=== PATIENT | female | born 1970 | race Caucasian/White ===

== ENCOUNTER → 2017-04-29 13:23 | Outpatient (CLI) | payer MEDICARE, SELFPAY | PROVIDERS: Visit Provider Obstetrics & Gynecology | DX: R30.0 Dysuria (principal) | CPT/HCPCS: 87086; 87088 ==

== ENCOUNTER 2018-02-03 20:12 | Emergency (ER) | payer MEDICARE, MEDICAID, SELFPAY ==
[2018-02-03 20:13] VITALS: BP 142/83; PULSE 94; RESP 16; TEMP 35.9; O2SAT 98; BMI 33.9
[2018-02-03 20:28] VITALS: BP 132/94; PULSE 80; RESP 16; O2SAT 97
--- NOTE | 2018-02-03 21:45 | ED.VISSUMM ---
- ER Visit Summary Date of Service: 02/03/18 Chief Complaint: [Left eye pain] History of Present Illness: The patient is a 47 F [presents the emergency department complaint of discomfort to her left eye that started initially yesterday. Patient initially had some mild discomfort felt like maybe she had an eyelash in her eye. Patient was unable to see anything in the eye when she or her looked. Today she and her flushed her eye and felt okay for a short time but then started having more discomfort and feels like there is a foreign body sensation underneath her upper lid. Patient denies any photophobia. She has had a lot of tearing. Patient also complaining of a swelling behind her right ear. Patient has had some cold symptoms recently.] Physical Examination: [HEENT-PERRLA, EOMI. Cranial nerves II through XII grossly intact. TMs clear. Mucous membranes moist. No adenopathy. Left eye-patient has conjunctival erythema. No exudate noted. Behind the right ear patient does have swelling which is consistent with an enlarged lymph node retroauricular over the area of the mastoid. There is no erythema or warmth. No significant tenderness over the mastoid. Cardiovascular-regular rate and rhythm without murmur or ectopy Lungs-clear to auscultation, chest wall stable without crepitus or subcu emphysema Abdomen-normoactive bowel sounds, soft, nontender, no rebound or rigidity, no peritoneal signs. Extremities-intact ?4, normal range of motion, normal pulses, atraumatic] Test Results: [None indicated] Emergency Department Course and Treatment: [Patient had tetracaine instilled into the left eye and I did stain the eye with floor seen and there were no foreign bodies noted. There is no corneal abrasions noted. Upper and lower eyelids were everted no foreign bodies noted. Patient's eye pressure in the left eye was 20] Treatment Plan: [Patient will be started on gentamicin ophthalmic drops and also will be started on Zithromax for the swollen lymph node.] Disposition: [Discharged home in stable condition]. Patient advised to follow-up with ophthalmology Dr. Maldonado within the next 1-2 days. Impression: [Conjunctivitis left eye Retroauricular lymphadenopathy] This note was generated with [employer] software. It may contain incorrect words, spelling, and punctuation that were not noted in review of the chart prior to signing ED Disposition - Plan for ED Patient: Chief Complaint: Eye Problem Referrals: Jeferson Blount MD [Primary Care Provider] -
[2018-02-03] MEDS: Tetracaine 0.5% Ophthalmic Bottle 1 DRP LEFT EYE (21:48)
--- NOTE | 2018-02-03 21:48 | ED.DCSUM_ITS ---
- ER Visit Summary Date of Service: 02/03/18 Chief Complaint: [Left eye pain] History of Present Illness: The patient is a 47 F [presents the emergency department complaint of discomfort to her left eye that started initially yesterday. Patient initially had some mild discomfort felt like maybe she had an eyelash in her eye. Patient was unable to see anything in the eye when she or her looked. Today she and her flushed her eye and felt okay for a short time but then started having more discomfort and feels like there is a foreign body sensation underneath her upper lid. Patient denies any photophobia. She has had a lot of tearing. Patient also complaining of a swelling behind her right ear. Patient has had some cold symptoms recently.] Physical Examination: [HEENT-PERRLA, EOMI. Cranial nerves II through XII grossly intact. TMs clear. Mucous membranes moist. No adenopathy. Left eye- patient has conjunctival erythema. No exudate noted. Behind the right ear patient does have swelling which is consistent with an enlarged lymph node retroauricular over the area of the mastoid. There is no erythema or warmth. No significant tenderness over the mastoid. Cardiovascular-regular rate and rhythm without murmur or ectopy Lungs-clear to auscultation, chest wall stable without crepitus or subcu emphysema Abdomen-normoactive bowel sounds, soft, nontender, no rebound or rigidity, no peritoneal signs. Extremities-intact ?4, normal range of motion, normal pulses, atraumatic] Test Results: [None indicated] Emergency Department Course and Treatment: [Patient had tetracaine instilled into the left eye and I did stain the eye with floor seen and there were no foreign bodies noted. There is no corneal abrasions noted. Upper and lower eyelids were everted no foreign bodies noted. Patient's eye pressure in the left eye was 20] Treatment Plan: [Patient will be started on gentamicin ophthalmic drops and also will be started on Zithromax for the swollen lymph node.] Disposition: [Discharged home in stable condition]. Patient advised to follow- up with ophthalmology Dr. Maldonado within the next 1-2 days. Impression: [Conjunctivitis left eye Retroauricular lymphadenopathy] This note was generated with [employer] software. It may contain incorrect words, spelling, and punctuation that were not noted in review of the chart prior to signing ED Disposition - Plan for ED Patient: Chief Complaint: Eye Problem Referrals: Jeferson Blount MD [Primary Care Provider] -
--- NOTE | 2018-02-03 21:48 | ED.DEP ---
ED Disposition - Plan for ED Patient: Chief Complaint: Eye Problem Instructions: ED Conjunctivitis Bacterial, ED Cervical Adenitis Abx Tx Prescriptions: Azithromycin [Zithromax] 250 mg PO DAILY #4 tab Referrals: Jeferson Blount MD [Primary Care Provider] - 3-5 Days Dane Maldonado MD [STAFF PHYSICIAN] - 1-2 Days if not improving
[2018-02-03] MEDS: Fluorescein 1 MG STRIP 1 STRIP LEFT EYE (21:58)
[2018-02-03] MEDS: Azithromycin 250 MG Tablet 500 MG PO (21:58)
[2018-02-03] MEDS: Gentamicin Sulfate 1 OPTH.BTL 2 DRP LEFT EYE (21:58)
== END 2018-02-03 22:00 | disposition home or self-care (01) ==
LOC: ED 21:04
PROVIDERS: Emergency Provider Emergency Medicine; Family Provider Family Medicine; PCP Family Medicine
DX: H10.9 Unspecified conjunctivitis (principal); R59.0 Localized enlarged lymph nodes
CPT/HCPCS: 99282

== ENCOUNTER 2018-04-28 09:39 | Emergency (ER) | payer MEDICARE, MEDICAID, SELFPAY ==
[2018-04-28 09:42] VITALS: BP 164/121; PULSE 113; RESP 18; TEMP 36.9; O2SAT 97; BMI 34.5
--- NOTE | 2018-04-28 09:52 | EKG12_ITS ---
Test Reason : ABDOMINAL PAIN Blood Pressure : / mmHG Vent. Rate : 090 BPM Atrial Rate : 090 BPM P-R Int : 126 ms QRS Dur : 092 ms QT Int : 356 ms P-R-T Axes : 009 -27 049 degrees QTc Int : 435 ms Normal sinus rhythm Normal ECG Confirmed by MARISSA COLINDRES, JAYSON ([id number]), editor news JEVON HARRIS ([id number]) on 05/03/2018 9:45:35 AM Referred By: CHRISTOPHER Confirmed By:JAYSON ANN MD
--- NOTE | 2018-04-28 10:45 | RAD_ITS ---
STUDY: X-RAY CHEST REASON FOR EXAM: Female, 47 years old. Chest pain. Right lower quadrant pain. TECHNIQUE: PA and lateral views of the chest. COMPARISON: Comparison is made with prior study dated July 12, 2016. FINDINGS: The lungs are clear and expanded. There is no demonstrated pleural abnormality. Normal size heart. Normal mediastinum and maggie. Normal visualized pulmonary arteries. Normal visualized aortic arch and descending thoracic aorta. Normal visualized thoracic spine. Normal visualized ribs, clavicles, and shoulders. There is no demonstrated abnormality of the visualized soft tissue structures of the upper abdomen. RAD/Chest PA and Lateral IMPRESSION: Normal x-ray examination of the chest. Electronically Signed: Gómez Vásquez MD at 11:04 EST , Service support ,
[2018-04-28 10:49] LABS: Absolute Lymphocyte Count 1.58 X10^3/ul (0.83-4.51); Absolute Neutrophil Count 7.4 X10^3/uL (2.0-7.7); Basophil# 0.05 X10^3/uL; Basophil% 0.5 % (0-1); Eosinophil# 0.28 X10^3/uL; Eosinophils% 2.8 % (0-5); Hematocrit 44.1 % (37-47); Hemoglobin 14.2 g/dl (12.0-15.0); Lymphocyte # 1.58 X10^3/ul (4.0); Lymphocyte % 15.8 % (19-41); Mean Corp Hgb Conc 32.2 g/gl (32-36); Mean Corpuscular Hgb 26.1 pg (27.0-32.0); Mean Corpuscular Volume 81.1 fL (81-99); Mean Platelet Vol. 9.5 fl (6.2-12.0); Monocyte# 0.64 X10^3/uL; Monocyte% 6.4 % (0-10); Neutrophil # 7.43 X10^3/uL (2.7-7.7); Neutrophil % 74.3 % (47-70); POSITIVE COUNT NO; POSITIVE DIFFERENTIAL NO; POSITIVE MORPHOLOGY NO; Platelet Count 277 K/mm3 (150-450); RBC Distribution Width CV 14.8 % (11.6-14.6); RBC Distribution Width SD 43.4 fl (35.1-43.9); Red Blood Count 5.44 M/mm3 (4.2-5.4)
[2018-04-28 11:03] LABS: AST(SGOT) 24 U/L (15-37); Alanine Aminotransfer ALT/SGPT 36 U/L (13-56); Albumin, Serum 3.6 g/dL (3.2-5.0); Alkaline Phosphatase 212 U/L (45-117); Anion Gap 6 (5-15); BUN 12 mg/dL (7-18); BUN/Creat Ratio 14.2 RATIO (10-20); Bilirubin, Direct 0.08 mg/dL (0.00-0.30); Chloride 107 mmol/L (98-107); Creatinine, Serum 0.85 mg/dL (0.55-1.02); EST Glomerular Filtration Rate 77 mL/min (>60); Est Glom Filt Rate - Afr Amer 93 mL/min (>60); Estimated Creatinine Clearance 68.41 ml/min; Globulin 5.3 g/dL (2.2-4.2); Glucose 74 mg/dL (74-106); Lipase 273 U/L (73-393); Potassium 4.1 mmol/L (3.5-5.1); Protein, Total 8.9 g/dL (6.4-8.2); Sodium Level 138 mmol/L (136-145)
--- NOTE | 2018-04-28 11:07 | ED.DCSUM_ITS ---
- ER Visit Summary Date of Service: 04/28/18 Chief Complaint: Right lower chest wall pain History of Present Illness: The patient is a 47 F presenting with right lower rib pain for the past 2 days. She states that she has been coughing for approximately a week and during a coughing spell she felt a pop in her right lower ribs. She has had pain since then with palpation. Despite her triage complaint, she denies abdominal pain to me, just right lower chest pain. She denies recent travel or mobilization. Denies lower extremity pain or swelling. No exertional component, just with palpation, twisting, or coughing. She denies history of DVT or PE. Physical Examination: Vitals are within normal limits. She is not hypoxic or tachycardic. Neck is supple. Heart tones are regular and without murmur. Lungs are clear bilaterally. Abdomen is completely soft and nontender. Sp ecifically no right upper or lower quadrant abdominal pain. She does have significant tenderness on palpation of her right lower ribs even with light palpation. There is no rash associated with it. No crepitus. No tenderness along the lower extremity venous system, palpable cords, or other evidence of DVT. Test Results: C and chemistries within normal limits. Liver panel normal except for slightly elevated alk phos. Troponin negative after several days of symptoms. D-dimer indeterminate at 0.64. The pain is somewhat pleuritic in nature so CT angiogram was ordered. It was negative for acute process. She did report right lower quadrant abdominal pain intermittently for several days when I spoke with her again so a 10/pelvis was added on. Negative for acute process. On examination, she looks quite well. No evidence of an acute surgical abdomen. Exact cause of her pain is not clear but it is easily reproducible and seems muscular skeletal in nature. I will treat her with naproxen and she will follow-up with her doctor if not improving Emergency Department Course and Treatment: Naproxen, follow-up Treatment Plan: [] Disposition: Home stable Impression: Initial encounter right lower chest wall pain, initial encounter abdominal pain uncertain etiology This note was generated with [employer] software. It may contain incorrect words, spelling, and punctuation that were not noted in review of the chart prior to signing ED Disposition - Plan for ED Patient: Instructions: ED Strain Chest Wall Prescriptions: Naproxen [Naprosyn] 500 mg PO BID #14 tablet Referrals: Jeferson Blount MD [Primary Care Provider] -
[2018-04-28 11:09] LABS: D-Dimer Quantitative (DVT/PE) 0.64 FEU/ug/m (0.27-0.49)
--- NOTE | 2018-04-28 11:10 | CT_ITS ---
STUDY: CTA CHEST REASON FOR EXAM: Female, 47 years old. Pain inferior to the right breast. RADIATION DOSAGE (If Supplied By Facility): CTDIvol = ( 15.89 ) mGy, DLP = ( 1587.29 ) mGycm TECHNIQUE: The examination was performed with the intravenous administration of 100CC ml of Isovue 300 contrast material. Post-processing of the angiographic images was performed, with multiplanar reformation and 3D reconstruction. Individualized dose optimization techniques were used for this CT. COMPARISON: Comparison is made with prior study dated July 12, 2016. FINDINGS: Normal enhancement of the main pulmonary artery and right and left pulmonary arteries. Normal enhancement of the bilateral peripheral pulmonary arteries. There is no demonstrated pulmonary embolism. Normal thoracic aorta and visualized great vessels. There is no demonstrated aortic dissection. Normal heart and pericardium. Normal mediastinum. There are bilateral hilar lymph nodes, which are normal in size and morphology. Normal visualized trachea and bronchi. The lungs are well expanded. Minimal degree of bibasilar atelectasis. Normal pleura. Normal chest wall structures. Normal osseous structures. Normal visualized upper abdomen. CT/CTA Chest W/WO Contrast IMPRESSION: Small bilateral hilar lymph nodes. These have decreased in size as compared to prior study. Electronically Signed: Gómez Vásquez MD at 12:40 EST , Service support ,
--- NOTE | 2018-04-28 11:10 | CT_ITS ---
STUDY: CT ABDOMEN AND PELVIS WITH CONTRAST REASON FOR EXAM: Female, 47 years old. Pain inferior to the right breast. RADIATION DOSAGE (If Supplied By Facility): CTDIvol = ( 15.89 ) mGy, DLP = ( 1587.29 ) mGycm TECHNIQUE: Transaxial images were obtained from the dome of the diaphragm to the symphysis pubis without oral contrast. 100CC ml of Isovue 370 contrast was administered. Sagittal and coronal images were reconstructed. Individualized dose optimization techniques were used for this CT. COMPARISON: Comparison is made with prior study dated November 27, 2015. FINDINGS: Minimal degree of bibasilar atelectasis. The visualized portions of the heart are within normal limits. There is decreased attenuation of the liver consistent with steatosis. Normal gallbladder and extrahepatic biliary system. Normal spleen. Normal pancreas. Normal bilateral adrenal glands. Normal right kidney. Normal left kidney. Normal visualized stomach. Normal small intestine. There are scattered colonic diverticula consistent with diverticulosis. The appendix is visualized and appears normal. Normal abdominal aorta. Normal inferior vena cava. Normal retroperitoneum. Normal urinary bladder. There is absence of the uterus consistent with a prior hysterectomy. Normal abdominal wall. Normal osseous structures. CT/Abdomen/Pelvis WITH Contrast IMPRESSION: Diffuse fatty infiltration of the liver. Mild degree of basilar atelectasis. Electronically Signed: Gómez Vásquez MD at 12:38 EST , Service support ,
--- NOTE | 2018-04-28 11:10 | ED.RN ---
LAB CALLED WITH CRITICAL RESULTS. D DIMER 0.64. DR. HURST MADE AWARE NO NEW ORDERS AT THIS TIME
[2018-04-28 13:31] VITALS: BP 148/82; PULSE 87; RESP 16; O2SAT 99
== END 2018-04-28 13:32 | disposition home or self-care (01) ==
LOC: ED 10:22
PROVIDERS: Emergency Provider Emergency Medicine; Family Provider Family Medicine; PCP Family Medicine
DX: R07.89 Other chest pain (principal); R10.31 Right lower quadrant pain; E78.00 Pure hypercholesterolemia, unspecified; Z72.0 Tobacco use; Z79.899 Other long term (current) drug therapy
CPT/HCPCS: 71046; 71275; 74177; 80048; 80076; 83690; 84484; 85025; 85379; 93005; 99283; Q9967; A4216

== ENCOUNTER 2018-07-05 10:03 | Emergency (ER) | payer MEDICARE, MEDICAID, SELFPAY ==
--- NOTE | 2018-07-05 09:58 | EKG12_ITS ---
Test Reason : CP Blood Pressure : / mmHG Vent. Rate : 073 BPM Atrial Rate : 073 BPM P-R Int : 116 ms QRS Dur : 100 ms QT Int : 374 ms P-R-T Axes : -24 -35 039 degrees QTc Int : 412 ms Normal sinus rhythm Left axis deviation Abnormal ECG Confirmed by CROW COLNIDRES, DUGLAS ([id number]), science editor JEVON HARRIS ([id number]) on 07/07/2018 9:36:45 AM Referred By: SESAR
[2018-07-05 10:04] VITALS: BP 150/72; PULSE 77; RESP 19; TEMP 36.8; O2SAT 99; BMI 34.5
--- NOTE | 2018-07-05 10:15 | RAD_ITS ---
STUDY: X-RAY CHEST REASON FOR EXAM: Female, 47 years old. 2 hour history of left-sided chest pain. Radiation to the left arm and neck. TECHNIQUE: PA and lateral views of the chest. COMPARISON: Comparison is made with prior study dated April 28, 2017. FINDINGS: EKG electrodes are seen. The lungs are clear and expanded. There is no demonstrated pleural abnormality. Normal size heart. Normal mediastinum and maggie. Normal visualized pulmonary arteries. Normal visualized aortic arch and descending thoracic aorta. Normal visualized thoracic spine. Normal visualized ribs, clavicles, and shoulders. There is no demonstrated abnormality of the visualized soft tissue structures of the upper abdomen. RAD/Chest PA and Lateral IMPRESSION: Normal x-ray examination of the chest. Electronically Signed: Gómez Vásquez, at 10:55 EDT , Service support ,
--- NOTE | 2018-07-05 10:26 | ED.VISSUMM ---
- ER Visit Summary Date of Service: 07/05/18 Chief Complaint: Chest pain History of Present Illness: The patient is a 47 F who states that about 2-3 hours before arriving in the emergency department she was watching TV when she developed a pain on the left side of her chest. It eventually started moving up towards her neck and left arm. Her asked that she would come to the emergency room for evaluation. Describes it as a throbbing sensation that is worse with movement cough and touch. She has a history of fibromyalgia and migraines and high cholesterol but is not currently taking any cholesterol medication. She has had a total hysterectomy and is supposed to be taking estrogen but is not. She is a smoker. Physical Examination: Afebrile vital signs are stable Gen: Well-nourished well-developed Head: Normocephalic atraumatic Eyes: Perrl EOMI ENT: TMs clear no rhinorrhea moist mucous membranes Neck: Supple no lymphadenopathy no JVD nontender CVS: Regular rate rhythm no murmurs normal S1-S2 Respiratory: No distress clear to auscultation bilaterally left chest is tender to palpation just above the breast in a very discrete area about the size of a half dollar. Abdomen: Soft nontender nondistended normal bowel sounds no masses Back: Nontender Extremity: Nontender no edema Skin: Normal color no rash Neuro: alert orientated ?3 CN II-XII intact normal strength sensation reflexes gait cerebellar Psych: Normal affect normal mood Test Results: EKG showed a normal sinus rhythm at a rate of 73. Troponin negative. Chest x-ray negative. D-dimer 0.6. CTA of the chest is negative for PE and dissection. Emergency Department Course and Treatment: Patient received Toradol for pain. Her pain is reproducible and very localized. Her MEGHANA score is 0. I believe this to be chest wall related. Patient instructed on anti-inflammatories rest. Follow-up with primary care Impression: 1. Chest wall pain This note was generated with [employer] dictation software. It may contain incorrect words, spelling, and punctuation that were not noted in review of the chart prior to signing ED Disposition - Plan for ED Patient: Disposition: Home or Assisted Living Instructions: ED Chest Pain Costochondritis Referrals: Jeferson Blount MD [Primary Care Provider] - 1 Week if not improving
[2018-07-05 10:32] LABS: Absolute Lymphocyte Count 1.22 X10^3/ul (0.83-4.51); Absolute Neutrophil Count 7.9 X10^3/uL (2.0-7.7); Basophil# 0.04 X10^3/uL; Basophil% 0.4 % (0-1); Eosinophil# 0.21 X10^3/uL; Eosinophils% 2.1 % (0-5); Hematocrit 42.6 % (37-47); Hemoglobin 13.7 g/dl (12.0-15.0); Lymphocyte # 1.22 X10^3/ul (4.0); Lymphocyte % 12.3 % (19-41); Mean Corp Hgb Conc 32.2 g/gl (32-36); Mean Corpuscular Hgb 26.1 pg (27.0-32.0); Mean Corpuscular Volume 81.1 fL (81-99); Mean Platelet Vol. 9.3 fl (6.2-12.0); Monocyte# 0.54 X10^3/uL; Monocyte% 5.4 % (0-10); Neutrophil % 79.8 % (47-70); Platelet Count 250 K/mm3 (150-450); RBC Distribution Width SD 44.1 fl (35.1-43.9); Red Blood Count 5.25 M/mm3 (4.2-5.4); White Blood Count 9.9 K/mm3 (4.4-11.0)
[2018-07-05 10:33] LABS: POSITIVE COUNT NO; POSITIVE DIFFERENTIAL NO; POSITIVE MORPHOLOGY NO
[2018-07-05 10:46] LABS: Anion Gap 5 (5-15); BUN 11 mg/dL (7-18); BUN/Creat Ratio 12.1 RATIO (10-20); Calcium,Total 9.1 mg/dL (8.5-10.1); Chloride 105 mmol/L (98-107); Creatinine, Serum 0.91 mg/dL (0.55-1.02); EST Glomerular Filtration Rate 71 mL/min (>60); Est Glom Filt Rate - Afr Amer 85 mL/min (>60); Glucose 99 mg/dL (74-106); Potassium 3.9 mmol/L (3.5-5.1); Sodium Level 137 mmol/L (136-145)
--- NOTE | 2018-07-05 10:55 | ED.RN ---
LAB CALL WITH CRITICAL RESULT D DIMER LEVEL OF 0.6. VERBALLY REPORTED TO DR. GUSTAVO RN.
--- NOTE | 2018-07-05 10:57 | CT_ITS ---
STUDY: CTA CHEST REASON FOR EXAM: Female, 47 years old. Left-sided chest pain. Shortness of breath and nausea. RADIATION DOSAGE (If Supplied By Facility): CTDIvol = ( 11.12 ) mGy, DLP = ( 463.09 ) mGycm TECHNIQUE: The examination was performed with the intravenous administration of 100mL IV Isovue 370. Post-processing of the angiographic images was performed, with multiplanar reformation and 3D reconstruction. Individualized dose optimization techniques were used for this CT. COMPARISON: Comparison is made with prior study dated April 28, 2018. FINDINGS: Normal enhancement of the main pulmonary artery and right and left pulmonary arteries. Normal enhancement of the bilateral peripheral pulmonary arteries. There is no demonstrated pulmonary embolism. Normal thoracic aorta and visualized great vessels. There is no demonstrated aortic dissection. Normal heart and pericardium. Normal mediastinum. Normal hilar regions. Normal visualized trachea and bronchi. The lungs are well expanded. Normal pulmonary parenchyma. Normal pleura. Normal chest wall structures. Normal osseous structures. Fatty infiltration of the liver. CT/CTA Chest W/WO Contrast IMPRESSION: Normal CTA chest examination, without a demonstrated pulmonary embolism or arterial dissection. Electronically Signed: Gómez Vásquez, at 12:07 EDT , Service support ,
[2018-07-05 11:43] VITALS: BP 149/83; PULSE 76; RESP 18; O2SAT 96
[2018-07-05] MEDS: Ondansetron 4 MG/2 ML Vial IV (11:45)
[2018-07-05 12:27] VITALS: BP 131/85; PULSE 74; RESP 14
== END 2018-07-05 12:28 | disposition home or self-care (01) ==
PROVIDERS: Emergency Provider Emergency Medicine; Family Provider Family Medicine; PCP Family Medicine
DX: R07.89 Other chest pain (principal); E78.00 Pure hypercholesterolemia, unspecified; M79.7 Fibromyalgia; Z72.0 Tobacco use; Z90.710 Acquired absence of both cervix and uterus
CPT/HCPCS: 71046; 71275; 80048; 84484; 85025; 85379; 93005; 96374; 99284; Q9967; A4216; J2405

== ENCOUNTER 2019-01-26 05:04 | Emergency (ER) | payer MEDICARE, MEDICAID, SELFPAY ==
[2019-01-26 05:06] VITALS: BP 158/76; PULSE 85; RESP 18; TEMP 36.5; O2SAT 99; BMI 37.4
--- NOTE | 2019-01-26 05:20 | ED.VIS.GEN ---
History of Present Illness Chief Complaint: Numb/Ting Informant: Patient Onset: Days Context: Gradual Onset Timing: Intermittent Current Severity: Severe Maximum Severity: Severe Narrative: Patient is a 48-year-old female with past medical history of Chronic back pain, fibromyalgia, anxiety/depression and hyperlipidemia presenting with pain in her bilateral hands as well as feet. Patient states she had some pain and swelling in her hands over the past 2 days. She describes as a pins and needle sensation. She states she woke up around 3 AM and noticed that the pain was much worse. She does not think the pain woke her up from sleep. She states making a fist seems to make the pain much worse. She does have a history of carpal tunnel release on the left side by Dr. Weinstein. Patient also notes that she has had some urinary symptoms for the past week. She states that often she will feel that she needs to urinate but she has a lot of hesitancy and other times when she tries to go pee a large amount of urine comes out without any effort. She denies any associated dysuria or hematuria. Patient has some lower back pain. She denies any fever or chills. She denies any shortness of breath or chest pain. She denies any GI symptoms. Past Medical History - Allergies and Home Meds Allergies/Adverse Reactions: Allergies adhesive Allergy (Verified 01/26/19 05:16) Rash fluoxetine HCl [From Prozac] Allergy (Verified 01/26/19 05:16) Anaphylaxis THROAT SWELLING ketorolac tromethamine [From Toradol] Allergy (Verified 01/26/19 05:16) Rash tramadol Allergy (Verified 01/26/19 05:16) Unknown prednisone Adverse Reaction (Verified 01/26/19 05:16) Other sulfamethoxazole [From Bactrim] Adverse Reaction (Verified 01/26/19 05:16) Vomiting trimethoprim [From Bactrim] Adverse Reaction (Verified 01/26/19 05:16) Vomiting CAPSULES Adverse Reaction (Uncoded 01/26/19 05:16) Unknown burning, feels stuck Primary Care Physician: Emmanuelle Guajardo PA [Primary Care Provider] - Past Medical History: - - Chronic back pain, fibromyalgia, anxiety/depression and hyperlipidemia Surgical History: hysterectomy, - - Left knee arthroscopy, shoulder surgery, tonsillectomy and adenoidectomy, colonoscopy, ovarian cyst surgery Smoking Status: Current every day smoker Alcohol: Rare Drugs: None - Family History Maternal Family History: Reports: - - Mother from heart failure. Paternal Family History: Reports: - - Father from pneumonia. Review of Systems All systems negative except as indicated Genitourinary: Reports: - - Hesitancy Musculoskeletal: Reports: Back pain, Swelling - Bilateral hands, Extremity Pain - Bilateral hand and feet pain Physical Exam Vital Signs/Narrative: Vital Signs Temp Pulse Resp BP Pulse Ox 01/26/19 05:06 97.7 F L 85 18 158/76 H 99 Inital Vital Signs reviewed: Yes General: Well nourished, Well developed, No Acute Distress Head: Normocephalic, Atraumatic Eyes: Perrl, EOMI ENT: No rhinorrhea, Dry mucous membranes Neck: Supple, Nontender Cardiovascular: Regular rate, Regular rhythm, No murmurs Respiratory: No distress, CTA bilaterally, Chest nontender Abdomen: Soft, Nontender, Nondistended, Normal bowel sounds Back: Normal Inspection, - - Left paraspinal lumbar tenderness to palpation. Negative for: CVA tenderness, Spinal tenderness Extremities: No edema, - - Tenderness to even light palpation of the bilateral hands, patient jerks and pulls her hands away with even the lightest of touch. Does not seem to be affected by dermatomal. Sensation and strength intact in all dermatomes. No pain with palpation of the carpal tunnel. Mild diffuse tenderness palpation of the bilateral feet Skin: No rash, Pallor Neurological: Alert, Oriented x3, Cranial nerves II-XII grossly intact, Normal Strength, Normal Sensation. Negative for: Parasthesia Psychological: Normal affect, Normal Mood Diagnostic/Tx/Re-eval Laboratory Data 01/26/19 01/26/19 01/26/19 05:25 05:25 06:10 WBC 8.7 RBC 5.03 Hgb 12.6 Hct 40.7 MCV 80.9 L MCH 25.0 L MCHC 31.0 L RDW Std Deviation 46.8 H RDW Coeff of Dottie 15.9 H Plt Count 213 MPV 9.0 Immature Gran % (Auto) 0.700 Neut % (Auto) 68.9 Lymph % (Auto) 19.6 Howard % (Auto) 5.1 Eos % (Auto) 4.9 Baso % (Auto) 0.8 Absolute Neuts (auto) 6.0 Absolute Lymphs (auto) 1.70 Nucleated RBC % 0 Sodium 143 Potassium 3.7 Chloride 108 H Carbon Dioxide 29.0 Anion Gap 6 BUN 8 Creatinine 0.93 Estim Creat Clear Calc 61.86 Est GFR (MDRD) Af Amer 83 Est GFR (MDRD) Non-Af 68 BUN/Creatinine Ratio 8.6 L Glucose 102 Calcium 8.3 L Total Bilirubin 0.20 AST 26 ALT 36 Alkaline Phosphatase 211 H Total Protein 7.4 Albumin 3.1 L Globulin 4.3 H Albumin/Globulin Ratio 0.7 L Urine Color Yellow Urine Clarity Sl. Cloudy Urine pH 6.5 Ur Specific [place] 1.010 Urine Protein Negative Urine Glucose (UA) Normal Urine Ketones Negative Urine Occult Blood Negative Urine Nitrite Negative Urine Bilirubin Negative Urine Urobilinogen Normal Ur Leukocyte Esterase Negative Urine RBC 0 SEEN Urine WBC 0 SEEN Ur Squamous Epith Cells 0-5 SEEN Urine Bacteria RARE Urine Mucus 0 SEEN - Medical Decision Making She is presenting with worsening pain in her hands as well as [id number] sensation. She feels that there is been swelling. She appears nontoxic and in no acute distress. She is quite tender to even light palpation. She has normal neurologic exam. She does not have any appreciable edema on exam. Patient does admit to a history of neuropathy and is on gabapentin 300 mg 3 times a day for this. I suspect this is an exacerbation of her neuropathy. She does not have any findings concerning for an acute infection. Urinalysis is negative and I do not know what to think of her urinary symptoms but I do not think it requires further emergent evaluation. Patient is counseled to follow-up with her primary care doctor. ED Disposition - Plan for ED Patient: Disposition: Home or Assisted Living Diagnosis: Neuropathy, Hand pain Instructions: NEUROPATHY, Peripheral Referrals: Emmanuelle Guajardo PA [Primary Care Provider] - Additional Instructions: He did not have any significant electrolyte abnormalities or signs of infection today. Please follow-up with your primary care doctor for further evaluation. I suspect this is a worsening of your peripheral neuropathy that is causing your pain tonight.
[2019-01-26] MEDS: 0.9% Normal Saline 1,000 ML 1000 ML IV (05:26)
[2019-01-26 05:31] LABS: Basophil# 0.07 X10^3/uL; Basophil% 0.8 % (0-1); Eosinophil# 0.43 X10^3/uL; Eosinophils% 4.9 % (0-5); Hematocrit 40.7 % (37-47); Hemoglobin 12.6 g/dL (12.0-15.0); Lymphocyte % 19.6 % (19-41); Mean Corpuscular Volume 80.9 fL (81-99); Monocyte# 0.44 X10^3/uL; Monocyte% 5.1 % (0-10); NRBC Flagged by Analyzer 0 % (0-5); Neutrophil # 5.99 X10^3/uL (2.7-7.7); Neutrophil % 68.9 % (47-70); Platelet Count 213 K/mm3 (150-450); RBC Distribution Width CV 15.9 % (11.6-14.6); RBC Distribution Width SD 46.8 fl (35.1-43.9); Red Blood Count 5.03 M/mm3 (4.2-5.4); White Blood Count 8.7 K/mm3 (4.4-11.0)
[2019-01-26 05:47] LABS: ALB/GLOB Ratio 0.7 RATIO (0.9-2.4); AST(SGOT) 26 U/L (15-37); Alanine Aminotransfer ALT/SGPT 36 U/L (13-56); Albumin, Serum 3.1 g/dL (3.2-5.0); Alkaline Phosphatase 211 U/L (45-117); Anion Gap 6 (5-15); BUN 8 mg/dL (7-18); BUN/Creat Ratio 8.6 RATIO (10-20); Calcium,Total 8.3 mg/dL (8.5-10.1); Chloride 108 mmol/L (98-107); Creatinine, Serum 0.93 mg/dL (0.55-1.02); EST Glomerular Filtration Rate 68 mL/min (>60); Est Glom Filt Rate - Afr Amer 83 mL/min (>60); Estimated Creatinine Clearance 61.86 ml/min; Globulin 4.3 g/dL (2.2-4.2); Glucose 102 mg/dL (74-106); Potassium 3.7 mmol/L (3.5-5.1); Protein, Total 7.4 g/dL (6.4-8.2); Sodium Level 143 mmol/L (136-145)
[2019-01-26 06:24] LABS: Mucous, Urine 0 SEEN /hpf (<or=2+); Red Blood Cells-Urine 0 SEEN /hpf (0-5); White Blood Cells 0 SEEN /hpf (0-5)
[2019-01-26 06:34] LABS: Color, Urine Yellow (Yellow); Glucose, Dipstick Normal (Normal); Ketone-Dipstick Negative (Negative); Leukocyte Esterase-Dipstick Negative /ul (Negative); Nitrite-Dipstick Negative (Negative); Occult Blood-Urine Negative /ul (Negative); Protein-Dipstick Negative (Negative); Urine Bilirubin Dipstick Negative (Negative); Urine Clarity Sl. Cloudy (Clear); Urine Urobilinogen Normal (Normal); Urine pH 6.5 (5.0 - 8.0)
[2019-01-26 06:36] LABS: Bacteria RARE /hpf (None Seen); Squamous Epithelial Cells - UA 0-5 SEEN /hpf (5-10)
[2019-01-26 07:41] VITALS: BP 157/95; PULSE 72; RESP 18; O2SAT 99
== END 2019-01-26 07:42 | disposition home or self-care (01) ==
PROVIDERS: Emergency Provider Emergency Medicine; Family Provider Physician Assistant; PCP Physician Assistant
DX: G62.9 Polyneuropathy, unspecified (principal); R39.11 Hesitancy of micturition; M54.5 Low back pain; G89.29 Other chronic pain; M79.7 Fibromyalgia; E78.5 Hyperlipidemia, unspecified; Z79.899 Other long term (current) drug therapy; F17.200 Nicotine dependence, unspecified, uncomplicated
CPT/HCPCS: 80053; 81001; 85025; 96360; 96361; 99283; J7030; A4216

== ENCOUNTER 2019-01-30 08:53 | Emergency (ER) | payer MEDICARE, MEDICAID, SELFPAY ==
[2019-01-30 08:54] VITALS: BP 166/97; PULSE 105; RESP 17; TEMP 36.4; O2SAT 99; BMI 33.5
--- NOTE | 2019-01-30 09:10 | CT_ITS ---
STUDY: CT ABDOMEN AND PELVIS WITHOUT CONTRAST REASON FOR EXAM: Female, 48 years old. Left flank pain RADIATION DOSAGE (If Supplied By Facility): CTDIvol = ( 21.59 ) mGy, DLP = ( 1105.80 ) mGycm TECHNIQUE: Transaxial images were obtained from the dome of the diaphragm to the symphysis pubis without oral contrast, and without intravenous contrast. Sagittal and coronal images were reconstructed. Individualized dose optimization techniques were used for this CT. COMPARISON: July 05, 2018 CT scan chest Limited comparison. FINDINGS: The visualized lung bases are unremarkable. The visualized portions of the heart are within normal limits. There is decreased attenuation of the liver consistent with steatosis. Normal gallbladder and extrahepatic biliary system. There is mild splenomegaly. Normal pancreas. Normal bilateral adrenal glands. Normal right kidney. Normal left kidney. There is a small hiatal hernia. Normal small intestine. Is abundant stool in the colon from the cecum to the rectum. The appendix is visualized and appears normal. Normal abdominal aorta. Normal inferior vena cava. There a few nonspecific retroperitoneal lymph nodes. Normal urinary bladder. There is absence of the uterus consistent with a prior hysterectomy. There is a small umbilical hernia containing fat. Normal osseous structures. CT/Abdomen/Pelvis without Cont IMPRESSION: No evidence of renal or ureteral bladder calculi. Constipation. Hepatic steatosis. No evidence Electronically Signed: Rere Mahoney MD at 10:18 EST Tel , Service support ,
[2019-01-30 09:22] LABS: Bacteria 0 SEEN /hpf (None Seen); Mucous, Urine 0 SEEN /hpf (<or=2+); Red Blood Cells-Urine 0 SEEN /hpf (0-5); White Blood Cells 0 SEEN /hpf (0-5)
[2019-01-30] MEDS: 0.9% Normal Saline 1,000 ML 1000 ML IV (09:26)
[2019-01-30 09:35] LABS: BUN 9 mg/dL (7-18); Creatinine, Serum 0.92 mg/dL (0.55-1.02); Estimated Creatinine Clearance 62.53 ml/min; Glucose 94 mg/dL (74-106)
[2019-01-30 09:36] LABS: Color, Urine Yellow (Yellow); Glucose, Dipstick Normal (Normal); Ketone-Dipstick Negative (Negative); Leukocyte Esterase-Dipstick Negative /ul (Negative); Nitrite-Dipstick Negative (Negative); Occult Blood-Urine Negative /ul (Negative); Protein-Dipstick Negative (Negative); Squamous Epithelial Cells - UA 0-5 SEEN /hpf (5-10); Urine Bilirubin Dipstick Negative (Negative); Urine Clarity Clear (Clear); Urine Urobilinogen Normal (Normal); Urine pH 6.5 (5.0 - 8.0)
[2019-01-30 09:36] LABS: Anion Gap 7 (5-15); BUN/Creat Ratio 9.8 RATIO (10-20); Calcium,Total 8.9 mg/dL (8.5-10.1); Chloride 106 mmol/L (98-107); EST Glomerular Filtration Rate 70 mL/min (>60); Est Glom Filt Rate - Afr Amer 84 mL/min (>60); Potassium 4.1 mmol/L (3.5-5.1); Sodium Level 139 mmol/L (136-145)
[2019-01-30 09:39] LABS: Absolute Lymphocyte Count 1.47 X10^3/uL (0.83-4.51); Absolute Neutrophil Count 8.3 X10^3/uL (2.0-7.7); Basophil# 0.07 X10^3/uL; Basophil% 0.7 % (0-1); Eosinophils% 3.7 % (0-5); Hematocrit 42.4 % (37-47); Hemoglobin 13.2 g/dL (12.0-15.0); Lymphocyte # 1.47 X10^3/ul (4.0); Lymphocyte % 13.7 % (19-41); Mean Corp Hgb Conc 31.1 g/dL (32-36); Mean Corpuscular Hgb 25.3 pg (27.0-32.0); Mean Corpuscular Volume 81.2 fL (81-99); Mean Platelet Vol. 9.4 fl (6.2-12.0); Monocyte# 0.43 X10^3/uL; NRBC Flagged by Analyzer 0 % (0-5); Neutrophil # 8.29 X10^3/uL (2.7-7.7); Neutrophil % 77.1 % (47-70); Platelet Count 255 K/mm3 (150-450); RBC Distribution Width CV 15.9 % (11.6-14.6); RBC Distribution Width SD 46.8 fl (35.1-43.9); Red Blood Count 5.22 M/mm3 (4.2-5.4); White Blood Count 10.8 K/mm3 (4.4-11.0)
[2019-01-30 11:05] VITALS: PULSE 81; RESP 14
--- NOTE | 2019-01-30 11:30 | ED.VISSUMM ---
- ER Visit Summary Date of Service: 01/30/19 Chief Complaint: [Dysuria] History of Present Illness: The patient is a 48 F [Zentz to the emergency department complaint of dysuria and urinary incontinence at night for the last 4 days. Patient denies any fevers. She denies chills or sweats. She is had no nausea or vomiting. She does describe frequency and urgency. Patient states sometimes she will urinate small amounts and sometimes large amounts. Patient having normal bowel movements. She denies any fevers. Patient also complaining of some back pain especially in the left flank. Patient states that she used to see a urologist back in 2013 for some issues with having a hard time voiding her urine and tells me she think she may have had a narrowing of her urethra at that time. Patient denies any back injury. She denies any paresthesias in her legs. She denies any weakness in the legs. She denies any saddle anesthesia.] Physical Examination: [HEENT-PERRLA, EOMI. Cranial nerves II through XII grossly intact. TMs clear. Mucous membranes moist. No adenopathy. Cardiovascular-regular rate and rhythm without murmur or ectopy Lungs-clear to auscultation, chest wall stable without crepitus or subcu emphysema Abdomen-normoactive bowel sounds, soft, nontender, no rebound or rigidity, no peritoneal signs. Back exam-patient has no tenderness over the thoracic or lumbar spine. She does have some mild CVA tenderness on the left. Negative straight leg raise bilaterally. Deep tendon reflexes are plus 2 out of 4 bilaterally at the patella and Achilles. Patient has normal L5 extension bilaterally. Patient has normal sensation to light touch. Extremities-intact ?4, normal range of motion, normal pulses, atraumatic] Test Results: [CBC with differential was normal. Chemistries normal. Urinalysis normal. CT flank showed some constipation otherwise nothing acute.] Emergency Department Course and Treatment: [] Treatment Plan: [Patient will be referred to urology for follow-up as the etiology of her nighttime urinary incontinence is unclear.] Disposition: [Discharged home in stable condition.] Impression: [Dysuria-etiology uncertain Urinary incontinence-etiology uncertain] This note was generated with [employer] software. It may contain incorrect words, spelling, and punctuation that were not noted in review of the chart prior to signing ED Disposition - Plan for ED Patient: Referrals: Emmanuelle Guajardo PA [Primary Care Provider] -
--- NOTE | 2019-01-30 11:33 | ED.DEP ---
ED Disposition - Plan for ED Patient: Instructions: URINARY INCONTINENCE, Female (Adult) Referrals: Emmanuelle Guajardo PA [Primary Care Provider] - 3-5 Days Pattie Kramer MD [STAFF PHYSICIAN] - 3-5 Days
[2019-01-30 12:02] VITALS: BP 149/89; PULSE 81; RESP 16; O2SAT 98
== END 2019-01-30 12:06 | disposition home or self-care (01) ==
LOC: ED 09:13
PROVIDERS: Emergency Provider Emergency Medicine; Family Provider Physician Assistant; PCP Physician Assistant
DX: R30.0 Dysuria (principal); R32 Unspecified urinary incontinence; R35.0 Frequency of micturition; M54.9 Dorsalgia, unspecified; K59.00 Constipation, unspecified; K76.0 Fatty (change of) liver, not elsewhere classified; E78.00 Pure hypercholesterolemia, unspecified; Z79.899 Other long term (current) drug therapy; Z72.0 Tobacco use
CPT/HCPCS: 74176; 80048; 81001; 85025; 96360; 99283; J7030; A4216

== ENCOUNTER → 2019-03-22 08:10 | Outpatient (CLI) | payer MEDICARE, MEDICAID, SELFPAY ==
--- NOTE | 2019-03-22 08:14 | RAD_ITS ---
Procedure: Fluoroscopically guided, dedicated esophagram including frontal and lateral cine evaluations of the larynx/pharynx region. Multiple images were obtained during the course of the real-time examination. Indication reflux times many years. History of hiatal hernia. TECHNIQUE: The patient easily and readily swallowed effervescent crystals, a 12 mm barium pill in various density barium contrast. FINDINGS: Esophageal motility appears normal. There is no esophageal stricture, web or diverticulum. There is no hiatal hernia. No free reflux was observed during the course of the real-time examination. The esophageal mucosal pattern appears normal. The barium pill passed easily into the stomach. There is symmetric transit of the contrast bolus through the pharynx/larynx and hypopharyngeal regions. No intrinsic or extrinsic mass or mass effect. Unremarkable appearing mucosal pattern. No pharyngeal diverticulum. No vestibular penetration. No mateo aspiration. RAD/Esophagus Only IMPRESSION: No fluoroscopically evident pathology. Fluoroscopy time 1.10 minutes. Electronically Signed: Brandon Wong MD at 9:25 EST , Service support ,
== END ==
PROVIDERS: Family Provider Family Medicine; PCP Family Medicine; Referring Provider Otolaryngology; Visit Provider Otolaryngology
DX: K21.9 Gastro-esophageal reflux disease without esophagitis (principal); R13.10 Dysphagia, unspecified
CPT/HCPCS: 74220

== ENCOUNTER 2019-06-13 10:23 | Emergency (ER) | payer MEDICARE, MEDICAID, SELFPAY ==
[2019-06-13] VITALS (7 sets, daily range): BP systolic 129–147; BP diastolic 65–97; PULSE 90–101; RESP 16–18; TEMP 36.2; O2SAT 97–100; BMI 37.7
--- NOTE | 2019-06-13 11:02 | ED.VISSUMM ---
- ER Visit Summary Date of Service: 06/13/19 Chief Complaint: Palpitations and shortness of breath History of Present Illness: The patient is a 48 F who presents with palpitations, shortness of breath, dizziness that has been constant for the past 4 days. Patient states she feels dizzy and unbalanced. Patient states she feels like her heart is racing. Patient states her head feels foggy at times. Patient states her dizziness and heart racing is worse with any exertion. Patient admits to subjective fevers and chills. Patient admits to a sore throat. Patient also admits to a cough. Patient admits to some nausea but denies any vomiting. Patient also admits to a generalized headache. Physical Examination: Vital signs are stable. Patient is afebrile. Patient is in no acute distress. Oral mucosa is pink and moist. Neck is supple. Trachea is midline. There is no JVD noted. Heart was regular rate and rhythm. Lungs are clear and equal bilaterally. Abdomen is soft. Bowel sounds are normal. There is no tenderness. There is no rebound or guarding noted. Skin is warm dry. Cranial nerves II through XII are intact. There are no focal motor or sensory deficits noted. Extremities are intact. There is mild bilateral calf tenderness but there is no edema. Test Results: EKG showed normal sinus rhythm with a rate of 91. There are no acute ST or T wave changes. PA and lateral chest x-ray was obtained. There is no acute cardiopulmonary process. This is interpreted by the radiologist and myself. CBC showed a slight leukocytosis of 13.4. Comprehensive metabolic profile was essentially within normal limits. Rapid strep was negative. RSV was negative. Influenza was negative. Orthostatic vital signs were obtained and were normal. Emergency Department Course and Treatment: Patient was feeling better on reevaluation. Patient wants to go home. Patient was instructed to follow-up with her primary care physician in 5 to 7 days. Patient understood and was agreeable with the plan. All questions were answered. Disposition: Discharge home Impression: Palpitations This note was generated with [employer] software. It may contain incorrect words, spelling, and punctuation that were not noted in review of the chart prior to signing ED Disposition - Plan for ED Patient: Disposition: Home or Assisted Living Diagnosis: Palpitations Instructions: Palpitations Referrals: Dane Flores MD [Primary Care Provider] - 5-7 Days
--- NOTE | 2019-06-13 11:04 | EKG12_ITS ---
Test Reason : PALPS Blood Pressure : / mmHG Vent. Rate : 091 BPM Atrial Rate : 091 BPM P-R Int : 116 ms QRS Dur : 102 ms QT Int : 364 ms P-R-T Axes : -28 -27 056 degrees QTc Int : 447 ms Normal sinus rhythm Normal ECG Confirmed by MARISSA COLINDRES, JAYSON ([id number]), writer editor JEVON HARRIS ([id number]) on 06/16/2019 1:04:05 PM Referred By: PAMELA Confirmed By:JAYSON ANN MD
[2019-06-13 11:23] LABS: Absolute Lymphocyte Count 2.14 X10^3/uL (0.83-4.51); Absolute Neutrophil Count 10.1 X10^3/uL (2.0-7.7); Basophil# 0.07 X10^3/uL; Basophil% 0.5 % (0-1); Eosinophil# 0.43 X10^3/uL; Eosinophils% 3.2 % (0-5); Hematocrit 42.8 % (37-47); Hemoglobin 13.2 g/dL (12.0-15.0); Lymphocyte # 2.14 X10^3/ul (4.0); Lymphocyte % 15.9 % (19-41); Mean Corp Hgb Conc 30.8 g/dL (32-36); Mean Corpuscular Hgb 24.5 pg (27.0-32.0); Mean Corpuscular Volume 79.4 fL (81-99); Mean Platelet Vol. 9.5 fl (6.2-12.0); Monocyte# 0.59 X10^3/uL; Monocyte% 4.4 % (0-10); NRBC Flagged by Analyzer 0 % (0-5); Neutrophil # 10.09 X10^3/uL (2.7-7.7); Neutrophil % 75.3 % (47-70); Platelet Count 269 K/mm3 (150-450); RBC Distribution Width CV 15.3 % (11.6-14.6); RBC Distribution Width SD 43.8 fl (35.1-43.9); Red Blood Count 5.39 M/mm3 (4.2-5.4); White Blood Count 13.4 K/mm3 (4.4-11.0)
[2019-06-13 11:35] LABS: ALB/GLOB Ratio 0.8 RATIO (0.9-2.4); AST(SGOT) 30 U/L (15-37); Alanine Aminotransfer ALT/SGPT 49 U/L (13-56); Albumin, Serum 3.6 g/dL (3.2-5.0); Alkaline Phosphatase 215 U/L (45-117); Anion Gap 7 (5-15); BUN 14 mg/dL (7-18); BUN/Creat Ratio 14.8 RATIO (10-20); Calcium,Total 8.9 mg/dL (8.5-10.1); Chloride 103 mmol/L (98-107); Creatinine, Serum 0.95 mg/dL (0.55-1.02); EST Glomerular Filtration Rate 67 mL/min (>60); Est Glom Filt Rate - Afr Amer 81 mL/min (>60); Estimated Creatinine Clearance 60.56 ml/min; Globulin 4.7 g/dL (2.2-4.2); Glucose 86 mg/dL (74-106); Partial Thromboplast Time 26.1 Seconds (24.1-36.2); Potassium 3.9 mmol/L (3.5-5.1); Protein, Total 8.3 g/dL (6.4-8.2); Sodium Level 137 mmol/L (136-145)
--- NOTE | 2019-06-13 11:42 | RAD_ITS ---
STUDY: X-RAY CHEST REASON FOR EXAM: Female, 48 years old. PALPITATIONS, SOB AND RIGHT LEG PAIN TECHNIQUE: PA and lateral views of the chest. COMPARISON: Comparison is made with prior examination dated July 05, 2018. FINDINGS: EKG electrodes are seen. The lungs are clear and expanded. There is no demonstrated pleural abnormality. Normal size heart. Normal mediastinum and maggie. Normal visualized pulmonary arteries. Normal visualized aortic arch and descending thoracic aorta. Normal visualized thoracic spine. Normal visualized ribs, clavicles, and shoulders. There is no demonstrated abnormality of the visualized soft tissue structures of the upper abdomen. RAD/Chest PA and Lateral IMPRESSION: Normal x-ray examination of the chest. Electronically Signed: Gómez Vásquez, at 12:29 EDT , Service support ,
== END 2019-06-13 15:00 | disposition home or self-care (01) ==
PROVIDERS: Emergency Provider Emergency Medicine; PCP Family Medicine
DX: R00.2 Palpitations (principal); R06.02 Shortness of breath; R42 Dizziness and giddiness; J02.9 Acute pharyngitis, unspecified; R11.0 Nausea; R51 Headache; M54.2 Cervicalgia; Z72.0 Tobacco use; Z79.899 Other long term (current) drug therapy
CPT/HCPCS: 71046; 80053; 85025; 85610; 85730; 87804; 87807; 87880; 93005; 99285; A4216

== ENCOUNTER → 2020-02-10 10:03 | Outpatient (CLI) | payer MEDICARE, MEDICAID, SELFPAY ==
[2019-06-13 10:25] VITALS: BMI 37.7
== END ==
PROVIDERS: PCP Family Medicine; Referring Provider Family Medicine; Visit Provider Family Medicine
DX: U07.1 COVID-19 (principal)
CPT/HCPCS: 87635; C9803; U0003

== ENCOUNTER → 2020-02-28 14:20 | Outpatient (CLI) | payer MEDICARE, MEDICAID, SELFPAY ==
[2019-06-13 10:25] VITALS: BMI 37.7
--- NOTE | 2020-02-28 14:23 | CT_ITS ---
STUDY: CT MAXILLOFACIAL SINUSES REASON FOR EXAM: Female, 49 years old. Sinusitis, prior balloon sinuplasty, left maxillary injury. Corvil navigation protocol. RADIATION DOSAGE (If Supplied By Facility): CTDIvol = ( 33.45 ) mGy, DLP = ( 784.73 ) mGycm TECHNIQUE: The patient was scanned in a multi detector CT scanner. High resolution axial imaging was performed without the administration of intravenous contrast material. Sagittal and coronal images were reconstructed. Individualized dose optimization techniques were used for this CT. COMPARISON: Comparison is made with prior study dated 06/25/2015. FINDINGS: FRONTAL SINUSES: Normal aeration, without mucosal inflammatory disease. ETHMOIDAL SINUSES: Mild degree of mucosal thickening of the ethmoid sinuses slightly worse along the posterior aspect of the left ethmoid sinus. MAXILLARY SINUSES: Normal aeration, without mucosal inflammatory disease. SPHENOIDAL SINUSES: Normal aeration, without mucosal inflammatory disease. There is patency of the bilateral maxillary infundibuli with normal uncinate processes, ethmoid bullae, and hiatus semilunaris. Normal bilateral middle turbinates. Normal bilateral inferior turbinates. Normal midline nasal septum. There is patency of the bilateral nasal airways. The visualized osseous structures are normal. The visualized bilateral orbital contents are normal. CT/Sinus/Facial Bone IMPRESSION: Mild degree of mucosal thickening of the ethmoid sinuses slightly more prominent along the posterior aspect of the left ethmoid sinus. Electronically Signed: Gómez Vásquez, at 15:09 EST , Service support ,
== END ==
PROVIDERS: PCP Family Medicine; Referring Provider Otolaryngology; Visit Provider Otolaryngology
DX: J32.9 Chronic sinusitis, unspecified (principal)
CPT/HCPCS: 70486

== ENCOUNTER 2020-02-29 21:45 | Emergency (ER) | payer MEDICARE, MEDICAID, SELFPAY ==
[2019-06-13 10:25] VITALS: BMI 37.7
[2020-02-29 21:47] VITALS: BP 151/87; PULSE 89; RESP 20; TEMP 37.2; O2SAT 98; BMI 37.2
--- NOTE | 2020-02-29 22:04 | ED.RN ---
JERKING WAS MUCH LESS VIOLENT IN TRIAGE. ESPECIALLY WHILE SHE WAS ON HER PHONE.
--- NOTE | 2020-02-29 23:29 | ED.DCSUM_ITS ---
History of Present Illness Chief Complaint: General Illness Informant: Patient Onset: Days Context: Gradual Onset Narrative: Patient presents secondary to generally not feeling well. She states she tested positive for Covid on the . She had generalized body aches since that time. This evening she started having muscle spasms in her arms and legs. She states that she has a slightly worsened cough and has intermittent shortness of breath. Her temperature tonight was 99. She reports not being able to really taste anything and is not been eating or drinking well. - Past Medical History (1) Anxiety Status: Chronic (2) Chronic back pain Status: Chronic (3) Depression Status: Chronic (4) Fibromyalgia Status: Chronic (5) Hyperlipidemia Status: Chronic Past Medical History - Allergies and Home Meds Allergies/Adverse Reactions: Allergies adhesive Allergy (Verified 06/13/19 10:24) Rash fluoxetine HCl [From Prozac] Allergy (Verified 06/13/19 10:24) Anaphylaxis THROAT SWELLING ketorolac tromethamine [From Toradol] Allergy (Verified 06/13/19 10:24) Rash tramadol Allergy (Verified 06/13/19 10:24) Unknown prednisone Adverse Reaction (Verified 06/13/19 10:24) Other sulfamethoxazole [From Bactrim] Adverse Reaction (Verified 06/13/19 10:24) Vomiting trimethoprim [From Bactrim] Adverse Reaction (Verified 06/13/19 10:24) Vomiting CAPSULES Adverse Reaction (Uncoded 06/13/19 10:24) Unknown burning, feels stuck Primary Care Physician: Dane Flores MD [Primary Care Provider] - Prior records reviewed: Yes Surgical History: hysterectomy, - - Left knee arthroscopy, shoulder surgery, tonsillectomy and adenoidectomy, colonoscopy, ovarian cyst surgery Smoking Status: Current every day smoker - Family History Maternal Family History: Reports: - - Mother from heart failure. Paternal Family History: Reports: - - Father from pneumonia. Review of Systems General: Denies: Chills, Fever - T-max equals 99 ENT: Denies: Bilateral ear pain, Sore throat Cardiovascular: Denies: Chest pain Respiratory: Reports: Dyspnea, Cough. Denies: Sputum Gastrointestinal: Reports: Nausea. Denies: Abdominal pain, Vomiting, Diarrhea Musculoskeletal: Reports: Myalgias. Denies: Swelling, Extremity Pain Skin: Denies: Rash Neurological: Reports: Weakness Hematologic: Denies: Easy bruising, Easy bleeding Allergy: Denies: Uticaria Physical Exam Vital Signs/Narrative: Vital Signs Temp Pulse Resp BP Pulse Ox 02/29/20 21:47 99 F 89 20 H 151/87 H 98 Inital Vital Signs reviewed: Yes General: Well nourished, Well developed Head: Normocephalic ENT: Moist mucous membranes Neck: Supple Cardiovascular: Regular rate, Regular rhythm Respiratory: No distress, CTA bilaterally Abdomen: Soft, Nontender, Hypoactive bowel sounds Extremities: Nontender Skin: Normal color Neurological: Alert, Oriented x3 Psychological: Normal affect Diagnostic/Tx/Re-eval Chest X-Ray - ED: 1 View, Read by ED Physician, Normal, Heart, Lungs, Mediastinum Impressions Chest X-Ray 03/01/20 00:00 IMPRESSION: No acute cardiopulmonary abnormality. at 0112 Reported and signed by: Candace Cabello MD Electronically Signed: Candace Cabello MD at 1:12 EST Tel , Service support , 03/01/20 00:00 Chest 1 View (Portable) [RAD] Stat Laboratory Results 02/29/20 02/29/20 02/29/20 00:05 20:40 20:40 WBC 11.5 H RBC 5.23 Hgb 13.4 Hct 41.9 MCV 80.1 L MCH 25.6 L MCHC 32.0 RDW Std Deviation 43.1 RDW Coeff of Dottie 15.0 H Plt Count 249 MPV 10.4 Immature Gran % (Auto) 0.300 Neut % (Auto) 71.9 H Lymph % (Auto) 17.9 L [place] % (Auto) 5.7 Eos % (Auto) 3.5 Baso % (Auto) 0.7 Absolute Neuts (auto) 8.3 H Absolute Lymphs (auto) 2.06 Nucleated RBC % 0 Sodium 142 Potassium 4.0 Chloride 110 H Carbon Dioxide 25.0 Anion Gap 7 BUN 13 Creatinine 0.94 Estim Creat Clear Calc 60.54 Est GFR (MDRD) Af Amer 82 Est GFR (MDRD) Non-Af 68 BUN/Creatinine Ratio 13.9 Glucose 126 H Lactic Acid 1.3 Calcium 8.9 Total Bilirubin 0.30 Direct Bilirubin 0.09 AST 38 H ALT 52 Alkaline Phosphatase 205 H Total Protein 8.1 Albumin 3.6 Globulin 4.5 H Urine Color Urine Clarity Urine pH Ur Specific [place] Urine Protein Urine Glucose (UA) Urine Ketones Urine Occult Blood Urine Nitrite Urine Bilirubin Urine Urobilinogen Ur Leukocyte Esterase Urine RBC Urine WBC Ur Squamous Epith Cells Urine Bacteria Urine Mucus 02/29/20 23:50 WBC RBC Hgb Hct MCV MCH MCHC RDW Std Deviation RDW Coeff of Dottie Plt Count MPV Immature Gran % (Auto) Neut % (Auto) Lymph % (Auto) [place] % (Auto) Eos % (Auto) Baso % (Auto) Absolute Neuts (auto) Absolute Lymphs (auto) Nucleated RBC % Sodium Potassium Chloride Carbon Dioxide Anion Gap BUN Creatinine Estim Creat Clear Calc Est GFR (MDRD) Af Amer Est GFR (MDRD) Non-Af BUN/Creatinine Ratio Glucose Lactic Acid Calcium Total Bilirubin Direct Bilirubin AST ALT Alkaline Phosphatase Total Protein Albumin Globulin Urine Color Yellow Urine Clarity Clear Urine pH 6.5 Ur Specific [place] 1.010 Urine Protein Negative Urine Glucose (UA) Normal Urine Ketones Negative Urine Occult Blood Negative Urine Nitrite Negative Urine Bilirubin Negative Urine Urobilinogen Normal Ur Leukocyte Esterase Negative Urine RBC 0 SEEN Urine WBC 0 SEEN Ur Squamous Epith Cells 0 SEEN Urine Bacteria RARE Urine Mucus 0 SEEN - Medical Decision Making Patient was observed on bilingual instructor throughout her ED stay. Normal vital signs noted. Patient was given a dose of p.o. Valium to help with muscle spasms and 500 cc IV fluid bolus. On repeat evaluation patient is sleeping comfortably. Her O2 sat is 94% on room air. When I awaken her she does state that she feels sleepy from the medication but does feel improved as far as the muscle spasms are concerned. She does not appear to be dehydrated and her electrolytes are normal. Her chest x-ray is clear. I advised her she needs to continue supportive care at home. She is given return instructions. ED Disposition - Plan for ED Patient: Disposition: Home or Assisted Living Diagnosis: Viral syndrome Instructions: Coronavirus Disease 2019 (COVID-19): Caring for Yourself or Others Referrals: Dane Flores MD [Primary Care Provider] - 1 Week if not improving
[2020-02-29 23:40] LABS: Absolute Lymphocyte Count 2.06 X10^3/uL (0.83-4.51); Absolute Neutrophil Count 8.3 X10^3/uL (2.0-7.7); Basophil# 0.08 X10^3/uL; Basophil% 0.7 % (0-1); Eosinophils% 3.5 % (0-5); Hematocrit 41.9 % (37-47); Hemoglobin 13.4 g/dL (12.0-15.0); Lymphocyte # 2.06 X10^3/ul (4.0); Lymphocyte % 17.9 % (19-41); Mean Corpuscular Hgb 25.6 pg (27.0-32.0); Mean Corpuscular Volume 80.1 fL (81-99); Mean Platelet Vol. 10.4 fl (6.2-12.0); Monocyte# 0.65 X10^3/uL; Monocyte% 5.7 % (0-10); NRBC Flagged by Analyzer 0 % (0-5); Neutrophil # 8.26 X10^3/uL (2.7-7.7); Neutrophil % 71.9 % (47-70); Platelet Count 249 K/mm3 (150-450); RBC Distribution Width SD 43.1 fl (35.1-43.9); Red Blood Count 5.23 M/mm3 (4.2-5.4); White Blood Count 11.5 K/mm3 (4.4-11.0)
[2020-02-29 23:45] VITALS: BP 138/111; PULSE 75; RESP 15
[2020-02-29 23:52] LABS: AST(SGOT) 38 U/L (15-37); Alanine Aminotransfer ALT/SGPT 52 U/L (13-56); Albumin, Serum 3.6 g/dL (3.2-5.0); Alkaline Phosphatase 205 U/L (45-117); Anion Gap 7 (5-15); BUN 13 mg/dL (7-18); BUN/Creat Ratio 13.9 RATIO (10-20); Bilirubin, Direct 0.09 mg/dL (0.00-0.30); Calcium,Total 8.9 mg/dL (8.5-10.1); Chloride 110 mmol/L (98-107); Creatinine, Serum 0.94 mg/dL (0.55-1.02); EST Glomerular Filtration Rate 68 mL/min (>60); Est Glom Filt Rate - Afr Amer 82 mL/min (>60); Estimated Creatinine Clearance 60.54 ml/min; Globulin 4.5 g/dL (2.2-4.2); Glucose 126 mg/dL (74-106); Protein, Total 8.1 g/dL (6.4-8.2); Sodium Level 142 mmol/L (136-145)
[2020-02-29] MEDS: diazePAM 5 MG Tablet PO (23:59)
--- NOTE | 2020-03-01 | RAD_ITS ---
HISTORY: COVID + ON . MUSCLE SPASMS (BODY JERKS) STARTED TODAY. PT C/O WEAKNESS AND Tquot;EVERTHING HURTSTquot;. ADDITIONAL HISTORY: None provided. EXAMINATION/TECHNIQUE: XR Chest 1 View AP/PA Number of images including paperwork: 1 COMPARISON: 06/13/2019 FINDINGS: LUNGS AND PLEURA: No consolidation, mass or pleural effusion. CARDIAC SILHOUETTE: Unremarkable. MEDIASTINUM AND DEVYN: Unremarkable. UPPER ABDOMEN: Unremarkable. SKELETON AND SOFT TISSUES: No acute skeletal findings. OTHER DEVICES AND HARDWARE: None. RAD/Chest 1 View (Portable) IMPRESSION: No acute cardiopulmonary abnormality. at 0112 Reported and signed by: Candace Cabello MD Electronically Signed: Candace Cabello MD at 1:12 EST Tel , Service support ,
[2020-03-01 00:02] LABS: Mucous, Urine 0 SEEN /hpf (<or=2+); Red Blood Cells-Urine 0 SEEN /hpf (0-5); Squamous Epithelial Cells - UA 0 SEEN /hpf (5-10); White Blood Cells 0 SEEN /hpf (0-5)
[2020-03-01 00:03] LABS: Color, Urine Yellow (Yellow); Glucose, Dipstick Normal (Normal); Ketone-Dipstick Negative (Negative); Leukocyte Esterase-Dipstick Negative /ul (Negative); Nitrite-Dipstick Negative (Negative); Occult Blood-Urine Negative /ul (Negative); Protein-Dipstick Negative (Negative); Urine Bilirubin Dipstick Negative (Negative); Urine Clarity Clear (Clear); Urine Urobilinogen Normal (Normal); Urine pH 6.5 (5.0 - 8.0)
[2020-03-01 00:29] LABS: Bacteria RARE /hpf (None Seen)
[2020-03-01 00:45] LABS: Lactic Acid 1.3 mmol/L (0.4-1.9)
[2020-03-01 01:00] VITALS: BP 155/86; PULSE 66; RESP 15
[2020-03-01 01:55] VITALS: BP 151/89; PULSE 71; RESP 15; O2SAT 98
--- NOTE | 2020-03-01 03:06 | ED.RN ---
0200: attempt x 3 to call [employer] for taxi ride home. unsuccessful as they are closed at this time
== END 2020-03-01 05:25 | disposition home or self-care (01) ==
PROVIDERS: Emergency Provider Emergency Medicine; PCP Family Medicine
DX: B34.9 Viral infection, unspecified (principal); M62.838 Other muscle spasm; E78.5 Hyperlipidemia, unspecified; M79.7 Fibromyalgia; M54.9 Dorsalgia, unspecified; G89.29 Other chronic pain; F17.200 Nicotine dependence, unspecified, uncomplicated; Z79.899 Other long term (current) drug therapy; Z86.19 Personal history of other infectious and parasitic diseases
CPT/HCPCS: 71045; 80048; 80076; 81001; 83605; 85025; 96360; 99285; A4216

== ENCOUNTER → 2021-08-29 | Day surgery (SDC) | payer MEDICARE, MEDICAID, SELFPAY ==
[2021-08-29 09:43] VITALS: BP 134/89; PULSE 100; RESP 16; TEMP 36.1; O2SAT 98
== END | disposition home or self-care (01) ==
LOC: EN 12:58
PROVIDERS: PCP Family Medicine; Referring Provider Internal Medicine Gastroenterology; Visit Provider Internal Medicine Gastroenterology
PROC: F00ZJWZ Instrumental Swallowing and Oral Function Assessment using Swallowing Equipment (ICD-10-PCS; CPT 43235; principal; 2021-08-29 09:55)
DX: R13.10 Dysphagia, unspecified (principal)
CPT/HCPCS: 91010

== ENCOUNTER 2021-09-05 08:17 | Outpatient (CLI) | payer MEDICARE, MEDICAID, SELFPAY ==
[2021-09-05 09:03] LABS: Prothrombin Time (Protime)PT. 12.5 SECONDS (11.7-14.9)
[2021-09-05 09:06] LABS: Erythrocyte Sedimentation Rate 41 mm/hr (0-30)
[2021-09-05 09:09] LABS: Absolute Lymphocyte Count 1.85 X10^3/uL (0.83-4.51); Absolute Neutrophil Count 6.7 X10^3/uL (2.0-7.7); Basophil# 0.06 X10^3/uL; Basophil% 0.6 % (0-1); Eosinophil# 0.39 X10^3/uL; Eosinophils% 4.1 % (0-5); Hematocrit 41.1 % (37-47); Hemoglobin 13.2 g/dL (12.0-15.0); Lymphocyte # 1.85 X10^3/ul (0.83-4.51); Lymphocyte % 19.5 % (19-41); Mean Corp Hgb Conc 32.1 g/dL (32-36); Mean Corpuscular Hgb 26.2 pg (27.0-32.0); Mean Corpuscular Volume 81.7 fL (81-99); Mean Platelet Vol. 10.1 fl (6.2-12.0); Monocyte# 0.47 X10^3/uL; NRBC Flagged by Analyzer 0 % (0-5); Neutrophil # 6.68 X10^3/uL (2.7-7.7); Neutrophil % 70.4 % (47-70); Platelet Count 234 K/mm3 (150-450); Red Blood Count 5.03 M/mm3 (4.2-5.4); White Blood Count 9.5 K/mm3 (4.4-11.0)
[2021-09-05 09:14] LABS: Hemoglobin A1c 5.9 % (3.8-5.6)
[2021-09-05 09:32] LABS: ALB/GLOB Ratio 0.8 RATIO (0.9-2.4); AST(SGOT) 26 U/L (15-37); Alanine Aminotransfer ALT/SGPT 50 U/L (13-56); Albumin, Serum 3.5 g/dL (3.2-5.0); Alkaline Phosphatase 173 U/L (45-117); Anion Gap 8 (5-15); BUN 15 mg/dL (7-18); BUN/Creat Ratio 17.3 RATIO (10-20); Calcium,Total 8.9 mg/dL (8.5-10.1); Chloride 107 mmol/L (98-107); Creatinine, Serum 0.87 mg/dL (0.55-1.02); EST Glomerular Filtration Rate 74 mL/min (>60); Est Glom Filt Rate - Afr Amer 89 mL/min (>60); Ferritin 58 ng/mL (8-252); GGTP 42 U/L (5-55); Globulin 4.2 g/dL (2.2-4.2); Glucose 113 mg/dL (74-106); LDH 153 U/L (84-246); Protein, Total 7.7 g/dL (6.4-8.2); Sodium Level 138 mmol/L (136-145); Thyroid Stim Hormone (TSH) 1.52 uIU/mL (0.358-3.74)
[2021-09-05 09:47] LABS: HIV - WCH Non-Reactive (Nonreactive)
[2021-09-06 15:08] LABS: Anti-Centromere B Ab <0.2 AI (0.0-0.9); Anti-Chromatin <0.2 AI (0.0-0.9); Anti-Jo <0.2 AI (0.0-0.9); Anti-Scleroderma-70 AB <0.2 AI (0.0-0.9); RNP Ab 0.3 AI (0.0-0.9); SJOGREN'S Anti-SS-A test < 0.2 AI (0.0-0.9); SJOGREN'S Anti-SS-B test < 0.2 AI (0.0-0.9); Smith Ab <0.2 AI (0.0-0.9)
[2021-09-07 20:07] LABS: Anti-Mitochondrial AB <20.0 Units (0.0-20.0); Anti-dsDNA Ab <1 IU/mL (0-9)
[2021-09-08 12:07] LABS: Angiotensin Convert Enzyme 23 U/L (14-82); Ceruloplasmin 37.5 mg/dL (19.0-39.0); Cytoplasmic Ab (C-ANCA) <1:20 titer (Neg:<1:20); HEPATITIS B SURFACE AG Negative (Negative); Hep C Antibodies <0.1 s/co ratio (0.0-0.9); Hepatitis A IgM Antibody Negative (Negative); Hepatitis B Core AB IgM Negative (Negative)
[2021-09-08 14:38] LABS: AFP, Tumor Marker 2.6 ng/mL (0.0-6.4); Anti-Smooth Muscle ABS 8 Units (0-19); Copper, Serum or Plasma 162 ug/dL (80-158); Haptoglobin 326 mg/dL (42-296)
[2021-09-08 14:39] LABS: Perinuclear Ab (P-ANCA) <1:20 titer (Neg:<1:20)
== END 2021-09-05 23:59 | disposition home or self-care (01) ==
LOC: LAB 08:19
PROVIDERS: PCP Family Medicine; Referring Provider Nurse Practitioner Adult Health; Visit Provider Nurse Practitioner Adult Health
DX: E78.5 Hyperlipidemia, unspecified (principal); N17.9 Acute kidney failure, unspecified; R19.7 Diarrhea, unspecified; R11.0 Nausea; R13.10 Dysphagia, unspecified; K58.9 Irritable bowel syndrome, unspecified; K76.0 Fatty (change of) liver, not elsewhere classified; R74.8 Abnormal levels of other serum enzymes; R10.9 Unspecified abdominal pain
CPT/HCPCS: 36415; 80053; 80074; 82105; 82140; 82164; 82390; 82525; 82728; 82977; 83010; 83036; 83516; 83615; 84443; 85025; 85610; 85652; 86140; 86225; 86235; 86256; 86703

== ENCOUNTER → 2021-09-19 | Outpatient (CLI) | payer MEDICARE, MEDICAID, SELFPAY ==
--- NOTE | 2021-09-19 13:18 | CT_ITS ---
STUDY: CT ABDOMEN AND PELVIS WITH CONTRAST REASON FOR EXAM: Female, 50 years old. Abd pain, LLQ pain, diarrhea/cons tip -- oral and IV RADIATION DOSAGE (If Supplied By Facility): CTDIvol = ( 16.41 ) mGy, DLP = ( 1158.04 ) mGycm TECHNIQUE: Transaxial images were obtained from the dome of the diaphragm to the symphysis pubis without oral contrast. 100CC ISOVUE 300 was administered. Sagittal and coronal images were reconstructed. Individualized dose optimization techniques were used for this CT. COMPARISON: Comparison is made with prior study dated 01/30/2019. FINDINGS: The visualized lung bases are unremarkable. The visualized portions of the heart are within normal limits. There is decreased attenuation of the liver consistent with steatosis. Normal gallbladder and extrahepatic biliary system. Normal spleen. Normal pancreas. Normal bilateral adrenal glands. Normal right kidney. Normal left kidney. There is a small hiatal hernia. Normal small intestine. Moderate amount of fecal material is seen in the colon. The appendix is visualized and appears normal. Normal abdominal aorta. Normal inferior vena cava. There is borderline retroperitoneal lymphadenopathy with enlarged nodes no greater than 10mm in the short axis diameter. Normal urinary bladder. There is absence of the uterus consistent with a prior hysterectomy. Normal abdominal wall. Normal osseous structures. CT/Abdomen/Pelvis WITH Contrast IMPRESSION: Fatty infiltration of the liver. Electronically Signed: Gómez Vásquez MD at 14:36 EDT ,
== END | disposition home or self-care (01) ==
LOC: CT 13:15
PROVIDERS: PCP Family Medicine; Referring Provider Nurse Practitioner Adult Health; Visit Provider Nurse Practitioner Adult Health
DX: R10.9 Unspecified abdominal pain (principal); R11.0 Nausea; R13.10 Dysphagia, unspecified; K58.9 Irritable bowel syndrome, unspecified; K76.0 Fatty (change of) liver, not elsewhere classified; R74.8 Abnormal levels of other serum enzymes
CPT/HCPCS: 74177; Q9967

== ENCOUNTER → 2021-10-01 | Outpatient (CLI) | payer MEDICARE, MEDICAID, SELFPAY ==
--- NOTE | 2021-10-01 09:23 | US_ITS ---
STUDY: ABDOMINAL ULTRASOUND - RIGHT UPPER QUADRANT REASON FOR VISIT: Female, 50 years old fatty liver TECHNIQUE: Ultrasound evaluation of the right upper quadrant was performed with real-time and static hammer-scale imaging. TECHNICAL QUALITY: Adequate. COMPARISON: Comparison is made with prior CT scan of the abdomen and pelvis dated 09/19/2021. FINDINGS: Liver: The liver measures 17.6 cm. There is increased echogenicity consistent with fatty infiltration. The bile ducts are within normal limits. There is hepatic color flow. The direction of portal flow is hepatopetal. There is no demonstrated mass lesion. Gallbladder: Normal distended gallbladder. The gallbladder wall measures 1.7 mm. There is a negative sonographic De La Vega''s sign. There is no pericholecystic fluid. There are no gallstones. Common Bile Duct (C.B.D.): The common bile duct measures 3.9 mm. Pancreas: Normal size of the head, body and tail of the pancreas. There is normal echogenicity of the pancreas. There is no demonstrated pancreatic mass or cyst. Right Kidney: Normal size of the right kidney. The right kidney measures 11.2 cm x 5.1 cm x 3.7 cm. Normal renal cortex. The right cortex measures 1.2 cm. There is no demonstrated renal mass or cyst. There is no right hydronephrosis. US/Abdomen Limited IMPRESSION: Diffuse fatty infiltration of the liver. Electronically Signed: Gómez Vásquez MD at 10:39 EDT ,
--- NOTE | 2021-10-01 09:23 | US_ITS ---
STUDY: ABDOMINAL ULTRASOUND - ELASTOGRAPHY REASON FOR VISIT: Female, 50 years old. Fatty infiltration of the liver. TECHNIQUE: Liver stiffness measurements were obtained on a Kabam RS 85 ultrasound machine using a CA 1-7 probe following the SRU guidelines. 3 measurements were obtained using a 2-D-SWE method. The IQR/M was 21% suggesting a quality data set. TECHNICAL QUALITY: Adequate. COMPARISON: Comparison is made with prior study done earlier in the day. FINDINGS: Liver: Diffuse fatty infiltration of the liver. Median liver stiffness measured 6.4 kPa. US/Elastography Parenchyma/Organ IMPRESSION: Liver stiffness measures 6.4 kPa compatible with F2-F3 (Mild to moderate liver fibrosis) Metavir score. Electronically Signed: Gómez Vásquez MD at 10:40 EDT ,
== END | disposition home or self-care (01) ==
LOC: US 09:17
PROVIDERS: PCP Family Medicine; Referring Provider Nurse Practitioner Adult Health; Visit Provider Nurse Practitioner Adult Health
DX: R11.0 Nausea (principal); R13.10 Dysphagia, unspecified; K58.9 Irritable bowel syndrome, unspecified; K76.0 Fatty (change of) liver, not elsewhere classified; R74.8 Abnormal levels of other serum enzymes; R10.9 Unspecified abdominal pain
CPT/HCPCS: 76705; 76981

== ENCOUNTER 2021-11-26 11:13 | Day surgery (SDC) | payer MEDICARE, MEDICAID, SELFPAY ==
[2021-11-26] MEDS: Lactated Ringers 1,000 ML 15 ML IV (11:20)
--- NOTE | 2021-11-26 11:24 | PCM.HP.BLA ---
History and Physical Date of Admission: 11/26/21 PEPE BERUMEN, is a 50 F who presents to the office today for referral for elevated alkaline phosphatase, she reports it has been rising. 05/28/21 alk phos 196, AST 52, ALT 57.? She also notes many years of GI symptoms.? She reports many years of difficulty swallowing, chronic nausea, chronic lower abdominal cramping pain, chronic alternating diarrhea and constipation, hx IBS.? She states she is confused because she was told she had a hiatal hernia and IBS, but then was told she did not have either 1.? At 1 point the possibility of ulcerative colitis was mentioned.? CT in 2019 revealed fatty liver. Nausea -- doesn't wake with nausea. It occurs after eating. Always bloated after eating. Not vomiting. Takes zofran but no longer helping for nausea. In the past she was switched back and forth between zofran and phenergan.? She would like to try Zofran again. Dysphagia -- started years ago, that's why she initially presented for EGD years ago. Foods gets stuck in throat, especially chicken breasts. Getting worse. Feels like food diverts to windpipe. Right side of neck swells at night, then feels like she is choking. Can choke on her saliva. Regurgitates food. Doesn't vomit. Acid come up the esophagus. Doesn't have heartburn. No relief of any symptoms with PPIs.? Does not feel like treating GERD would be helpful.? ENT got an esophagram in 2019 which was normal. IBS -- Diagnosed with IBS, then was told she didn't have it, that confuses her since Bentyl is very effective at relieving cramps in lower abdomen.? She would like a prescription for Bentyl.? She alternates between diarrhea and constipation. The constipation is more bothersome since she finds it harder to treat. No relief with docusate sodium, miralax, enemas, suppositories, dulcolax, fiber. She gets some temporary relief with magnesium citrate. Never has normal BM. Usually stool is soft, can be orange or pale hammer. When constipated she has no BM for about 4 days.? She reports a history of C. difficile in 2014. Comorbidities include migraines, fibromyalgia, insomnia, hypertension, hyperlipidemia, cervical dysplasia treated with hysterectomy, anxiety, depression, allergies to dust mites and mold, vitamin D deficiency, former smoker, obesity.? She denies asthma or eczema.? She reports evaluation by [facility] rheumatology in 2020, told she had fibromyalgia but not rheumatoid arthritis or lupus. She is a former smoker, she reports her still smokes.? No illicit drug use.? Rare alcohol. 's 5 ROS Const Constitutional: Positive for fatigue, headache(s) and weakness ENT ENT: Positive for headache(s) and difficulty swallowing Cardio Cardiology: Positive for leg pain with exertion Gastro GI: Positive for bloating, change in bowel habits, constipation, cramping, diarrhea, heartburn, difficulty swallowing, excessive flatus and nausea/dyspepsia; No abdominal pain, belching, change in stool character, coffee ground emesis, feeling full early, incontinent of stools, Vomiting blood/hematemesis, Blood in stool, loose stools, Black,tarry stools, pain with swallowing, vomiting or other Musc Musculoskeletal: Positive for joint pain, back pain, joint swelling, muscle cramps, muscle weakness, myalgias, numbness, stiffness and leg pain with exertion Skin Skin: No yellowing of the eye or itchy eyes Neuro Neurology: Positive for weakness, headache(s), numbness and tremor(s) Psych Psychiatric: No anxiety and No depression Endo Endocrine: Positive for fatigue Aller/Imm Allergy/Immunologic: No itchy eyes Ej/Lymp Hematologic/Lymphatic: Positive for easy bleeding and easy bruising Exam Const General: cooperative, comfortable and well developed Nutritional Appearance: obese Eyes Conjunctivae: conjunctivae normal Sclera: sclerae normal Neck Neck: normal visual inspection, no lymphadenopathy, supple, no lymphadenopathy noted and nontender Neck mass: No Thyroid: thyroid normal Resp Effort & Inspection: normal respiratory effort GI Palpation: soft, no hepatosplenomegaly, no masses and tender in the epigastrum, in the LLQ, in the RLQ, in the LUQ and in the RUQ Skin General: no rashes or lesions noted Neuro Cognition: normal cognition Speech: speech normal Gait: normal gait Extrem General: no pedal edema Psych Mood: euthymic mood Affect: normal affect Quality Reporting Tobacco Screening ([facility] 138) Smoking Status: Current every day smoker Assessment and Plan Assessment and Plan (1) Elevated alkaline phosphatase level: ?Status:?Acute (2) NAFLD (nonalcoholic fatty liver disease): ?Status:?Acute (3) IBS (irritable bowel syndrome): ?Status:?Acute (4) Dysphagia: ?Status:?Acute (5) Nausea: ?Status:?Acute (6) Abdominal pain: ?Status:?Acute (7) Diarrhea: ?Status:?Acute ? ? ? Orders:?Orders: ? HIV - [facility] Today R74.8, K76.0, K58.9, R13.10, R11.0, R10.9 ? ? Comprehensive Metabolic Profil Today R74.8, K76.0, K58.9, R13.10, R11.0, R10.9 ? ? CRP Today R74.8, K76.0, K58.9, R13.10, R11.0, R10.9 ? ? Ferritin Today R74.8, K76.0, K58.9, R13.10, R11.0, R10.9 ? ? LDH Today R74.8, K76.0, K58.9, R13.10, R11.0, R10.9 ? ? Hemoglobin A1c Today R74.8, K76.0, K58.9, R13.10, R11.0, R10.9 ? ? Prothrombin Time w/INR Today R74.8, K76.0, K58.9, R13.10, R11.0, R10.9 ? ? CBC W/Diff, Automated Today R74.8, K76.0, K58.9, R13.10, R11.0, R10.9 ? ? Erythrocyte Sed Rate Today R74.8, K76.0, K58.9, R13.10, R11.0, R10.9 ? ? Anti-Mitochondrial AB Today R74.8, K76.0, K58.9, R13.10, R11.0, R10.9 ? ? MURALI Comprehensive Panel Today R74.8, K76.0, K58.9, R13.10, R11.0, R10.9 ? ? Hepatitis Panel Acute Today R74.8, K76.0, K58.9, R13.10, R11.0, R10.9 ? ? Angiotensin Convert Enzyme Today R74.8, K76.0, K58.9, R13.10, R11.0, R10.9 ? ? AFP, Tumor Marker Today R74.8, K76.0, K58.9, R13.10, R11.0, R10.9 ? ? ANCA Today R74.8, K76.0, K58.9, R13.10, R11.0, R10.9 ? ? Anti-Smooth Muscle ABS Today R74.8, K76.0, K58.9, R13.10, R11.0, R10.9 ? ? Ceruloplasmin Today R74.8, K76.0, K58.9, R13.10, R11.0, R10.9 ? ? Copper, Serum or Plasma Today R74.8, K76.0, K58.9, R13.10, R11.0, R10.9 ? ? Haptoglobin Today R74.8, K76.0, K58.9, R13.10, R11.0, R10.9 ? ? Ammonia Today R74.8, K76.0, K58.9, R13.10, R11.0, R10.9 ? ? Abdomen Limited Today R74.8, K76.0, K58.9, R13.10, R11.0, R10.9 ? ? Elastography Parenchyma/Organ Today R74.8, K76.0, K58.9, R13.10, R11.0, R10.9 ? ? Abdomen/Pelvis WITH Contrast Today R74.8, K76.0, K58.9, R13.10, R11.0, R10.9 ? ? Ova and Parasites 8623 Today K58.9, R19.7 ? ? ENTERIC PATHOGEN PANEL STOOL Today K58.9, R19.7 ? ? Stool Lactoferrin/WBC Today K58.9, R19.7 ? ? Thyroid Stim Hormone (TSH) Today R19.7 ? ? GGTP Today R19.7 ? ? Calprotectin, Stool Today R19.7 ? ? Fecal Fat, Qualitative Today R19.7 ? ? CDIFF (PCR) Today R19.7 ? ? Giardia Lamblia, Stool EIA Today R19.7 ? ? Pancreatic Elastase, Fecal Today R19.7 ?Plan - Dayanara Rogers NP, METAL MACHINE SETTER-C: 50-year-old female with elevated alkaline phosphatase, fatty liver, chronic dysphagia, chronic nausea, chronic alternating diarrhea with constipation, chronic abdominal pain and cramping.? We discussed her signs and symptoms in detail, reviewed work-up that we will initiate.? We will do biochemical work-up for the elevated alk phos, fatty liver, and the multiple GI complaints.? We will evaluate her for autoimmune conditions, inflammatory bowel disease, pancreatitis and pancreatic insufficiency, biliary disease.? Prescription for Phenergan to use instead of Zofran for her nausea.? Prescription for dicyclomine 20 mg to be used to twice daily to get the lower abdominal cramping under control.? CT abdomen and pelvis to evaluate fatty liver, pancreas, chronic nausea, chronic upper and lower abdominal pain, chronic diarrhea and constipation.? Ultrasound and liver elastography to work-up the fatty liver.? Follow-up in approximately 6 weeks to review results and determine next step.? She is scheduled for EGD and colonoscopy.? Differential diagnosis for her dysphagia includes motility disorder, eosinophilic esophagitis, esophageal stricture, Grimes's.? We will get manometry to evaluate esophageal motility.? Stool test to evaluate for inflammation, infection, pancreatic insufficiency. I have re-examined the patient. There are no clinical changes since date of exam.
[2021-11-26 11:26] VITALS: BP 142/78; PULSE 73; RESP 16; TEMP 36.6; O2SAT 98; BMI 35.6
--- NOTE | 2021-11-26 12:15 | IMM_PTH ---
PATIENT: PEPE BERUMEN LOC: [facility] U#:[id number] AGE/SX: 50/F ROOM: RE11/26/[address]: Dr. Anthony Medina DO : 1970 BED: DIS: 11/26/2021 SPEC #: [id number] RECD: 11/27/21 09:54 STATUS: DENIA REAngela #: [id number] IVY: 11/26/21 12:[address]: Anthony Medina DEPT: IMMUNOHISTOCHEMISTRY RECD BY: Giselle Valdes ENTERED: 11/27/21 09:55 SP TYPE: IMMUNO OTHR DR: Dr. Dane Flores MD Tissues: B - Stomach, NOS Procedures: H Pylori (initial) PHYSICIAN & INSTITUTION [place] [id number] SPECIMEN INFORMATION: Tissue Source: B ? Gastric body biopsy Clinical Info: Elevated alk phos level, NAFLD, IBS, dysphagia, nausea, abdominal pain Specimen Number: [id number] CPT code: 68662 METHODOLOGY: Deparaffinized sections of prefer/formalin-fixed tissue or PAP/DQ stained slides are incubated with monoclonal/polyclonal antibodies/oligonucleotide probes. Localization is made via biotin free immunoperoxidase method. Appropriate controls are performed and reacted as expected. Results on target cell population are indicated in the following table: RESULTS: ANTIBODY / CLONE RESULT Block B H Pylori (polyclonal) negative These tests were developed and their performance characteristics determined by [facility]. They may not have been cleared or approved by the U.S. Food and Drug Administration. The FDA has determined that such clearance or approval is not necessary. The above immunohistochemical/dualISH markers are ordered and reviewed by the Pathologist. INTERPRETATION: B. Gastric body, biopsy: Negative for Helicobacter pylori organisms. SJ:shana 11/28/2021
--- NOTE | 2021-11-26 12:15 | COLBX_PTH ---
PATIENT: PEPE BERUMEN LOC: [facility] U#:[id number] AGE/SX: 50/F ROOM: RE11/26/[address]: Dr. Anthony Medina DO : 1970 BED: DIS: 11/26/2021 SPEC #: [id number] RECD: 11/26/21 15:07 STATUS: DENIA MEDARDO #: [id number] IVY: 11/26/21 12:[address]: Anthony Medina DEPT: SURGICAL PATHOLOGY RECD BY: Yaya Avalos ENTERED: 11/27/21 08:29 SP TYPE: COLON BX OTHR DR: Dr. Dane Flores MD Tissues: A - Duodenum, NOS B - Gastric mucous membrane C - Esophagus, NOS D - Ileum, NOS E - COLON BIOPSY Procedures: Special Stain Group II Surgery Specimen Level IV Alcian Blue/PAS (control) HEADER OPERATION: Colonoscopy, EGD ([facility] [place]), biopsy PRE-OP DIAGNOSIS: Elevated alk phos, NAFLD, IBS, dysphagia, nausea, abdominal pain, diarrhea TISSUE SUBMITTED: A ? Duodenum biopsy, B ? Gastric body biopsy, C ? Distal esophagus biopsy, D ? Terminal ileum biopsy, E ? Random colonic biopsy MICROSCOPIC DIAGNOSIS A. Duodenum, biopsy: Fragments of duodenal mucosa, no pathologic diagnosis. B. Gastric body, biopsy: Minimal gastritis. See microscopic description and comment. C. Distal esophagus, biopsy: Fragments of gastroesophageal mucosa with moderate chronic inflammation. Rare cells with intestinal metaplasia (goblet cell metaplasia). See comment. D. Terminal ileum, biopsy: Fragments of small intestinal mucosa, no pathologic diagnosis. E. Colon, random biopsy: Fragments of colonic mucosa, no pathologic diagnosis. SJ:rg 11/28/2021 COMMENT B. The results of immunohistochemistry for Helicobacter pylori will be reported separately ([id number]). C. Alcian blue/PAS stain with matched control is used in the evaluation of the specimen. MICROSCOPIC DESCRIPTION Slides are reviewed. B. The specimen shows fragments of gastric mucosa with chronic inflammatory cell infiltrates in the lamina propria consisting of lymphocytes and plasma cells, consistent with minimal chronic gastritis. GROSS DESCRIPTION A - Received in fixative is one container labeled with the patient's name and designated duodenum biopsy. The specimen consists of multiple irregular fragments of light mendez soft tissue that in aggregate measure 1 x 0.4 x 0.1 cm. The specimen is totally submitted in one cassette. B - Received in fixative is one container labeled with the patient's name and designated gastric body biopsy. The specimen consists of two irregular fragments of light mendez soft tissue that in aggregate measure 0.6 x 0.5 x 0.1 cm. The specimen is totally submitted in one cassette. C - Received in fixative is one container labeled with the patient's name and designated distal esophagus biopsy. The specimen consists of two irregular fragments of light mendez soft tissue that in aggregate measure 0.6 x 0.5 x 0.1 cm. The specimen is totally submitted in one cassette. D - Received in fixative is one container labeled with the patient's name and designated terminal ileum biopsy. The specimen consists of multiple irregular fragments of light mendez soft tissue that in aggregate measure 1 x 0.5 x 0.1 cm. The specimen is totally submitted in one cassette. E - Received in fixative is one container labeled with the patient's name and designated random colonic biopsy. The specimen consists of multiple irregular fragments of light mendez soft tissue that in aggregate measure 1.5 x 0.5 x 0.1 cm. The specimen is totally submitted in one cassette. / SJ:rg 11/27/2021 TC:3 CPT: 34200 x5, 02185
[2021-11-26 12:55] VITALS: BP 113/70; BP 142/78; PULSE 88; RESP 16; TEMP 36.8; O2SAT 100
[2021-11-26 12:59] VITALS: BP 108/67; BP 142/78; PULSE 90; RESP 16; O2SAT 97
--- NOTE | 2021-11-26 13:00 | OP.EGD_ITS ---
Patient Name: Camelia Norwood Procedure Date: 11/26/2021 12:16 PM Date of : 1970 Age: 50 Procedure: Upper GI endoscopy Indications: Epigastric abdominal pain, Suspected esophageal reflux Providers: Anthony Medina DO Referring MD: Dane Flores MD Medicines: Monitored Anesthesia Care Patient Profile: This is a 50 year old female. Refer to note in patient chart for documentation of history and physical. Patient has symptoms of acute abdominal cramping, chronic abdominal distention and acute right upper quadrant abdominal pain. Complications: No immediate complications. Procedure: Pre-Anesthesia Assessment: - Prior to the procedure, a History and Physical was performed, and patient medications and allergies were reviewed. The risks and benefits of the procedure and the sedation options and risks were discussed with the patient. All questions were answered and informed consent was obtained. Patient identification and proposed procedure were verified by the physician in the pre-procedure area. Mental Status Examination: alert and oriented. Airway Examination: normal oropharyngeal airway and neck mobility. Respiratory Examination: clear to auscultation. CV Examination: normal. Prophylactic Antibiotics: The patient does not require prophylactic antibiotics. Prior Anticoagulants: The patient has taken no previous anticoagulant or antiplatelet agents. ASA Grade Assessment: II - A patient with mild systemic disease. After reviewing the risks and benefits, the patient was deemed in satisfactory condition to undergo the procedure. The anesthesia plan was to use monitored anesthesia care (MAC). Immediately prior to administration of medications, the patient was re-assessed for adequacy to receive sedatives. The heart rate, respiratory rate, oxygen saturations, blood pressure, adequacy of pulmonary ventilation, and response to care were monitored throughout the procedure. The physical status of the patient was re-assessed after the procedure. After obtaining informed consent, the endoscope was passed under direct vision. Throughout the procedure, the patient's blood pressure, pulse, and oxygen saturations were monitored continuously. The colonoscope was introduced through the mouth, and advanced to the second part of duodenum. The upper GI endoscopy was accomplished without difficulty. The patient tolerated the procedure well. Scope In: 12:25:44 PM Scope Out: 12:31:47 PM Total Procedure Duration Time 0 hours 6 minutes 3 seconds Findings: The Z-line was irregular and was found 36 cm from the incisors. Biopsies were taken with a cold forceps for histology. Verification of patient identification for the specimen was done. Estimated blood loss was minimal. A medium-sized hiatal hernia was present. Two non-bleeding gastric ulcers with no stigmata of bleeding were found in the gastric body. The largest lesion was 3 mm in largest dimension. Biopsies were taken with a cold forceps for histology. Verification of patient identification for the specimen was done. Estimated blood loss was minimal. Patchy mildly erythematous mucosa without active bleeding and with no stigmata of bleeding was found in the first portion of the duodenum. Biopsies were taken with a cold forceps for histology. Verification of patient identification for the specimen was done. Estimated blood loss was minimal. Impression: - Z-line irregular, 36 cm from the incisors. Biopsied. - Medium-sized hiatal hernia. - Non-bleeding gastric ulcers with no stigmata of bleeding. Biopsied. - Erythematous duodenopathy. Biopsied. Recommendation: - Discharge patient to home. - Resume previous diet. - Use sucralfate tablets 1 gram PO QID. - Continue present medications. Procedure Code(s): --- Professional --- 64372, Esophagogastroduodenoscopy, flexible, transoral; with biopsy, single or multiple CPT copyright 2017 [employer]. All rights reserved. The codes documented in this report are preliminary and upon food preparation kitchen aide review may be revised to meet current compliance requirements. Anthony Medina DO 11/26/2021 12:59:37 PM This report has been signed electronically. Number of Addenda: 0 Note Initiated On: 11/26/2021 12:16 PM
--- NOTE | 2021-11-26 13:01 | OP.CCLET_ITS ---
11/26/2021 Dane Flores MD Re : Upper GI endoscopy procedure for Camelia Norwood Dear Dr. Flores This procedure was performed on Friday, November 26, 2021. My impressions and recommendations are as follows: Impressions : - Z-line irregular, 36 cm from the incisors. Biopsied. - Medium-sized hiatal hernia. - Non-bleeding gastric ulcers with no stigmata of bleeding. Biopsied. - Erythematous duodenopathy. Biopsied. Recommendations : - Discharge patient to home. - Resume previous diet. - Use sucralfate tablets 1 gram PO QID. - Continue present medications. My findings are described in the full procedure note, which is enclosed. If I can be of further assistance, please feel free to contact me at . Sincerely, Anthony Medina, 11/26/2021 12:59:37 PM This report has been signed electronically.
[2021-11-26 13:06] VITALS: BP 108/70; BP 142/78; PULSE 84; RESP 16; O2SAT 100
--- NOTE | 2021-11-26 13:09 | OP.COLON_ITS ---
Patient Name: Camelia Norwood Procedure Date: 11/26/2021 12:32 PM Date of : 1970 Age: 50 Procedure: Colonoscopy Indications: Epigastric abdominal pain, Abdominal pain in the left lower quadrant Providers: Anthony Medina DO Referring MD: Dane Flores MD Medicines: Monitored Anesthesia Care Patient Profile: This is a 50 year old female. Refer to note in patient chart for documentation of history and physical. Patient has symptoms of acute abdominal cramping, chronic abdominal distention and acute right upper quadrant abdominal pain. Last Colonoscopy: date unknown. Unable to locate last colonoscopy report. Complications: No immediate complications. Procedure: Pre-Anesthesia Assessment: - Prior to the procedure, a History and Physical was performed, and patient medications and allergies were reviewed. The risks and benefits of the procedure and the sedation options and risks were discussed with the patient. All questions were answered and informed consent was obtained. Patient identification and proposed procedure were verified by the physician in the pre-procedure area. Mental Status Examination: alert and oriented. Airway Examination: normal oropharyngeal airway and neck mobility. Respiratory Examination: clear to auscultation. CV Examination: normal. Prophylactic Antibiotics: The patient does not require prophylactic antibiotics. Prior Anticoagulants: The patient has taken no previous anticoagulant or antiplatelet agents. ASA Grade Assessment: II - A patient with mild systemic disease. After reviewing the risks and benefits, the patient was deemed in satisfactory condition to undergo the procedure. The anesthesia plan was to use monitored anesthesia care (MAC). Immediately prior to administration of medications, the patient was re-assessed for adequacy to receive sedatives. The heart rate, respiratory rate, oxygen saturations, blood pressure, adequacy of pulmonary ventilation, and response to care were monitored throughout the procedure. The physical status of the patient was re-assessed after the procedure. - Monitored anesthesia care under the supervision of an anesthesiologist was determined to be medically necessary for this procedure based on review of the patient's medical history, medications, and prior anesthesia history. After I obtained informed consent, the scope was passed under direct vision. Throughout the procedure, the patient's blood pressure, pulse, and oxygen saturations were monitored continuously. The colonoscope was introduced through the anus and advanced to the terminal ileum. The colonoscopy was performed without difficulty. The patient tolerated the procedure well. The quality of the bowel preparation was good. Scope In: 12:35:03 PM Scope Out: 12:51:12 PM Total Procedure Duration Time 0 hours 16 minutes 9 seconds Findings: The perianal and digital rectal examinations were normal. An area of mildly congested mucosa was found in the sigmoid colon, at the splenic flexure, in the ascending colon and in the cecum. Biopsies were taken with a cold forceps for histology. Verification of patient identification for the specimen was done. Estimated blood loss was minimal. A patchy area of the terminal ileum was congested. Biopsies were taken with a cold forceps for histology. Estimated blood loss was minimal. Impression: - Congested mucosa in the sigmoid colon, at the splenic flexure, in the ascending colon and in the cecum. Biopsied. - Congested mucosa in the terminal ileum. Biopsied. Recommendation: - Discharge patient to home. - Resume previous diet. - Continue present medications. - Await pathology results. - Repeat colonoscopy in 5 years for surveillance. - Return to GI office. Procedure Code(s): --- Professional --- 02183, Colonoscopy, flexible; with biopsy, single or multiple CPT copyright 2017 [employer]. All rights reserved. The codes documented in this report are preliminary and upon mass spectrometry manager review may be revised to meet current compliance requirements. Anthony Medina DO 11/26/2021 1:08:44 PM This report has been signed electronically. Number of Addenda: 0 Note Initiated On: 11/26/2021 12:32 PM
[2021-11-26 13:10] VITALS: BP 117/76; BP 142/78; PULSE 81; RESP 16; TEMP 37.1; O2SAT 100
--- NOTE | 2021-11-26 13:10 | OP.CCLET_ITS ---
11/26/2021 Dane Flores MD Re : Colonoscopy procedure for Camelia Norwood Dear Dr. Flores This procedure was performed on Friday, November 26, 2021. My impressions and recommendations are as follows: Impressions : - Congested mucosa in the sigmoid colon, at the splenic flexure, in the ascending colon and in the cecum. Biopsied. - Congested mucosa in the terminal ileum. Biopsied. Recommendations : - Discharge patient to home. - Resume previous diet. - Continue present medications. - Await pathology results. - Repeat colonoscopy in 5 years for surveillance. - Return to GI office. My findings are described in the full procedure note, which is enclosed. If I can be of further assistance, please feel free to contact me at . Sincerely, Anthony Medina, 11/26/2021 1:08:44 PM This report has been signed electronically.
[2021-11-26 13:31] VITALS: BP 142/78
== END 2021-11-26 13:38 | disposition home or self-care (01) ==
LOC: EN 11:14 → AC 11:15
PROVIDERS: PCP Family Medicine; Referring Provider Family Medicine; Visit Provider Internal Medicine Gastroenterology
PROC: 0DJD8ZZ Inspection of Lower Intestinal Tract, Via Natural or Artificial Opening Endoscopic (ICD-10-PCS; CPT 45378; principal; 2021-11-26 12:10)
DX: K44.9 Diaphragmatic hernia without obstruction or gangrene (principal); K25.9 Gastric ulcer, unspecified as acute or chronic, without hemorrhage or perforation; K58.0 Irritable bowel syndrome with diarrhea; K20.90 Esophagitis, unspecified without bleeding; K31.89 Other diseases of stomach and duodenum; K63.89 Other specified diseases of intestine; K29.50 Unspecified chronic gastritis without bleeding; K76.0 Fatty (change of) liver, not elsewhere classified; E66.9 Obesity, unspecified; I10 Essential (primary) hypertension; Z79.899 Other long term (current) drug therapy; Z87.891 Personal history of nicotine dependence; Z68.35 Body mass index [BMI] 35.0-35.9, adult
CPT/HCPCS: 45380; 43239; 88305; 88313; 88342; J7120; J2405

== ENCOUNTER 2021-12-17 07:10 | Emergency (ER) | payer MEDICARE, MEDICAID, SELFPAY ==
[2021-12-17 07:10] VITALS: BP 146/85; PULSE 123; RESP 18; TEMP 36.6; O2SAT 99; BMI 36.3
--- NOTE | 2021-12-17 07:23 | EDS_ITS ---
HPI HPI - URI History of Present Illness Chief Complaint: Sore Throat Informant: patient Onset/Context/Timing Onset: Days Context: Gradual Onset Timing: Continuous Current Severity: Mild Maximum Severity: Mild Associated Symptoms Associated Symptoms: Positive for Nasal Congestion, Myalgias and Nonproductive cough Narrative Narrative: 51-year-old female states she has had a sore throat since last Thursday. Progressively getting worse. She is able to swallow. Is painful. Denies any fever. No vomiting. No diarrhea. initially had a URI. Nonproductive cough. Prior similar symptoms: Yes Recent Illness/Hospitalization: No ROS ROS ED ROS Narrative Cough. Body aches. Sore throat. Earache. Review of Systems ROS Unobtainable: Denies due to encephalopathy Constitutional Constitutional ED: Denies chills or fever(s) Eyes Eyes: Denies blurry vision ENT ENT ED: Reports ear pain, rhinorrhea and sore throat Cardiovascular Cardiovascular: Denies chest pain Respiratory/Chest Respiratory/Chest: Reports cough; Denies dyspnea Gastrointestinal Gastrointestinal: Denies abdominal pain, diarrhea or vomiting Genitourinary Genitourinary ED: Denies dysuria or hematuria Musculoskeletal Musculoskeletal: Denies arthralgias Integumentary Denies abscess Neurologic Neurologic: Denies headache(s) Psychiatric Psychiatric: Denies anxiety Endocrine Endocrinology: Denies cold intolerance Hematologic/Lymphatic Hematologic/Lymphatic: Denies easy bleeding Allergic/Immunologic Allergic/Immunologic ED: Denies mouth swelling or tongue swelling PFSH [facility] Medical History Arthritis Back pain Benign neoplasm of colon, unspecified Bite by animal Chronic insomnia Easy bruising Fatty liver Fibromyalgia Former smoker GERD (gastroesophageal reflux disease) Hiatal hernia History of IBS History of stress test Hypertension Leg cramps Migraine headache NAFLD (nonalcoholic fatty liver disease) Urethral stenosis Home Medications sumatriptan succinate 25 mg tablet (Imitrex) 100 mg PO .X1 PRN PRN Migraine Symptoms 06/09/15 [History Last Taken 06/09/15] Ibuprofen [Motrin] 800 mg PO TID PRN PRN Pain #20 tabs 06/20/15 [Rx Last Taken Unknown] tizanidine 4 mg tablet 4 mg PO BID 09/08/16 [History Last Taken Unknown] atorvastatin 10 mg tablet 10 mg PO QHS 01/26/19 [History Last Taken Unknown] cholecalciferol (vitamin D3) 1,250 mcg (50,000 unit) tablet 1,250 mcg PO FR 07/22/21 [History Last Taken Unknown] lisinopril 10 mg tablet 10 mg PO DAILY 07/22/21 [History Last Taken 11/26/21] dicyclomine 20 mg tablet 20 mg PO BID #180 tabs 08/23/21 [Rx Last Taken Unknown] sucralfate 1 gram tablet 1 g PO QACHS #120 tabs 10/22/21 [Rx Last Taken Unknown] ursodiol 250 mg tablet 250 mg PO BID #180 tabs 10/22/21 [Rx Last Taken Unknown] peg 3350-electrolytes 236 gram-22.74 gram-6.74 gram-5.86 gram solution (Golytely) 240 ml PO Q10M #4,000 mL 11/14/21 [Rx Last Taken Unknown] promethazine 25 mg tablet 25 mg PO BID PRN nausea and vomiting #30 tabs 11/14/21 [Rx Last Taken Unknown] gabapentin 300 mg capsule 600 mg PO BID 11/19/21 [History Last Taken 11/26/21] vitamin E (dl, acetate) 180 mg (400 unit) capsule 300 mg PO BID NAFLD 11/19/21 [History Last Taken Unknown] pantoprazole 20 mg tablet,delayed release 20 mg PO BID #60 tabs 11/26/21 [Rx Last Taken Unknown] sucralfate 100 mg/mL oral suspension 10 ml PO TID 4 weeks #840 mL 11/26/21 [Rx Last Taken Unknown] azithromycin 250 mg tablet (Zithromax Z-Carter) See Rx Instructions PO .COMPLEX #6 tabs 12/17/21 [Rx Last Taken Unknown] prednisone 20 mg tablet 40 mg PO DAILY 7 days #14 tabs 12/17/21 [Rx Last Taken Unknown] Allergy/AdvReac Type Severity Reaction Status Date / Time adhesive Allergy Rash Verified 11/26/21 11:29 fluoxetine HCl [From Prozac] Allergy Anaphylaxis Verified 11/26/21 11:29 ketorolac tromethamine Allergy Rash Verified 11/26/21 11:29 [From Toradol] tramadol Allergy Unknown Verified 11/26/21 11:29 prednisone AdvReac Other Verified 11/26/21 11:29 sulfamethoxazole AdvReac Vomiting Verified 11/26/21 11:29 [From Bactrim] trimethoprim [From Bactrim] AdvReac Vomiting Verified 11/26/21 11:29 CAPSULES AdvReac Laryngospas Uncoded 12/17/21 07:14 ms Surgical History History of esophagogastroduodenoscopy (EGD) History of laparoscopic-assisted vaginal hysterectomy Hx of colonoscopy Social History Smoking Status: Former smoker EXAM Physical Exam Narrative Exam Narrative: 51-year-old female no acute distress. Vital signs stable afebrile. Pulse ox 99% on room air no signs hypoxia. H EENT exam unremarkable. She is status post tonsillectomy. She is also have a uvular resection. She has no drooling. No stridor. TMs right mildly erythematous left unremarkable. Neck tender but no specific lymphadenopathy. No meningismus. Lungs are scattered expiratory wheezes. No rales or rhonchi. Heart tachycardic rate about 120 no murmur. Abdomen soft nontender. Moving all 4 extremities. Calves are nontender without edema. Neurologically she is awake and alert. Const Vital Signs: 12/17/21 07:10 Temperature 97.9 F Temperature Source Temporal Pulse Rate 123 H Respiratory Rate 18 Blood Pressure 146/85 H Blood Pressure Mean 105 Pulse Ox 99 Oxygen Delivery Method Room Air Positive well nourished and well developed; Negative for cachectic or contractures General Appearance ED: well developed and NAD; Negative for cachectic, contractures, cyanotic, diaphoretic or pallor Nutritional Appearance: Negative for cachectic HEENT Reports moist mucous membranes normocephalic and atraumatic; Negative for scalp tenderness Face and Sinus: Negative for sinus tenderness or maxillary instability Throat: posterior oropharynx normal Eyes PERRL and EOMs intact bilaterally General Eye ED: Yes pale conjunctiva and scleral icterus Neck no lymphadenopathy, supple, no meningeal signs and no JVD General: Negative for anterior neck swelling or lymphadenopathy Resp normal respiratory effort and No clear to auscultation bilaterally Effort and Inspection: Negative for retractions Auscultation: wheezes; Negative for rales or rhonchi Cardio S1 normal heart sound, S2 normal heart sound and no murmurs Rate: tachycardic; Negative for regular rate Rhythm: regular rhythm GI non-tender, non-distended and no masses Inspection: Negative for abdominal distention Auscultation: normoactive bowel sounds Palpation: soft; Negative for tender or guarding Back/Spine no CVA tenderness and normal ROM General Back: Negative for CVA tenderness Cervical Spine: Negative for cervical spine tenderness Thoracic Spine / Upper Back: Negative for thoracic spinal tenderness Lumbar Spine / Lower Back: Negative for lumbar spinal tenderness Sacrum: Negative for tenderness Extremity normal to inspection and full ROM General Extremety ED: Negative for cyanosis or tenderness General Extremity: Negative for cyanosis Neuro oriented x3 Sensorium / Orientation: alert, oriented to person, oriented to place and oriented to time; Negative for orientation impaired, lethargic or stuporous Motor Exam: strength 5/5 throughout Psych mental status grossly normal Attitude: No agitated Mood & Affect: Negative for depressed, anxious or tearful Skin General Skin Exam: Negative for jaundice or pallor Lesions: no lesions Rashes: no rashes MDM MDM MDM Narrative Medical decision making narrative: Patient with URI symptoms for a week that are getting worse. No obvious strep throat on exam rapid strep was obtained. However with her sore throat, earache and cough getting worse she will be started on antibiotics. She was started on Zithromax. Also written for prescription for prednisone for her wheezing. She is a non-smoker. Lab Data Attestation: I reviewed the patient's lab results. Lab results narrative: Rapid strep test is negative. Discharge Plan Triage Chief Complaint: Sore Throat ED Provider: Arthur Masters Dx/Rx/DC Orders Clinical Impression: URI (upper respiratory infection), Pharyngitis, acute Instructions: ED URI, Viral W/ Wheezing (Adult) Prescriptions: New azithromycin [Zithromax Z-Carter] 250 mg tablet See Rx Instructions .ROUTE .COMPLEX Qty: 6 0RF Rx Instructions: For 250 mg dose pack: take 500 mg today (day 1), then 250 mg for 4 days (days 2-5) prednisone 20 mg tablet 40 mg PO DAILY 7 Days Qty: 14 0RF No Action cholecalciferol (vitamin D3) 1,250 mcg (50,000 unit) tablet 1,250 mcg PO FR lisinopril 10 mg tablet 10 mg PO DAILY dicyclomine 20 mg tablet 20 mg PO BID Qty: 180 0RF sumatriptan succinate [Imitrex] 25 MG tablet 100 mg PO .X1 PRN PRN (Reason: Migraine Symptoms) Label Comments: LUGO Ibuprofen [Motrin] 800 MG tablet 800 mg PO TID PRN PRN (Reason: Pain) Qty: 20 0RF tizanidine 4 MG tablet 4 mg PO BID atorvastatin 10 MG tablet 10 mg PO QHS gabapentin 300 MG capsule 600 mg PO BID vitamin E (dl, acetate) 180 mg (400 unit) capsule 300 mg PO BID ursodiol 250 mg tablet 250 mg PO BID Qty: 180 1RF sucralfate 1 gram tablet 1 g PO QACHS Qty: 120 0RF peg 3350-electrolytes [Golytely] 236-22.74-6.74 -5.86 gram recon soln 240 ml PO Q10M Qty: 4000 0RF Rx Instructions: start the afternoon prior to colonoscopy until fecal effluent is clear promethazine 25 mg tablet 25 mg PO BID PRN (Reason: nausea and vomiting) Qty: 30 1RF sucralfate 100 mg/mL suspension 10 ml PO TID 28 Days Qty: 840 1RF pantoprazole 20 mg tablet,delayed release (DR/EC) 20 mg PO BID Qty: 60 1RF Primary Care Provider: Dane Flores Referrals: Dane Flores MD [Primary Care Provider] - 1 Week if not improving Activity Restrictions/Additional Instructions: Plenty of fluids and rest. Alternate Motrin and Tylenol for body aches. Prednisone daily for the wheezing. It should decrease inflammation in your lungs. Zithromax Z-Carter should help take care of of the sore throat, earache and cough. Warm salt water gargling to help with the discomfort in your throat. This should progressively start getting better in the next 48 to 96 hours. Fol low-up with your doctor in a week if not improving. Disposition Disposition: Home, Self Care
== END 2021-12-17 07:45 | disposition home or self-care (01) ==
LOC: ED 07:45
PROVIDERS: Emergency Provider Emergency Medicine; PCP Family Medicine; Visit Provider Emergency Medicine
DX: J06.9 Acute upper respiratory infection, unspecified (principal); Z87.891 Personal history of nicotine dependence
CPT/HCPCS: 87880; 99282

== ENCOUNTER → 2022-01-03 | Outpatient (CLI) | payer MEDICARE, MEDICAID, SELFPAY | END | disposition home or self-care (01) | LOC: LABSPEC 16:09 | PROVIDERS: PCP Family Medicine; Visit Provider Otolaryngology | DX: J02.9 Acute pharyngitis, unspecified (principal) | CPT/HCPCS: 87070 ==

== ENCOUNTER 2022-03-01 02:18 | Emergency (ER) | payer MEDICARE, MEDICAID, SELFPAY ==
[2022-03-01 02:19] VITALS: BP 143/74; PULSE 73; RESP 18; TEMP 35.5; O2SAT 99; BMI 37.2
--- NOTE | 2022-03-01 03:20 | EDS_ITS ---
HPI History of Present Illness Chief Complaint: General Illness Detail of Chief Complaint: Cough with wheezing and productive of clear phlegm. Informant: patient Onset/Context/Timing Onset: Today and Yesterday Timing: Continuous Current Severity: Mild Maximum Severity: Mild Narrative Narrative: 51-year-old female history of insomnia, IBS and hypertension. States she had URI symptoms last several days. Tonight she awoke coughing and felt like she was choking on phlegm. Her patted her back and this improved. States she said clear to white phlegm. Chills without fever. Denies any nausea, vomiting or diarrhea. No recent hospitalization. No chest pain or hemoptysis. Prior similar symptoms: Yes Recent Illness/Hospitalization: No PFSH PFSH Medical History Arthritis Back pain Benign neoplasm of colon, unspecified Bite by animal Chronic insomnia Easy bruising Fatty liver Fibromyalgia Former smoker GERD (gastroesophageal reflux disease) Hiatal hernia History of IBS History of stress test Hypertension Leg cramps Migraine headache NAFLD (nonalcoholic fatty liver disease) Urethral stenosis Home Medications sumatriptan succinate 25 mg tablet (Imitrex) 100 mg PO .X1 PRN PRN Migraine Symptoms 06/09/15 [History Last Taken 06/09/15] Ibuprofen [Motrin] 800 mg PO TID PRN PRN Pain #20 tabs 06/20/15 [Rx Last Taken Unknown] tizanidine 4 mg tablet 4 mg PO BID 09/08/16 [History Last Taken Unknown] atorvastatin 10 mg tablet 10 mg PO QHS 01/26/19 [History Last Taken Unknown] cholecalciferol (vitamin D3) 1,250 mcg (50,000 unit) tablet 1,250 mcg PO FR 07/22/21 [History Last Taken Unknown] lisinopril 10 mg tablet 10 mg PO DAILY 07/22/21 [History Last Taken 11/26/21] dicyclomine 20 mg tablet 20 mg PO BID #180 tabs 08/23/21 [Rx Last Taken Unknown] sucralfate 1 gram tablet 1 g PO QACHS #120 tabs 10/22/21 [Rx Last Taken Unknown] ursodiol 250 mg tablet 250 mg PO BID #180 tabs 10/22/21 [Rx Last Taken Unknown] peg 3350-electrolytes 236 gram-22.74 gram-6.74 gram-5.86 gram solution (Golytely) 240 ml PO Q10M #4,000 mL 11/14/21 [Rx Last Taken Unknown] promethazine 25 mg tablet 25 mg PO BID PRN nausea and vomiting #30 tabs 11/14/21 [Rx Last Taken Unknown] gabapentin 300 mg capsule 600 mg PO BID 11/19/21 [History Last Taken 11/26/21] vitamin E (dl, acetate) 180 mg (400 unit) capsule 300 mg PO BID NAFLD 11/19/21 [History Last Taken Unknown] pantoprazole 20 mg tablet,delayed release 20 mg PO BID #60 tabs 11/26/21 [Rx Last Taken Unknown] sucralfate 100 mg/mL oral suspension 10 ml PO TID 4 weeks #840 mL 11/26/21 [Rx Last Taken Unknown] azithromycin 250 mg tablet (Zithromax Z-Carter) See Rx Instructions PO .COMPLEX #6 tabs 12/17/21 [Rx Last Taken Unknown] prednisone 20 mg tablet 40 mg PO DAILY 7 days #14 tabs 12/17/21 [Rx Last Taken Unknown] albuterol sulfate 90 mcg/actuation aerosol inhaler (Proventil HFA) 2 inh inhalation Q4H PRN shortness of breath or wheezing #6.7 grams 03/01/22 [Rx Last Taken Unknown] Allergy/AdvReac Type Severity Reaction Status Date / Time adhesive Allergy Rash Verified 03/01/22 02:21 fluoxetine HCl [From Prozac] Allergy Anaphylaxis Verified 03/01/22 02:21 ketorolac tromethamine Allergy Rash Verified 03/01/22 02:21 [From Toradol] tramadol Allergy Unknown Verified 03/01/22 02:21 prednisone AdvReac Other Verified 03/01/22 02:21 sulfamethoxazole AdvReac Vomiting Verified 03/01/22 02:21 [From Bactrim] trimethoprim [From Bactrim] AdvReac Vomiting Verified 03/01/22 02:21 CAPSULES AdvReac Laryngospas Uncoded 03/01/22 02:21 ms Surgical History History of esophagogastroduodenoscopy (EGD) History of laparoscopic-assisted vaginal hysterectomy Hx of colonoscopy Social History Smoking Status: Former smoker ROS ROS ED ROS Narrative Cough. Wheezing. Chills. Review of Systems ROS Unobtainable: Denies due to encephalopathy Constitutional Constitutional ED: Reports chills; Denies fever(s) Eyes Eyes: Denies blurry vision ENT ENT ED: Reports rhinorrhea; Denies ear pain or sore throat Cardiovascular Cardiovascular: Denies chest pain or palpitations Respiratory/Chest Respiratory/Chest: Reports cough Gastrointestinal Gastrointestinal: Denies abdominal pain, diarrhea, melena, nausea or vomiting Genitourinary Genitourinary ED: Denies dysuria Musculoskeletal Musculoskeletal: Denies arthralgias Integumentary Denies abscess Neurologic Neurologic: Denies headache(s) Psychiatric Psychiatric: Denies anxiety Endocrine Endocrinology: Denies cold intolerance Hematologic/Lymphatic Hematologic/Lymphatic: Reports none Allergic/Immunologic Allergic/Immunologic ED: Denies mouth swelling, tongue swelling or urticaria EXAM Physical Exam Narrative Exam Narrative: Well-appearing 51-year-old female. No acute distress. Vital signs stable afebrile. Pulse ox 99% on room air no signs hypoxia. H EENT exam TMs normal bilaterally. Posterior pharynx postnasal drainage. No significant swelling. No erythema or exudate. Cobblestoning. Neck nontender no lymphadenopathy. No JVD. Lungs scattered expiratory wheezes. No rales or rhonchi. Equal symmetrical. Heart regular rhythm rate about 70 no murmur. Abdomen soft nontender. Moving all 4 extremities. Calves nontender without edema or cords. Neurologic exam awake alert no focal motor deficits. Benign exam. Patient appears well with a viral URI. Const Vital Signs: 03/01/22 02:19 03/01/22 02:21 Temperature 96 F L Temperature Source Temporal Pulse Rate 73 Respiratory Rate 18 Respiratory Effort Normal Blood Pressure 143/74 H Blood Pressure Mean 97 Pulse Ox 99 Oxygen Delivery Method Room Air Positive well nourished, well developed and obese; Negative for cachectic, contractures or unkempt General Appearance ED: well developed and NAD; Negative for unkempt, cachectic, contractures, cyanotic or diaphoretic Nutritional Appearance: obese; Negative for cachectic HEENT Reports moist mucous membranes; Denies dry mucous membranes Negative for trauma or tenderness Mouth ED: No dry mucous membranes Mouth: No dry mucous membranes Eyes PERRL and EOMs intact bilaterally General Eye ED: Negative for pale conjunctiva or scleral icterus Neck no lymphadenopathy, supple and no JVD General: Negative for tenderness Chest Wall inspection of chest normal and palpation of chest normal Chest: Negative for other Resp normal respiratory effort and No clear to auscultation bilaterally Effort and Inspection: Negative for retractions Auscultation: wheezes; Negative for rales or rhonchi Cardio regular rate, regular rhythm, S1 normal heart sound, S2 normal heart sound and no murmurs GI normal to inspection, nondistended, normoactive bowel sounds, non-tender, non- distended and no masses Inspection: Negative for abdominal distention Auscultation: normoactive bowel sounds Palpation: soft; Negative for tender or guarding Back/Spine no CVA tenderness General Back: Negative for CVA tenderness Cervical Spine: Negative for cervical spine tenderness Thoracic Spine / Upper Back: Negative for thoracic spinal tenderness Lumbar Spine / Lower Back: Negative for lumbar spinal tenderness Extremity normal to inspection General Extremety ED: Negative for edema or tenderness General Extremity: Negative for edema Neuro oriented x3 and CN's II-XII intact bilaterally Sensorium / Orientation: alert; Negative for orientation impaired, lethargic or stuporous Motor Exam: strength 5/5 throughout; Negative for general weakness or strength abnormal Psych mental status grossly normal Appearance: Negative for unkempt Attitude: No agitated Mood & Affect: Negative for depressed, anxious or tearful Skin no rashes or lesions noted and no wounds Lesions: No lesion noted Rashes: No rashes noted Trauma: Negative for abrasion Wounds: Negative for wounds noted MDM MDM MDM Narrative Medical decision making narrative: 51-year-old with viral URI with expiratory wheezing. Explained to her I was getting treated with a course of oral steroids. She states she cannot do steroids due to she had problems with them in the past. And did not want to be placed on steroids. She will be given a DuoNeb aerosol treatment. And a prescription for a Proventil inhaler. She does not need an x-ray at this time. She has no clinical signs of pneumonia. Discharge Plan Triage Chief Complaint: General Illness ED Provider: Arthur Masters Dx/Rx/DC Orders Clinical Impression: Viral URI with cough, Bilateral wheezing Instructions: ED URI, Viral W/ Wheezing (Adult) Prescriptions: New albuterol sulfate [Proventil HFA] 90 mcg/actuation HFA aerosol inhaler 2 inh inhalation Q4H PRN (Reason: shortness of breath or wheezing) Qty: 6.7 0RF No Action cholecalciferol (vitamin D3) 1,250 mcg (50,000 unit) tablet 1,250 mcg PO FR lisinopril 10 mg tablet 10 mg PO DAILY dicyclomine 20 mg tablet 20 mg PO BID Qty: 180 0RF sumatriptan succinate [Imitrex] 25 MG tablet 100 mg PO .X1 PRN PRN (Reason: Migraine Symptoms) Label Comments: LUGO Ibuprofen [Motrin] 800 MG tablet 800 mg PO TID PRN PRN (Reason: Pain) Qty: 20 0RF tizanidine 4 MG tablet 4 mg PO BID atorvastatin 10 MG tablet 10 mg PO QHS gabapentin 300 MG capsule 600 mg PO BID vitamin E (dl, acetate) 180 mg (400 unit) capsule 300 mg PO BID azithromycin [Zithromax Z-Carter] 250 mg tablet See Rx Instructions .ROUTE .COMPLEX Qty: 6 0RF Rx Instructions: For 250 mg dose pack: take 500 mg today (day 1), then 250 mg for 4 days (days 2-5) prednisone 20 mg tablet 40 mg PO DAILY 7 Days Qty: 14 0RF ursodiol 250 mg tablet 250 mg PO BID Qty: 180 1RF sucralfate 1 gram tablet 1 g PO QACHS Qty: 120 0RF peg 3350-electrolytes [Golytely] 236-22.74-6.74 -5.86 gram recon soln 240 ml PO Q10M Qty: 4000 0RF Rx Instructions: start the afternoon prior to colonoscopy until fecal effluent is clear promethazine 25 mg tablet 25 mg PO BID PRN (Reason: nausea and vomiting) Qty: 30 1RF sucralfate 100 mg/mL suspension 10 ml PO TID 28 Days Qty: 840 1RF pantoprazole 20 mg tablet,delayed release (DR/EC) 20 mg PO BID Qty: 60 1RF Primary Care Provider: Dane Flores Referrals: Dane Flores MD [Primary Care Provider] - 1 Week if not improving Activity Restrictions/Additional Instructions: 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 2 puffs every 2-4 hours as ne eded. Mucinex for any drainage. Plenty of fluids and rest. Tylenol for any fever. Follow-up with your doctor if not improving. Disposition Disposition: Home, Self Care
[2022-03-01] MEDS: Ipratropium/Albuterol Sulfate 3 ML AMPUL.NEB INHALATION (03:27)
[2022-03-01 03:42] VITALS: RESP 20
== END 2022-03-01 04:00 | disposition home or self-care (01) ==
PROVIDERS: Emergency Provider Emergency Medicine; PCP Family Medicine; Visit Provider Emergency Medicine
DX: J06.9 Acute upper respiratory infection, unspecified (principal); R06.2 Wheezing; G47.00 Insomnia, unspecified; I10 Essential (primary) hypertension; M79.7 Fibromyalgia; M19.90 Unspecified osteoarthritis, unspecified site; E66.9 Obesity, unspecified; Z87.891 Personal history of nicotine dependence
CPT/HCPCS: 99284

== ENCOUNTER 2022-05-14 06:52 | Outpatient (CLI) | payer MEDICARE, MEDICAID, SELFPAY ==
--- NOTE | 2022-05-14 14:36 | NEURO ---
NCS and/or EMG Patient Report Ordering Doctor: Mahendra Chaves DATE OF SERVICE: 05/14/22 Camelia presents for electrodiagnostic testing of the lower limbs. She reports sharp, shooting pain in the left heel. Electrodiagnostic findings: Peroneal motor nerve demonstrates normal distal latency, amplitude and conduction velocity bilaterally. Normal tibial motor response bilaterally. Normal peroneal and tibial F waves. H reflex normal bilaterally. Sensory responses, including plantar responses, are within normal limits. Needle EMG testing showed no evidence of denervation in any muscles tested in the lower limbs. Motor unit action potentials are of normal amplitude and duration. Electrodiagnostic impression: This is a normal electrodiagnostic study of the lower limbs. There is no electrodiagnostic evidence for peripheral neuropathy or lumbosacral radiculopathy.
== END 2022-05-14 23:59 | disposition home or self-care (01) ==
PROVIDERS: PCP Family Medicine; Referring Provider Podiatrist; Visit Provider Podiatrist
DX: G57.50 Tarsal tunnel syndrome, unspecified lower limb (principal); M79.672 Pain in left foot
CPT/HCPCS: 95886; 95913

== ENCOUNTER → 2022-06-03 | Outpatient (CLI) | payer MEDICARE, MEDICAID, SELFPAY ==
--- NOTE | 2022-06-03 08:18 | MRI_ITS ---
STUDY: MRI LEFT ANKLE WITHOUT CONTRAST REASON FOR EXAM: Female, 51 years old. Pain. Evaluate for plantar fasciitis/fibromatosis. TECHNIQUE: Standardized fat and water weighted pulse sequences were obtained in all 3 orthogonal planes. COMPARISON: None. FINDINGS: Normal subcutis adipose space. Normal posterior tibialis tendon. Normal flexor digitorum longus tendon. Normal flexor hallucis longus tendon. Normal peroneus longus and brevis tendons. Normal tibialis anterior tendon. Normal extensor hallucis longus tendon. Normal extensor digitorum longus tendons. Normal Achilles tendon and teno-osseous insertion. Thickening of the proximal plantar fascia with focal bone marrow edema within the calcaneus at the insertion of the plantar fascia (coronal series 8 image 8, sagittal series 10 images 12-15). Normal plantar calcaneal tubercles. Normal intrinsic muscles of the rearfoot. Normal distal tibiofibular syndesmotic ligamentous complex. Normal lateral ligamentous complex. Normal subtalar ligaments and sinus tarsi. Normal deltoid ligamentous complexes. Normal plantar calcaneonavicular (spring) ligament. Normal tibiotalar articulation. Normal talar dome. Normal subtalar articulations. Normal talonavicular articulation. Normal calcaneocuboid articulation. Normal navicular-cuneiform articulations. MRI/Lower Ext Joint Only (Routine) IMPRESSION: Findings compatible with mild plantar fasciitis. No other abnormality present. Electronically Signed: Tay Diaz, at 13:47 EDT ,
== END | disposition home or self-care (01) ==
LOC: MRI 08:10
PROVIDERS: PCP Family Medicine; Referring Provider Podiatrist; Visit Provider Podiatrist
DX: M72.2 Plantar fascial fibromatosis (principal)
CPT/HCPCS: 73721

== ENCOUNTER 2022-09-27 08:46 | Emergency (ER) | payer MEDICARE, MEDICAID, SELFPAY ==
[2022-09-27 08:47] VITALS: BP 144/79; PULSE 89; RESP 16; TEMP 36.6; O2SAT 98; BMI 36.3
[2022-09-27 09:05] VITALS: BP 134/78; PULSE 76; RESP 14; TEMP 36.6; O2SAT 100
--- NOTE | 2022-09-27 09:06 | EX.ED.UPPERE ---
HPI History of Present Illness Chief Complaint: Laceration Informant: patient Narrative Narrative: [id number]-[id number] female was using a hunting knife in her kitchen to cut food for dinner and put it in a crockpot, she accidentally cut herself in the left thumb and even though she had a pressure dressing on it for an hour, she is having trouble getting the bleeding to stop which is why she presents here. That, and a tetanus shot. She is on no antiplatelet or anticoagulant medications. No other injuries or symptoms. Tetanus Immunization: Unknown [facility] Medical History Arthritis Back pain Benign neoplasm of colon, unspecified Bite by animal Chronic insomnia Easy bruising Fatty liver Fibromyalgia Former smoker GERD (gastroesophageal reflux disease) Hiatal hernia History of IBS History of stress test Hypertension Leg cramps Migraine headache NAFLD (nonalcoholic fatty liver disease) Urethral stenosis Home Medications sumatriptan succinate 25 mg tablet (Imitrex) 100 mg PO .X1 PRN PRN Migraine Symptoms 06/09/15 [History Last Taken 06/09/15] Ibuprofen [Motrin] 800 mg PO TID PRN PRN Pain #20 tabs 06/20/15 [Rx Last Taken Unknown] tizanidine 4 mg tablet 4 mg PO BID 09/08/16 [History Last Taken Unknown] atorvastatin 10 mg tablet 10 mg PO QHS 01/26/19 [History Last Taken Unknown] cholecalciferol (vitamin D3) 1,250 mcg (50,000 unit) tablet 1,250 mcg PO FR 07/22/21 [History Last Taken Unknown] lisinopril 10 mg tablet 10 mg PO DAILY 07/22/21 [History Last Taken 11/26/21] dicyclomine 20 mg tablet 20 mg PO BID #180 tabs 08/23/21 [Rx Last Taken Unknown] sucralfate 1 gram tablet 1 g PO QACHS #120 tabs 10/22/21 [Rx Last Taken Unknown] ursodiol 250 mg tablet 250 mg PO BID #180 tabs 10/22/21 [Rx Last Taken Unknown] peg 3350-electrolytes 236 gram-22.74 gram-6.74 gram-5.86 gram solution (Golytely) 240 ml PO Q10M #4,000 mL 11/14/21 [Rx Last Taken Unknown] promethazine 25 mg tablet 25 mg PO BID PRN nausea and vomiting #30 tabs 11/14/21 [Rx Last Taken Unknown] gabapentin 300 mg capsule 600 mg PO BID 11/19/21 [History Last Taken 11/26/21] vitamin E (dl, acetate) 180 mg (400 unit) capsule 300 mg PO BID NAFLD 11/19/21 [History Last Taken Unknown] pantoprazole 20 mg tablet,delayed release 20 mg PO BID #60 tabs 11/26/21 [Rx Last Taken Unknown] sucralfate 100 mg/mL oral suspension 10 ml PO TID 4 weeks #840 mL 11/26/21 [Rx Last Taken Unknown] azithromycin 250 mg tablet (Zithromax Z-Carter) See Rx Instructions PO .COMPLEX #6 tabs 12/17/21 [Rx Last Taken Unknown] albuterol sulfate 90 mcg/actuation aerosol inhaler (Proventil HFA) 2 inh inhalation Q4H PRN shortness of breath or wheezing #6.7 grams 03/01/22 [Rx Last Taken Unknown] celecoxib 200 mg capsule (Celebrex) 200 mg PO BID #30 caps 03/19/22 [Rx Last Taken Unknown] Allergy/AdvReac Type Severity Reaction Status Date / Time ketorolac [From Toradol] Allergy Mild rash Verified 09/27/22 09:11 adhesive Allergy Rash Verified 09/27/22 09:11 fluoxetine HCl [From Prozac] Allergy Anaphylaxis Verified 09/27/22 09:11 ketorolac tromethamine Allergy Rash Verified 09/27/22 09:11 [From Toradol] tramadol Allergy Unknown Verified 09/27/22 09:11 prednisone AdvReac Other Verified 09/27/22 09:11 sulfamethoxazole AdvReac Vomiting Verified 09/27/22 09:11 [From Bactrim] trimethoprim [From Bactrim] AdvReac Vomiting Verified 09/27/22 09:11 CAPSULES AdvReac Laryngospas Uncoded 03/19/22 13:24 ms Surgical History History of esophagogastroduodenoscopy (EGD) History of laparoscopic-assisted vaginal hysterectomy Hx of colonoscopy Social History Smoking Status: Former smoker ROS ROS ED Constitutional Constitutional ED: Denies chills or fever(s) Musculoskeletal Musculoskeletal: Reports extremity pain; Denies neck pain Integumentary Reports wounds; Denies Abrasions or rash Neurologic Neurologic: Denies paresthesias or weakness EXAM Physical Exam Const Vital Signs: 09/27/22 08:47 Temperature 97.8 F Temperature Source Temporal Pulse Rate 89 Respiratory Rate 16 Blood Pressure 144/79 H Blood Pressure Mean 100 Pulse Ox 98 Oxygen Delivery Method Room Air Positive well nourished and well developed General Appearance ED: well developed and NAD Neck full ROM and supple Back/Spine normal ROM and normal to inspection Extremity full ROM Extremity Narrative: Minor epidermal avulsion to the ulnar aspect of the distal phalanx of the left thumb no nail involvement, oozing blood no arterial bleeding, barely subcutaneous, less than a square centimeter. Full range of motion, no bony tenderness. Neuro oriented x3, no focal motor deficits and no sensory deficits noted Sensorium / Orientation: alert Psych mental status grossly normal and thought process normal Skin Skin Narrative: Small epidermal avulsion oozing blood left thumb see above. Rashes: no rashes MDM MDM MDM Narrative Medical decision making narrative: Tetanus updated, and I had nursing cleanse the wound and place a small piece of [place] with a mild pressure dressing and bacitracin, given appropriate discharge instructions and reasons to return. Discharge Plan Triage Chief Complaint: Laceration ED Provider: Zhang Spencer Dx/Rx/DC Orders Clinical Impression: Avulsion of skin of left thumb, Lsypilceba-hrkuwyiaa-cwrjwkx (DPT) vaccination administered at current visit Instructions: ED Skin Avulsion Prescriptions: No Action cholecalciferol (vitamin D3) 1,250 mcg (50,000 unit) tablet 1,250 mcg PO FR lisinopril 10 mg tablet 10 mg PO DAILY dicyclomine 20 mg tablet 20 mg PO BID Qty: 180 0RF celecoxib [Celebrex] 200 mg capsule 200 mg PO BID Qty: 30 0RF sumatriptan succinate [Imitrex] 25 MG tablet 100 mg PO .X1 PRN PRN (Reason: Migraine Symptoms) Patient Comments: LUGO Ibuprofen [Motrin] 800 MG tablet 800 mg PO TID PRN PRN (Reason: Pain) Qty: 20 0RF tizanidine 4 MG tablet 4 mg PO BID atorvastatin 10 MG tablet 10 mg PO QHS gabapentin 300 MG capsule 600 mg PO BID vitamin E (dl, acetate) 180 mg (400 unit) capsule 300 mg PO BID azithromycin [Zithromax Z-Carter] 250 mg tablet See Rx Instructions .ROUTE .COMPLEX Qty: 6 0RF Rx Instructions: For 250 mg dose pack: take 500 mg today (day 1), then 250 mg for 4 days (days 2-5) albuterol sulfate [Proventil HFA] 90 mcg/actuation HFA aerosol inhaler 2 inh inhalation Q4H PRN (Reason: shortness of breath or wheezing) Qty: 6.7 0RF ursodiol 250 mg tablet 250 mg PO BID Qty: 180 1RF sucralfate 1 gram tablet 1 g PO QACHS Qty: 120 0RF peg 3350-electrolytes [Golytely] 236-22.74-6.74 -5.86 gram recon soln 240 ml PO Q10M Qty: 4000 0RF Rx Instructions: start the afternoon prior to colonoscopy until fecal effluent is clear promethazine 25 mg tablet 25 mg PO BID PRN (Reason: nausea and vomiting) Qty: 30 1RF sucralfate 100 mg/mL suspension 10 ml PO TID 28 Days Qty: 840 1RF pantoprazole 20 mg tablet,delayed release (DR/EC) 20 mg PO BID Qty: 60 1RF Primary Care Provider: Dane Flores Referrals: Dane Flores MD [Primary Care Provider] - As Needed Activity Restrictions/Additional Instructions: Leave dressing on until tonight, then you may replace with a Band-Aid with some antibiotic ointment. If still having bleeding issues, the small piece of hemostatic foam can be reused until it is absorbed. Disposition Disposition: Home, Self Care
[2022-09-27] MEDS: Diphth,Pertuss(Acell),Tet Vac 0.5 ML Vial IM (09:12)
== END 2022-09-27 09:24 | disposition home or self-care (01) ==
LOC: ED 09:16
PROVIDERS: Emergency Provider Emergency Medicine; PCP Family Medicine; Visit Provider Emergency Medicine
DX: S61.012A Laceration without foreign body of left thumb without damage to nail, initial encounter (principal); Z23 Encounter for immunization; Z87.891 Personal history of nicotine dependence; W26.0XXA Contact with knife, initial encounter
CPT/HCPCS: 90471; 99282

== ENCOUNTER → 2023-05-22 | Outpatient (CLI) | payer MEDICARE, MEDICAID, SELFPAY ==
--- NOTE | 2023-05-22 13:17 | CT_ITS ---
STUDY: CT MAXILLOFACIAL SINUSES REASON FOR EXAM: Female, 52 years old. SINUSITIS RADIATION DOSAGE (If Supplied By Facility): CTDIvol = ( 33.06 ) mGy, DLP = ( 804.92 ) mGycm TECHNIQUE: The patient was scanned in a multi detector CT scanner. High resolution axial imaging was performed without the administration of intravenous contrast material. Sagittal and coronal images were reconstructed. Individualized dose optimization techniques were used for this CT. COMPARISON: Comparison is made with prior study dated November 29, 2019. FINDINGS: FRONTAL SINUSES: Normal aeration, without mucosal inflammatory disease. ETHMOIDAL SINUSES: Normal aeration, without mucosal inflammatory disease. MAXILLARY SINUSES: Normal aeration, without mucosal inflammatory disease. SPHENOIDAL SINUSES: Normal aeration, without mucosal inflammatory disease. There is patency of the bilateral maxillary infundibuli with normal uncinate processes, ethmoid bullae, and hiatus semilunaris. Normal bilateral middle turbinates. Normal bilateral inferior turbinates. Normal midline nasal septum. There is patency of the bilateral nasal airways. There is a 1.87 x 1.4 cm rounded high density structure in the hard palate. Direct visualization recommended. The visualized bilateral orbital contents are normal. CT/Sinus/Facial Bone IMPRESSION: Normal CT examination of the maxillofacial sinuses. 1.8 cm x 1.4 cm high density structures seen in the hard palate. Direct visualization recommended. Electronically Signed: Gómez Vásquez MD at 14:15 EST ,
== END | disposition home or self-care (01) ==
PROVIDERS: PCP Family Medicine; Referring Provider Otolaryngology; Visit Provider Otolaryngology
DX: J32.8 Other chronic sinusitis (principal)
CPT/HCPCS: 70486

== ENCOUNTER → 2023-05-25 | Outpatient (CLI) | payer MEDICARE, MEDICAID, SELFPAY ==
--- NOTE | 2023-05-25 10:30 | MRI_ITS ---
STUDY: MRI LEFT ANKLE WITHOUT CONTRAST REASON FOR EXAM: Female, 52 years old. LEFT ANKLE, PLANTAR FASCIAL FIBROMATOSIS TECHNIQUE: Standardized fat and water weighted pulse sequences were obtained in all 3 orthogonal planes. COMPARISON: None. FINDINGS: Normal subcutis adipose space. Normal posterior tibialis tendon. Normal flexor digitorum longus tendon. Normal flexor hallucis longus tendon. Normal peroneus longus and brevis tendons. Normal tibialis anterior tendon. Normal extensor hallucis longus tendon. Normal extensor digitorum longus tendons. Normal Achilles tendon and teno-osseous insertion. Normal plantar fascia. Normal plantar calcaneal tubercles. Normal intrinsic muscles of the rearfoot. Normal distal tibiofibular syndesmotic ligamentous complex. Normal lateral ligamentous complex. Normal subtalar ligaments and sinus tarsi. Normal deltoid ligamentous complexes. Normal plantar calcaneonavicular (spring) ligament. Normal tibiotalar articulation. Normal talar dome. Normal subtalar articulations. Normal talonavicular articulation. Normal calcaneocuboid articulation. Normal navicular-cuneiform articulations. MRI/Lower Ext Joint Only (Routine) IMPRESSION: Unremarkable MRI of the ankle and rearfoot. No MRI evidence of plantar fascial fibromatosis. Electronically Signed: Pako Gonzalez MD at 15:44 EST ,
--- OUTSIDE RECORDS SUMMARY | 2023-05-25 10:46 | XMS RPT_ITS | CCD ---
Author Name Unknown Address [address] [place] [address] Organization [facility] Care Team Providers Care 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 Name Role Phone Liliana Cobos MD Primary Care Provider [phone] LILIANA COBOS Primary Care Unavailable JEANNIE GUAJARDO Referring Unavailable PAPITO, LILIANA A Primary Care Unavailable JEANNIE GUAJARDO Attending Unavailable ROCKY CARDOSO Referring Unavailable PAPITO, LILIANA A Primary Care Unavailable PAPITO, LILIANA A Primary Care Unavailable JEANNIE GUAJARDO Referring Unavailable PAPITO, LILIANA A Primary Care Unavailable JEANNIE GUAJARDO Attending Unavailable MARYANNE COBOSREY A Primary Care Unavailable JEANNIE GUAJARDO Referring Unavailable PAPITO, LILIANA A Primary Care Unavailable DEVAN JEANNIE Referring Unavailable PAPITO, LILIANA A Primary Care Unavailable DEVAN, JEANNIE Referring Unavailable PAPITO, LILIANA A Primary Care Unavailable PAPITO, LILIANA A Attending Unavailable WALKER, ROCKY E Referring Unavailable PAPITO, LILIANA A Primary Care Unavailable WALKER, ROCKY E Attending Unavailable PAPITO, LILIANA A Primary Care Unavailable PAPITO, LILIANA A Referring Unavailable PAPITO, LILIANA A Primary Care Unavailable PAPITO, LILIANA A Referring Unavailable WALKER, ROCKY E Referring Unavailable PAPITO, LILIANA A Primary Care Unavailable PAPITO, LILIANA A Primary Care Unavailable JEANNIE GUAJARDO Attending Unavailable LILIANA COBOS A Primary Care Unavailable LILIANA COBOS Attending Unavailable LILIANA COBOS A Primary Care Unavailable Liliana Cobos MD Primary Care Provider Allergies Allergy Classification Reported Allergen(s) Allergy Type Date of Onset Reaction(s) Facility (20 sources) Adhesive Tape; Translations: [ADHESIVE TAPE (NIMA)] Allergy to substance 08-26-19 14 Rash [facility] Work Phone: (20 sources) Cat; Translations: [CATS] Allergy to substance 07-24-19 16 Unknown [facility] Work Phone: [phone] (20 sources) Doxycycline; Translations: [DOXYCYCLINE] Drug Allergy 09-12-19 21 [facility] (20 sources) FLUoxetine; Translations: [FLUOXETINE HCL] Drug Allergy 12-04-19 12 Shortness of Breath [facility] Work Phone: [phone] (20 sources) House dust mite; Translations: [DUST MITES] Allergy to substance 09-15-19 07 Unknown [facility] Work Phone: [phone] (20 sources) Ketorolac; Translations: [KETOROLAC] Drug Allergy 09-25-19 15 [facility] (20 sources) meloxicam; Translations: [MELOXICAM] Drug Allergy 08-03-19 21 [facility] (20 sources) Mold Extract; Translations: [MOLD] Drug Allergy 07-24-19 16 [facility] Work Phone: [phone] (20 sources) predniSONE; Translations: [PREDNISONE] Drug Allergy 11-12-19 13 [facility] Work Phone: [phone] (20 sources) Sulfamethoxazole / Trimethoprim; Translations: [SULFAMETHOXAZOLE-T RIMETHOPRIM] Drug Allergy 06-08-19 19 [facility] Work Phone: (20 sources) Gelatin Capsules (Empty); Translations: [GELATIN CAPSULES (EMPTY)] Drug Intolerance 12-07-19 19 Other: See Comments [facility] Work Phone: Medications Current Medications Medication Drug Class(es) Dates Sig (Normalized) Sig (Original) amoxicillin 875 mg / clavulanate 125 mg oral tablet (1 source) Penicillin-class Antibacterial Start: 01-06-2023 End: 01-16-2023 take 1 tablet by mouth twice daily amoxicillin-clav ulanic acid (AUGMENTIN) 875-125 mg per tablet Take 1 tablet by mouth two times a day for 10 days. 20 tablet 0 01/06/2023 01/16/2023 Active Completed/Discontinued Medications Medication Drug Class(es) Dates Sig (Normalized) Sig (Original) [id number] 200 actuat albuterol 0.09 mg/actuat metered dose inhaler (9 sources) beta2-Adrenergic Agonist Start: 12-28-2022 take 2 puff(s) by inhalation every four hours as needed for wheezing albuterol HFA (PROVENTIL HFA, VENTOLIN HFA) 90 mcg/actuation inhaler Inhale 2 Puffs as instructed every 4 hours as needed for wheezing/shortnes s of breath. 8 g 0 12/28/2022 Active Problems Active Problems Problem Classification Problem Date Documented Da te Episodic/Chronic Abdominal hernia (20 sources) Hiatal hernia; Translations: [Diaphragmatic hernia without obstruction or gangrene] 04-20-2019 Episodic Anxiety disorders (20 sources) Anxiety; Translations: [Anxiety disorder, unspecified] Onset: 5 04-20-2019 Chronic Chronic obstructive pulmonary disease and bronchiectasis (1 source) Bronchitis, not specified as acute or chronic; Translations: [Bronchitis] Onset: 4 Episodic Diseases of mouth; excluding dental (1 source) Xerostomia; Translations: [Dry mouth, unspecified] Episodic Diseases of white blood cells (3 sources) Leukocytosis; Translations: [Elevated white blood cell count, unspecified] Onset: 4 05-12-2023 Chronic Disorders of lipid metabolism (20 sources) Mixed hyperlipidemia; Translations: [Mixed hyperlipidemia] Onset: 5 04-20-2019 Chronic Esophageal disorders (20 sources) Gastroesophageal reflux disease; Translations: [Gastro-esophageal reflux disease without esophagitis] Onset: 5 04-20-2019 Chronic Essential hypertension (20 sources) Essential hypertension; Translations: [Essential (primary) hypertension] Onset: 1 09-03-2021 Chronic Headache; including migraine (20 sources) Migraine with aura; Translations: [Migraine with aura, not intractable, without status migrainosus] Onset: 0 04-20-2019 Chronic Malaise and fatigue (2 sources) Fatigue; Translations: [Other fatigue] Episodic Miscellaneous mental health disorders (20 sources) Chronic insomnia; Translations: [Psychophysiologic insomnia] Onset: 9 04-20-2019 Chronic Mood disorders (20 sources) Major depression, single episode; Translations: [Major depressive disorder, single episode, unspecified] Onset: 5 04-20-2019 Chronic Nutritional deficiencies (1 source) Vitamin D deficiency; Translations: [Vitamin D deficiency, unspecified] Chronic Other and unspecified benign neoplasm (1 source) Benign neoplasm of soft tissue; Translations: [Melanocytic nevi, unspecified] Episodic Other connective tissue disease (1 source) Chronic pain of left foot; Translations: [Pain in left foot] Episodic Other ear and sense organ disorders (1 source) Otalgia, right ear; Translations: [Right ear pain] Onset: 4 Episodic Other eye disorders (1 source) Dry eyes; Translations: [Dry eye syndrome of bilateral lacrimal glands] Episodic Other gastrointestinal disorders (20 sources) Irritable bowel syndrome; Translations: [Irritable bowel syndrome without diarrhea] 09-03-2021 Chronic Other liver diseases (20 sources) Steatosis of liver; Translations: [Fatty (change of) liver, not elsewhere classified] Onset: 0 04-20-2019 Chronic Other lower respiratory disease (2 sources) Cough; Translations: [Subacute cough] Episodic Other lower respiratory disease (10 sources) Dyspnea; Translations: [Shortness of breath] Episodic Other lower respiratory disease (3 sources) Dyspnea on exertion; Translations: [Other forms of dyspnea] Episodic Other lower respiratory disease (1 source) Wheezing; Translations: [Wheezing] 05-12-2023 Episodic Other nervous system disorders (20 sources) Carpal tunnel syndrome of left wrist; Translations: [Carpal tunnel syndrome, left upper limb] Onset: 6 04-20-2019 Chronic Other nervous system disorders (1 source) Numbness and tingling sensation of skin; Translations: [Anesthesia of skin] Episodic Other non-traumatic joint disorders (2 sources) Hip pain; Translations: [Pain in right hip] Episodic Other non-traumatic joint disorders (1 source) Pain of left wrist; Translations: [Pain in left wrist] 05-12-2023 Episodic Other nutritional; endocrine; and metabolic disorders (1 source) Body mass index 30+ - obesity; Translations: [Obesity, unspecified] Chronic Other nutritional; endocrine; and metabolic disorders (4 sources) Obese class I; Translations: [Obesity, unspecified] Onset: 4 05-12-2023 Chronic Other upper respiratory infections (2 sources) Chronic sinusitis, unspecified; Translations: [Unspecified sinusitis (chronic)] 12-28-2022 Chronic Other upper respiratory infections (2 sources) Pharyngitis; Translations: [Acute pharyngitis, unspecified] Episodic Otitis media and related conditions (1 source) Acute right otitis media; Translations: [Otitis media, unspecified, right ear] 12-28-2022 Episodic Substance-related disorders (20 sources) Smoker; Translations: [Nicotine dependence, unspecified, uncomplicated] Onset: 5 04-20-2019 Chronic Unclassified (1 source) Acute cough; Translations: [Acute cough] Onset: 4 Unclassified (1 source) History of 2019 novel coronavirus disease (COVID-19); Translations: [History of 2019 novel coronavirus disease (COVID-19)] Onset: 2 Past or Other Problems Problem Classification Problem Date Documented Da te Episodic/Chronic Abdominal pain (4 sources) Flank pain; Translations: [Unspecified abdominal pain] Onset: 10-29-2022 10-29-2022 Episodic Cardiac dysrhythmias (5 sources) Palpitations; Translations: [Palpitations] Onset: 07-29-2022 Episodic Coma; stupor; and brain damage (20 sources) Daytime somnolence; Translations: [Somnolence] Onset: 04-20-2019 04-20-2019 Episodic Conditions associated with dizziness or vertigo (20 sources) Lightheadedness; Translations: [Dizziness and giddiness] Onset: 07-28-2022 Episodic Diabetes mellitus without complication (20 sources) Increased glucose level; Translations: [Other abnormal glucose] Onset: 07-28-2022 Episodic Other and unspecified benign neoplasm (20 sources) Benign neoplasm of colon; Translations: [Benign neoplasm of colon, unspecified] Onset: 09-07-2014 04-20-2019 Episodic Other connective tissue disease (20 sources) Fibromyalgia; Translations: [Fibromyalgia] Onset: 12-06-2018 08-04-2019 Episodic Other connective tissue disease (20 sources) Cramp; Translations: [Cramp and spasm] Onset: 09-11-2020 09-03-2021 Episodic Other diseases of bladder and urethra (20 sources) Urethral stenosis; Translations: [Urethral stenosis] Onset: 11-23-2014 04-20-2019 Episodic Other infections; including parasitic (20 sources) Personal history of other infectious and parasitic diseases; Translations: [History of 2019 novel coronavirus disease (COVID-19)] Onset: 02-23-2020 02-23-2020 Episodic Other liver diseases (20 sources) Alkaline phosphatase raised; Translations: [Abnormal levels of other serum enzymes] Onset: 04-20-2019 09-03-2021 Episodic Other lower respiratory disease (20 sources) Snoring; Translations: [Snoring] Onset: 04-20-2019 04-20-2019 Episodic Other lower respiratory disease (20 sources) Apnea; Translations: [Apnea, not elsewhere classified] Onset: 04-20-2019 04-20-2019 Episodic Other lower respiratory disease (20 sources) Multiple nodules of lung; Translations: [Other nonspecific abnormal finding of lung field] Onset: 02-27-2022 Episodic Other lower respiratory disease (2 sources) Shortness of breath; Translations: [Shortness of breath] Onset: 07-14-2022 Episodic Other lower respiratory disease (1 source) Other forms of dyspnea; Translations: [FELIZ (dyspnea on exertion)] Onset: 07-29-2022 Episodic Other nervous system disorders (20 sources) Muscle twitch; Translations: [Fasciculation] Onset: 04-20-2019 04-20-2019 Episodic Other nervous system disorders (1 source) Anesthesia of skin; Translations: [Numbness and tingling] Onset: 07-28-2022 Episodic Other nervous system disorders (1 source) Paresthesia of skin; Translations: [Numbness and tingling] Onset: 07-28-2022 Episodic Other screening for suspected conditions (not mental disorders or infectious disease) (6 sources) Patient encounter status; Translations: [Encounter for screening mammogram for malignant neoplasm of breast] Onset: 07-14-2022 Episodic Screening and history of mental health and substance abuse codes (5 sources) Ex-smoker; Translations: [Personal history of nicotine dependence] Onset: 09-04-2014 Episodic Spondylosis; intervertebral disc disorders; other back problems (20 sources) Chronic back pain ; Translations: [Dorsalgia, unspecified] Onset: 01-13-2012 04-20-2019 Episodic Viral infection (3 sources) Disease caused by 2019-nCoV; Translations: [COVID-19] Onset: 04-16-2021 04-16-2021 Episodic Results Test Name Value Interpretation Reference Range Facil ity Vital Signs Date Time Vital Sign Value Performing Clinician Shala beltran 05-12-2023 10:08-0500 Body height 158.8 cm Liliana Cobos MD Work Phone: [facility] 05-12-2023 10:08-0500 Body temperature 98.29 [degF] Liliana Cobos MD Work Phone: [facility] 05-12-2023 10:08-0500 Body weight 86.64 kg Liliana Cobos MD Work Phone: [facility] 05-12-2023 10:08-0500 Diastolic blood pressure 80 mm[Hg] Liliana Cobos MD Work Phone: [facility] 05-12-2023 10:08-0500 Heart rate 80 /min Liliana Cobos MD Work Phone: [facility] 05-12-2023 10:08-0500 Respiratory rate 16 /min Liliana Cobos MD Work Phone: [facility] 05-12-2023 10:08-0500 Systolic blood pressure 120 mm[Hg] Liliana Cobos MD Work Phone: [facility] 01-06-2023 09:36-0400 Body temperature 98.2 [degF] Liliana Cobos MD Work Phone: [facility] 01-06-2023 09:36-0400 Body weight 87.54 kg Liliana Cobos MD Work Phone: [facility] 01-06-2023 09:36-0400 Diastolic blood pressure 92 mm[Hg] Liliana Cobos MD Work Phone: [facility] 01-06-2023 09:36-0400 Heart rate 85 /min Liliana Cobos MD Work Phone: [facility] 01-06-2023 09:36-0400 Respiratory rate 18 /min Liliana Cobos MD Work Phone: [facility] 01-06-2023 09:36-0400 SaO2% (BldA) [Mass fraction] 98 % Liliana Cobos MD Work Phone: [facility] 01-06-2023 09:36-0400 Systolic blood pressure 128 mm[Hg] Liliana Cobos MD Work Phone: [facility] 12-28-2022 08:57-0400 Body temperature 97.2 [degF] Rocky Gallagher ORACLE SCM CONSULTANT.REMEDIATION PROJECT ENGINEER Work Phone: [facility] 12-28-2022 08:57-0400 Body weight 87.54 kg Rocky Gallagher ORACLE SCM CONSULTANT.REMEDIATION PROJECT ENGINEER Work Phone: [facility] 12-28-2022 08:57-0400 Diastolic blood pressure 72 mm[Hg] Rocky Gallagher ORACLE SCM CONSULTANT.REMEDIATION PROJECT ENGINEER Work Phone: [facility] 12-28-2022 08:57-0400 Heart rate 82 /min Rocky Gallagher ORACLE SCM CONSULTANT.REMEDIATION PROJECT ENGINEER Work Phone: [facility] 12-28-2022 08:57-0400 Respiratory rate 16 /min Rocky Gallagher ORACLE SCM CONSULTANT.REMEDIATION PROJECT ENGINEER Work Phone: [facility] 12-28-2022 08:57-0400 SaO2% (BldA) [Mass fraction] 97 % Rocky Gallagher ORACLE SCM CONSULTANT.REMEDIATION PROJECT ENGINEER Work Phone: [facility] 12-28-2022 08:57-0400 Systolic blood pressure 118 mm[Hg] Rocky Gallagher ORACLE SCM CONSULTANT.REMEDIATION PROJECT ENGINEER Work Phone: [facility] 10-29-2022 13:24-0400 Body temperature 98.8 [degF] Jeannie Guajardo PA-C Work Phone: [facility] 10-29-2022 13:24-0400 Body weight 89.81 kg Jeannie Guajardo PA-C Work Phone: [facility] 10-29-2022 13:24-0400 Diastolic blood pressure 80 mm[Hg] Jeannie Guajardo PA-C Work Phone: [facility] 10-29-2022 13:24-0400 Heart rate 74 /min Jeannie Guajardo PA-C Work Phone: [facility] 10-29-2022 13:24-0400 Respiratory rate 18 /min Jeannie Guajardo PA-C Work Phone: [facility] 10-29-2022 13:24-0400 Systolic blood pressure 140 mm[Hg] Jeannie Guajardo PA-C Work Phone: [facility] 07-28-2022 09:26-0400 Body temperature 99.3 [degF] Jeannie Guajardo PA-C Work Phone: [facility] 07-28-2022 09:26-0400 Body weight 93.44 kg Jeannie Guajardo PA-C Work Phone: [facility] 07-28-2022 09:26-0400 Diastolic blood pressure 80 mm[Hg] Jeannie Guajardo PA-C Work Phone: [facility] 07-28-2022 09:26-0400 Heart rate 80 /min Jeannie Guajardo PA-C Work Phone: [facility] 07-28-2022 09:26-0400 Respiratory rate 16 /min Jeannie Guajardo PA-C Work Phone: [facility] 07-28-2022 09:26-0400 Systolic blood pressure 128 mm[Hg] Jeannie Guajardo PA-C Work Phone: [facility] 07-14-2022 11:10-0400 Body height 160 cm Rocky Cardoso ORACLE SCM CONSULTANT.REMEDIATION PROJECT ENGINEER Work Phone: [facility] 07-14-2022 11:10-0400 Body weight 92.08 kg Rocky Cardoso ORACLE SCM CONSULTANT.REMEDIATION PROJECT ENGINEER Work Phone: [facility] 07-14-2022 11:10-0400 Diastolic blood pressure 78 mm[Hg] Rocky Cardoso ORACLE SCM CONSULTANT.REMEDIATION PROJECT ENGINEER Work Phone: [facility] 07-14-2022 11:10-0400 Heart rate 78 /min Rocky Cardoso APRN.REMEDIATION PROJECT ENGINEER Work Phone: [facility] 07-14-2022 11:10-0400 Systolic blood pressure 122 mm[Hg] Rocky Cardoso APRN.REMEDIATION PROJECT ENGINEER Work Phone: [facility] 03-11-2022 08:32-0500 Body temperature 98.29 [degF] Jeannie Guajardo PA-C Work Phone: [facility] 03-11-2022 08:32-0500 Body weight 90.72 kg Jeannie Guajardo PA-C Work Phone: [facility] 03-11-2022 08:32-0500 Diastolic blood pressure 82 mm[Hg] Jeannie Guajardo PA-C Work Phone: [facility] 03-11-2022 08:32-0500 Heart rate 76 /min Jeannie Guajardo PA-C Work Phone: [facility] 03-11-2022 08:32-0500 Respiratory rate 18 /min Jeannie Guajardo PA-C Work Phone: [facility] 03-11-2022 08:32-0500 Systolic blood pressure 120 mm[Hg] Jeannie Guajardo PA-C Work Phone: [facility] 01-17-2022 11:50-0400 Diastolic blood pressure 82 mm[Hg] Liliana Cobos MD Work Phone: [facility] 01-17-2022 11:50-0400 Systolic blood pressure 146 mm[Hg] Liliana Cobos MD Work Phone: [facility] 01-17-2022 11:22-0400 Body weight 91.63 kg Liliana Cobos MD Work Phone: [facility] 01-17-2022 11:22-0400 Heart rate 86 /min Liliana Cobos MD Work Phone: [facility] 01-17-2022 11:22-0400 Respiratory rate 16 /min Liliana Cobos MD Work Phone: [facility] 01-10-2022 09:13-0400 Body weight 90.72 kg Jeannie Guajardo PA-C Work Phone: [facility] 01-10-2022 09:130400 Diastolic blood pressure 86 mm[Hg] Jeannie Guajardo PA-C Work Phone: [facility] 01-10-2022 09:130400 Heart rate 82 /min Jeannie Guajardo PA-C Work Phone: [facility] 01-10-2022 09:130400 Respiratory rate 18 /min Jeannie Guajardo PA-C Work Phone: [facility] 01-10-2022 09:130400 Systolic blood pressure 138 mm[Hg] Jeannie Guajardo PA-C Work Phone: [facility] Encounters Encounter Date Encounter Type Care Provider Facility Start: 05-12-2023 End: 05-13-2023 ambulatory Liliana Cobos MD Work Phone: [facility] Procedures Date Procedure Procedure Detail Performing Clinician Start: 04-13-2023 Lipid 1995 panel - S roque or Plasma Candie Berkowitz ORACLE SCM CONSULTANT.REMEDIATION PROJECT ENGINEER Work Phone: Start: 02-18-2023 INFLUENZA VACCINE, A GE 6 MO - 64 YR, QUADRIVALENT (AFLURIA, FLULAVAL, FLUZONE) Fawad Sarah Work Phone: Start: 01-06-2023 STREP A MOLECULAR (POC) Liliana Cobos MD Work Phone: Start: 10-29-2022 Urnls dip stick/tabl et rgnt auto w/o microscopy Jeannie Guajardo PA-C Work Phone: Start: 07-29-2022 Echo tthrc r-t 2d w/wom-mode compl spec&colr d Rocky Cardoso ORACLE SCM CONSULTANT.REMEDIATION PROJECT ENGINEER Work Phone: Start: 07-28-2022 Lipid 1996 panel - S roque or Plasma Rocky Gallagher ORACLE SCM CONSULTANT.REMEDIATION PROJECT ENGINEER Work Phone: Start: 03-11-2022 INFLUENZA VACCINE QUADRIVALENT 6 MO - 64 YRS IM Jeannie Guajardo PA-C Work Phone: Start: 02-24-2022 Brncdilat rspse spmt ry pre&post-brncdilat admn Liliana Cobos MD Work Phone: Start: 02-24-2022 Ct thorax w/o contra st material Liliana Cobos MD Work Phone: Start: 11-26-2021 Colonoscopy Jeannie wang PA-C Work Phone: Start: 09-05-2021 Hemoglobin A1c/Hemoglobin.total in Blood [facility] Provider Start: 12-21-2020 Mammography Liliana berry MD Work Phone: Start: 05-10-2019 Colonoscopy Liliana berry MD Work Phone: Plan of Treatment Date Care Activity Detail Author Start: 09-27-2032 Urine microalbumin profile [facility] Start: 03-11-2032 Urine microalbumin profile DTA P,TDAP,TD (2 - Td or Tdap) [facility] Start: 04-13-2028 Lipid panel Lipid Screening [facility] Start: 07-29-2027 Lipid 1996 panel - S roque or Plasma Lipid Screening [facility] Start: 07-29-2027 LIPID SCREEN LIPID SCREEN [facility] Start: 01-10-2027 LIPID SCREEN LIPID SCREEN [facility] Start: 04-13-2026 Diabetes Screening Diabetes Screenin [facility] Start: 10-29-2025 DIABETES SCREEN DIABETES SCREEN [facility] Start: 10-29-2025 Diabetes Screening Diabetes Screenin g [facility] Start: 08-02-2025 LIPID SCREEN LIPID SCREEN [facility] Start: 07-28-2025 DIABETES SCREEN DIABETES SCREEN [facility] Start: 01-10-2025 DIABETES SCREEN DIABETES SCREEN [facility] Start: 11-26-2024 Colonoscopy COLONOSCOPY [facility] Start: 11-26-2024 COLORECTAL CANCER SCREENING COLORECTAL CANCER SCREENING [facility] Start: 11-26-2024 Screening for malign ant neoplasm of colon [facility] Start: 09-05-2024 DIABETES SCREEN DIABETES SCREEN [facility] Start: 05-12-2024 Annual PCP Team Oil Change Technician faustino Disease Visit Annual PCP Team Chronic Disease Visit [facility] Start: 05-12-2024 BP Controlled (<130/80) BP Controlle d (<130/80) [facility] Start: 04-13-2024 Annual PCP Team Oil Change Technician faustino Disease Visit Annual PCP Team Chronic Disease Visit [facility] Start: 01-07-2024 Annual PCP Team Oil Change Technician faustino Disease Visit Annual PCP Team Chronic Disease Visit [facility] Start: 12-29-2023 BP Controlled (<130/80) BP Controlle d (<130/80) [facility] Start: 10-30-2023 ANNUAL PCP TEAM MATERIALS SUPERVISOR FAUSTINO DISEASE VISIT ANNUAL PCP TEAM CHRONIC DISEASE VISIT [facility] Start: 07-29-2023 ANNUAL PCP TEAM MATERIALS SUPERVISOR FAUSTINO DISEASE VISIT ANNUAL PCP TEAM CHRONIC DISEASE VISIT [facility] Start: 07-29-2023 COVID-19 VACCINE (#1) COVID-19 VACCI NE (#1) [facility] Immunizations Immunization Date Immunization Notes Care Provider Fa marjan 02-18-2023 influenza, injectabl e, quadrivalent, contains preservative Immunization [place] Work Phone: [facility] Work Phone: 09-27-2022 tetanus toxoid, reduced diphtheria toxoid, and acellular pertussis vaccine, adsorbed Liliana Cobos MD Work Phone: [facility] Work Phone: 03-11-2022 influenza, injectabl e, quadrivalent, contains preservative Jeannie Guajardo PA-C Work Phone: [facility] 03-11-2022 tetanus toxoid, reduced diphtheria toxoid, and acellular pertussis vaccine, adsorbed Jeannie Guajardo PA-C Work Phone: [facility] 03-11-2022 influenza virus vaccine, unspecified formulation Rocky Gallagher APRN.CNP Work Phone: [facility] 01-02-2021 influenza, injectabl e, quadrivalent, contains preservative Liliana Cobos MD Work Phone: [facility] 02-22-2020 influenza, injectabl e, quadrivalent, preservative free Liliana Cobos MD Work Phone: [facility] Payers Date Payer Category Payer Medicaid [employer] [id number] 2019-Present [phone] [address] [place] [address] Medicaid [id number] 2019 Medicaid [id number] 2019 Medicaid [id number] 2019 Medicare [employer] [employer] MEDICARE [id number] 2019-Present [phone] [address] [place] [address] Medicare [id number] 2019 Medicare [id number] Social History Date Type Detail Facility Start: 03-23-1996 End: 01-17-2022 Tobacco smoking status NHIS Smokes tobacco daily [facility] Start: 03-23-1996 End: 08-21-2021 History of tobacco use Cigarette Smoker [facility] Start: 12-10-2011 End: 07-28-2022 Cigarettes smoked current (pack per day) - Reported 0.5 [facility] Start: 12-10-2011 End: 11-22-2022 Tobacco use and exposure Smokeless tobacco non-user [facility] Start: 09-03-2021 End: 05-12-2023 Alcohol intake Current non-drinker of alcohol (finding) [facility] Start: 07-28-2020 History SDOH Alcohol Frequency 98 [facility] Start: 11-08-2015 History SDOH Alcohol Comment quit fall 2013 d/t IBS. [facility] Start: 07-28-2020 History SDOH Social Connections Membership 2 [facility] Start: 07-28-2020 History SDOH Physica l Activity DPW 0 [facility] Start: 07-28-2020 History SDOH Stress 5 [facility] Start: 07-28-2020 History SDOH Housing Places Lived 1 [facility] Start: 04-04-2019 Education 15 [facility] Start: 01-22-2016 End: 01-17-2022 Tobacco Comment 5 cigs daily [facility] Start: 1970 Sex Assigned At Not on file C [facility] Start: 12-18-2021 End: 01-17-2022 Exposure to SARS-CoV-2 (event) Not sure [facility] Start: 03-11-2022 End: 11-22-2022 Tobacco smoking status NHIS Ex-smoker [facility] Start: 03-23-1996 End: 08-21-2021 History of tobacco use Current smoker [facility] Start: 07-28-2020 End: 07-28-2022 Social connection and isolation panel [facility] In a typical week, h ow many times do you talk on the telephone with family, friends, or neighbors? Patient refused [facility] Do you belong to any clubs or organizations such as yazdanism groups, unions, fraAmakem or athletic groups, or school groups? No [facility] Are you now , , , , never or living with a partner? Refused [facility] Do you feel stress - tense, restless, nervous, or anxious, or unable to sleep at night because your mind is troubled all the time - these days [OSQ] Very much [facility] (I/We) worried wheth er (my/our) food would run out before (I/we) got money to buy more. DK or Refused [facility] Clinical Notes 05-08-2014 to 05-13-2023 Telephone Encounter - Sharon Nixon RN - 05/13/2023 9:30 AM ESTTelephone Encounter - Liliana Cobos MD - 05/12/2023 8:11 PM ESTPatient InstructionsPatient InstructionsPatient Instructions Note Date & Type Note Facility 05-13-2023 Miscellaneous Notes Pt called and is notified of providers results and instructions. Pt voices understanding. Sharon Nixon RN Let patient know her CBC shows her white blood cell count is slightly higher. However this maybe related to the issues she is having with her sinuses. I placed an order to repeat her CBC in a month. documented in this encounter [facility] 05-12-2023 Miscellaneous Notes The following approved medication requests have been transmitted electronically. Requested Prescriptions Signed Prescriptions Disp Refills traZODone (DESYREL) 50 mg tablet 30 tablet 5 Sig: Take 1/2-1 tablet before bed to aid in sleep. Liliana Cobos MD documented in this encounter [facility] 05-12-2023 Note HNO ID: [id number] Author: LILIANA COBOS MD Service: ? Author Type: Physician Type: Progress Notes Filed: 05/12/2023 15:31 Note Text: Chief Complaint Patient presents with: Physical HPI Pepe Norwood is a 52 year old female who presents here today for Physical. Patient indicated that she has been seeing Dr. Segal for her right ear. Has been on several rounds of Antibiotics. Dr. Segal is doing at [place]. Patient indicated that she has been using of the imitrex that is also the reason for Dr. Segal to do the CT. Patient would also like a referral to Dr. Weinstein left wrist pain. The Neurontin continues to help with her muscle twitching. The tizanidine continues to help with her Fibro. Last saw Gastro in 08/2021. Patient has a Hx of not always being compliant with proceeding with referrals or following up with a specialist. Patient never follow through on her referral to Pulm in 02/2022. Past medical history, appointments, medications, allergies reviewed. Previous Medical History PAST MEDICAL HISTORY Diagnosis Date Anxiety 09/04/2014 Benign neoplasm of colon 09/07/2014 Chronic back pain Chronic insomnia 12/06/2018 Elevated alkaline phosphatase level 04/20/2019 Had not seen liver specialist as recommended multiple times, Seeing Dr. Medina as of 08/23/2021 Fatty liver 04/20/2019 Fibromyalgia GERD (gastroesophageal reflux disease) 09/04/2014 Hernia, hiatal History of 2019 novel coronavirus disease (COVID-19) 02/23/2020 02/10/2020 History of COVID-19 04/16/202103/2021 History of medical problems c diff 2013 Hypertension, essential 08/01/2020 IBS (irritable bowel syndrome) Left carpal tunnel syndrome 11/06/2015 Lung nodules 02/27/2022 CT 02/2022: Needs repeat in 05/2022 Major depressive disorder with single episode 09/04/2014 Migraine with aura and without status migrainosus, not intractable 04/20/2019 Mixed hyperlipidemia 09/04/2014 Muscle cramping 09/11/2020 chronic Muscle twitching 04/20/2019 Chronic and Tx with Neurontin. Smoker 09/04/2014 Started age 27 up to 1 PPD, As of 03/2019 Urethral stenosis 11/23/2014 Previous Surgical History PAST SURGICAL HISTORY Procedure Laterality Date COLONOSCOPY FLX DX W/COLLJ SPEC WHEN PFRMD 2007 Colonoscopy COLONOSCOPY FLX DX W/COLLJ SPEC WHEN PFRMD 01/13/13 Colonoscopy COLONOSCOPY FLX DX W/COLLJ SPEC WHEN PFRMD 08/31/2013 Colonoscopy COLONOSCOPY FLX DX W/COLLJ SPEC WHEN PFRMD 09/07/2014 Colonoscopy- repeat 3 years COLONOSCOPY FLX DX W/COLLJ SPEC WHEN PFRMD 05/10/2019 normal, repeat in 3 years due to prior Hx dysplastic polyp EGD ESOPHAGOGASTRODUODENOSCOPY TRANSORAL DIAGNOSTIC 09/07/14 EGD ESOPHAGOGASTRODUODENOSCOPY TRANSORAL DIAGNOSTIC 05/10/2019 EGD KNEE ARTHROSCOPY/SURGERY left OFFICE LEEP 12/2014 PAST SURGICAL HISTORY OF 03/1991 ovarian cyst removal PAST SURGICAL HISTORY OF wisdom teeth SHOULDER ARTHROSCOPY/SURG left TONSILLECTOMY HX TOTAL ABDOMINAL HYSTERECT W/WO RMVL TUBE OVARY 03/18/2017 Hysterectomy, REGINALD Family History FAMILY HISTORY Problem Relation Age of Onset Hypertension Mother Diabetes Mother Heart Mother CHF; atrial fib Diabetes Father Thyroid Father Patient Allergies ALLERGIES Allergen Reactions Bactrim [Sulfametho* Rash racing heart Mobic [Meloxicam] Hives Toradol [Ketorolac] Rash rAsh at site Adhesive Tape (Joy* Rash Capsule #0 [Gelatin* Other: See Comments Patient states she cannot swallow capsules Cats Unknown Dust Mites Unknown Mold Unknown Prednisone Rash High doses- tachycardia. She tolerates lower doses Prozac [Fluoxetine * Shortness of Breath Throat swelling Current Medications Current Outpatient Medications on File Prior to Visit Medication Sig tiZANidine (ZANAFLEX) 4 mg tablet Take 1 tablet by mouth two times a day. gabapentin (NEURONTIN) 600 mg tablet Take 2 tablets qd lisinopril (ZESTRIL) 20 mg tablet Take 1 tablet by mouth once daily. atorvastatin (LIPITOR) 20 mg tablet Take 1 tablet by mouth daily at bedtime. For cholesterol. ondansetron (ZOFRAN) 4 mg tablet Take 1 tablet by mouth every 8 hours as needed. SUMAtriptan (IMITREX) 100 mg tablet Take 1 tablet (100 mg) by mouth as needed. ibuprofen (MOTRIN) 800 mg tablet Take 1 tablet by mouth every 8 hours as needed for pain. Doxepin 6 mg tab Take 1 tablet by mouth daily at bedtime. (Patient not taking: Reported on 05/12/2023) albuterol HFA (PROVENTIL HFA, VENTOLIN HFA) 90 mcg/actuation inhaler Inhale 2 Puffs as instructed every 4 hours as needed for wheezing/shortness of breath. benzonatate (TESSALON PERLES) 100 mg capsule Take 1 capsule by mouth three times a day as needed for cough. (Patient not taking: Reported on 01/06/2023) pantoprazole DR (PROTONIX) 20 mg tablet Take 2 tablets by mouth daily before breakfast. Take on empty stomach, 1/2 hr before meal. Per Gastro, Friend (Patient not taking: Reported on 05/12/2023) sucralfate (CARAFATE) 1 gram table (more content not included)... [facility] 05-12-2023 Instructions Liliana Cobos MD - 05/12/2023 10:45 AM EST If you think you want to get the Shingrix vaccine for the prevention of shingles then check with insurance to see if covered. documented in this encounter [facility] 05-12-2023 History of Presen t illness Narrative Chief Complaint Patient presents with: Physical HPI Pepe Norwood is a 52 year old female who presents here today for Physical. Patient indicated that she has been seeing Dr. Segal for her right ear. Has been on several rounds of Antibiotics. Dr. Segal is doing at CT. Patient indicated that she has been using of the imitrex that is also the reason for Dr. Segal to do the CT. Patient would also like a referral to Dr. Weinstein left wrist pain. The Neurontin continues to help with her muscle twitching. The tizanidine continues to help with her Fibro. Last saw Gastro in 08/2021. Patient has a Hx of not always being compliant with proceeding with referrals or following up with a specialist. Patient never follow through on her referral to Pulm in 02/2022. Past medical history, appointments, medications, allergies reviewed. Previous Medical History PAST MEDICAL HISTORY Diagnosis Date Anxiety 09/04/2014 Benign neoplasm of colon 09/07/2014 Chronic back pain Chronic insomnia 12/06/2018 Elevated alkaline phosphatase level 04/20/2019 Had not seen liver specialist as recommended multiple times, Seeing Dr. Medina as of 08/23/2021 Fatty liver 04/20/2019 Fibromyalgia GERD (gastroesophageal reflux disease) 09/04/2014 Hernia, hiatal History of 2019 novel coronavirus disease (COVID-19) 02/23/2020 02/10/2020 History of COVID-19 04/16/202103/2021 History of medical problems c diff 2013 Hypertension, essential 08/01/2020 IBS (irritable bowel syndrome) Left carpal tunnel syndrome 11/06/2015 Lung nodules 02/27/2022 CT 02/2022: Needs repeat in 05/2022 Major depressive disorder with single episode 09/04/2014 Migraine with aura and without status migrainosus, not intractable 04/20/2019 Mixed hyperlipidemia 09/04/2014 Muscle cramping 09/11/2020 chronic Muscle twitching 04/20/2019 Chronic and Tx with Neurontin. Smoker 09/04/2014 Started age 27 up to 1 PPD, As of 03/2019 Urethral stenosis 11/23/2014 Previous Surgical History PAST SURGICAL HISTORY Procedure Laterality Date COLONOSCOPY FLX DX W/COLLJ SPEC WHEN PFRMD 2007 Colonoscopy COLONOSCOPY FLX DX W/COLLJ SPEC WHEN PFRMD 01/13/13 Colonoscopy COLONOSCOPY FLX DX W/COLLJ SPEC WHEN PFRMD 08/31/2013 Colonoscopy COLONOSCOPY FLX DX W/COLLJ SPEC WHEN PFRMD 09/07/2014 Colonoscopy- repeat 3 years COLONOSCOPY FLX DX W/COLLJ SPEC WHEN PFRMD 05/10/2019 normal, repeat in 3 years due to prior Hx dysplastic polyp EGD ESOPHAGOGASTRODUODENOSCOPY TRANSORAL DIAGNOSTIC 09/07/14 EGD ESOPHAGOGASTRODUODENOSCOPY TRANSORAL DIAGNOSTIC 05/10/2019 EGD KNEE ARTHROSCOPY/SURGERY left OFFICE LEEP 12/2014 PAST SURGICAL HISTORY OF 03/1991 ovarian cyst removal PAST SURGICAL HISTORY OF wisdom teeth SHOULDER ARTHROSCOPY/SURG left TONSILLECTOMY HX TOTAL ABDOMINAL HYSTERECT W/WO RMVL TUBE OVARY 03/18/2017 Hysterectomy, REGINALD Family History FAMILY HISTORY Problem Relation Age of Onset Hypertension Mother Diabetes Mother Heart Mother CHF; atrial fib Diabetes Father Thyroid Father Patient Allergies ALLERGIES Allergen Reactions Bactrim [Sulfametho* Rash racing heart Mobic [Meloxicam] Hives Toradol [Ketorolac] Rash rAsh at site Adhesive Tape (Joy* Rash Capsule #0 [Gelatin* Other: See Comments Patient states she cannot swallow capsules Cats Unknown Dust Mites Unknown Mold Unknown Prednisone Rash High doses- tachycardia. She tolerates lower doses Prozac [Fluoxetine * Shortness of Breath Throat swelling Current Medications Current Outpatient Medications on File Prior to Visit Medication Sig tiZANidine (ZANAFLEX) 4 mg tablet Take 1 tablet by mouth two times a day. gabapentin (NEURONTIN) 600 mg tablet Take 2 tablets qd lisinopril (ZESTRIL) 20 mg tablet Take 1 tablet by mouth once daily. atorvastatin (LIPITOR) 20 mg tablet Take 1 tablet by mouth daily at bedtime. For cholesterol. ondansetron (ZOFRAN) 4 mg tablet Take 1 tablet by mouth every 8 hours as needed. SUMAtriptan (IMITREX) 100 mg tablet Take 1 tablet (100 mg) by mouth as needed. ibuprofen (MOTRIN) 800 mg tablet Take 1 tablet by mouth every 8 hours as needed for pain. Doxepin 6 mg tab Take 1 tablet by mouth daily at bedtime. (Patient not taking: Reported on 05/12/2023) albuterol HFA (PROVENTIL HFA, VENTOLIN HFA) 90 mcg/actuation inhaler Inhale 2 Puffs as instructed every 4 hours as needed for wheezing/shortness of breath. benzonatate (TESSALON PERLES) 100 mg capsule Take 1 capsule by mouth three times a day as needed for cough. (Patient not taking: Reported on 01/06/2023) pantoprazole DR (PROTONIX) 20 mg tablet Take 2 tablets by mouth daily before breakfast. Take on empty stomach, 1/2 hr before meal. Per Dr. Carol Simpson (Patient not taking: Reported on 05/12/2023) sucralfate (CARAFATE) 1 gram tablet Take 1 tablet by mouth before meals and at bedtime. Per Dr. Carol simpson Current Facility-Administered Medications on File Prior to Visit Medication perflutren lipid microspheres 1.3 mL in NaCl (PF) 0.9% 10 mL injection (DEFINITY) sodium chloride 0.9 % (flush) 10 mL (BD POSIFLUSH) perflutren lipid microspheres 1.3 mL in NaCl (PF) 0.9% 10 mL injection (DEFINITY) sodium chloride 0.9 % (flush) 10 mL (BD POSIFLUSH) Social History Social History Tobacco Use Smoking status: Former Packs/day: 1.00 Years: 20.00 Additional pack years: 0.00 Total pack years: 20.00 Types: Cigarettes Start date: 03/23/1996 Quit date: 08/21/2021 Years since quittin.7 Smokeless tobacco: Never Tobacco comments: 5 cigs daily Vaping Use Vaping Use: Never used Substance Use Topics Alcohol use: No Comment: quit fall 2013 d/t IBS. Drug use: No Review of Symptoms REVIEW OF SYSTEMS GENERAL: No weight loss, malaise or fevers HEENT: Negative for frequent or significant headaches other than her occasional migraines, No changes in hearing or vision, no nose bleeds or other nasal problems. Seeing ENT for her ear pain and nasal sniffling. NECK: feels a lump behind the right ear at times and ENT in process of getting a CT RESPIRATORY: Negative for cough, hemoptysis, increased wheezing, COPD, dyspnea or shortness of breath. Never went and seen Pulmonary after referral 02/2022 CARDIOVASCULAR: Negative for chest pain, increased leg swelling, hypertension, CHF or palpitations GI: No vomiting, or diarrhea and No heartburn or reflux symptoms. Occasional nausea. No blood : No history of dysuria, frequency or blood MUSCULOSKELETAL: see HPI SKIN: Negative for lesions, rash, and itching PSYCH: Negative for mood disorder and recent psychosocial stressors. Still not sleeping well. The 6 mg of doxepin did not help her sleep at all. HEMATOLOGY/LYMPHOLOGY: Negative for prolonged bleeding, bruising easily or swollen nodes ENDOCRINE: Negative for cold or heat intolerance, polyuria, polydipsia and goiter NEURO: No history of headaches, syncope, paralysis, seizures or tremors EXAM: BP 120/80 (BP Site: Right Arm, BP Position: Sitting, BP Cuff Size: Large Adult) Pulse 80 Temp 36.8 C (98.3 F) Resp 16 Ht 158.8 cm (5' 2.5 ) Wt 86.6 kg (191 lb) LMP 03/23/1996 BMI 34.38 kg/m Last 4 Encounter Wt Readings: Date: Wt: 05/12/2023 86.6 kg (191 lb) 04/13/2023 86.2 kg (190 lb) 01/06/2023 87.5 kg (193 lb) 12/28/2022 87.5 kg (193 lb) General Appearance: Well appearing, alert, in no acute distress, well-hydrated, well nourished. and Obese. Skin: Skin color, texture, turgor normal, no suspicious rashes or lesions. Head: Normocephalic, no masses, lesions, tenderness or abnormalities. Eyes: Anicteric sclera. Pupils are equally round and reactive to light. Extraocular movements are intact. . Ears: External ears normal, canals clear. Nose/Sinuses: Nares normal, septum midline, mucosa normal, no drainage or sinus tenderness. Oropharynx: Lips, mucosa, and tongue normal, teeth and gums normal, oropharynx normal. Neck: Supple, no adenopathy; thyroid symmetric, normal size, no bruits. Lungs: inspiratory wheezing throughout with no rales or rhonchi and no use of accessory muscles. . Heart: RRR without murmur, gallop, or rubs. No ectopy. Abdomen: Normal abdominal exam, Abdomen soft, non-tender. Bowel sounds normal. No masses, organomegaly. Extremities: No deformities, edema, skin discoloration, Good capillary refill. . Musculoskeletal: Muscular strength intact, No joint swelling, deformity. Has chronic tenderness in the left lower leg. Peripheral Pulses: Normal. Neurologic: Gait normal. Reflexes normal and symmetric. Sensation to light touch and crainal nerves 2-12 intact.. Health Maintenance List Hepatitis B Vaccine(1 of 3 - 3-dose series) Never done HIV Screening Never done BP Controlled (<130/80) Never done Pap Testing Never done HPV Testing Never done Shingrix Vaccine(1 of 2) Never done Mammogram Screening due on 12/21/2021 Lung Cancer Screening due on 02/24/2023 Covid-19 Vaccine(1) due on 07/29/2023 Annual PCP Team Chronic Disease Visit due on 04/13/2024 Colorectal Cancer Screening due on 11/26/2024 Diabetes Screening due on 04/13/2026 Lipid Screening due on 04/13/2028 DTaP,Tdap,Td Vaccine(3 - Td or Tdap) due on 09/27/2032 Influenza Vaccine Completed Hepatitis C Screening Completed Data reviewed Component Latest Ref Rng & Units 07/28/2022 10/29/2022 04/13/2023 WBC 3.70 - 11.00 k/uL 12.09 (H) RBC 3.90 - 5.20 m/uL 5.14 Hemoglobin 11.5 - 15.5 g/dL 13.3 Hematocrit 36.0 - 46.0 % 42.0 MCV 80.0 - 100.0 fL 81.7 MCH 26.0 - 34.0 pg 25.9 (L) MCHC 30.5 - 36.0 g/dL 31.7 RDW-CV 11.5 - 15.0 % 14.4 Platelet Count 150 - 400 k/uL 242 MPV 9.0 - 12.7 fL 11.1 Neut% % 69.4 Abs Neut (ANC) 1.45 - 7.50 k/uL 8.39 (H) Lymph% % 22.0 Abs Lymph 1.00 - 4.00 k/uL 2.66 Manati% % 4.6 Abs Manati <0.87 k/uL 0.56 Eosin% % 3.0 Abs Eosin <0.46 k/uL 0.36 Baso% % 0.6 Abs Baso <0.11 k/uL 0.07 Immature Gran % % 0.4 IMMATURE GRANS (ABS) <0.10 k/uL 0.05 NRBC /100 WBC 0.0 Absolute nRBC <0.01 k/uL <0.01 DTYPE Auto Color Yellow Yellow Clarity Clear Clear Glucose, Urine Negative Negative Bilirubin, Urine Negative Negative Ketones, Urine Negative Negative Specific [place], Ur 1.005 - 1.030 1.019 Hemoglobin/Blood,Ur Negative Negative pH, Urine <8.5 5.5 Protein, Urine Negative Negative Urobilinogen 0.2-1.0 EU/dL 0.2 EU/dL Nitrites Negative Negative Leukest Negative Trace (A) WBC, Urine 0-5 /HPF 0-5 /HPF RBC, Urine 0-2 /HPF 0-2 /HPF Bacteria Negative /HPF Negative Epithelial Cells /HPF None Seen Hyaline Cast 0 /LPF 0 /LPF Protein, Total 6.3 - 8.0 g/dL 6.8 7.2 7.6 Albumin 3.9 - 4.9 g/dL 4.2 4.2 4.4 Calcium 8.5 - 10.2 mg/dL 9.2 9.2 9.5 Bilirubin, Total 0.2 - 1.3 mg/dL 0.3 0.3 0.4 Alkaline Phosphatase 34 - 123 U/L 176 (H) 169 (H) 195 (H) AST 13 - 35 U/L 17 16 15 ALT 7 - 38 U/L 19 17 14 Glucose 74 - 99 mg/dL 99 94 101 (H) BUN 7 - 21 mg/dL 17 14 19 Creatinine 0.58 - 0.96 mg/dL 0.94 0.85 0.79 Sodium 136 - 144 mmol/L 143 142 139 Potassium 3.7 - 5.1 mmol/L 4.8 3.9 4.8 Chloride 97 - 105 mmol/L 107 (H) 105 104 CO2 22 - 30 mmol/L 26 26 25 Anion Gap 9 - 18 mmol/L 10 11 10 eGFR >=60 mL/min/1.73m 74 84 91 Cholesterol, Total <200 mg/dL 141 Triglyceride <150 mg/dL 108 HDL Cholesterol >39 mg/dL 36 (L) Non HDL Cholesterol <130 mg/dL 105 Fasting Time hrs 16 VLDL Cholesterol <30 mg/dL 22 TC:HDL Ratio <5.10 3.92 LDL Cholesterol <100 mg/dL 83 LDL:HDL Ratio <2.54 2.31 Total Cholesterol, Nonfasting <200 mg/dL 166 Triglycerides, Nonfasting <150 mg/dL 100 HDL Cholesterol, Nonfasting >39 mg/dL 38 (L) LDL Cholesterol, Nonfasting <100 mg/dL 108 (H) Non HDL Cholesterol, Nonfasting <130 mg/dL 128 VLDL Cholesterol, Nonfasting <30 mg/dL 20 Total Chol/HDL Ratio, Nonfasting <5.10 mg/dL 4.37 LDL/HDL Ratio, Nonfasting <2.54 mg/dL 2.84 (H) Hemoglobin A1C 4.3 - 5.6 % 6.0 (H) 5.7 (H) Estimated Average Glucose mg/dL 126 117 Vitamin B12 232 - 1,245 pg/mL 504 Folate >4.7 ng/mL 4.8 A/P ASSESSMENT/PLAN: 1. Well adult exam - ICD9: V70.0, ICD10: Z00.00 (primary diagnosis) - Counseled on healthy diet and regular exercise - Calcium intake with supplements or by diet of 1000 mg/day for under 50, 3258-7439 mg/day for 50+ - Follow up for annual exam in one year - advised on considering the shingrix vaccine. 2. Hypertension, essential - ICD9: 401.9, ICD10: I10 - Controlled - Continue current medications - Recommend home blood pressure monitoring, to bring results to next visit - Encouraged sodium restriction, DASH or Mediterranean diet - Recommend regular aerobic exercise 3. Mixed hyperlipidemia - ICD9: 272.2, ICD10: E78.2 - Controlled - Continue current medications - Counseled on healthy diet and regular exercise 4. Migraine with aura and without status migrainosus, not intractable - ICD9: 346.00, ICD10: G43.109 - stable with Tx. 5. Gastroesophageal reflux disease, unspecified whether esophagitis present - ICD9: 530.81, ICD10: K21.9 - controlled via diet. 6. Major depressive disorder with single episode, remission status unspecified - ICD9: 296.20, ICD10: F32.9 - stable not needing meds. 7. Anxiety - ICD9: 300.00, ICD10: F41.9 - as pr #6 8. Ex-smoker - ICD9: V15.82, ICD10: Z87.891 - CONSULT TO PULMONARY MEDICINE 9. Muscle twitching - ICD9: 781.0, ICD10: R25.3 - cont Neurontin at current dose. 10. Fibromyalgia - ICD9: 729.1, ICD10: M79.7 - cont prn tizanidine. 11. Chronic insomnia - ICD9: 780.52, ICD10: F51.04 - will increase doxepin to 25 mg a night. 12. Elevated alkaline phosphatase level - ICD9: 790.5, ICD10: R74.8 - CONSULT TO GASTROENTEROLOGY 13. Uncontrolled daytime somnolence - ICD9: 780.09, ICD10: R40.0 - never proceeded to see sleep med. 14. Leukocytosis, unspecified type - ICD9: 288.60, ICD10: D72.829 Check - CBC + DIFF 15. Lung nodules - ICD9: 793.19, ICD10: R91.8 Check - CT CHEST WO IVCON 16. Irritable bowel syndrome, unspecified type - ICD9: 564.1, ICD10: K58.9 - CONSULT TO GASTROENTEROLOGY 17. Fatty liver - ICD9: 571.8, ICD10: K76.0 - CONSULT TO GASTROENTEROLOGY 18. Left wrist pain - ICD9: 719.43, ICD10: M25.532 - CONSULT TO ORTHOPAEDICS 19. SOB (shortness of breath) - ICD9: 786.05, ICD10: R06.02 - CONSULT TO PULMONARY MEDICINE 20. Wheezing - ICD9: 786.07, ICD10: R06.2 - CONSULT TO PULMONARY MEDICINE 21. Obesity, Class I, BMI 30.0-34.9 (see actual BMI) - ICD9: 278.00, ICD10: E66.9 - patient to work on life style changes for weight loss. 22. Encounter for gynecological examination - ICD9: V72.31, ICD10: Z01.419 - does not want these of mammograms. Requested Prescriptions Signed Prescriptions Disp Refills SUMAtriptan (IMITREX) 100 mg tablet 9 tablet 1 Sig: Take 1 tablet (100 mg) by mouth as needed. doxepin capsule 25 mg 30 capsule 5 Sig: Take 1 capsule by mouth daily at bedtime. F/u in a year for WAE sooner if doxepin not helping. Liliana Cobos MD documented in this encounter [facility] 05-06-2023 Miscellaneous Notes Rx request is being addressed in another encounter. Loretta Brunson LPN documented in this encounter [facility] 05-06-2023 Miscellaneous Notes Patient has been identified by name and date of : Yes, Provider Dr Cobos Date 05/06/23 Time 10:12 am Patient phones for refill(s): Requested Prescriptions Pending Prescriptions Disp Refills tiZANidine (ZANAFLEX) 4 mg tablet 60 tablet 5 Sig: Take 1 tablet by mouth two times a day. gabapentin (NEURONTIN) 600 mg tablet 60 tablet 5 Sig: Take 2 tablets qd lisinopril (ZESTRIL) 20 mg tablet 30 tablet 5 Sig: Take 1 tablet by mouth once daily. atorvastatin (LIPITOR) 20 mg tablet 30 tablet 5 Sig: Take 1 tablet by mouth daily at bedtime. For cholesterol. ondansetron (ZOFRAN) 4 mg tablet 30 tablet 1 Sig: Take 1 tablet by mouth every 8 hours as needed. Date of last office visit in primary care: 04/13/2023 Date of next office visit in primary care: 05/12/23 Please advise. Thank you. Loretta Brunson LPN. documented in this encounter [facility] 04-13-2023 Note HNO ID: [id number] Author: CHRYSTAL MURRAY RT(Rosmery) Service: Radiology Author Type: Technologist Type: Progress Notes Filed: 04/13/2023 11:41 Note Text: Radiology Service Progress Note PATIENT NAME: Pepe Norwood DATE OF SERVICE: April 13, 2023 TIME: 11:34 AM PATIENT IDENTITY VERIFICATION COMPLETED USING TWO (2) IDENTIFIERS: Name and Date of confirmed by patient verbally. FALL SCREENING: Has the patient had 2 falls in the last year or 1 fall with injury or currently using an Ambulatory Assistive Device (Walker, Cane, Wheelchair, Crutches, etc.)? No PATIENT GENDER DATA: Female. status: : No status: NO. PATIENT RELEVANT IMPLANT DATA REVIEWED: Not Applicable RADIOLOGY DEPARTMENT: General X-ray: Exam(s) Completed: Chest X-Ray PERIPHERAL IV DATA: Not applicable SIGNED BY: RT Madelin(R) April 13, 2023 11:34 AM [facility] 04-13-2023 Note HNO ID: [id number] Author: JEANNIE GUAJARDO PA-C Service: ? Author Type: Physician Brassiere Cup Mold Cutter Type: Progress Notes Filed: 04/13/2023 11:22 Note Text: Chief Complaint Patient presents with: Ear Pain: Right x 3 days HPI Pepe Norwood is a 52 year old female who presents here today for Above Complaints.. Patient states that she is having R ear pain for the past 3-4 days. Reports popping/crackling. Tender to touch. No discharge. +sinus congestion Some pain in right neck. Past medical history, appointments, medications, allergies reviewed. Previous Medical History PAST MEDICAL HISTORY Diagnosis Date Anxiety 09/04/2014 Benign neoplasm of colon 09/07/2014 Chronic back pain Chronic insomnia 12/06/2018 Elevated alkaline phosphatase level 04/20/2019 Had not seen liver specialist as recommended multiple times, Seeing Dr. Medina as of 08/23/2021 Fatty liver 04/20/2019 Fibromyalgia GERD (gastroesophageal reflux disease) 09/04/2014 Hernia, hiatal History of 2019 novel coronavirus disease (COVID-19) 02/23/2020 02/10/2020 History of COVID-19 04/16/202103/2021 History of medical problems c diff 2013 Hypertension, essential 08/01/2020 IBS (irritable bowel syndrome) Left carpal tunnel syndrome 11/06/2015 Lung nodules 02/27/2022 CT 02/2022: Needs repeat in 05/2022 Major depressive disorder with single episode 09/04/2014 Migraine with aura and without status migrainosus, not intractable 04/20/2019 Mixed hyperlipidemia 09/04/2014 Muscle cramping 09/11/2020 chronic Muscle twitching 04/20/2019 Chronic and Tx with Neurontin. Smoker 09/04/2014 Started age 27 up to 1 PPD, As of 03/2019 Urethral stenosis 11/23/2014 Previous Surgical History PAST SURGICAL HISTORY Procedure Laterality Date COLONOSCOPY FLX DX W/COLLJ SPEC WHEN PFRMD 2007 Colonoscopy COLONOSCOPY FLX DX W/COLLJ SPEC WHEN PFRMD 01/13/13 Colonoscopy COLONOSCOPY FLX DX W/COLLJ SPEC WHEN PFRMD 08/31/2013 Colonoscopy COLONOSCOPY FLX DX W/COLLJ SPEC WHEN PFRMD 09/07/2014 Colonoscopy- repeat 3 years COLONOSCOPY FLX DX W/COLLJ SPEC WHEN PFRMD 05/10/2019 normal, repeat in 3 years due to prior Hx dysplastic polyp EGD ESOPHAGOGASTRODUODENOSCOPY TRANSORAL DIAGNOSTIC 09/07/14 EGD ESOPHAGOGASTRODUODENOSCOPY TRANSORAL DIAGNOSTIC 05/10/2019 EGD KNEE ARTHROSCOPY/SURGERY left OFFICE LEEP 12/2014 PAST SURGICAL HISTORY OF 03/1991 ovarian cyst removal PAST SURGICAL HISTORY OF wisdom teeth SHOULDER ARTHROSCOPY/SURG left TONSILLECTOMY HX TOTAL ABDOMINAL HYSTERECT W/WO RMVL TUBE OVARY 03/18/2017 Hysterectomy, REGINALD Family History FAMILY HISTORY Problem Relation Age of Onset Hypertension Mother Diabetes Mother Heart Mother CHF; atrial fib Diabetes Father Thyroid Father Patient Allergies ALLERGIES Allergen Reactions Bactrim [Sulfametho* Rash racing heart Mobic [Meloxicam] Hives Toradol [Ketorolac] Rash rAsh at site Adhesive Tape (Joy* Rash Capsule #0 [Gelatin* Other: See Comments Patient states she cannot swallow capsules Cats Unknown Dust Mites Unknown Mold Unknown Prednisone Rash High doses- tachycardia. She tolerates lower doses Prozac [Fluoxetine * Shortness of Breath Throat swelling Current Medications Current Outpatient Medications on File Prior to Visit Medication Sig SUMAtriptan (IMITREX) 100 mg tablet Take 1 tablet (100 mg) by mouth as needed. ibuprofen (MOTRIN) 800 mg tablet Take 1 tablet by mouth every 8 hours as needed for pain. albuterol HFA (PROVENTIL HFA, VENTOLIN HFA) 90 mcg/actuation inhaler Inhale 2 Puffs as instructed every 4 hours as needed for wheezing/shortness of breath. ondansetron (ZOFRAN) 4 mg tablet Take 1 tablet by mouth every 8 hours as needed. tiZANidine (ZANAFLEX) 4 mg tablet Take 1 tablet by mouth twice daily. gabapentin (NEURONTIN) 600 mg tablet Take 2 tablets qd lisinopril (ZESTRIL) 20 mg tablet Take 1 tablet by mouth once daily. atorvastatin (LIPITOR) 20 mg tablet Take 1 tablet by mouth daily at bedtime. For cholesterol. pantoprazole DR (PROTONIX) 20 mg tablet Take 2 tablets by mouth daily before breakfast. Take on empty stomach, 1/2 hr before meal. Per GastroDr. Medina sucralfate (CARAFATE) 1 gram tablet Take 1 tablet by mouth before meals and at bedtime. Per gastro, Dr. Medina benzonatate (TESSALON PERLES) 100 mg capsule Take 1 capsule by mouth three times a day as needed for cough. (Patient not taking: Reported on 01/06/2023) Current Facility-Administered Medications on File Prior to Visit Medication perflutren lipid microspheres 1.3 mL in NaCl (PF) 0.9% 10 mL injection (DEFINITY) sodium chloride 0.9 % (flush) 10 mL (BD POSIFLUSH) perflutren lipid microspheres 1.3 mL in NaCl (PF) 0.9% 10 mL injection (DEFINITY) sodium chloride 0.9 % (flush) 10 mL (BD POSIFLUSH) perflutren lipid microspheres 1.3 mL in NaCl (PF) 0.9% 10 mL injection (DEFINITY) sodium chloride 0.9 % (flush) 10 mL (BD POSIFLUSH) Social Hist (more content not included)... [facility] 01-06-2023 Note HNO ID: [id number] Author: Liliana Cobos MD Service: ? Author Type: Physician Type: Progress Notes Filed: 01/06/2023 1:08 PM Note Text: Chief Complaint Patient presents with: Cough HPI Pepe Norwood is a 52 year old female who presents here today for cough Patient indicated that she saw UC 12/28 and was told ear infection and given medication. Patient indicated that she is not feeling better. Sx; Cough productive of mucus but not aware of color Swollen lymph nodes Fever Headaches Stomach pain No appetite Fatigue Right ear still hurts Some shortness of breath with exertion and wheezing. Some nausea No vomiting or diarrhea. Past medical history, appointments, medications, allergies reviewed. Previous Medical History PAST MEDICAL HISTORY Diagnosis Date Anxiety 09/04/2014 Benign neoplasm of colon 09/07/2014 Chronic back pain Chronic insomnia 12/06/2018 Elevated alkaline phosphatase level 04/20/2019 Had not seen liver specialist as recommended multiple times, Seeing Dr. Medina as of 08/23/2021 Fatty liver 04/20/2019 Fibromyalgia GERD (gastroesophageal reflux disease) 09/04/2014 Hernia, hiatal History of 2019 novel coronavirus disease (COVID-19) 02/23/2020 02/10/2020 History of COVID-19 04/16/202103/2021 History of medical problems c diff 2014 Hypertension, essential 08/01/2020 IBS (irritable bowel syndrome) Left carpal tunnel syndrome 11/06/2015 Lung nodules 02/27/2022 CT 02/2022: Needs repeat in 05/2022 Major depressive disorder with single episode 09/04/2014 Migraine with aura and without status migrainosus, not intractable 04/20/2019 Mixed hyperlipidemia 09/04/2014 Muscle cramping 09/11/2020 chronic Muscle twitching 04/20/2019 Chronic and Tx with Neurontin. Smoker 09/04/2014 Started age 27 up to 1 PPD, As of 03/2019 Urethral stenosis 11/23/2014 Previous Surgical History PAST SURGICAL HISTORY Procedure Laterality Date COLONOSCOPY FLX DX W/COLLJ SPEC WHEN PFRMD 2007 Colonoscopy COLONOSCOPY FLX DX W/COLLJ SPEC WHEN PFRMD 01/13/13 Colonoscopy COLONOSCOPY FLX DX W/COLLJ SPEC WHEN PFRMD 08/31/2013 Colonoscopy COLONOSCOPY FLX DX W/COLLJ SPEC WHEN PFRMD 09/07/2014 Colonoscopy- repeat 3 years COLONOSCOPY FLX DX W/COLLJ SPEC WHEN PFRMD 05/10/2019 normal, repeat in 3 years due to prior Hx dysplastic polyp EGD ESOPHAGOGASTRODUODENOSCOPY TRANSORAL DIAGNOSTIC 09/07/14 EGD ESOPHAGOGASTRODUODENOSCOPY TRANSORAL DIAGNOSTIC 05/10/2019 EGD KNEE ARTHROSCOPY/SURGERY left OFFICE LEEP 12/2014 PAST SURGICAL HISTORY OF 03/1991 ovarian cyst removal PAST SURGICAL HISTORY OF wisdom teeth SHOULDER ARTHROSCOPY/SURG left TONSILLECTOMY HX TOTAL ABDOMINAL HYSTERECT W/WO RMVL TUBE OVARY 03/18/2017 Hysterectomy, REGINALD Family History FAMILY HISTORY Problem Relation Age of Onset Hypertension Mother Diabetes Mother Heart Mother CHF; atrial fib Diabetes Father Thyroid Father Patient Allergies ALLERGIES Allergen Reactions Bactrim [Sulfametho* Rash racing heart Mobic [Meloxicam] Hives Toradol [Ketorolac] Rash rAsh at site Adhesive Tape (Joy* Rash Capsule #0 [Gelatin* Other: See Comments Patient states she cannot swallow capsules Cats Unknown Dust Mites Unknown Mold Unknown Prednisone Rash High doses- tachycardia. She tolerates lower doses Prozac [Fluoxetine * Shortness of Breath Throat swelling Current Medications Current Outpatient Medications on File Prior to Visit Medication Sig albuterol HFA (PROVENTIL HFA, VENTOLIN HFA) 90 mcg/actuation inhaler Inhale 2 Puffs as instructed every 4 hours as needed for wheezing/shortness of breath. benzonatate (TESSALON PERLES) 100 mg capsule Take 1 capsule by mouth three times a day as needed for cough. SUMAtriptan (IMITREX) 100 mg tablet Take 1 tablet by mouth as needed. ondansetron (ZOFRAN) 4 mg tablet Take 1 tablet by mouth every 8 hours as needed. ibuprofen (MOTRIN) 800 mg tablet Take 1 tablet by mouth every 8 hours as needed for pain. meclizine (ANTIVERT) 12.5 mg tab Take 1 tablet by mouth every 6 hours as needed (dizziness). tiZANidine (ZANAFLEX) 4 mg tablet Take 1 tablet by mouth twice daily. gabapentin (NEURONTIN) 600 mg tablet Take 2 tablets qd lisinopril (ZESTRIL) 20 mg tablet Take 1 tablet by mouth once daily. atorvastatin (LIPITOR) 20 mg tablet Take 1 tablet by mouth daily at bedtime. For cholesterol. pantoprazole DR (PROTONIX) 20 mg tablet Take 2 tablets by mouth daily before breakfast. Take on empty stomach, 1/2 hr before meal. Per GastroDr. Medina sucralfate (CARAFATE) 1 gram tablet Take 1 tablet by mouth before meals and at bedtime. Per gastroDr. Medina Current Facility-Administered Medications on File Prior to Visit Medication perflutren lipid microspheres 1.3 mL in NaCl (PF) 0.9% 10 mL injection (DEFINITY) sodium chloride 0.9 % (flush) 10 mL (BD POSIFLUSH) perflutren lipid microspheres 1.3 mL in NaCl (PF) 0.9% 10 mL i (more content not included)... [facility] 01-06-2023 History of Presen t illness Narrative Chief Complaint Patient presents with: Cough HPI Pepe Norwood is a 52 year old female who presents here today for cough Patient indicated that she saw UC 12/28 and was told ear infection and given medication. Patient indicated that she is not feeling better. Sx; Cough productive of mucus but not aware of color Swollen lymph nodes Fever Headaches Stomach pain No appetite Fatigue Right ear still hurts Some shortness of breath with exertion and wheezing. Some nausea No vomiting or diarrhea. Past medical history, appointments, medications, allergies reviewed. Previous Medical History PAST MEDICAL HISTORY Diagnosis Date Anxiety 09/04/2014 Benign neoplasm of colon 09/07/2014 Chronic back pain Chronic insomnia 12/06/2018 Elevated alkaline phosphatase level 04/20/2019 Had not seen liver specialist as recommended multiple times, Seeing Dr. Medina as of 08/23/2021 Fatty liver 04/20/2019 Fibromyalgia GERD (gastroesophageal reflux disease) 09/04/2014 Hernia, hiatal History of 2019 novel coronavirus disease (COVID-19) 02/23/2020 02/10/2020 History of COVID-19 04/16/202103/2021 History of medical problems c diff 2014 Hypertension, essential 08/01/2020 IBS (irritable bowel syndrome) Left carpal tunnel syndrome 11/06/2015 Lung nodules 02/27/2022 CT 02/2022: Needs repeat in 05/2022 Major depressive disorder with single episode 09/04/2014 Migraine with aura and without status migrainosus, not intractable 04/20/2019 Mixed hyperlipidemia 09/04/2014 Muscle cramping 09/11/2020 chronic Muscle twitching 04/20/2019 Chronic and Tx with Neurontin. Smoker 09/04/2014 Started age 27 up to 1 PPD, As of 03/2019 Urethral stenosis 11/23/2014 Previous Surgical History PAST SURGICAL HISTORY Procedure Laterality Date COLONOSCOPY FLX DX W/COLLJ SPEC WHEN PFRMD 2007 Colonoscopy COLONOSCOPY FLX DX W/COLLJ SPEC WHEN PFRMD 01/13/13 Colonoscopy COLONOSCOPY FLX DX W/COLLJ SPEC WHEN PFRMD 08/31/2013 Colonoscopy COLONOSCOPY FLX DX W/COLLJ SPEC WHEN PFRMD 09/07/2014 Colonoscopy- repeat 3 years COLONOSCOPY FLX DX W/COLLJ SPEC WHEN PFRMD 05/10/2019 normal, repeat in 3 years due to prior Hx dysplastic polyp EGD ESOPHAGOGASTRODUODENOSCOPY TRANSORAL DIAGNOSTIC 09/07/14 EGD ESOPHAGOGASTRODUODENOSCOPY TRANSORAL DIAGNOSTIC 05/10/2019 EGD KNEE ARTHROSCOPY/SURGERY left OFFICE LEEP 12/2014 PAST SURGICAL HISTORY OF 03/1991 ovarian cyst removal PAST SURGICAL HISTORY OF wisdom teeth SHOULDER ARTHROSCOPY/SURG left TONSILLECTOMY HX TOTAL ABDOMINAL HYSTERECT W/WO RMVL TUBE OVARY 03/18/2017 Hysterectomy, REGINALD Family History FAMILY HISTORY Problem Relation Age of Onset Hypertension Mother Diabetes Mother Heart Mother CHF; atrial fib Diabetes Father Thyroid Father Patient Allergies ALLERGIES Allergen Reactions Bactrim [Sulfametho* Rash racing heart Mobic [Meloxicam] Hives Toradol [Ketorolac] Rash rAsh at site Adhesive Tape (Joy* Rash Capsule #0 [Gelatin* Other: See Comments Patient states she cannot swallow capsules Cats Unknown Dust Mites Unknown Mold Unknown Prednisone Rash High doses- tachycardia. She tolerates lower doses Prozac [Fluoxetine * Shortness of Breath Throat swelling Current Medications Current Outpatient Medications on File Prior to Visit Medication Sig albuterol HFA (PROVENTIL HFA, VENTOLIN HFA) 90 mcg/actuation inhaler Inhale 2 Puffs as instructed every 4 hours as needed for wheezing/shortness of breath. benzonatate (TESSALON PERLES) 100 mg capsule Take 1 capsule by mouth three times a day as needed for cough. SUMAtriptan (IMITREX) 100 mg tablet Take 1 tablet by mouth as needed. ondansetron (ZOFRAN) 4 mg tablet Take 1 tablet by mouth every 8 hours as needed. ibuprofen (MOTRIN) 800 mg tablet Take 1 tablet by mouth every 8 hours as needed for pain. meclizine (ANTIVERT) 12.5 mg tab Take 1 tablet by mouth every 6 hours as needed (dizziness). tiZANidine (ZANAFLEX) 4 mg tablet Take 1 tablet by mouth twice daily. gabapentin (NEURONTIN) 600 mg tablet Take 2 tablets qd lisinopril (ZESTRIL) 20 mg tablet Take 1 tablet by mouth once daily. atorvastatin (LIPITOR) 20 mg tablet Take 1 tablet by mouth daily at bedtime. For cholesterol. pantoprazole DR (PROTONIX) 20 mg tablet Take 2 tablets by mouth daily before breakfast. Take on empty stomach, 1/2 hr before meal. Per Dr. Carol Simpson sucralfate (CARAFATE) 1 gram tablet Take 1 tablet by mouth before meals and at bedtime. Per Dr. Carol simpson Current Facility-Administered Medications on File Prior to Visit Medication perflutren lipid microspheres 1.3 mL in NaCl (PF) 0.9% 10 mL injection (DEFINITY) sodium chloride 0.9 % (flush) 10 mL (BD POSIFLUSH) perflutren lipid microspheres 1.3 mL in NaCl (PF) 0.9% 10 mL injection (DEFINITY) sodium chloride 0.9 % (flush) 10 mL (BD POSIFLUSH) perflutren lipid microspheres 1.3 mL in NaCl (PF) 0.9% 10 mL injection (DEFINITY) sodium chloride 0.9 % (flush) 10 mL (BD POSIFLUSH) Social History Social History Tobacco Use Smoking status: Former Packs/day: 1.00 Years: 20.00 Additional pack years: 0.00 Total pack years: 20.00 Types: Cigarettes Start date: 03/23/1996 Quit date: 08/21/2021 Years since quittin.3 Smokeless tobacco: Never Tobacco comments: 5 cigs daily Vaping Use Vaping Use: Never used Substance Use Topics Alcohol use: No Comment: quit fall 2013 d/t IBS. Drug use: No Review of Symptoms REVIEW OF SYSTEMS See HPI EXAM: BP 128/92 (BP Site: Right Arm, BP Position: Sitting, BP Cuff Size: Large Adult) Pulse 85 Temp 36.8 C (98.2 F) (Tympanic) Resp 18 Wt 87.5 kg (193 lb) LMP 03/23/1996 SpO2 98% BMI 34.19 kg/m General Appearance: Well appearing, alert, in no acute distress, well-hydrated, well nourished.. Eyes: Anicteric sclera. Pupils are equally round and reactive to light. Extraocular movements are intact. . Ears: External ears, TM's normal, canals clear. Nose/Sinuses: Negative findings: septum midline with no perforation or bleeding, no polyps, Positive findings: mucosa swollen, pale, and boggy, clear rhinorrhea, has maxillary and frontal sinus tenderness.. Oropharynx: has cobble stoning and mild erythema.. Neck: Supple, no adenopathy; thyroid symmetric, normal size, no bruits. Lungs: Lungs clear to auscultation. No wheezing, rhonchi, rales.. Heart: RRR without murmur, gallop, or rubs. No ectopy. Health Maintenance List Hepatitis B Vaccine(1 of 3 - 3-dose series) Never done HIV Screening Never done Pap Testing Never done HPV Testing Never done Shingrix Vaccine(1 of 2) Never done Mammogram Screening due on 12/21/2021 Influenza Vaccine(1) due on 11/21/2022 Covid-19 Vaccine(1) due on 07/29/2023 Lung Cancer Screening due on 02/24/2023 Annual PCP Team Chronic Disease Visit due on 10/30/2023 BP Controlled (<130/80) due on 12/29/2023 Colorectal Cancer Screening due on 11/26/2024 Diabetes Screening due on 10/29/2025 Lipid Screening due on 07/29/2027 DTaP,Tdap,Td Vaccine(3 - Td or Tdap) due on 09/27/2032 Hepatitis C Screening Completed Data reviewed Component Latest Ref Rng & Units 01/06/2023 Strep A (POCT) Negative Negative Procedural Control Valid A/P ASSESSMENT/PLAN: 1. Bacterial sinusitis - ICD9: 473.9, 041.9, ICD10: J32.9, B96.89 (primary diagnosis) - Will begin treatment with Augmentin 875 mg PO BID for 10 days - Supportive care with plenty of fluids, rest, and analgesia prn. 2. Pharyngitis, unspecified etiology - ICD9: 462, ICD10: J02.9 - suspect this is due to post nasal drainage. - Discussed supportive care treatment with fluids, rest and analgesia. Requested Prescriptions Signed Prescriptions Disp Refills amoxicillin-clavulanic acid (AUGMENTIN) 875-125 mg per tablet 20 tablet 0 Sig: Take 1 tablet by mouth two times a day for 10 days. Liliana Cobos MD documented in this encounter [facility] 12-31-2022 Note Patient Outreach (IN TMMN) PEPE NORWOOD ([id number]) 1970 F Date Time Provider Department 12/31/22 LILIANA COBOS During your visit today, we recorded the following information about you: Allergies As of Date: 12/31/2022 Noted Allergy Reaction BACTRIM (SULFAMETHOXAZOLE-TRIMETH*2018 2 - Rash Comments: racing heart MOBIC (MELOXICAM) 08/02/2020 4 - Hives TORADOL (KETOROLAC) 09/24/2014 2 - Rash Comments: rAsh at site ADHESIVE TAPE (ROSINS) 08/25/2013 2 - Rash CAPSULE #0 (GELATIN CAPSULES (EMP*12/06/2018 14 - Other: See Comments Comments: Patient states she cannot swallow capsules CATS 07/24/2015 16 - Unknown DUST MITES 09/14/2006 16 - Unknown MOLD 07/24/2015 16 - Unknown PREDNISONE 11/11/2012 2 - Rash Comments: High doses- tachycardia. She tolerates lower doses PROZAC (FLUOXETINE HCL) 12/04/2011 12 - Shortness of Breath Comments: Throat swelling Date Reviewed: 12/28/2022 Reviewed by: Renetta Ruff - Fully Assessed Visit Diagnosis:Encounter for screening mammogram for breast cancer [Z12.31] Order(s):[facility] SCREENING [[id number]] Order #: [id number] FUTURE Prescriptions as of 01/05/2023 - albuterol HFA (PROVENTIL HFA, VENTOLIN HFA) 90 mcg/actuation inhaler Inhale 2 Puffs as instructed every 4 hours as needed for wheezing/shortness of breath. - atorvastatin (LIPITOR) 20 mg tablet Take 1 tablet by mouth daily at bedtime. For cholesterol. - benzonatate (TESSALON PERLES) 100 mg capsule Take 1 capsule by mouth three times a day as needed for cough. - gabapentin (NEURONTIN) 600 mg tablet Take 2 tablets qd - ibuprofen (MOTRIN) 800 mg tablet Take 1 tablet by mouth every 8 hours as needed for pain. - lisinopril (ZESTRIL) 20 mg tablet Take 1 tablet by mouth once daily. - meclizine (ANTIVERT) 12.5 mg tab Take 1 tablet by mouth every 6 hours as needed (dizziness). - ondansetron (ZOFRAN) 4 mg tablet Take 1 tablet by mouth every 8 hours as needed. - pantoprazole DR (PROTONIX) 20 mg tablet Take 2 tablets by mouth daily before breakfast. Take on empty stomach, 1/[address] hr before meal. Per Dr. Carol Simpson - sucralfate (CARAFATE) 1 gram tablet Take 1 tablet by mouth before meals and at bedtime. Per Dr. Carol simpson - SUMAtriptan (IMITREX) 100 mg tablet Take 1 tablet by mouth as needed. - tiZANidine (ZANAFLEX) 4 mg tablet Take 1 tablet by mouth twice daily. Facility-Administered Medications as of 01/05/2023 - perflutren lipid microspheres 1.3 mL in NaCl (PF) 0.9% 10 mL injection (DEFINITY) - perflutren lipid microspheres 1.3 mL in NaCl (PF) 0.9% 10 mL injection (DEFINITY) - perflutren lipid microspheres 1.3 mL in NaCl (PF) 0.9% 10 mL injection (DEFINITY) - sodium chloride 0.9 % (flush) 10 mL (BD POSIFLUSH) - sodium chloride 0.9 % (flush) 10 mL (BD POSIFLUSH) - sodium chloride 0.9 % (flush) 10 mL (BD POSIFLUSH) Problem List As Of Date 12/31/2022 Noted Resolved Chronic back pain [M54.9, G89.29] 01/13/2012 Lower urinary tract infectious disease [N39.0] 05/08/2014 12/06/2018 Hesitancy of micturition [R39.11] 05/08/2014 12/06/2018 Smoker [F17.200] 09/04/2014 GERD (gastroesophageal reflux disease) [K21.9] 09/04/2014 Mixed hyperlipidemia [E78.2] 09/04/2014 Anxiety [F41.9] 09/04/2014 Major depressive disorder with single episode [*09/04/2014 Benign neoplasm of colon [D12.6] 09/07/2014 Urethral stenosis [CRT2230] 11/23/2014 Left carpal tunnel syndrome [G56.02] 11/06/2015 Chronic insomnia [F51.04] 12/06/2018 Fibromyalgia [M79.7] 12/06/2018 Migraine with aura and without status migrainos*04/20/2019 Muscle twitching [R25.3] 04/20/2019 Hernia, hiatal [K44.9] IBS (irritable bowel syndrome) [K58.9] Fatty liver [K76.0] 04/20/2019 Elevated alkaline phosphatase level [R74.8] 04/20/2019 Uncontrolled daytime somnolence [R40.0] 04/20/2019 Snores [R06.83] 04/20/2019 Witnessed episode of apnea [R06.81] 04/20/2019 History of 2019 novel coronavirus disease (COVI*02/23/2020 Hypertension, essential [I10] 08/01/2020 Muscle cramping [R25.2] 09/11/2020 Lung nodules [R91.8] 02/27/2022 BPPV (benign paroxysmal positional vertigo), un*07/28/2022 Elevated glucose [R73.09] 07/28/2022 Encounter Status:Closed by EPIC, PRODUSER on 01/05/23 [facility] 12-28-2022 Note HNO ID: [id number] Author: Rocky Gallagher APRN.REMEDIATION PROJECT ENGINEER Service: ? Author Type: Nurse Practitioner Type: Progress Notes Filed: 12/28/2022 9:33 AM Note Text: This note was created using [employer]. Subjective Pepe Norwood is a 52 year old female. 52 year old female with PMH migraine, hyperlipidemia, fibromyalgia, HTN, GERD, IBS presents for complaints of illness. Acute onset 2 weeks ago States woke up feeling achy and cold + hacking States at the same time her was ill as well. States she thought her symptoms improved for a day. +headache + sinus pressure and pain States that she is having ear pain +nausea Has used Ibuprofen +Imitrex She denies tobacco usage, but endorses that her smokes around here. The history is provided by the patient. No language and literature division chair was used. URI She complains of cough, shortness of breath (with coughing), sputum production and wheezing. There is no chest tightness, difficulty breathing, frequent throat clearing, hemoptysis or hoarse voice. This is a new problem. The current episode started 1 to 4 weeks ago. The problem occurs constantly. The problem has been gradually worsening. The cough is productive of sputum. Associated symptoms include ear pain, headaches, malaise/fatigue, nasal congestion, postnasal drip, rhinorrhea and sneezing. Pertinent negatives include no appetite change, chest pain, dyspnea on exertion, ear congestion, fever, heartburn, myalgias, orthopnea, PND, sore throat, sweats, trouble swallowing or weight loss. Her symptoms are aggravated by nothing. Her symptoms are alleviated by nothing. She reports no improvement on treatment. Risk factors for lung disease include smoking/tobacco exposure. There is no history of asthma, bronchiectasis, bronchitis, COPD, emphysema or pneumonia. PAST MEDICAL HISTORY Diagnosis Date Anxiety 09/04/2014 Benign neoplasm of colon 09/07/2014 Chronic back pain Chronic insomnia 12/06/2018 Elevated alkaline phosphatase level 04/20/2019 Had not seen liver specialist as recommended multiple times, Seeing Dr. Medina as of 08/23/2021 Fatty liver 04/20/2019 Fibromyalgia GERD (gastroesophageal reflux disease) 09/04/2014 Hernia, hiatal History of 2019 novel coronavirus disease (COVID-19) 02/23/2020 02/10/2020 History of COVID-19 04/16/202103/2021 History of medical problems c diff 2013 Hypertension, essential 08/01/2020 IBS (irritable bowel syndrome) Left carpal tunnel syndrome 11/06/2015 Lung nodules 02/27/2022 CT 02/2022: Needs repeat in 05/2022 Major depressive disorder with single episode 09/04/2014 Migraine with aura and without status migrainosus, not intractable 04/20/2019 Mixed hyperlipidemia 09/04/2014 Muscle cramping 09/11/2020 chronic Muscle twitching 04/20/2019 Chronic and Tx with Neurontin. Smoker 09/04/2014 Started age 27 up to 1 PPD, As of 03/2019 Urethral stenosis 11/23/2014 PAST SURGICAL HISTORY Procedure Laterality Date COLONOSCOPY FLX DX W/COLLJ SPEC WHEN PFRMD 2007 Colonoscopy COLONOSCOPY FLX DX W/COLLJ SPEC WHEN PFRMD 01/13/13 Colonoscopy COLONOSCOPY FLX DX W/COLLJ SPEC WHEN PFRMD 08/31/2013 Colonoscopy COLONOSCOPY FLX DX W/COLLJ SPEC WHEN PFRMD 09/07/2014 Colonoscopy- repeat 3 years COLONOSCOPY FLX DX W/COLLJ SPEC WHEN PFRMD 05/10/2019 normal, repeat in 3 years due to prior Hx dysplastic polyp EGD ESOPHAGOGASTRODUODENOSCOPY TRANSORAL DIAGNOSTIC 09/07/14 EGD ESOPHAGOGASTRODUODENOSCOPY TRANSORAL DIAGNOSTIC 05/10/2019 EGD KNEE ARTHROSCOPY/SURGERY left OFFICE LEEP 12/2014 PAST SURGICAL HISTORY OF 03/1991 ovarian cyst removal PAST SURGICAL HISTORY OF wisdom teeth SHOULDER ARTHROSCOPY/SURG left TONSILLECTOMY HX TOTAL ABDOMINAL HYSTERECT W/WO RMVL TUBE OVARY 03/18/2017 Hysterectomy, REGINALD ALLERGIES Bactrim [Sulfamethoxazole-Trimethoprim], Mobic [Meloxicam], Toradol [Ketorolac], Adhesive Tape (Rosins), Capsule #0 [Gelatin Capsules (Empty)], Cats, Dust Mites, Mold, Prednisone, and Prozac [Fluoxetine Hcl] MEDICATIONS SUMAtriptan (IMITREX) 100 mg tabletTake 1 tablet by mouth as needed.Disp: 9 tabletRfl: 1 ondansetron (ZOFRAN) 4 mg tabletTake 1 tablet by mouth every 8 hours as needed.Disp: 30 tabletRfl: 1 ibuprofen (MOTRIN) 800 mg tabletTake 1 tablet by mouth every 8 hours as needed for pain.Disp: 90 tabletRfl: 2 tiZANidine (ZANAFLEX) 4 mg tabletTake 1 tablet by mouth twice daily.Disp: 60 tabletRfl: 5 gabapentin (NEURONTIN) 600 mg tabletTake 2 tablets qdDisp: 60 tabletRfl: 5 lisinopril (ZESTRIL) 20 mg tabletTake 1 tablet by mouth once daily.Disp: 30 tabletRfl: 5 atorvastatin (LIPITOR) 20 mg tabletTake 1 tablet by mouth daily at bedtime. For cholesterol.Disp: 30 tabletRfl: [address] (PROTONIX) 20 mg tabletTake 2 tablets by mouth daily before breakfast. Take on empty stomach, 1/2 hr before meal. Per Gastro, Dr. MedinaDisp: Rfl: sucralfate (CARAFATE) 1 gram tabletTake 1 tablet by mouth before meal (more content not included)... [facility] 12-28-2022 Instructions Rocky Gallagher APRN.REMEDIATION PROJECT ENGINEER - 12/28/2022 9:09 AM EDT RESPIRATORY INFECTION GENERAL INFORMATION: An upper respiratory tract infection, or cold, is a viral infection of the airway passages. It can be caused by any one of almost 200 different viruses. Common symptoms include a runny or stuffy nose, sneezing, watery eyes, sore throat, cough, and slight fever. Colds are contagious, especially during the first 3 or 4 days and cannot be cured by antibiotics. They are spread by coughs, sneezes, and direct contact, especially [id number]. A respiratory tract infection usually clears up in a few days, but some people may be sick for a week or two. INSTRUCTIONS: 1. Be careful not to blow your nose too hard because this may cause a nosebleed. 2. Use a cool-mist humidifier (vaporizer) to increase air moisture. This will make it easier for you to breathe. Do not use hot steam. 3. Rest as much as possible and get plenty of sleep. 4. Wash your hands often, especially after you blow your nose. Cover your mouth and nose with a tissue when you sneeze or cough. 5. Drink plenty of clear fluids (8 glasses a day) such as water, fruit juice, tea, clear soups, and carbonated beverages. CONTACT YOUR DOCTOR IF : 1. Your fever lasts more than 3 days. 2. You have a sore throat that gets worse or you see white or yellow spots in your throat. 3. Your cough gets worse or lasts more than 10 days. 4. You develop a rash anywhere on your skin. 5. You have an earache or a headache. 6. You have thick greenish or yellowish discharge from your nose. RETURN IMMEDIATELY IF: 1. You cough up thick yellow, green, hammer, or bloody sputum. 2. You have difficulty breathing, pain in your chest, or your skin or nails look hammer or blue. 3. You have shaking chills or a temperature over 102 F (39 C). documented in this encounter [facility] 12-28-2022 History of Presen t illness Narrative This note was created using [employer]. Subjective Pepe Norwood is a 52 year old female. 52 year old female with PMH migraine, hyperlipidemia, fibromyalgia, HTN, GERD, IBS presents for complaints of illness. Acute onset 2 weeks ago States woke up feeling achy and cold + hacking States at the same time her was ill as well. States she thought her symptoms improved for a day. +headache + sinus pressure and pain States that she is having ear pain +nausea Has used Ibuprofen +Imitrex She denies tobacco usage, but endorses that her smokes around here. The history is provided by the patient. No language and literature division chair was used. URI She complains of cough, shortness of breath (with coughing), sputum production and wheezing. There is no chest tightness, difficulty breathing, frequent throat clearing, hemoptysis or hoarse voice. This is a new problem. The current episode started 1 to 4 weeks ago. The problem occurs constantly. The problem has been gradually worsening. The cough is productive of sputum. Associated symptoms include ear pain, headaches, malaise/fatigue, nasal congestion, postnasal drip, rhinorrhea and sneezing. Pertinent negatives include no appetite change, chest pain, dyspnea on exertion, ear congestion, fever, heartburn, myalgias, orthopnea, PND, sore throat, sweats, trouble swallowing or weight loss. Her symptoms are aggravated by nothing. Her symptoms are alleviated by nothing. She reports no improvement on treatment. Risk factors for lung disease include smoking/tobacco exposure. There is no history of asthma, bronchiectasis, bronchitis, COPD, emphysema or pneumonia. PAST MEDICAL HISTORY Diagnosis Date Anxiety 09/04/2014 Benign neoplasm of colon 09/07/2014 Chronic back pain Chronic insomnia 12/06/2018 Elevated alkaline phosphatase level 04/20/2019 Had not seen liver specialist as recommended multiple times, Seeing Dr. Medina as of 08/23/2021 Fatty liver 04/20/2019 Fibromyalgia GERD (gastroesophageal reflux disease) 09/04/2014 Hernia, hiatal History of 2019 novel coronavirus disease (COVID-19) 02/23/2020 02/10/2020 History of COVID-19 04/16/202103/2021 History of medical problems c diff 2013 Hypertension, essential 08/01/2020 IBS (irritable bowel syndrome) Left carpal tunnel syndrome 11/06/2015 Lung nodules 02/27/2022 CT 02/2022: Needs repeat in 05/2022 Major depressive disorder with single episode 09/04/2014 Migraine with aura and without status migrainosus, not intractable 04/20/2019 Mixed hyperlipidemia 09/04/2014 Muscle cramping 09/11/2020 chronic Muscle twitching 04/20/2019 Chronic and Tx with Neurontin. Smoker 09/04/2014 Started age 27 up to 1 PPD, As of 03/2019 Urethral stenosis 11/23/2014 PAST SURGICAL HISTORY Procedure Laterality Date COLONOSCOPY FLX DX W/COLLJ SPEC WHEN PFRMD 2007 Colonoscopy COLONOSCOPY FLX DX W/COLLJ SPEC WHEN PFRMD 01/13/13 Colonoscopy COLONOSCOPY FLX DX W/COLLJ SPEC WHEN PFRMD 08/31/2013 Colonoscopy COLONOSCOPY FLX DX W/COLLJ SPEC WHEN PFRMD 09/07/2014 Colonoscopy- repeat 3 years COLONOSCOPY FLX DX W/COLLJ SPEC WHEN PFRMD 05/10/2019 normal, repeat in 3 years due to prior Hx dysplastic polyp EGD ESOPHAGOGASTRODUODENOSCOPY TRANSORAL DIAGNOSTIC 09/07/14 EGD ESOPHAGOGASTRODUODENOSCOPY TRANSORAL DIAGNOSTIC 05/10/2019 EGD KNEE ARTHROSCOPY/SURGERY left OFFICE LEEP 12/2014 PAST SURGICAL HISTORY OF 03/1991 ovarian cyst removal PAST SURGICAL HISTORY OF wisdom teeth SHOULDER ARTHROSCOPY/SURG left TONSILLECTOMY HX TOTAL ABDOMINAL HYSTERECT W/WO RMVL TUBE OVARY 03/18/2017 Hysterectomy, REGINALD ALLERGIES Bactrim [Sulfamethoxazole-Trimethoprim], Mobic [Meloxicam], Toradol [Ketorolac], Adhesive Tape (Rosins), Capsule #0 [Gelatin Capsules (Empty)], Cats, Dust Mites, Mold, Prednisone, and Prozac [Fluoxetine Hcl] MEDICATIONS SUMAtriptan (IMITREX) 100 mg tablet^Take 1 tablet by mouth as needed.^Disp: 9 tablet^Rfl: 1 ondansetron (ZOFRAN) 4 mg tablet^Take 1 tablet by mouth every 8 hours as needed.^Disp: 30 tablet^Rfl: 1 ibuprofen (MOTRIN) 800 mg tablet^Take 1 tablet by mouth every 8 hours as needed for pain.^Disp: 90 tablet^Rfl: 2 tiZANidine (ZANAFLEX) 4 mg tablet^Take 1 tablet by mouth twice daily.^Disp: 60 tablet^Rfl: 5 gabapentin (NEURONTIN) 600 mg tablet^Take 2 tablets qd^Disp: 60 tablet^Rfl: 5 lisinopril (ZESTRIL) 20 mg tablet^Take 1 tablet by mouth once daily.^Disp: 30 tablet^Rfl: 5 atorvastatin (LIPITOR) 20 mg tablet^Take 1 tablet by mouth daily at bedtime. For cholesterol.^Disp: 30 tablet^Rfl: [address] (PROTONIX) 20 mg tablet^Take 2 tablets by mouth daily before breakfast. Take on empty stomach, 1/2 hr before meal. Per Dr. Mayda Friend^Disp: ^Rfl: sucralfate (CARAFATE) 1 gram tablet^Take 1 tablet by mouth before meals and at bedtime. Per gastroDr. Friend^Disp: ^Rfl: meclizine (ANTIVERT) 12.5 mg tab^Take 1 tablet by mouth every 6 hours as needed (dizziness).^Disp: 60 tablet^Rfl: 1 FAMILY HISTORY Problem Relation Age of Onset Hypertension Mother Diabetes Mother Heart Mother CHF; atrial fib Diabetes Father Thyroid Father Social History Tobacco Use Smoking status: Former Packs/day: 1.00 Years: 20.00 Additional pack years: 0.00 Total pack years: 20.00 Types: Cigarettes Start date: 03/23/1996 Quit date: 08/21/2021 Years since quittin.3 Smokeless tobacco: Never Tobacco comments: 5 cigs daily Vaping Use Vaping Use: Never used Substance Use Topics Alcohol use: No Comment: quit fall 2013 d/t IBS. Drug use: No Review of Systems Constitutional: Positive for malaise/fatigue. Negative for appetite change, fatigue, fever and weight loss. HENT: Positive for congestion, ear pain, postnasal drip, rhinorrhea, sinus pressure, sinus pain and sneezing. Negative for hoarse voice, sore throat and trouble swallowing. Eyes: Negative for pain, discharge, redness and itching. Respiratory: Positive for cough, sputum production, shortness of breath (with coughing) and wheezing. Negative for apnea, hemoptysis and chest tightness. Cardiovascular: Negative for chest pain, dyspnea on exertion and PND. Gastrointestinal: Negative for abdominal pain, diarrhea, heartburn, nausea and vomiting. Musculoskeletal: Negative for arthralgias, back pain, gait problem and myalgias. Skin: Negative for color change, pallor, rash and wound. Allergic/Immunologic: Negative for environmental allergies, food allergies and immunocompromised state. Neurological: Positive for headaches. Negative for dizziness and facial asymmetry. Hematological: Negative for adenopathy. Does not bruise/bleed easily. Psychiatric/Behavioral: Negative for agitation and behavioral problems. Objective BP 118/72 Pulse 82 Temp 36.2 C (97.2 F) Resp 16 Wt 87.5 kg (193 lb) LMP 03/23/1996 SpO2 97% BMI 34.19 kg/m Physical Exam Vitals and nursing note reviewed. Constitutional: General: She is not in acute distress. Appearance: Normal appearance. She is normal weight. She is not ill-appearing, toxic-appearing or diaphoretic. HENT: Head: Normocephalic and atraumatic. Right Ear: Ear canal and external ear normal. Left Ear: Ear canal and external ear normal. Nose: Nose normal. No congestion or rhinorrhea. Mouth/Throat: Mouth: Mucous membranes are moist. Pharynx: No oropharyngeal exudate or posterior oropharyngeal erythema. Eyes: General: Right eye: No discharge. Left eye: No discharge. Extraocular Movements: Extraocular movements intact. Conjunctiva/sclera: Conjunctivae normal. Pupils: Pupils are equal, round, and reactive to light. Cardiovascular: Rate and Rhythm: Normal rate and regular rhythm. Pulses: Normal pulses. Heart sounds: Normal heart sounds. No murmur heard. No friction rub. Pulmonary: Effort: Pulmonary effort is normal. No respiratory distress. Breath sounds: Normal breath sounds. No stridor. No wheezing, rhonchi or rales. Chest: Chest wall: No tenderness. Abdominal: General: Abdomen is flat. There is no distension. Palpations: Abdomen is soft. There is no mass. Tenderness: There is no abdominal tenderness. There is no right CVA tenderness, left CVA tenderness, guarding or rebound. Hernia: No hernia is present. Musculoskeletal: General: No swelling, tenderness, deformity or signs of injury. Normal range of motion. Cervical back: Normal range of motion and neck supple. No rigidity. Right lower leg: No edema. Left lower leg: No edema. Lymphadenopathy: Cervical: No cervical adenopathy. Skin: General: Skin is warm and dry. Coloration: Skin is not jaundiced or pale. Findings: No bruising, erythema, lesion or rash. Neurological: General: No focal deficit present. Mental Status: She is alert and oriented to person, place, and time. Cranial Nerves: No cranial nerve deficit. Sensory: No sensory deficit. Motor: No weakness. Coordination: Coordination normal. Gait: Gait normal. Psychiatric: Mood and Affect: Mood normal. Behavior: Behavior normal. Thought Content: Thought content normal. Judgment: Judgment normal. Assessment and Plan ASSESSMENT/PLAN: 1. Acute otitis media, right - ICD9: 382.9, ICD10: H66.91 (primary diagnosis) - Will begin treatment with as per antibiotic as written, see orders - The patient should also be given OTC cough and cold meds as needed, warm salt water gargles, throat lozenges and/or OTC throat spray as needed, and nasal saline gtts and suction prn for the first 5-7 days of treatment. - Supportive care with plenty of fluids, rest, and analgesia prn. - Follow up in 3-5 days if symptoms persist or worsen. 2. Rhinosinusitis - ICD9: 473.9, ICD10: J32.9 - Will begin treatment with as per antibiotic as written, see orders - The patient should also be given OTC cough and cold meds as needed, warm salt water gargles, throat lozenges and/or OTC throat spray as needed, and nasal saline gtts and suction prn for the first 5-7 days of treatment. - Supportive care with plenty of fluids, rest, and analgesia prn. - Follow up in 3-5 days if symptoms persist or worsen. 3. Acute cough - ICD9: 786.2, ICD10: R05.1 X 2 weeks Expiratory wheezing noted. No red flags RX Albuterol Declines Prednisone, citing intolerance. Rocky Gallagher APRN.REMEDIATION PROJECT ENGINEER documented in this encounter [facility] 10-31-2022 Miscellaneous Notes See TE Please see pt's message. Pt was seen in office yesterday.Loretta Brunson LPN documented in this encounter [facility] 10-31-2022 Miscellaneous Notes Patient was notified Lu Frazier Ma Xray negative. documented in this encounter [facility] 10-31-2022 Miscellaneous Notes Vital Insightt message sent to pt notifying her of results below. Sanjuana Julio Ma ----- Message from Jeannie Guajardo PA-C sent at 10/31/2022 8:20 AM EDT ----- Urine culture is negative. documented in this encounter [facility] 10-30-2022 Miscellaneous Notes Patient notified of results and provider's instructions. Patient verbalizes understanding. Loretta Brunson LPN Labs look okay. Mild elevation in WBC. With the green BM now, it's possible she may have a little viral bug. Continue to monitor symptoms. We will call with culture results. RTO if worsening. documented in this encounter [facility] 10-29-2022 Note HNO ID: [id number] Author: Chrystal Murray RT(R) Service: Radiology Author Type: Technologist Type: Progress Notes Filed: 10/29/2022 2:16 PM Note Text: Radiology Service Progress Note PATIENT NAME: Pepe Norwood DATE OF SERVICE: October 29, 2022 TIME: 2:06 PM PATIENT IDENTITY VERIFICATION COMPLETED USING TWO (2) IDENTIFIERS: Name and Date of confirmed by patient verbally. FALL SCREENING: Has the patient had 2 falls in the last year or 1 fall with injury or currently using an Ambulatory Assistive Device (Walker, Cane, Wheelchair, Crutches, etc.)? No PATIENT GENDER DATA: Female. status: : No status: NO. PATIENT RELEVANT IMPLANT DATA REVIEWED: Not Applicable RADIOLOGY DEPARTMENT: General X-ray: Exam(s) Completed: Abdomen X-Ray: Abdomen PERIPHERAL IV DATA: Not applicable SIGNED BY: Chrystal Murray, RT(R) October 29, 2022 2:06 PM [facility] 10-29-2022 Note HNO ID: [id number] Author: Jeannie Guajardo PA-C Service: ? Author Type: Physician Brassiere Cup Mold Cutter Type: Progress Notes Filed: 10/29/2022 2:42 PM Note Text: Chief Complaint Patient presents with: Pain, Back: X 3 days HPI Pepe Norwood is a 51 year old female who presents here today for Above Complaints.. Patient reports left sided back pain for the past 2 days. Patient also concerned that she was stung by a bee on Thursday and had pain up her left arms. Plans on seeing calculus teacher. No other injury Past medical history, appointments, medications, allergies reviewed. Previous Medical History PAST MEDICAL HISTORY Diagnosis Date Anxiety 09/04/2014 Benign neoplasm of colon 09/07/2014 Chronic back pain Chronic insomnia 12/06/2018 Elevated alkaline phosphatase level 04/20/2019 Had not seen liver specialist as recommended multiple times, Seeing Dr. Medina as of 08/23/2021 Fatty liver 04/20/2019 Fibromyalgia GERD (gastroesophageal reflux disease) 09/04/2014 Hernia, hiatal History of 2019 novel coronavirus disease (COVID-19) 02/23/2020 02/10/2020 History of COVID-19 04/16/202103/2021 History of medical problems c diff 2013 Hypertension, essential 08/01/2020 IBS (irritable bowel syndrome) Left carpal tunnel syndrome 11/06/2015 Lung nodules 02/27/2022 CT 02/2022: Needs repeat in 05/2022 Major depressive disorder with single episode 09/04/2014 Migraine with aura and without status migrainosus, not intractable 04/20/2019 Mixed hyperlipidemia 09/04/2014 Muscle cramping 09/11/2020 chronic Muscle twitching 04/20/2019 Chronic and Tx with Neurontin. Smoker 09/04/2014 Started age 27 up to 1 PPD, As of 03/2019 Urethral stenosis 11/23/2014 Previous Surgical History PAST SURGICAL HISTORY Procedure Laterality Date COLONOSCOPY FLX DX W/COLLJ SPEC WHEN PFRMD 2007 Colonoscopy COLONOSCOPY FLX DX W/COLLJ SPEC WHEN PFRMD 01/13/13 Colonoscopy COLONOSCOPY FLX DX W/COLLJ SPEC WHEN PFRMD 08/31/2013 Colonoscopy COLONOSCOPY FLX DX W/COLLJ SPEC WHEN PFRMD 09/07/2014 Colonoscopy- repeat 3 years COLONOSCOPY FLX DX W/COLLJ SPEC WHEN PFRMD 05/10/2019 normal, repeat in 3 years due to prior Hx dysplastic polyp EGD ESOPHAGOGASTRODUODENOSCOPY TRANSORAL DIAGNOSTIC 09/07/14 EGD ESOPHAGOGASTRODUODENOSCOPY TRANSORAL DIAGNOSTIC 05/10/2019 EGD KNEE ARTHROSCOPY/SURGERY left OFFICE LEEP 12/2014 PAST SURGICAL HISTORY OF 03/1991 ovarian cyst removal PAST SURGICAL HISTORY OF wisdom teeth SHOULDER ARTHROSCOPY/SURG left TONSILLECTOMY HX TOTAL ABDOMINAL HYSTERECT W/WO RMVL TUBE OVARY 03/18/2017 Hysterectomy, REGINALD Family History FAMILY HISTORY Problem Relation Age of Onset Hypertension Mother Diabetes Mother Heart Mother CHF; atrial fib Diabetes Father Thyroid Father Patient Allergies ALLERGIES Allergen Reactions Bactrim [Sulfametho* Rash racing heart Doxycycline Rash Mobic [Meloxicam] Hives Toradol [Ketorolac] Rash rAsh at site Adhesive Tape (Joy* Rash Capsule #0 [Gelatin* Other: See Comments Patient states she cannot swallow capsules Cats Unknown Dust Mites Unknown Mold Unknown Prednisone Rash High doses- tachycardia. She tolerates lower doses Prozac [Fluoxetine * Shortness of Breath Throat swelling Current Medications Current Outpatient Medications on File Prior to Visit Medication Sig SUMAtriptan (IMITREX) 100 mg tablet Take 1 tablet by mouth as needed. ondansetron (ZOFRAN) 4 mg tablet Take 1 tablet by mouth every 8 hours as needed. ibuprofen (MOTRIN) 800 mg tablet Take 1 tablet by mouth every 8 hours as needed for pain. tiZANidine (ZANAFLEX) 4 mg tablet Take 1 tablet by mouth twice daily. gabapentin (NEURONTIN) 600 mg tablet Take 2 tablets qd lisinopril (ZESTRIL) 20 mg tablet Take 1 tablet by mouth once daily. atorvastatin (LIPITOR) 20 mg tablet Take 1 tablet by mouth daily at bedtime. For cholesterol. pantoprazole DR (PROTONIX) 20 mg tablet Take 2 tablets by mouth daily before breakfast. Take on empty stomach, 1/2 hr before meal. Per Gastro, Friend sucralfate (CARAFATE) 1 gram tablet Take 1 tablet by mouth before meals and at bedtime. Per gastroDr. Friend meclizine (ANTIVERT) 12.5 mg tab Take 1 tablet by mouth every 6 hours as needed (dizziness). cholecalciferol, Vitamin D3, (VITAMIN D3) 1,250 mcg (50,000 unit) cap capsule Take 1 capsule by mouth one time a week. (Patient not taking: No sig reported) montelukast (SINGULAIR) 10 mg tablet Take 1 tablet by mouth daily at bedtime. (Patient not taking: No sig reported) Current Facility-Administered Medications on File Prior to Visit Medication perflutren lipid microspheres 1.3 mL in NaCl (PF) 0.9% 10 mL injection (DEFINITY) sodium chloride 0.9 % (flush) 10 mL (BD POSIFLUSH) perflutren lipid microspheres 1.3 mL in NaCl (PF) 0.9% 10 mL injection (DEFINITY) sodium chloride 0.9 % (flush) 10 mL (BD POSIFLUSH) perflutren lipid microspheres 1.3 mL in NaCl (PF) 0.9% (more content not included)... [facility] 10-29-2022 History of Presen t illness Narrative Chief Complaint Patient presents with: Pain, Back: X 3 days HPI Pepe Norwood is a 51 year old female who presents here today for Above Complaints.. Patient reports left sided back pain for the past 2 days. Patient also concerned that she was stung by a bee on Thursday and had pain up her left arms. Plans on seeing calculus teacher. No other injury Past medical history, appointments, medications, allergies reviewed. Previous Medical History PAST MEDICAL HISTORY Diagnosis Date Anxiety 09/04/2014 Benign neoplasm of colon 09/07/2014 Chronic back pain Chronic insomnia 12/06/2018 Elevated alkaline phosphatase level 04/20/2019 Had not seen liver specialist as recommended multiple times, Seeing Dr. Medina as of 08/23/2021 Fatty liver 04/20/2019 Fibromyalgia GERD (gastroesophageal reflux disease) 09/04/2014 Hernia, hiatal History of 2019 novel coronavirus disease (COVID-19) 02/23/2020 02/10/2020 History of COVID-19 04/16/202103/2021 History of medical problems c diff 2013 Hypertension, essential 08/01/2020 IBS (irritable bowel syndrome) Left carpal tunnel syndrome 11/06/2015 Lung nodules 02/27/2022 CT 02/2022: Needs repeat in 05/2022 Major depressive disorder with single episode 09/04/2014 Migraine with aura and without status migrainosus, not intractable 04/20/2019 Mixed hyperlipidemia 09/04/2014 Muscle cramping 09/11/2020 chronic Muscle twitching 04/20/2019 Chronic and Tx with Neurontin. Smoker 09/04/2014 Started age 27 up to 1 PPD, As of 03/2019 Urethral stenosis 11/23/2014 Previous Surgical History PAST SURGICAL HISTORY Procedure Laterality Date COLONOSCOPY FLX DX W/COLLJ SPEC WHEN PFRMD 2007 Colonoscopy COLONOSCOPY FLX DX W/COLLJ SPEC WHEN PFRMD 01/13/13 Colonoscopy COLONOSCOPY FLX DX W/COLLJ SPEC WHEN PFRMD 08/31/2013 Colonoscopy COLONOSCOPY FLX DX W/COLLJ SPEC WHEN PFRMD 09/07/2014 Colonoscopy- repeat 3 years COLONOSCOPY FLX DX W/COLLJ SPEC WHEN PFRMD 05/10/2019 normal, repeat in 3 years due to prior Hx dysplastic polyp EGD ESOPHAGOGASTRODUODENOSCOPY TRANSORAL DIAGNOSTIC 09/07/14 EGD ESOPHAGOGASTRODUODENOSCOPY TRANSORAL DIAGNOSTIC 05/10/2019 EGD KNEE ARTHROSCOPY/SURGERY left OFFICE LEEP 12/2014 PAST SURGICAL HISTORY OF 03/1991 ovarian cyst removal PAST SURGICAL HISTORY OF wisdom teeth SHOULDER ARTHROSCOPY/SURG left TONSILLECTOMY HX TOTAL ABDOMINAL HYSTERECT W/WO RMVL TUBE OVARY 03/18/2017 Hysterectomy, REGINALD Family History FAMILY HISTORY Problem Relation Age of Onset Hypertension Mother Diabetes Mother Heart Mother CHF; atrial fib Diabetes Father Thyroid Father Patient Allergies ALLERGIES Allergen Reactions Bactrim [Sulfametho* Rash racing heart Doxycycline Rash Mobic [Meloxicam] Hives Toradol [Ketorolac] Rash rAsh at site Adhesive Tape (Joy* Rash Capsule #0 [Gelatin* Other: See Comments Patient states she cannot swallow capsules Cats Unknown Dust Mites Unknown Mold Unknown Prednisone Rash High doses- tachycardia. She tolerates lower doses Prozac [Fluoxetine * Shortness of Breath Throat swelling Current Medications Current Outpatient Medications on File Prior to Visit Medication Sig SUMAtriptan (IMITREX) 100 mg tablet Take 1 tablet by mouth as needed. ondansetron (ZOFRAN) 4 mg tablet Take 1 tablet by mouth every 8 hours as needed. ibuprofen (MOTRIN) 800 mg tablet Take 1 tablet by mouth every 8 hours as needed for pain. tiZANidine (ZANAFLEX) 4 mg tablet Take 1 tablet by mouth twice daily. gabapentin (NEURONTIN) 600 mg tablet Take 2 tablets qd lisinopril (ZESTRIL) 20 mg tablet Take 1 tablet by mouth once daily. atorvastatin (LIPITOR) 20 mg tablet Take 1 tablet by mouth daily at bedtime. For cholesterol. pantoprazole DR (PROTONIX) 20 mg tablet Take 2 tablets by mouth daily before breakfast. Take on empty stomach, 1/2 hr before meal. Per Gastro, Friend sucralfate (CARAFATE) 1 gram tablet Take 1 tablet by mouth before meals and at bedtime. Per gastro, Friend meclizine (ANTIVERT) 12.5 mg tab Take 1 tablet by mouth every 6 hours as needed (dizziness). cholecalciferol, Vitamin D3, (VITAMIN D3) 1,250 mcg (50,000 unit) cap capsule Take 1 capsule by mouth one time a week. (Patient not taking: No sig reported) montelukast (SINGULAIR) 10 mg tablet Take 1 tablet by mouth daily at bedtime. (Patient not taking: No sig reported) Current Facility-Administered Medications on File Prior to Visit Medication perflutren lipid microspheres 1.3 mL in NaCl (PF) 0.9% 10 mL injection (DEFINITY) sodium chloride 0.9 % (flush) 10 mL (BD POSIFLUSH) perflutren lipid microspheres 1.3 mL in NaCl (PF) 0.9% 10 mL injection (DEFINITY) sodium chloride 0.9 % (flush) 10 mL (BD POSIFLUSH) perflutren lipid microspheres 1.3 mL in NaCl (PF) 0.9% 10 mL injection (DEFINITY) sodium chloride 0.9 % (flush) 10 mL (BD POSIFLUSH) Social History Social History Tobacco Use Smoking status: Former Packs/day: 0.50 Types: Cigarettes Start date: 03/23/1996 Quit date: 08/21/2021 Years since quittin.1 Smokeless tobacco: Never Tobacco comments: 5 cigs daily Vaping Use Vaping Use: Never used Substance Use Topics Alcohol use: No Comment: quit fall 2013 d/t IBS. Drug use: No Review of Symptoms REVIEW OF SYSTEMS See hpi EXAM: BP 140/80 (BP Site: Right Arm, BP Position: Sitting, BP Cuff Size: Large Adult) Pulse 74 Temp 37.1 C (98.8 F) Resp 18 Wt 89.8 kg (198 lb) LMP 03/23/1996 BMI 35.07 kg/m General Appearance: Well appearing, alert, in no acute distress, well-hydrated, well nourished.. Lungs: Lungs clear to auscultation. No wheezing, rhonchi, rales.. Heart: RRR without murmur, gallop, or rubs. No ectopy. Abdomen: mild tenderness to palp of suprapubic region. . Musculoskeletal: FROM. Pain to palp of left mid back. Neg CVA tenderness. . Health Maintenance List HEPATITIS B(1 of 3 - 3-dose series) Never done HIV SCREENING Never done BP CONTROLLED (<130/80) Never done PAP TESTING Never done HPV TESTING Never done SHINGRIX VACCINE(1 of 2) Never done MAMMOGRAM due on 12/21/2021 COVID-19 VACCINE(1) due on 07/29/2023 INFLUENZA(1) due on 11/21/2022 ANNUAL PCP TEAM CHRONIC DISEASE VISIT due on 07/29/2023 COLORECTAL CANCER SCREENING due on 11/26/2024 DIABETES SCREEN due on 07/28/2025 LIPID SCREEN due on 07/29/2027 DTAP,TDAP,TD(3 - Td or Tdap) due on 09/27/2032 HEPATITIS C SCREENING Completed Data reviewed Component Latest Ref Rng & Units 10/29/2022 GLUCOSE UA (POCT) Negative mg/dL Negative BILIRUBIN UA (POCT) Negative Negative KETONE UA (POCT) Negative mg/dL Negative SPECIFIC GRAVITY UA (POCT) 1.005 - 1.030 1.015 HEMOGLOBIN/BLOOD UA (POCT) Negative Negative PH UA (POCT) 4.5 - 8.0 6.0 PROTEIN UA (POCT) Negative mg/dL Negative UROBILINOGEN UA (POCT) Normal E.U./dL 0.2 NITRITE UA (POCT) Negative Negative LEUKOCYTES UA (POCT) Negative Negative COLOR UA (POCT) Yellow CLARITY UA (POCT) Clear ASSESSMENT/PLAN: 1. Flank pain - ICD9: 789.09, ICD10: R10.9 (primary diagnosis) Urine negative. Check labs and culture. Check KUB - CBC + DIFF - COMP METABOLIC PANEL - URINE CULTURE - XR ABDOMEN 1V SUPINE 2. Suprapubic pain - ICD9: 789.09, ICD10: R10.2 - CBC + DIFF - COMP METABOLIC PANEL - URINE CULTURE - XR ABDOMEN 1V SUPINE Jeannie Guajardo PA-C documented in this encounter [facility] 09-29-2022 Note HNO ID: [id number] Author: Loretta Brunson LPN Service: ? Author Type: ? Type: Progress Notes Filed: 09/29/2022 4:55 PM Note Text: Scan on 09/27/2022 9:20 AM by External Provider, YURI: Consultation - Emergency Medicine [facility] 09-29-2022 History of Presen t illness Narrative Scan on 09/27/2022 9:20 AM by External Provider, YURI: Consultation - Emergency Medicine documented in this encounter [facility] 07-29-2022 Miscellaneous Notes Pt. notified of normal echo results. Voices understanding. Carolina Paul RN ----- Message from Rocky Cardoso APRN.REMEDIATION PROJECT ENGINEER sent at 07/29/2022 1:42 PM EDT ----- Please call patient and notify her of results. Echocardiogram is with normal structure and function. Thank you! Spoke with patient about test results and recommendation to follow up with PCP for elevated alk phos. Patient verbalizes understanding and is agreeable. Sena Cross LPN ----- Message from Fe Foster APRN.REMEDIATION PROJECT ENGINEER sent at 07/28/2022 2:56 PM EDT ----- Please call the patient and report lab results revealed cholesterol is under much better control, renal function and electrolytes are within normal limits, her alkaline phosphatase is elevated and stable. She can follow with her PCP for continued monitoring of alk phos. Thank you, Fe Foster APRN.REMEDIATION PROJECT ENGINEER documented in this encounter [facility] 07-29-2022 Miscellaneous Notes Please call patient and notify her of results. Echocardiogram is with normal structure and function. Thank you! documented in this encounter [facility] 07-29-2022 Miscellaneous Notes Patient notified and voiced understanding. Cristin Jacobson MA Let patient know that her a1c is up to 6%. So this is worsening. 6.5 is considered diabetes. Needs to cut down sugars and carbs. B12 and folate levels are normal. Jeannie Guajardo PA-C documented in this encounter [facility] 07-28-2022 Note HNO ID: [id number] Author: Jeannie Guajardo PA-C Service: ? Author Type: Physician Brassiere Cup Mold Cutter Type: Progress Notes Filed: 07/28/2022 11:25 AM Note Text: Chief Complaint Patient presents with: Dizziness Edema: Edema bilateral hands and feet RAFA Norwood is a 51 year old female who presents here today for multiple concerns.. Patient recently saw cardiology. Echo and holter was ordered again. Patient has not completed these in the past when PCP office has ordered. She reports it was due to lack of insurance coverage and issues with transportation. She is still having issues with leg and hand swelling. RF and autoimmune work up in past has been negative. She feels like her arms and legs are going to sleep. N/t in both arms and legs. Had NCS of LE done a couple months ago that were normal. She reports vertigo symptoms when laying down and goes to roll over. Past medical history, appointments, medications, allergies reviewed. Previous Medical History PAST MEDICAL HISTORY Diagnosis Date Anxiety 09/04/2014 Benign neoplasm of colon 09/07/2014 Chronic back pain Chronic insomnia 12/06/2018 Elevated alkaline phosphatase level 04/20/2019 Had not seen liver specialist as recommended multiple times, Seeing Dr. Medina as of 08/23/2021 Fatty liver 04/20/2019 Fibromyalgia GERD (gastroesophageal reflux disease) 09/04/2014 Hernia, hiatal History of 2019 novel coronavirus disease (COVID-19) 02/23/2020 02/10/2020 History of COVID-19 04/16/202103/2021 History of medical problems c diff 2013 Hypertension, essential 08/01/2020 IBS (irritable bowel syndrome) Left carpal tunnel syndrome 11/06/2015 Lung nodules 02/27/2022 CT 02/2022: Needs repeat in 05/2022 Major depressive disorder with single episode 09/04/2014 Migraine with aura and without status migrainosus, not intractable 04/20/2019 Mixed hyperlipidemia 09/04/2014 Muscle cramping 09/11/2020 chronic Muscle twitching 04/20/2019 Chronic and Tx with Neurontin. Smoker 09/04/2014 Started age 27 up to 1 PPD, As of 03/2019 Urethral stenosis 11/23/2014 Previous Surgical History PAST SURGICAL HISTORY Procedure Laterality Date COLONOSCOPY FLX DX W/COLLJ SPEC WHEN PFRMD 2007 Colonoscopy COLONOSCOPY FLX DX W/COLLJ SPEC WHEN PFRMD 01/13/13 Colonoscopy COLONOSCOPY FLX DX W/COLLJ SPEC WHEN PFRMD 08/31/2013 Colonoscopy COLONOSCOPY FLX DX W/COLLJ SPEC WHEN PFRMD 09/07/2014 Colonoscopy- repeat 3 years COLONOSCOPY FLX DX W/COLLJ SPEC WHEN PFRMD 05/10/2019 normal, repeat in 3 years due to prior Hx dysplastic polyp EGD ESOPHAGOGASTRODUODENOSCOPY TRANSORAL DIAGNOSTIC 09/07/14 EGD ESOPHAGOGASTRODUODENOSCOPY TRANSORAL DIAGNOSTIC 05/10/2019 EGD KNEE ARTHROSCOPY/SURGERY left OFFICE LEEP 12/2014 PAST SURGICAL HISTORY OF 03/1991 ovarian cyst removal PAST SURGICAL HISTORY OF wisdom teeth SHOULDER ARTHROSCOPY/SURG left TONSILLECTOMY HX TOTAL ABDOMINAL HYSTERECT W/WO RMVL TUBE OVARY 03/18/2017 Hysterectomy, REGINALD Family History FAMILY HISTORY Problem Relation Age of Onset Hypertension Mother Diabetes Mother Heart Mother CHF; atrial fib Diabetes Father Thyroid Father Patient Allergies ALLERGIES Allergen Reactions Bactrim [Sulfametho* Rash racing heart Doxycycline Rash Mobic [Meloxicam] Hives Toradol [Ketorolac] Rash rAsh at site Adhesive Tape (Joy* Rash Capsule #0 [Gelatin* Other: See Comments Patient states she cannot swallow capsules Cats Unknown Dust Mites Unknown Mold Unknown Prednisone Rash High doses- tachycardia. She tolerates lower doses Prozac [Fluoxetine * Shortness of Breath Throat swelling Current Medications Current Outpatient Medications on File Prior to Visit Medication Sig ibuprofen (MOTRIN) 800 mg tablet Take 1 tablet by mouth every 8 hours as needed for pain. SUMAtriptan (IMITREX) 100 mg tablet Take 1 tablet by mouth as needed. ondansetron (ZOFRAN) 4 mg tablet Take 1 tablet by mouth every 8 hours as needed. tiZANidine (ZANAFLEX) 4 mg tablet Take 1 tablet by mouth twice daily. gabapentin (NEURONTIN) 600 mg tablet Take 2 tablets qd lisinopril (ZESTRIL, PRINIVIL) 20 mg tablet Take 1 tablet by mouth once daily. atorvastatin (LIPITOR) 20 mg tablet Take 1 tablet by mouth daily at bedtime. For cholesterol. pantoprazole DR (PROTONIX) 20 mg tablet Take 2 tablets by mouth daily before breakfast. Take on empty stomach, 1/2 hr before meal. Per GastroDr. Medina sucralfate (CARAFATE) 1 gram tablet Take 1 tablet by mouth before meals and at bedtime. Per gastroDr. Medina diphenhydrAMINE 12.5 mg/5 mL lidocaine visc 2% MAALOX 200-200-20 mg/5 mL oral liquid 1:1:1 (CPD) Take 10 mL by mouth three times daily. Swish and gargle (Patient not taking: Reported on 07/14/2022) cholecalciferol, Vitamin D3, (VITAMIN D3) 1,250 mcg (50,000 unit) cap capsule Take 1 capsule by mouth one time a week. (Patient not taking: No sig reported) montelukast (SINGULAIR) 10 mg (more content not included)... [facility] 07-28-2022 Instructions Jeannie Guajardo PA-C - 07/28/2022 9:46 AM EDT Follow up with gastro about you stomach symptoms. documented in this encounter [facility] 07-28-2022 History of Presen t illness Narrative Chief Complaint Patient presents with: Dizziness Edema: Edema bilateral hands and feet HPI Pepe Norwood is a 51 year old female who presents here today for multiple concerns.. Patient recently saw cardiology. Echo and holter was ordered again. Patient has not completed these in the past when PCP office has ordered. She reports it was due to lack of insurance coverage and issues with transportation. She is still having issues with leg and hand swelling. RF and autoimmune work up in past has been negative. She feels like her arms and legs are going to sleep. N/t in both arms and legs. Had NCS of LE done a couple months ago that were normal. She reports vertigo symptoms when laying down and goes to roll over. Past medical history, appointments, medications, allergies reviewed. Previous Medical History PAST MEDICAL HISTORY Diagnosis Date Anxiety 09/04/2014 Benign neoplasm of colon 09/07/2014 Chronic back pain Chronic insomnia 12/06/2018 Elevated alkaline phosphatase level 04/20/2019 Had not seen liver specialist as recommended multiple times, Seeing Dr. Medina as of 08/23/2021 Fatty liver 04/20/2019 Fibromyalgia GERD (gastroesophageal reflux disease) 09/04/2014 Hernia, hiatal History of 2019 novel coronavirus disease (COVID-19) 02/23/2020 02/10/2020 History of COVID-19 04/16/202103/2021 History of medical problems c diff 2013 Hypertension, essential 08/01/2020 IBS (irritable bowel syndrome) Left carpal tunnel syndrome 11/06/2015 Lung nodules 02/27/2022 CT 02/2022: Needs repeat in 05/2022 Major depressive disorder with single episode 09/04/2014 Migraine with aura and without status migrainosus, not intractable 04/20/2019 Mixed hyperlipidemia 09/04/2014 Muscle cramping 09/11/2020 chronic Muscle twitching 04/20/2019 Chronic and Tx with Neurontin. Smoker 09/04/2014 Started age 27 up to 1 PPD, As of 03/2019 Urethral stenosis 11/23/2014 Previous Surgical History PAST SURGICAL HISTORY Procedure Laterality Date COLONOSCOPY FLX DX W/COLLJ SPEC WHEN PFRMD 2007 Colonoscopy COLONOSCOPY FLX DX W/COLLJ SPEC WHEN PFRMD 01/13/13 Colonoscopy COLONOSCOPY FLX DX W/COLLJ SPEC WHEN PFRMD 08/31/2013 Colonoscopy COLONOSCOPY FLX DX W/COLLJ SPEC WHEN PFRMD 09/07/2014 Colonoscopy- repeat 3 years COLONOSCOPY FLX DX W/COLLJ SPEC WHEN PFRMD 05/10/2019 normal, repeat in 3 years due to prior Hx dysplastic polyp EGD ESOPHAGOGASTRODUODENOSCOPY TRANSORAL DIAGNOSTIC 09/07/14 EGD ESOPHAGOGASTRODUODENOSCOPY TRANSORAL DIAGNOSTIC 05/10/2019 EGD KNEE ARTHROSCOPY/SURGERY left OFFICE LEEP 12/2014 PAST SURGICAL HISTORY OF 03/1991 ovarian cyst removal PAST SURGICAL HISTORY OF wisdom teeth SHOULDER ARTHROSCOPY/SURG left TONSILLECTOMY HX TOTAL ABDOMINAL HYSTERECT W/WO RMVL TUBE OVARY 03/18/2017 Hysterectomy, REGINALD Family History FAMILY HISTORY Problem Relation Age of Onset Hypertension Mother Diabetes Mother Heart Mother CHF; atrial fib Diabetes Father Thyroid Father Patient Allergies ALLERGIES Allergen Reactions Bactrim [Sulfametho* Rash racing heart Doxycycline Rash Mobic [Meloxicam] Hives Toradol [Ketorolac] Rash rAsh at site Adhesive Tape (Joy* Rash Capsule #0 [Gelatin* Other: See Comments Patient states she cannot swallow capsules Cats Unknown Dust Mites Unknown Mold Unknown Prednisone Rash High doses- tachycardia. She tolerates lower doses Prozac [Fluoxetine * Shortness of Breath Throat swelling Current Medications Current Outpatient Medications on File Prior to Visit Medication Sig ibuprofen (MOTRIN) 800 mg tablet Take 1 tablet by mouth every 8 hours as needed for pain. SUMAtriptan (IMITREX) 100 mg tablet Take 1 tablet by mouth as needed. ondansetron (ZOFRAN) 4 mg tablet Take 1 tablet by mouth every 8 hours as needed. tiZANidine (ZANAFLEX) 4 mg tablet Take 1 tablet by mouth twice daily. gabapentin (NEURONTIN) 600 mg tablet Take 2 tablets qd lisinopril (ZESTRIL, PRINIVIL) 20 mg tablet Take 1 tablet by mouth once daily. atorvastatin (LIPITOR) 20 mg tablet Take 1 tablet by mouth daily at bedtime. For cholesterol. pantoprazole DR (PROTONIX) 20 mg tablet Take 2 tablets by mouth daily before breakfast. Take on empty stomach, 1/2 hr before meal. Per Gastro, Dr. Medina sucralfate (CARAFATE) 1 gram tablet Take 1 tablet by mouth before meals and at bedtime. Per gastro, Dr. Medina diphenhydrAMINE 12.5 mg/5 mL lidocaine visc 2% MAALOX 200-200-20 mg/5 mL oral liquid 1:1:1 (CPD) Take 10 mL by mouth three times daily. Swish and gargle (Patient not taking: Reported on 07/14/2022) cholecalciferol, Vitamin D3, (VITAMIN D3) 1,250 mcg (50,000 unit) cap capsule Take 1 capsule by mouth one time a week. (Patient not taking: No sig reported) montelukast (SINGULAIR) 10 mg tablet Take 1 tablet by mouth daily at bedtime. (Patient not taking: No sig reported) docusate sodium (COLACE) 100 mg capsule Take 1 capsule by mouth twice daily as needed for constipation. (Patient not taking: No sig reported) Current Facility-Administered Medications on File Prior to Visit Medication perflutren lipid microspheres 1.3 mL in NaCl (PF) 0.9% 10 mL injection (DEFINITY) sodium chloride 0.9 % (flush) 10 mL (BD POSIFLUSH) perflutren lipid microspheres 1.3 mL in NaCl (PF) 0.9% 10 mL injection (DEFINITY) sodium chloride 0.9 % (flush) 10 mL (BD POSIFLUSH) perflutren lipid microspheres 1.3 mL in NaCl (PF) 0.9% 10 mL injection (DEFINITY) sodium chloride 0.9 % (flush) 10 mL (BD POSIFLUSH) perflutren lipid microspheres 1.3 mL in NaCl (PF) 0.9% 10 mL injection (DEFINITY) sodium chloride 0.9 % (flush) 10 mL (BD POSIFLUSH) Social History Social History Tobacco Use Smoking status: Former Packs/day: 0.50 Types: Cigarettes Start date: 03/23/1996 Quit date: 08/21/2021 Years since quittin.9 Smokeless tobacco: Never Tobacco comments: 5 cigs daily Vaping Use Vaping Use: Never used Substance Use Topics Alcohol use: No Comment: quit fall 2013 d/t IBS. Drug use: No Review of Symptoms REVIEW OF SYSTEMS See hpi EXAM: BP 128/80 (BP Site: Right Arm, BP Position: Sitting, BP Cuff Size: Large Adult) Pulse 80 Temp 37.4 C (99.3 F) Resp 16 Wt 93.4 kg (206 lb) LMP 03/23/1996 BMI 36.49 kg/m General Appearance: Well appearing, alert, in no acute distress, well-hydrated, well nourished.. Neck: Supple, no adenopathy; thyroid symmetric, normal size, no bruits. Lungs: Lungs clear to auscultation. No wheezing, rhonchi, rales.. Heart: RRR without murmur, gallop, or rubs. No ectopy. Peripheral Pulses: Normal. Neurologic: Gait normal. Reflexes normal and symmetric. Sensation grossly intact.. Health Maintenance List HEPATITIS B(1 of 3 - 3-dose series) Never done HIV SCREENING Never done PAP TESTING Never done HPV TESTING Never done SHINGRIX VACCINE(1 of 2) Never done MAMMOGRAM due on 12/21/2021 COVID-19 VACCINE(1) due on 07/29/2023 ANNUAL PCP TEAM CHRONIC DISEASE VISIT due on 03/11/2023 BP CONTROLLED (<130/80) due on 07/15/2023 COLORECTAL CANCER SCREENING due on 11/26/2024 DIABETES SCREEN due on 01/10/2025 LIPID SCREEN due on 01/10/2027 DTAP,TDAP,TD(2 - Td or Tdap) due on 03/11/2032 INFLUENZA Completed HEPATITIS C SCREENING Completed Data reviewed ASSESSMENT/PLAN: 1. Dizziness - ICD9: 780.4, ICD10: R42 (primary diagnosis) Likely BPPV. Patient decline Physical Therapy consult - VITAMIN B12 BLOOD - FOLATE SERUM - CONSULT TO NEUROLOGY 2. BPPV (benign paroxysmal positional vertigo), unspecified laterality - ICD9: 386.11, ICD10: H81.10 As above - VITAMIN B12 BLOOD - FOLATE SERUM 3. Numbness and tingling - ICD9: 782.0, ICD10: R20.0, R20.2 Ungoing. Unclear etiology/ patient requests neuro - VITAMIN B12 BLOOD - FOLATE SERUM - CONSULT TO NEUROLOGY 4. SOB (shortness of breath) - ICD9: 786.05, ICD10: R06.02 Continue with cardiac workup 5. Hypertension, essential - ICD9: 401.9, ICD10: I10 - good control - Continue current medication(s) - Recommended regular aerobic exercise. - Recommend home blood pressure monitoring, to bring results in on next visit - Goal of BP <130/80 6. Chronic pain of right hip - ICD9: 719.45, 338.29, ICD10: M25.551, G89.29 7. Former smoker - ICD9: V15.82, ICD10: Z87.891 8. Mixed hyperlipidemia - ICD9: 272.2, ICD10: E78.2 - to be determined upon return of lab results - Encouraged following a low carbohydrate, healthy oil intake diet. - Continue current therapy. 9. Major depressive disorder with single episode, remission status unspecified - ICD9: 296.20, ICD10: F32.9 stable 10. Elevated glucose - ICD9: 790.29, ICD10: R73.09 check - HGB A1C 11. Multiple nevi - ICD9: 216.9, ICD10: D22.9 Patient ask for derm consult to julius oneil. - CONSULT TO DERMATOLOGY Jeannie Guajardo PA-C documented in this encounter [facility] 07-14-2022 Miscellaneous Notes Spoke with Judy from [facility] in [place]. She was able to see the patient's gabapentin refills through our office but on [facility] we could not see their scripts for the Lyrica. Pepe Cuco has the name Pepe Muñiz as an alias. There Social Security numbers did not match up. When we faxed each other a pic of each persons drivers licence it was able to be seen that these two individuals were not the same person. Judy with [facility] in [place] calls today to verify pt has been seen here and is currently a pt. Judy reports they have been seeing pt for over a year and prescribing medications for her including: Tizanidine, meloxicam, lyrica, topamax, ect. Pt has reported to their office that she is not seeing anyone else. Judy reports she spoke to pt's pharmacy in [place] and was advised that pt's rx are being picked up at pharmacy but it is it not pt's signature but someone else's. Pt's last appt: 01/09/22 - Next scheduled appt with Jeannie Guajardo PA-C: 07/28/22. Judy reports they pt under Peep Muñiz. Pt is under the care of Sherif Cross CNP. Pt's address is also in [place], [place]. Judy reports she wanted to let dr know here at [facility] after running a report on pt and seeing pt was still getting medications from [facility] provider. Lore Zayas LPN documented in this encounter [facility] 07-14-2022 Note HNO ID: [id number] Author: Rocky Cardoso APRN.MIKY Service: ? Author Type: Nurse Practitioner Type: Progress Notes Filed: 07/17/2022 10:28 AM Note Text: [facility]) [address] [facility] [id number] OUTPATIENT VISIT July 14, 2022 11:00 AM Chief Complaint Patient presents with: New Patient History of Present Illness: Pepe Norwood is a 51 year old female who presents for cardiology evaluation. She has a PMhx of HTN, HLD, obesity, former smoker. Today, she explains to me her worsening symptoms of shortness of breath, palpitations and lightheadedness. She feels that her symptoms have been worsening over the past 6 months. She is concerned given her mother's history of coronary artery disease with [place] and heart failure. She is fairly inactive due to chronic pain. She does feel extreme dyspnea on exertion and fatigue with activity. She also experiences palpitations. She feels as if her heart is pumping pudding . She does not experience exertional chest discomfort. She experiences intermittent lightheadedness that is best resolved with laying down and focusing on a single spot in the room. She has been ordered testing for further work-up by her primary care office multiple times including echocardiogram, stress testing and heart monitor. She states echocardiogram was denied by insurance. She has not been unable to complete the heart monitor due to transportation limitations. She states she would not be able to exercise for stress testing due to her back pain, shortness of breath, fatigue and lightheadedness. We reviewed cardiology risk factors and modifications. She reports taking medications as prescribed. PAST MEDICAL HISTORY Diagnosis Date Anxiety 09/04/2014 Benign neoplasm of colon 09/07/2014 Chronic back pain Chronic insomnia 12/06/2018 Elevated alkaline phosphatase level 04/20/2019 Had not seen liver specialist as recommended multiple times, Seeing Dr. Medina as of 08/23/2021 Fatty liver 04/20/2019 Fibromyalgia GERD (gastroesophageal reflux disease) 09/04/2014 Hernia, hiatal History of 2019 novel coronavirus disease (COVID-19) 02/23/2020 02/10/2020 History of COVID-19 04/16/202103/2021 History of medical problems c diff 2013 Hypertension, essential 08/01/2020 IBS (irritable bowel syndrome) Left carpal tunnel syndrome 11/06/2015 Lung nodules 02/27/2022 CT 02/2022: Needs repeat in 05/2022 Major depressive disorder with single episode 09/04/2014 Migraine with aura and without status migrainosus, not intractable 04/20/2019 Mixed hyperlipidemia 09/04/2014 Muscle cramping 09/11/2020 chronic Muscle twitching 04/20/2019 Chronic and Tx with Neurontin. Smoker 09/04/2014 Started age 27 up to 1 PPD, As of 03/2019 Urethral stenosis 11/23/2014 PAST SURGICAL HISTORY Procedure Laterality Date COLONOSCOPY FLX DX W/COLLJ SPEC WHEN PFRMD 2007 Colonoscopy COLONOSCOPY FLX DX W/COLLJ SPEC WHEN PFRMD 01/13/13 Colonoscopy COLONOSCOPY FLX DX W/COLLJ SPEC WHEN PFRMD 08/31/2013 Colonoscopy COLONOSCOPY FLX DX W/COLLJ SPEC WHEN PFRMD 09/07/2014 Colonoscopy- repeat 3 years COLONOSCOPY FLX DX W/COLLJ SPEC WHEN PFRMD 05/10/2019 normal, repeat in 3 years due to prior Hx dysplastic polyp EGD ESOPHAGOGASTRODUODENOSCOPY TRANSORAL DIAGNOSTIC 6/18/15 EGD ESOPHAGOGASTRODUODENOSCOPY TRANSORAL DIAGNOSTIC 05/10/2019 EGD KNEE ARTHROSCOPY/SURGERY left OFFICE LEEP 12/2014 PAST SURGICAL HISTORY OF 03/1991 ovarian cyst removal PAST SURGICAL HISTORY OF wisdom teeth SHOULDER ARTHROSCOPY/SURG left TONSILLECTOMY HX TOTAL ABDOMINAL HYSTERECT W/WO RMVL TUBE OVARY 03/18/2017 Hysterectomy, REGINALD FAMILY HISTORY Problem Relation Age of Onset Hypertension Mother Diabetes Mother Heart Mother CHF; atrial fib Diabetes Father Thyroid Father Social History Tobacco Use Smoking status: Former Packs/day: 0.50 Types: Cigarettes Start date: 03/23/1996 Quit date: 08/21/2021 Years since quittin.8 Smokeless tobacco: Never Tobacco comments: 5 cigs daily Vaping Use Vaping Use: Never used Substance Use Topics Alcohol use: No Comment: quit fall 2013 d/t IBS. Drug use: No Cardiac Risk Factors: hyperlipidemia, obesity, hypertension, family history of CAD ALLERGIES Allergen Reactions Bactrim [Sulfametho* Rash racing heart Doxycycline Rash Mobic [Meloxicam] Hives Toradol [Ketorolac] Rash rAsh at site Adhesive Tape (Joy* Rash Capsule #0 [Gelatin* Other: See Comments Patient states she cannot swallow capsules Cats Unknown Dust Mites Unknown Mold Unknown Prednisone Rash High doses- tachycardia. She tolerates lower doses Prozac [Fluoxetine * Shortness of Breath Throat swelling Medications: Current Outpatient Medications Medication Sig Dispense Refill ibuprofen (MOTRIN) 800 mg tablet Take 1 tablet by mouth every 8 hours as needed for pain. 90 t (more content not included)... [facility] 07-14-2022 Instructions Rocky Cardoso APRN.[facility] - 07/14/2022 11:35 AM EDT Heart Disease in Women Is heart disease a problem for women? Heart disease is the leading cause of of Citizen [place] women. More women from heart disease than from cancer. A heart attack can happen when there are problems with the blood vessels that bring blood to the heart (the coronary arteries). For example, fatty deposits called plaque may build up in the coronary arteries and make them narrower. The narrowing decreases blood flow to the heart. Plaque also increases the chance that blood clots may form and block a blood vessel, which can cause a heart attack or stroke. In the first year after a heart attack, women have an increased risk of . In the first 6 years after a heart attack, they also have a higher risk of a second heart attack. Women are at high risk often because they are older at the time of the heart attack and have other medical problems. Not everyone has the same symptoms. The most common symptoms of a heart attack include: Chest pain or pressure, squeezing, or fullness in the center of your chest that lasts more than a few minutes, or goes away and comes back (may feel like indigestion or heartburn) Pain or discomfort in one or both arms or shoulders, or in your back, neck, jaw, or stomach Trouble breathing Breaking out in a cold sweat for no known reason Along with these symptoms, you may also feel very tired, faint, or be sick to your stomach. Sometimes you can be having a heart attack and not know it. Many women have chest pain or pressure, but sometimes symptoms in women are different from men s symptoms. Or women may have additional symptoms, such as: Unexplained anxiety and nervousness Swelling of the ankles or lower legs Because they may not feel the typical pain in the left side of their chest, many women may ignore the symptoms of a heart attack. Call 911 for emergency help right away if you have these symptoms. Do not drive yourself to the hospital. Immediate emergency care improves your chances of survival and may help avoid damage to your heart. How can women lower their risk for heart disease? If you have high blood pressure, carefully follow your healthcare provider's instructions for keeping it under control. If you are a smoker, stop smoking. Try to keep a healthy weight. If you are overweight, talk to your provider about ways to lose weight. Eat a healthy diet that includes: ?Avoiding salty foods and not adding salt to food ?Increasing fiber, fruits, and vegetables ?Avoiding foods high in fat, cholesterol, and sugar Exercise according to your healthcare provider's instructions. Get enough rest and learn to use relaxation methods to help reduce stress. Treat and control medical conditions such as diabetes and high cholesterol. If you are taking hormone therapy, you and your healthcare provider should discuss the risks and benefits. Hormone therapy may increase the risk for heart disease or stroke. Talk with your provider about taking aspirin. Low-dose aspirin therapy reduces the risk of stroke for women. But it helps to lower a woman s risk of heart attack and other heart problems only if she is 65 or older. Make sure that your provider knows about any other medicines you are taking. If you decide you need to make changes in the way you live, you probably won't be able to turn your life around all at once. Try to develop healthy habits that incorporate your lifestyle goals. If you do, you will greatly decrease your chances for developing heart disease. You can get more information from: [place] Heart [id number]-PEG-[email or web address] ( )www.heart.org Developed by [employer]. Published by [employer]. Copyright 2014 [employer] and/or one of its subsidiaries. All rights reserved. documented in this encounter [facility] 07-14-2022 History of Presen t illness Narrative Images from the original note were not included. [facility] Card[facility]) [address] [facility] [id number] OUTPATIENT VISIT July 14, 2022 11:00 AM Chief Complaint Patient presents with: New Patient History of Present Illness: Pepe Norwood is a 51 year old female who presents for cardiology evaluation. She has a PMhx of HTN, HLD, obesity, former smoker. Today, she explains to me her worsening symptoms of shortness of breath, palpitations and lightheadedness. She feels that her symptoms have been worsening over the past 6 months. She is concerned given her mother's history of coronary artery disease with [place] and heart failure. She is fairly inactive due to chronic pain. She does feel extreme dyspnea on exertion and fatigue with activity. She also experiences palpitations. She feels as if her heart is pumping pudding . She does not experience exertional chest discomfort. She experiences intermittent lightheadedness that is best resolved with laying down and focusing on a single spot in the room. She has been ordered testing for further work-up by her primary care office multiple times including echocardiogram, stress testing and heart monitor. She states echocardiogram was denied by insurance. She has not been unable to complete the heart monitor due to transportation limitations. She states she would not be able to exercise for stress testing due to her back pain, shortness of breath, fatigue and lightheadedness. We reviewed cardiology risk factors and modifications. She reports taking medications as prescribed. PAST MEDICAL HISTORY Diagnosis Date Anxiety 09/04/2014 Benign neoplasm of colon 09/07/2014 Chronic back pain Chronic insomnia 12/06/2018 Elevated alkaline phosphatase level 04/20/2019 Had not seen liver specialist as recommended multiple times, Seeing Dr. Medina as of 08/23/2021 Fatty liver 04/20/2019 Fibromyalgia GERD (gastroesophageal reflux disease) 09/04/2014 Hernia, hiatal History of 2019 novel coronavirus disease (COVID-19) 02/23/2020 02/10/2020 History of COVID-19 04/16/202103/2021 History of medical problems c diff 2013 Hypertension, essential 08/01/2020 IBS (irritable bowel syndrome) Left carpal tunnel syndrome 11/06/2015 Lung nodules 02/27/2022 CT 02/2022: Needs repeat in 05/2022 Major depressive disorder with single episode 09/04/2014 Migraine with aura and without status migrainosus, not intractable 04/20/2019 Mixed hyperlipidemia 09/04/2014 Muscle cramping 09/11/2020 chronic Muscle twitching 04/20/2019 Chronic and Tx with Neurontin. Smoker 09/04/2014 Started age 27 up to 1 PPD, As of 03/2019 Urethral stenosis 11/23/2014 PAST SURGICAL HISTORY Procedure Laterality Date COLONOSCOPY FLX DX W/COLLJ SPEC WHEN PFRMD 2007 Colonoscopy COLONOSCOPY FLX DX W/COLLJ SPEC WHEN PFRMD 01/13/13 Colonoscopy COLONOSCOPY FLX DX W/COLLJ SPEC WHEN PFRMD 08/31/2013 Colonoscopy COLONOSCOPY FLX DX W/COLLJ SPEC WHEN PFRMD 09/07/2014 Colonoscopy- repeat 3 years COLONOSCOPY FLX DX W/COLLJ SPEC WHEN PFRMD 05/10/2019 normal, repeat in 3 years due to prior Hx dysplastic polyp EGD ESOPHAGOGASTRODUODENOSCOPY TRANSORAL DIAGNOSTIC 09/07/14 EGD ESOPHAGOGASTRODUODENOSCOPY TRANSORAL DIAGNOSTIC 05/10/2019 EGD KNEE ARTHROSCOPY/SURGERY left OFFICE LEEP 12/2014 PAST SURGICAL HISTORY OF 03/1991 ovarian cyst removal PAST SURGICAL HISTORY OF wisdom teeth SHOULDER ARTHROSCOPY/SURG left TONSILLECTOMY HX TOTAL ABDOMINAL HYSTERECT W/WO RMVL TUBE OVARY 03/18/2017 Hysterectomy, REGINALD FAMILY HISTORY Problem Relation Age of Onset Hypertension Mother Diabetes Mother Heart Mother CHF; atrial fib Diabetes Father Thyroid Father Social History Tobacco Use Smoking status: Former Packs/day: 0.50 Types: Cigarettes Start date: 03/23/1996 Quit date: 08/21/2021 Years since quittin.8 Smokeless tobacco: Never Tobacco comments: 5 cigs daily Vaping Use Vaping Use: Never used Substance Use Topics Alcohol use: No Comment: quit fall 2013 d/t IBS. Drug use: No Cardiac Risk Factors: hyperlipidemia, obesity, hypertension, family history of CAD ALLERGIES Allergen Reactions Bactrim [Sulfametho* Rash racing heart Doxycycline Rash Mobic [Meloxicam] Hives Toradol [Ketorolac] Rash rAsh at site Adhesive Tape (Joy* Rash Capsule #0 [Gelatin* Other: See Comments Patient states she cannot swallow capsules Cats Unknown Dust Mites Unknown Mold Unknown Prednisone Rash High doses- tachycardia. She tolerates lower doses Prozac [Fluoxetine * Shortness of Breath Throat swelling Medications: Current Outpatient Medications Medication Sig Dispense Refill ibuprofen (MOTRIN) 800 mg tablet Take 1 tablet by mouth every 8 hours as needed for pain. 90 tablet 2 SUMAtriptan (IMITREX) 100 mg tablet Take 1 tablet by mouth as needed. 9 tablet 1 ondansetron (ZOFRAN) 4 mg tablet Take 1 tablet by mouth every 8 hours as needed. 30 tablet 1 tiZANidine (ZANAFLEX) 4 mg tablet Take 1 tablet by mouth twice daily. 60 tablet 5 gabapentin (NEURONTIN) 600 mg tablet Take 2 tablets qd 60 tablet 5 lisinopril (ZESTRIL, PRINIVIL) 20 mg tablet Take 1 tablet by mouth once daily. 30 tablet 5 atorvastatin (LIPITOR) 20 mg tablet Take 1 tablet by mouth daily at bedtime. For cholesterol. [address] (PROTONIX) 20 mg tablet Take 2 tablets by mouth daily before breakfast. Take on empty stomach, 1/2 hr before meal. Per GastroDr. Friend sucralfate (CARAFATE) 1 gram tablet Take 1 tablet by mouth before meals and at bedtime. Per gastroDr. Friend diphenhydrAMINE 12.5 mg/5 mL lidocaine visc 2% MAALOX 200-200-20 mg/5 mL oral liquid 1:1:1 (CPD) Take 10 mL by mouth three times daily. Swish and gargle (Patient not taking: Reported on 07/14/2022) 120 mL 0 cholecalciferol, Vitamin D3, (VITAMIN D3) 1,250 mcg (50,000 unit) cap capsule Take 1 capsule by mouth one time a week. (Patient not taking: No sig reported) 12 capsule 1 montelukast (SINGULAIR) 10 mg tablet Take 1 tablet by mouth daily at bedtime. (Patient not taking: No sig reported) 30 tablet 2 docusate sodium (COLACE) 100 mg capsule Take 1 capsule by mouth twice daily as needed for constipation. (Patient not taking: No sig reported) 60 capsule 5 Current Facility-Administered Medications Medication Dose Route Frequency Provider Last Rate Last Admin perflutren lipid microspheres 1.3 mL in NaCl (PF) 0.9% 10 mL injection (DEFINITY) INTRAVENOUS DIRECTED PRN Liliana Cobos MD sodium chloride 0.9 % (flush) 10 mL (BD POSIFLUSH) 10 mL INTRAVENOUS DIRECTED PRN Liliana Cobos MD perflutren lipid microspheres 1.3 mL in NaCl (PF) 0.9% 10 mL injection (DEFINITY) INTRAVENOUS DIRECTED PRN Liliana Cobos MD sodium chloride 0.9 % (flush) 10 mL (BD POSIFLUSH) 10 mL INTRAVENOUS DIRECTED PRN Liliana Cobos MD perflutren lipid microspheres 1.3 mL in NaCl (PF) 0.9% 10 mL injection (DEFINITY) INTRAVENOUS DIRECTED PRN Jeannie Guajardo PA-C sodium chloride 0.9 % (flush) 10 mL (BD POSIFLUSH) 10 mL INTRAVENOUS DIRECTED PRN Jeannie Guajardo PA-C Review of Systems Constitutional: Negative for chills, diaphoresis, fever, malaise/fatigue and weight loss. HENT: Negative for congestion, ear pain, nosebleeds, sinus pain and sore throat. Eyes: Negative for pain. Respiratory: Positive for shortness of breath. Negative for cough and wheezing. Cardiovascular: Positive for palpitations. Negative for chest pain and leg swelling. Gastrointestinal: Negative for abdominal pain, blood in stool and melena. Genitourinary: Negative for hematuria. Musculoskeletal: Negative for falls. Neurological: Positive for dizziness. Negative for tingling, sensory change, speech change, focal weakness, loss of consciousness, weakness and headaches. Endo/Heme/Allergies: Does not bruise/bleed easily. Psychiatric/Behavioral: Negative for depression, memory loss and suicidal ideas. The patient is not nervous/anxious and does not have insomnia. Physical Examination: Vitals:LMP 03/23/1996 Last 2 Encounter Wt Readings: Date: Wt: 03/11/2022 200 lb (90.7 kg) 01/17/2022 202 lb (91.6 kg) Physical Exam HENT: Head: Normocephalic. Eyes: Pupils: Pupils are equal, round, and reactive to light. Cardiovascular: Rate and Rhythm: Normal rate and regular rhythm. Pulses: Radial pulses are 2+ on the right side and 2+ on the left side. Dorsalis pedis pulses are 2+ on the right side and 2+ on the left side. Heart sounds: Normal heart sounds, S1 normal and S2 normal. Pulmonary: Effort: Pulmonary effort is normal. No accessory muscle usage or respiratory distress. Breath sounds: Normal breath sounds. Abdominal: General: Bowel sounds are normal. Palpations: Abdomen is soft. Musculoskeletal: General: Normal range of motion. Cervical back: Normal range of motion. Right lower leg: No edema. Left lower leg: No edema. Skin: General: Skin is warm and dry. Neurological: Mental Status: She is alert and oriented to person, place, and time. Gait: Gait is intact. Psychiatric: Mood and Affect: Affect normal. Cognition and Memory: Memory normal. Judgment: Judgment normal. Most Recent Cardiac Testing Assessment and Plan: FELIZ, Lightheadedness, palpitations She has been ordered testing for further work-up by her primary care office multiple times including echocardiogram, stress testing and heart monitor Reordered echocardiogram today 14 day patch monitor today in office Complete pending stress testing Routine lab work per pcp HTN -122/78 -Continue current medication(s) -Encouraged dietary sodium restriction/DASH diet -Recommended regular aerobic exercise. -Recommend home blood pressure monitoring, to bring results in on next visit -Discussed need and benefit for weight loss. -Goal of BP <130/80 HLD -lipid panel 12/2021 LDL 146 -continue Lipitor 20 mg -repeat CMP and FLP for updated lab work Obesity -lifestyle modifications -encouraged a heart healthy diet, routine exercise and weight loss Follow up in 6 months. Patient to call with any issues or concerns prior to then. Electronically signed by Rocky Cardoso APRN.CNP on July 14, 2022, 11:13 AM documented in this encounter [facility] 06-23-2022 Miscellaneous Notes Patient has been identified by name and date of : Yes Requested Prescriptions Pending Prescriptions Disp Refills ibuprofen (MOTRIN) 800 mg tablet 90 tablet 2 Sig: Take 1 tablet by mouth every 8 hours as needed for pain. RX INSTRUCTIONS: Patient aware RX will be sent to pharmacy. No need to notify patient. Cristin Jacobson MA Desiree: 02/2022 Nov: 07/2022 Last refill: 01/2022 documented in this encounter [facility] 05-14-2022 Note HNO ID: [id number] Author: Cristin Jacobson MA Service: ? Author Type: Receiving Associate Type: Progress Notes Filed: 05/15/2022 8:22 AM Note Text: Scan on 05/14/2022 4:16 PM by External Provider: Neurology Cristin Jacobson MA [facility] 05-06-2022 Miscellaneous Notes Patient has been identified by name and date of : Yes, Provider Dr. Cobos Date 05/06/22 Time 9:39 am Patient phones for refill(s): Requested Prescriptions Pending Prescriptions Disp Refills SUMAtriptan (IMITREX) 100 mg tablet 9 tablet 1 Sig: Take 1 tablet by mouth as needed. ondansetron (ZOFRAN) 4 mg tablet 30 tablet 1 Sig: Take 1 tablet by mouth every 8 hours as needed. Date of last office visit in primary care: 03/11/22 next apt 07/28/22 Last 2 Encounter Wt Readings: Date: Wt: 03/11/2022 90.7 kg (200 lb) 01/17/2022 91.6 kg (202 lb) Previous labs/tests for medication: Not applicable Thank you. Yolanda De La Rosa LPN documented in this encounter [facility] 05-01-2022 History of Presen t illness Narrative POPULATION HEALTH NAVIGATION OUTREACH Action/[facility] [place] Support: Called pt to schedule an appt in Pain Management. No voicemail, unable to lvm Patient Identified by Name and : NO Outreach Outcome/Action Unable to reach patient: Phone number not valid / voicemail full Did you use a PCP flex slot to schedule this appointment? No Reason for Outreach Care Gap or Scheduling/Wellness visits Payer: Payor: [employer] MEDICAID / Plan: [employer] MEDICAID / Product Type: Medicaid / Care Gap Reviewed:: Specialty Scheduling Reminder: Reminder note to check Health Maintenance for items below Health Maintenance items due: HEPATITIS B(1 of 3 - 3-dose series) Never done COVID-19 VACCINE(1) Never done HIV SCREENING Never done BP CONTROLLED (<130/80) Never done PAP TESTING Never done HPV TESTING Never done SHINGRIX VACCINE(1 of 2) Never done MAMMOGRAM due on 12/21/2021 Navigation Signature: Sunshine Brantley May 01, 2022 11:02 AM documented in this encounter [facility] 04-29-2022 Miscellaneous Notes See pt message. Sanjuana Juloi Ma documented in this encounter [facility] 03-11-2022 Miscellaneous Notes Cardiology consult order placed. Pt notified of Dr Cobos's message. Pt would just like referral to Cardiology. Pt aware she will be contacted to help schedule appointment. Loretta Brunson LPN Let patient know her insurance< [employer] is denying her heart ultra sound. She can either contact them to find out what she has to do to appeal this or I can place a consult for her to see cardiology for a evaluation of her heart and shortness of breath. documented in this encounter [facility] 03-11-2022 History of Presen t illness Narrative Chief Complaint Patient presents with: Recheck HPI Pepe Norwood is a 51 year old female who presents here today for recheck. Patient was seen in December for multiple concerns. Her BP was also elevated at that time so PCP increase lisinopril to 20mg. She is tolerating medication change well. Has not been able to complete echo and was told that scheduling couldn't see the monitor order? Was seen in ER on 03/01. She woke up choking on phlegm and couldn't breath. By the time she got to ER she felt better. Plans to schedule her pulm appt when she leaves today. She has been having R sided hip and Left foot pain for months. Patient would like to see ortho and podiatry for 2nd opinions. Past medical history, appointments, medications, allergies reviewed. Previous Medical History PAST MEDICAL HISTORY Diagnosis Date Anxiety 09/04/2014 Benign neoplasm of colon 09/07/2014 Chronic back pain Chronic insomnia 12/06/2018 Elevated alkaline phosphatase level 04/20/2019 Had not seen liver specialist as recommended multiple times, Seeing Dr. Medina as of 08/23/2021 Fatty liver 04/20/2019 Fibromyalgia GERD (gastroesophageal reflux disease) 09/04/2014 Hernia, hiatal History of 2019 novel coronavirus disease (COVID-19) 02/23/2020 02/10/2020 History of COVID-19 04/16/202103/2021 History of medical problems c diff 2013 Hypertension, essential 08/01/2020 IBS (irritable bowel syndrome) Left carpal tunnel syndrome 11/06/2015 Lung nodules 02/27/2022 CT 02/2022: Needs repeat in 05/2022 Major depressive disorder with single episode 09/04/2014 Migraine with aura and without status migrainosus, not intractable 04/20/2019 Mixed hyperlipidemia 09/04/2014 Muscle cramping 09/11/2020 chronic Muscle twitching 04/20/2019 Chronic and Tx with Neurontin. Smoker 09/04/2014 Started age 27 up to 1 PPD, As of 03/2019 Urethral stenosis 11/23/2014 Previous Surgical History PAST SURGICAL HISTORY Procedure Laterality Date COLONOSCOPY FLX DX W/COLLJ SPEC WHEN PFRMD 2007 Colonoscopy COLONOSCOPY FLX DX W/COLLJ SPEC WHEN PFRMD 01/13/13 Colonoscopy COLONOSCOPY FLX DX W/COLLJ SPEC WHEN PFRMD 08/31/2013 Colonoscopy COLONOSCOPY FLX DX W/COLLJ SPEC WHEN PFRMD 09/07/2014 Colonoscopy- repeat 3 years COLONOSCOPY FLX DX W/COLLJ SPEC WHEN PFRMD 05/10/2019 normal, repeat in 3 years due to prior Hx dysplastic polyp EGD ESOPHAGOGASTRODUODENOSCOPY TRANSORAL DIAGNOSTIC 09/07/14 EGD ESOPHAGOGASTRODUODENOSCOPY TRANSORAL DIAGNOSTIC 05/10/2019 EGD KNEE ARTHROSCOPY/SURGERY left OFFICE LEEP 12/2014 PAST SURGICAL HISTORY OF 03/1991 ovarian cyst removal PAST SURGICAL HISTORY OF wisdom teeth SHOULDER ARTHROSCOPY/SURG left TONSILLECTOMY HX TOTAL ABDOMINAL HYSTERECT W/WO RMVL TUBE OVARY 03/18/2017 Hysterectomy, REGINALD Family History FAMILY HISTORY Problem Relation Age of Onset Hypertension Mother Diabetes Mother Heart Mother CHF; atrial fib Diabetes Father Thyroid Father Patient Allergies ALLERGIES Allergen Reactions Bactrim [Sulfametho* Rash racing heart Doxycycline Rash Mobic [Meloxicam] Hives Toradol [Ketorolac] Rash rAsh at site Adhesive Tape (Joy* Rash Capsule #0 [Gelatin* Other: See Comments Patient states she cannot swallow capsules Cats Unknown Dust Mites Unknown Mold Unknown Prednisone Rash High doses- tachycardia. She tolerates lower doses Prozac [Fluoxetine * Shortness of Breath Throat swelling Current Medications Current Outpatient Medications on File Prior to Visit Medication Sig ibuprofen (MOTRIN) 800 mg tablet Take 1 tablet by mouth every 8 hours as needed for pain. SUMAtriptan (IMITREX) 100 mg tablet Take 1 tablet by mouth as needed. ondansetron (ZOFRAN) 4 mg tablet Take 1 tablet by mouth every 8 hours as needed. tiZANidine (ZANAFLEX) 4 mg tablet Take 1 tablet by mouth twice daily. gabapentin (NEURONTIN) 600 mg tablet Take 2 tablets qd lisinopril (ZESTRIL, PRINIVIL) 20 mg tablet Take 1 tablet by mouth once daily. atorvastatin (LIPITOR) 20 mg tablet Take 1 tablet by mouth daily at bedtime. For cholesterol. pantoprazole (PROTONIX) 20 mg tablet Take 2 tablets by mouth daily before breakfast. Take on empty stomach, 1/2 hr before meal. Per Gastro, Dr. Medina sucralfate (CARAFATE) 1 gram tablet Take 1 tablet by mouth before meals and at bedtime. Per gastro, Dr. Medina diphenhydrAMINE 12.5 mg/5 mL lidocaine visc 2% MAALOX 200-200-20 mg/5 mL oral liquid 1:1:1 (CPD) Take 10 mL by mouth three times daily. Swish and gargle cholecalciferol, Vitamin D3, (VITAMIN D3) 1,250 mcg (50,000 unit) cap capsule Take 1 capsule by mouth one time a week. (Patient not taking: Reported on 03/11/2022) montelukast (SINGULAIR) 10 mg tablet Take 1 tablet by mouth daily at bedtime. (Patient not taking: Reported on 03/11/2022) docusate sodium (COLACE) 100 mg capsule Take 1 capsule by mouth twice daily as needed for constipation. (Patient not taking: Reported on 03/11/2022) Current Facility-Administered Medications on File Prior to Visit Medication perflutren lipid microspheres 1.3 mL in NaCl (PF) 0.9% 10 mL injection (DEFINITY) sodium chloride 0.9 % (flush) 10 mL (BD POSIFLUSH) perflutren lipid microspheres 1.3 mL in NaCl (PF) 0.9% 10 mL injection (DEFINITY) sodium chloride 0.9 % (flush) 10 mL (BD POSIFLUSH) perflutren lipid microspheres 1.3 mL in NaCl (PF) 0.9% 10 mL injection (DEFINITY) sodium chloride 0.9 % (flush) 10 mL (BD POSIFLUSH) Social History Social History Tobacco Use Smoking status: Former Packs/day: 0.50 Types: Cigarettes Start date: 03/23/1996 Quit date: 08/21/2021 Years since quittin.5 Smokeless tobacco: Never Tobacco comments: 5 cigs daily Vaping Use Vaping Use: Never used Substance Use Topics Alcohol use: No Comment: quit fall 2013 d/t IBS. Drug use: No Review of Symptoms REVIEW OF SYSTEMS See hpi EXAM: BP 120/82 (BP Site: Left Arm, BP Position: Sitting, BP Cuff Size: Large Adult) Pulse 76 Temp 36.8 C (98.3 F) Resp 18 Wt 90.7 kg (200 lb) LMP 03/23/1996 BMI 35.43 kg/m General Appearance: Well appearing, alert, in no acute distress, well-hydrated, well nourished.. Lungs: Lungs clear to auscultation. No wheezing, rhonchi, rales.. Heart: RRR without murmur, gallop, or rubs. No ectopy. Health Maintenance List HEPATITIS B(1 of 3 - 3-dose series) Never done COVID-19 VACCINE(1) Never done PNEUMOCOCCAL(1 - PCV) Never done HIV SCREENING Never done BP CONTROLLED (<130/80) Never done DTAP,TDAP,TD(1 - Tdap) Never done PAP TESTING Never done HPV TESTING Never done INFLUENZA(1) due on 11/21/2021 SHINGRIX VACCINE(1 of 2) Never done MAMMOGRAM due on 12/21/2021 ANNUAL PCP TEAM CHRONIC DISEASE VISIT due on 01/17/2023 COLORECTAL CANCER SCREENING due on 11/26/2024 DIABETES SCREEN due on 01/10/2025 LIPID SCREEN due on 01/10/2027 HEPATITIS C SCREENING Completed Data reviewed ASSESSMENT/PLAN: 1. Hypertension, essential - ICD9: 401.9, ICD10: I10 (primary diagnosis) - good control - Continue current medication(s) - Recommended regular aerobic exercise. - Recommend home blood pressure monitoring, to bring results in on next visit - Goal of BP <130/80 2. Chronic pain of right hip - ICD9: 719.45, 338.29, ICD10: M25.551, G89.29 Consult to ortho per patient request - CONSULT TO ORTHOPAEDICS 3. Chronic foot pain, left - ICD9: 729.5, 338.29, ICD10: M79.672, G89.29 Consult to podiatry per patient request. - CONSULT TO PODIATRY 4. Encounter for immunization - ICD9: V03.89, ICD10: Z23 - TDAP VACCINE AGE 7+ IM - INFLUENZA VACCINE QUADRIVALENT 6 MO - 64 YRS IM Jeannie Guajardo PA-C documented in this encounter [facility] 02-27-2022 Miscellaneous Notes Patient was notified Lu Frazier Ma Let patient know CT of chest was ok except for some small nodules that need to be followed up on. Order for repeat CT in 3 months placed. documented in this encounter [facility] 02-25-2022 Miscellaneous Notes Pt notified of same. Pt will call back to schedule appointment. Loretta Brunson LPN Let patient know I placed consult to see Pulmonary. Also I had to place a new order for the Echo to see if we can get it approved. Patient notified. Verbalized understanding. States is improved with breathing since taking the inhaler. Also states she was unable to get ECHO completed due to insurance rejected it. Let patient know that though her breathing test was normal she did show improvement after doing the inhaler. See if she noted improvement in breathing after taking the inhaler? documented in this encounter [facility] 02-24-2022 History of Presen t illness Narrative PULM FUNCTION SMARTBLOCK: Provider: Liliana Cobos MD Spirometry w/BD: 1 documented in this encounter [facility] 02-24-2022 History of Presen t illness Narrative Radiology Service Progress Note PATIENT NAME: Pepe Norwood DATE OF SERVICE: February 24, 2022 TIME: 3:00 PM PATIENT IDENTITY VERIFICATION COMPLETED USING TWO (2) IDENTIFIERS: Name and Date of confirmed by patient verbally. FALL SCREENING: Has the patient had 2 falls in the last year or 1 fall with injury or currently using an Ambulatory Assistive Device (Walker, Cane, Wheelchair, Crutches, etc.)? No PATIENT GENDER DATA: Female. status: : No status: NO. PATIENT RELEVANT IMPLANT DATA REVIEWED: Yes RADIOLOGY DEPARTMENT: CT; Exam(s) Completed: Chest PERIPHERAL IV DATA: Not applicable SIGNED BY: RT Jewel(R) February 24, 2022 3:00 PM documented in this encounter [facility] 02-18-2022 Miscellaneous Notes New order placed for 2D echo. Please help set up. Patient is in need of a 2D echo. This was previously approved in May 2021 after patient complained of shortness of breath, dyspnea on exertion post covid and the concern is there maybe an underlying cardiac issue since her shortness of breath continues to persist. Pre-cert dept needs to send copy of office notes from 01/17/2022, 01/10/2022 and 05/28/2021. Chest x-ray report from 01/10/2022. documented in this encounter [facility] 01-20-2022 Miscellaneous Notes Pt notified of results via [employer]. Shanice Cervantes Ma Let patient know labs to look at the dry eyes and mouth were normal. The lab to look for a enzyme deficiency was also normal. documented in this encounter [facility] 01-17-2022 History of Presen t illness Narrative Chief Complaint Patient presents with: Recheck HPI Pepe Norwood is a 51 year old female who presents here today for follow up on labs. Patient with hx of hyperlipidemia, HTN, Migraine, major depression, anxiety, GERD, smoker, fibromyalgia, chronic insomnia, fatty liver with elevated Alk Phos seeing Gastro. Patient saw Jeannie a week ago with C/O sore throat, fatigue, cough and congestion. She had been tested for covid and strep per ER and was neg. ENT did a throat cult that was neg. She had also been treated with two different antibiotics with no improvement. Patient had not been seen in the office for routine care in over a year at that time. Patient had a mono test and chest x-ray. The mono was neg and the x-ray was within normal limits. Patient continues to feel always thirsty, fatigued and no appetite. Patient had a colonoscopy 11/26/2021 that showed congestion in the splenic flexure and biopsies taken. Last 5 Encounter Wt Readings: Date: Wt: 01/17/2022 91.6 kg (202 lb) 01/10/2022 90.7 kg (200 lb) 05/28/2021 94.3 kg (208 lb) 03/02/2021 96.9 kg (213 lb 9.6 oz) 01/02/2021 94.1 kg (207 lb 6.4 oz) EGD done in Nov showed hiatal hernia and non-bleeding ulcers. Past medical history, appointments, medications, allergies reviewed. Previous Medical History PAST MEDICAL HISTORY Diagnosis Date Anxiety 09/04/2014 Benign neoplasm of colon 09/07/2014 Chronic back pain Chronic insomnia 12/06/2018 Elevated alkaline phosphatase level 04/20/2019 Had not seen liver specialist as recommended multiple times, Seeing Dr. Medina as of 08/23/2021 Fatty liver 04/20/2019 Fibromyalgia GERD (gastroesophageal reflux disease) 09/04/2014 Hernia, hiatal History of 2019 novel coronavirus disease (COVID-19) 02/23/2020 02/10/2020 History of COVID-19 04/16/202103/2021 History of medical problems c diff 2014 Hypertension, essential 08/01/2020 IBS (irritable bowel syndrome) Left carpal tunnel syndrome 11/06/2015 Major depressive disorder with single episode 09/04/2014 Migraine with aura and without status migrainosus, not intractable 04/20/2019 Mixed hyperlipidemia 09/04/2014 Muscle cramping 09/11/2020 chronic Muscle twitching 04/20/2019 Chronic and Tx with Neurontin. Smoker 09/04/2014 Started age 27 up to 1 PPD, As of 03/2019 Urethral stenosis 11/23/2014 Previous Surgical History PAST SURGICAL HISTORY Procedure Laterality Date COLONOSCOPY FLX DX W/COLLJ SPEC WHEN PFRMD 2007 Colonoscopy COLONOSCOPY FLX DX W/COLLJ SPEC WHEN PFRMD 01/13/13 Colonoscopy COLONOSCOPY FLX DX W/COLLJ SPEC WHEN PFRMD 08/31/2013 Colonoscopy COLONOSCOPY FLX DX W/COLLJ SPEC WHEN PFRMD 09/07/2014 Colonoscopy- repeat 3 years COLONOSCOPY FLX DX W/COLLJ SPEC WHEN PFRMD 05/10/2019 normal, repeat in 3 years due to prior Hx dysplastic polyp EGD ESOPHAGOGASTRODUODENOSCOPY TRANSORAL DIAGNOSTIC 09/07/14 EGD ESOPHAGOGASTRODUODENOSCOPY TRANSORAL DIAGNOSTIC 05/10/2019 EGD KNEE ARTHROSCOPY/SURGERY left OFFICE LEEP 12/2014 PAST SURGICAL HISTORY OF 03/1991 ovarian cyst removal PAST SURGICAL HISTORY OF wisdom teeth SHOULDER ARTHROSCOPY/SURG left TONSILLECTOMY HX TOTAL ABDOMINAL HYSTERECT W/WO RMVL TUBE OVARY 03/18/2017 Hysterectomy, REGINALD Family History FAMILY HISTORY Problem Relation Age of Onset Hypertension Mother Diabetes Mother Heart Mother CHF; atrial fib Diabetes Father Thyroid Father Patient Allergies ALLERGIES Allergen Reactions Bactrim [Sulfametho* Rash racing heart Toradol [Ketorolac] Rash rAsh at site Doxycycline Rash Mobic [Meloxicam] Hives Adhesive Tape (Joy* Rash Capsule #0 [Gelatin* Other: See Comments Patient states she cannot swallow capsules Cats Unknown Dust Mites Unknown Mold Unknown Prednisone Rash High doses- tachycardia. She tolerates lower doses Prozac [Fluoxetine * Shortness of Breath Throat swelling Current Medications Current Outpatient Medications on File Prior to Visit Medication Sig lisinopril (ZESTRIL, PRINIVIL) 10 mg tablet Take 1 tablet by mouth once daily. diphenhydrAMINE 12.5 mg/5 mL lidocaine visc 2% MAALOX 200-200-20 mg/5 mL oral liquid 1:1:1 (CPD) Take 10 mL by mouth three times daily. Swish and gargle ibuprofen (MOTRIN) 800 mg tablet Take 1 tablet by mouth every 8 hours as needed for pain. atorvastatin (LIPITOR) 10 mg tablet Take 1 tablet by mouth daily at bedtime. For cholesterol. SUMAtriptan (IMITREX) 100 mg tablet Take 1 tablet by mouth as needed. cholecalciferol, Vitamin D3, (VITAMIN D3) 1,250 mcg (50,000 unit) cap capsule Take 1 capsule by mouth one time a week. montelukast (SINGULAIR) 10 mg tablet Take 1 tablet by mouth daily at bedtime. ondansetron (ZOFRAN) 4 mg tablet Take 1 tablet by mouth every 8 hours as needed. tiZANidine (ZANAFLEX) 4 mg tablet Take 1 tablet by mouth twice daily. docusate sodium (COLACE) 100 mg capsule Take 1 capsule by mouth twice daily as needed for constipation. gabapentin (NEURONTIN) 600 mg tablet Take 2 tablets qd Current Facility-Administered Medications on File Prior to Visit Medication perflutren lipid microspheres 1.3 mL in NaCl (PF) 0.9% 10 mL injection (DEFINITY) sodium chloride 0.9 % (flush) 10 mL (BD POSIFLUSH) Social History Social History Tobacco Use Smoking status: Every Day Packs/day: 0.50 Types: Cigarettes Start date: 03/23/1996 Smokeless tobacco: Never Tobacco comments: 5 cigs daily Vaping Use Vaping Use: Never used Substance Use Topics Alcohol use: No Comment: quit fall 2013 d/t IBS. Drug use: No Review of Symptoms REVIEW OF SYSTEMS GENERAL: No, malaise or fevers; has lost about 13 lbs since 05/2021 with the decreased apatite. NECK: patient feels lymph nodes in her throat swell every night and are tender. RESPIRATORY: Negative for hemoptysis. Patient c/o of persistent cough where she brings up mucus that is yellow green and has done so since being sick for the past month. Also c/o shortness of breath and wheezing. Just quit smoking about 3 months ago. CARDIOVASCULAR: Negative for chest pain, leg swelling, hypertension. Patient has noted palpitations at times. Sometimes some shortness of breath. GI: No nausea, vomiting, or diarrhea and No heartburn or reflux symptoms : No history of dysuria, blood. ENDOCRINE: feels thirsty a lot of days and sometimes poly uria. Mouth feels dry and eyes feel dry NEURO: No history of syncope, paralysis, seizures or tremors. Still getting headache's daily. Neurontin continues to help with the muscle twitching. EXAM: BP 142/90 (BP Site: Right Arm, BP Position: Sitting, BP Cuff Size: Regular Adult) Pulse 86 Resp 16 Wt 91.6 kg (202 lb) LMP 03/23/1996 BMI 35.78 kg/m BP 146/82 Pulse 86 Resp 16 Wt 91.6 kg (202 lb) LMP 03/23/1996 BMI 35.78 kg/m Last 5 Encounter Wt Readings: Date: Wt: 01/17/2022 91.6 kg (202 lb) 01/10/2022 90.7 kg (200 lb) 05/28/2021 94.3 kg (208 lb) 03/02/2021 96.9 kg (213 lb 9.6 oz) 01/02/2021 94.1 kg (207 lb 6.4 oz) General Appearance: Well appearing, alert, in no acute distress, well-hydrated, well nourished. obesity. Neck: Supple, no adenopathy; thyroid symmetric, normal size, no bruits. Lungs: Lungs clear to auscultation. No wheezing, rhonchi, rales.. Heart: RRR without murmur, gallop, or rubs. No ectopy. Abdomen: Normal abdominal exam, Abdomen soft, non-tender. Bowel sounds normal. No masses, organomegaly. Extremities: No deformities, edema, skin discoloration, Good capillary refill. . Musculoskeletal: Muscular strength intact, No joint swelling, deformity, or tenderness. Peripheral Pulses: Normal. Neurologic: Reflexes normal and symmetric. Sensation to light touch intact.. Health Maintenance List HEPATITIS B(1 of 3 - 3-dose series) Never done COVID-19 VACCINE(1) Never done PNEUMOCOCCAL(1 - PCV) Never done HIV SCREENING Never done BP CONTROLLED (<130/80) Never done DTAP,TDAP,TD(1 - Tdap) Never done PAP TESTING Never done HPV TESTING Never done INFLUENZA(1) due on 11/21/2021 SHINGRIX VACCINE(1 of 2) Never done MAMMOGRAM due on 12/21/2021 ANNUAL PCP TEAM CHRONIC DISEASE VISIT due on 01/10/2023 COLORECTAL CANCER SCREENING due on 11/26/2024 DIABETES SCREEN due on 01/10/2025 LIPID SCREEN due on 01/10/2027 HEPATITIS C SCREENING Completed Data reviewed Component Latest Ref Rng & Units 08/02/2020 05/28/2021 01/10/2022 WBC 3.70 - 11.00 k/uL 11.08 (H) 10.57 RBC 3.90 - 5.20 m/uL 5.76 (H) 5.73 (H) Hemoglobin 11.5 - 15.5 g/dL 15.0 14.7 Hematocrit 36.0 - 46.0 % 49.0 (H) 47.2 (H) MCV 80.0 - 100.0 fL 85.1 82.4 MCH 26.0 - 34.0 pg 26.0 25.7 (L) MCHC 30.5 - 36.0 g/dL 30.6 31.1 RDW-CV 11.5 - 15.0 % 15.0 14.6 Platelet Count 150 - 400 k/uL 239 248 MPV 9.0 - 12.7 fL 10.6 10.6 Neut% % 74.5 70.1 Abs Neut (ANC) 1.45 - 7.50 k/uL 8.25 (H) 7.42 Lymph% % 17.1 19.7 Abs Lymph 1.00 - 4.00 k/uL 1.90 2.08 Manati% % 4.7 4.9 Abs Manati <0.87 k/uL 0.52 0.52 Eosin% % 2.5 4.0 Abs Eosin <0.46 k/uL 0.28 0.42 Baso% % 0.7 0.9 Abs Baso <0.11 k/uL 0.08 0.09 Immature Gran % % 0.5 0.4 IMMATURE GRANS (ABS) <0.10 k/uL 0.05 0.04 NRBC /100 WBC 0.0 0.0 Absolute nRBC <0.01 k/uL <0.01 <0.01 DTYPE Auto Auto Protein, Total 6.3 - 8.0 g/dL 8.1 (H) 7.9 Albumin 3.9 - 4.9 g/dL 4.7 4.5 Calcium 8.5 - 10.2 mg/dL 9.6 9.4 Bilirubin, Total 0.2 - 1.3 mg/dL 0.3 0.3 Alkaline Phosphatase 34 - 123 U/L 196 (H) 160 (H) AST 13 - 35 U/L 52 (H) 34 ALT 7 - 38 U/L 57 (H) 50 (H) Glucose 74 - 99 mg/dL 88 123 (H) BUN 7 - 21 mg/dL 16 17 Creatinine 0.58 - 0.96 mg/dL 0.77 0.80 Sodium 136 - 144 mmol/L 141 139 Potassium 3.7 - 5.1 mmol/L 4.6 4.3 Chloride 97 - 105 mmol/L 103 104 CO2 22 - 30 mmol/L 25 23 Anion Gap 9 - 18 mmol/L 13 12 eGFR >=60 mL/min/1.73m 95 90 Cholesterol, Total <200 mg/dL 212 (H) Triglyceride <150 mg/dL 161 (H) HDL Cholesterol >39 mg/dL 34 (L) Non HDL Cholesterol <130 mg/dL 178 (H) Fasting Time hrs 14 VLDL Cholesterol <30 mg/dL 32 (H) TC:HDL Ratio <5.10 6.24 (H) LDL Cholesterol <100 mg/dL 146 (H) LDL:HDL Ratio <2.54 4.29 (H) Total Cholesterol, Nonfasting <200 mg/dL 155 Triglycerides, Nonfasting <150 mg/dL 108 HDL Cholesterol, Nonfasting >39 mg/dL 35 (L) LDL Cholesterol, Nonfasting <100 mg/dL 98 Non HDL Cholesterol, Nonfasting <130 mg/dL 120 VLDL Cholesterol, Nonfasting <30 mg/dL 22 Total Chol/HDL Ratio, Nonfasting <5.10 mg/dL 4.43 LDL/HDL Ratio, Nonfasting <2.54 mg/dL 2.80 (H) Hemoglobin A1C 4.3 - 5.6 % 5.8 (H) Estimated Average Glucose mg/dL 120 TSH 0.270 - 4.200 mIU/L 1.260 0.994 Vitamin D 25 Hydroxy 31.0 - 80.0 ng/mL 6.9 (L) 36.3 A/P ASSESSMENT/PLAN: 1. Hypertension, essential - ICD9: 401.9, ICD10: I10 (primary diagnosis) - suboptimal control - Continue current medication(s) - Increase lisinopril (Zestril/Prinivil) to 20 mg a day - recheck BP in a hionth - Recommended regular aerobic exercise. - Recommend home blood pressure monitoring, to bring results in on next visit - Goal of BP <130/80 2. Mixed hyperlipidemia - ICD9: 272.2, ICD10: E78.2 - suboptimal control and - improved control - Increase dose of atorvastatin (Lipitor) to 20 mg a day. 3. Migraine with aura and without status migrainosus, not intractable - ICD9: 346.00, ICD10: G43.109 - will cont management as is for now. 4. Major depressive disorder with single episode, remission status unspecified - ICD9: 296.20, ICD10: F32.9 - stable no on meds. 5. Gastroesophageal reflux disease, unspecified whether esophagitis present - ICD9: 530.81, ICD10: K21.9 - Continue treatment with protonix 20mg every day and carafate per Gastro 6. Smoker - ICD9: 305.1, ICD10: F17.200 - patient quit back in September 2021 Check - [id number] BL - CT CHEST WO IVCON 7. Dry mouth - ICD9: 527.7, ICD10: R68.2 Check - ANTI SSA BLD - ANTI SSB BLD 8. Dry eyes - ICD9: 375.15, ICD10: H04.123 Check - ANTI SSA BLD - ANTI SSB BLD 9. Palpitations - ICD9: 785.1, ICD10: R00.2 Check - ECHO - PERFLUTREN LIPID MICROSPHERES 1.1 MG/ML INJECTION IN NS 10 ML - SODIUM CHLORIDE 0.9 % (FLUSH) INJECTION SYRINGE - 2 Minutes EVENT MONITOR - check PFT's 10. SOB (shortness of breath) - ICD9: 786.05, ICD10: R06.02 Check - ECHO - PERFLUTREN LIPID MICROSPHERES 1.1 MG/ML INJECTION IN NS 10 ML - SODIUM CHLORIDE 0.9 % (FLUSH) INJECTION SYRINGE - 2 Minutes EVENT MONITOR - [id number] BL - CT CHEST WO IVCON - check PFT's 11. Fatty liver - ICD9: 571.8, ICD10: K76.0 - management per gastro F/u in a month HTN med check and 6 months for [facility] I spent a total of 40 minutes on the date of the service which included preparing to see the patient, [id number] patient care, completing clinical documentation, performing a medically appropriate examination, counseling and educating the patient/family/caregiver and ordering medications, tests, or procedures. Liliana Cobos MD documented in this encounter [facility] 01-10-2022 History of Presen t illness Narrative Chief Complaint Patient presents with: chronic sore throat HPI Pepe Norwood is a 51 year old female who presents here today for Above Complaints.. Patient states for the past month she has had sore throat, fatigue, cough and congestion. No fever. Sometimes feels like she is trying to swallow a marble. She has been negative for strep and covid by the ER Her ENT did a throat culture that was also negative. This was last week. She has been on 2 different antibiotics which has not helped. Last 3 Encounter Wt Readings: Date: Wt: 01/10/2022 90.7 kg (200 lb) 05/28/2021 94.3 kg (208 lb) 03/02/2021 96.9 kg (213 lb 9.6 oz) She is also asking for routine labs. She hasn't been seen for routine care for over a year. Almost out of medications. Past medical history, appointments, medications, allergies reviewed. Previous Medical History PAST MEDICAL HISTORY Diagnosis Date Anxiety 09/04/2014 Benign neoplasm of colon 09/07/2014 Chronic back pain Chronic insomnia 12/06/2018 Elevated alkaline phosphatase level 04/20/2019 Had not seen liver specialist as recommended multiple times, Seeing Dr. Medina as of 08/23/2021 Fatty liver 04/20/2019 Fibromyalgia GERD (gastroesophageal reflux disease) 09/04/2014 Hernia, hiatal History of 2019 novel coronavirus disease (COVID-19) 02/23/2020 02/10/2020 History of medical problems c diff 2013 Hypertension, essential 08/01/2020 IBS (irritable bowel syndrome) Left carpal tunnel syndrome 11/06/2015 Major depressive disorder with single episode 09/04/2014 Migraine with aura and without status migrainosus, not intractable 04/20/2019 Mixed hyperlipidemia 09/04/2014 Muscle cramping 09/11/2020 chronic Muscle twitching 04/20/2019 Chronic and Tx with Neurontin. Smoker 09/04/2014 Started age 27 up to 1 PPD, As of 03/2019 Urethral stenosis 11/23/2014 Previous Surgical History PAST SURGICAL HISTORY Procedure Laterality Date COLONOSCOPY FLX DX W/COLLJ SPEC WHEN PFRMD 2007 Colonoscopy COLONOSCOPY FLX DX W/COLLJ SPEC WHEN PFRMD 01/13/13 Colonoscopy COLONOSCOPY FLX DX W/COLLJ SPEC WHEN PFRMD 08/31/2013 Colonoscopy COLONOSCOPY FLX DX W/COLLJ SPEC WHEN PFRMD 09/07/2014 Colonoscopy- repeat 3 years COLONOSCOPY FLX DX W/COLLJ SPEC WHEN PFRMD 05/10/2019 normal, repeat in 3 years due to prior Hx dysplastic polyp EGD ESOPHAGOGASTRODUODENOSCOPY TRANSORAL DIAGNOSTIC 09/07/14 EGD ESOPHAGOGASTRODUODENOSCOPY TRANSORAL DIAGNOSTIC 05/10/2019 EGD KNEE ARTHROSCOPY/SURGERY left OFFICE LEEP 12/2014 PAST SURGICAL HISTORY OF 03/1991 ovarian cyst removal PAST SURGICAL HISTORY OF wisdom teeth SHOULDER ARTHROSCOPY/SURG left TONSILLECTOMY HX TOTAL ABDOMINAL HYSTERECT W/WO RMVL TUBE OVARY 03/18/2017 Hysterectomy, REGINALD Family History FAMILY HISTORY Problem Relation Age of Onset Hypertension Mother Diabetes Mother Heart Mother CHF; atrial fib Diabetes Father Thyroid Father Patient Allergies ALLERGIES Allergen Reactions Bactrim [Sulfametho* Rash racing heart Toradol [Ketorolac] Rash rAsh at site Doxycycline Rash Mobic [Meloxicam] Hives Adhesive Tape (Joy* Rash Capsule #0 [Gelatin* Other: See Comments Patient states she cannot swallow capsules Cats Unknown Dust Mites Unknown Mold Unknown Prednisone Rash High doses- tachycardia. She tolerates lower doses Prozac [Fluoxetine * Shortness of Breath Throat swelling Current Medications Current Outpatient Medications on File Prior to Visit Medication Sig ibuprofen (MOTRIN) 800 mg tablet Take 1 tablet by mouth every 8 hours as needed for pain. atorvastatin (LIPITOR) 10 mg tablet Take 1 tablet by mouth daily at bedtime. For cholesterol. SUMAtriptan (IMITREX) 100 mg tablet Take 1 tablet by mouth as needed. cholecalciferol, Vitamin D3, (VITAMIN D3) 1,250 mcg (50,000 unit) cap capsule Take 1 capsule by mouth one time a week. montelukast (SINGULAIR) 10 mg tablet Take 1 tablet by mouth daily at bedtime. ondansetron (ZOFRAN) 4 mg tablet Take 1 tablet by mouth every 8 hours as needed. gabapentin (NEURONTIN) 600 mg tablet Take 2 tablets qd tiZANidine (ZANAFLEX) 4 mg tablet Take 1 tablet by mouth twice daily. lisinopril (ZESTRIL, PRINIVIL) 10 mg tablet Take 1 tablet by mouth once daily. docusate sodium (COLACE) 100 mg capsule Take 1 capsule by mouth twice daily as needed for constipation. Current Facility-Administered Medications on File Prior to Visit Medication perflutren lipid microspheres 1.3 mL in NaCl (PF) 0.9% 10 mL injection (DEFINITY) sodium chloride 0.9 % (flush) 10 mL (BD POSIFLUSH) Social History Social History Tobacco Use Smoking status: Every Day Packs/day: 0.50 Types: Cigarettes Start date: 03/23/1996 Smokeless tobacco: Never Tobacco comments: 5 cigs daily Vaping Use Vaping Use: Never used Substance Use Topics Alcohol use: No Comment: quit fall 2013 d/t IBS. Drug use: No Review of Symptoms REVIEW OF SYSTEMS See hpi EXAM: BP 138/86 Pulse 82 Resp 18 Wt 90.7 kg (200 lb) LMP 03/23/1996 BMI 35.43 kg/m General Appearance: Well appearing, alert, in no acute distress, well-hydrated, well nourished.. Nose/Sinuses: Nares normal, septum midline, mucosa normal, no drainage or sinus tenderness. Oropharynx: Lips, mucosa, and tongue normal, teeth and gums normal, oropharynx normal. Neck: +tender lymphadenopathy . Lungs: Lungs clear to auscultation. No wheezing, rhonchi, rales.. Heart: RRR without murmur, gallop, or rubs. No ectopy. Extremities: No deformities, edema, skin discoloration, clubbing or cyanosis. Good capillary refill. . Peripheral Pulses: Normal. Health Maintenance List HEPATITIS B(1 of 3 - 3-dose series) Never done COVID-19 VACCINE(1) Never done PNEUMOCOCCAL(1 - PCV) Never done HIV SCREENING Never done BP CONTROLLED (<130/80) Never done DTAP,TDAP,TD(1 - Tdap) Never done PAP TESTING Never done HPV TESTING Never done INFLUENZA(1) due on 11/21/2021 SHINGRIX VACCINE(1 of 2) due on 12/15/2021 MAMMOGRAM due on 12/21/2021 ANNUAL PCP TEAM CHRONIC DISEASE VISIT due on 05/28/2022 DIABETES SCREEN due on 09/05/2024 COLORECTAL CANCER SCREENING due on 11/26/2024 LIPID SCREEN due on 08/02/2025 HEPATITIS C SCREENING Completed Data reviewed ASSESSMENT/PLAN: 1. Pharyngitis, unspecified etiology - ICD9: 462, ICD10: J02.9 (primary diagnosis) Unclear etiology. Will check labs for mono and CXR. Consider CT neck if symptoms continue. - COMP METABOLIC PANEL - CBC + DIFF - MONOTEST, INFECTIOUS MONO 2. Subacute cough - ICD9: 786.2, ICD10: R05.2 As above - XR CHEST 2V FRONTAL/LAT 3. Elevated glucose - ICD9: 790.29, ICD10: R73.09 - HGB A1C 4. Fatigue, unspecified type - ICD9: 780.79, ICD10: R53.83 Check: - COMP METABOLIC PANEL - CBC + DIFF - TSH BLD 5. Mixed hyperlipidemia - ICD9: 272.2, ICD10: E78.2 - to be determined upon return of lab results - Encouraged following a low carbohydrate, healthy oil intake diet. - Continue current therapy. - LIPID PANEL BASIC 6. Vitamin D deficiency - ICD9: 268.9, ICD10: E55.9 Check: - VITAMIN D 25 HYDROXY 7. Hypertension, essential - ICD9: 401.9, ICD10: I10 - fair control - Continue current medication(s) - Recommended regular aerobic exercise. - Recommend home blood pressure monitoring, to bring results in on next visit - Goal of BP <130/80 Jeannie Guajardo PA-C documented in this encounter [facility] 10-07-2021 Miscellaneous Notes FYI. This patient's 6 cancelled appointment in the last 3 months. documented in this encounter [facility] documented as of this encounter (statuses as of 09/05/2021) [facility]2015 History of Past illness Narrative* Problem Noted Date Resolved Date Lower urinary tract infectious disease 5 12/06/2018 Hesitancy of micturition 05/08/2014 019 documented as of this encounter (statuses as of 10/07/2021) [address]16-2015 History of Past illness Narrative* Problem Noted Date Resolved Date Lower urinary tract infectious disease 5 12/06/2018 Hesitancy of micturition 05/08/2014 019 documented as of this encounter (statuses as of 01/10/2022) [address]16-2015 History of Past illness Narrative* Problem Noted Date Resolved Date Lower urinary tract infectious disease 5 12/06/2018 Hesitancy of micturition 05/08/2014 019 documented as of this encounter (statuses as of 01/19/2022) [address]16-2015 History of Past illness Narrative* Problem Noted Date Resolved Date Lower urinary tract infectious disease 5 12/06/2018 Hesitancy of micturition 05/08/2014 019 documented as of this encounter (statuses as of 01/20/2022) [address]16-2015 History of Past illness Narrative* Problem Noted Date Resolved Date Lower urinary tract infectious disease 5 12/06/2018 Hesitancy of micturition 05/08/2014 019 documented as of this encounter (statuses as of 01/22/2022) [address]16-2015 History of Past illness Narrative* Problem Noted Date Resolved Date Lower urinary tract infectious disease 5 12/06/2018 Hesitancy of micturition 05/08/2014 019 documented as of this encounter (statuses as of 02/03/2022) [address]16-2015 History of Past illness Narrative* Problem Noted Date Resolved Date Lower urinary tract infectious disease 5 12/06/2018 Hesitancy of micturition 05/08/2014 019 documented as of this encounter (statuses as of 02/21/2022) [address]16-2015 History of Past illness Narrative* Problem Noted Date Resolved Date Lower urinary tract infectious disease 5 12/06/2018 Hesitancy of micturition 05/08/2014 019 documented as of this encounter (statuses as of 02/24/2022) [address]16-2015 History of Past illness Narrative* Problem Noted Date Resolved Date Lower urinary tract infectious disease 5 12/06/2018 Hesitancy of micturition 05/08/2014 019 documented as of this encounter (statuses as of 02/25/2022) [address]16-2015 History of Past illness Narrative* Problem Noted Date Resolved Date Lower urinary tract infectious disease 5 12/06/2018 Hesitancy of micturition 05/08/2014 019 documented as of this encounter (statuses as of 02/27/2022) [address]16-2015 History of Past illness Narrative* Problem Noted Date Resolved Date Lower urinary tract infectious disease 5 12/06/2018 Hesitancy of micturition 05/08/2014 019 documented as of this encounter (statuses as of 02/27/2022) [address]16-2015 History of Past illness Narrative* Problem Noted Date Resolved Date Lower urinary tract infectious disease 5 12/06/2018 Hesitancy of micturition 05/08/2014 019 documented as of this encounter (statuses as of 03/05/2022) [address]16-2015 History of Past illness Narrative* Problem Noted Date Resolved Date Lower urinary tract infectious disease 5 12/06/2018 Hesitancy of micturition 05/08/2014 019 documented as of this encounter (statuses as of 03/11/2022) [address]16-2015 History of Past illness Narrative* Problem Noted Date Resolved Date Lower urinary tract infectious disease 5 12/06/2018 Hesitancy of micturition 05/08/2014 019 documented as of this encounter (statuses as of 04/01/2022) [address]16-2015 History of Past illness Narrative* Problem Noted Date Resolved Date Lower urinary tract infectious disease 5 12/06/2018 Hesitancy of micturition 05/08/2014 019 documented as of this encounter (statuses as of 04/29/2022) [facility] History of Past illness Narrative* Problem Noted Date Resolved Date Lower urinary tract infectious disease 5 12/06/2018 Hesitancy of micturition 05/08/2014 019 documented as of this encounter (statuses as of 05/01/2022) [facility] History of Past illness Narrative* Problem Noted Date Resolved Date Lower urinary tract infectious disease 5 12/06/2018 Hesitancy of micturition 05/08/2014 019 documented as of this encounter (statuses as of 05/06/2022) [address]16-2015 History of Past illness Narrative* Problem Noted Date Resolved Date Lower urinary tract infectious disease 5 12/06/2018 Hesitancy of micturition 05/08/2014 019 documented as of this encounter (statuses as of 06/23/2022) [address]16-2015 History of Past illness Narrative* Problem Noted Date Resolved Date Lower urinary tract infectious disease 5 12/06/2018 Hesitancy of micturition 05/08/2014 019 documented as of this encounter (statuses as of 07/15/2022) [facility] History of Past illness Narrative* Problem Noted Date Resolved Date Lower urinary tract infectious disease 5 12/06/2018 Hesitancy of micturition 05/08/2014 019 documented as of this encounter (statuses as of 07/17/2022) [address]16-2015 History of Past illness Narrative* Problem Noted Date Resolved Date Lower urinary tract infectious disease 5 12/06/2018 Hesitancy of micturition 05/08/2014 019 documented as of this encounter (statuses as of 07/28/2022) [facility] History of Past illness Narrative* Problem Noted Date Resolved Date Lower urinary tract infectious disease 5 12/06/2018 Hesitancy of micturition 05/08/2014 019 documented as of this encounter (statuses as of 07/29/2022) [address]16-2015 History of Past illness Narrative* Problem Noted Date Resolved Date Lower urinary tract infectious disease 5 12/06/2018 Hesitancy of micturition 05/08/2014 019 documented as of this encounter (statuses as of 07/30/2022) [address]16-2015 History of Past illness Narrative* Problem Noted Date Diagnosed Date Resolved Date Lower urinary tract infectious disease 05/08/2014 12/06/2018 Hesitancy of micturition 05/08/2014 documented as of this encounter (statuses as of 09/30/2022) [address]16-2015 History of Past illness Narrative* Problem Noted Date Diagnosed Date Resolved Date Lower urinary tract infectious disease 05/08/2014 12/06/2018 Hesitancy of micturition 05/08/2014 documented as of this encounter (statuses as of 10/30/2022) [address]16-2015 History of Past illness Narrative* Problem Noted Date Diagnosed Date Resolved Date Lower urinary tract infectious disease 05/08/2014 12/06/2018 Hesitancy of micturition 05/08/2014 documented as of this encounter (statuses as of 10/30/2022) [address]16-2015 History of Past illness Narrative* Problem Noted Date Diagnosed Date Resolved Date Lower urinary tract infectious disease 05/08/2014 12/06/2018 Hesitancy of micturition 05/08/2014 documented as of this encounter (statuses as of 10/31/2022) [address]16-2015 History of Past illness Narrative* Problem Noted Date Diagnosed Date Resolved Date Lower urinary tract infectious disease 05/08/2014 12/06/2018 Hesitancy of micturition 05/08/2014 documented as of this encounter (statuses as of 11/01/2022) [address]16-2015 History of Past illness Narrative* Problem Noted Date Diagnosed Date Resolved Date Lower urinary tract infectious disease 05/08/2014 12/06/2018 Hesitancy of micturition 05/08/2014 documented as of this encounter (statuses as of 11/01/2022) [address]16-2015 History of Past illness Narrative* Problem Noted Date Diagnosed Date Resolved Date Lower urinary tract infectious disease 05/08/2014 12/06/2018 Hesitancy of micturition 05/08/2014 documented as of this encounter (statuses as of 12/28/2022) [address]16-2015 History of Past illness Narrative* Problem Noted Date Diagnosed Date Resolved Date Lower urinary tract infectious disease 05/08/2014 12/06/2018 Hesitancy of micturition 05/08/2014 documented as of this encounter (statuses as of 01/05/2023) [address]16-2015 History of Past illness Narrative* Problem Noted Date Diagnosed Date Resolved Date Lower urinary tract infectious disease 05/08/2014 12/06/2018 Hesitancy of micturition 05/08/2014 documented as of this encounter (statuses as of 01/06/2023) [address]16-2015 History of Past illness Narrative* Problem Noted Date Diagnosed Date Resolved Date Lower urinary tract infectious disease 05/08/2014 12/06/2018 Hesitancy of micturition 05/08/2014 documented as of this encounter (statuses as of 01/25/2023) [address]16-2015 History of Past illness Narrative* Problem Noted Date Diagnosed Date Resolved Date Lower urinary tract infectious disease 05/08/2014 12/06/2018 Hesitancy of micturition 05/08/2014 documented as of this encounter (statuses as of 02/18/2023) [address]16-2015 History of Past illness Narrative* Problem Noted Date Diagnosed Date Resolved Date Lower urinary tract infectious disease 05/08/2014 12/06/2018 Hesitancy of micturition 05/08/2014 documented as of this encounter (statuses as of 05/06/2023) [address]16-2015 History of Past illness Narrative* Problem Noted Date Diagnosed Date Resolved Date Lower urinary tract infectious disease 05/08/2014 12/06/2018 Hesitancy of micturition 05/08/2014 documented as of this encounter (statuses as of 05/06/2023) [address]16-2015 History of Past illness Narrative* Problem Noted Date Diagnosed Date Resolved Date Lower urinary tract infectious disease 05/08/2014 12/06/2018 Hesitancy of micturition 05/08/2014 documented as of this encounter (statuses as of 05/12/2023) [facility] History of Past illness Narrative* Problem Noted Date Diagnosed Date Resolved Date Lower urinary tract infectious disease 05/08/2014 12/06/2018 Hesitancy of micturition 05/08/2014 documented as of this encounter (statuses as of 05/12/2023) [facility] History of Past illness Narrative* Problem Noted Date Diagnosed Date Resolved Date Lower urinary tract infectious disease 05/08/2014 12/06/2018 Hesitancy of micturition 05/08/2014 documented as of this encounter (statuses as of 05/13/2023) [facility] note* Diagnosis Pharyngitis, unspecified etiology- Primary Subacute cough Cough Elevated glucose Other abnormal glucose Fatigue, unspecified type Mixed hyperlipidemia Vitamin D deficiency Unspecified vitamin D deficiency Hypertension, essential Unspecified essential hypertension [facility] Diagnosis Hypertension, essential- Primary Unspecified essential hypertension Mixed hyperlipidemia Migraine with aura and without status migrainosus, not intractable Migraine with aura, without mention of intractable migraine without mention of status migrainosus Major depressive disorder with single episode, remission status unspecified Gastroesophageal reflux disease, unspecified whether esophagitis present Smoker Tobacco use disorder Dry mouth Disturbance of salivary secretion Dry eyes Tear film insufficiency, unspecified Palpitations SOB (shortness of breath) Shortness of breath Fatty liver Other chronic nonalcoholic liver disease [facility] Diagnosis Encounter for screening mammogram for breast cancer [facility] Diagnosis Smoker Tobacco use disorder SOB (shortness of breath) Shortness of breath [facility] Diagnosis SOB (shortness of breath)- Primary Shortness of breath [facility] Diagnosis Smoker- Primary Tobacco use disorder Lung nodules Other nonspecific abnormal finding of lung field [facility]* Diagnosis FELIZ (dyspnea on exertion)- Primary Other dyspnea and respiratory abnormality SOB (shortness of breath) Shortness of breath Palpitations Fatigue, unspecified type Post-COVID chronic shortness of breath [facility] Diagnosis Hypertension, essential- Primary Unspecified essential hypertension Chronic pain of right hip Chronic foot pain, left Encounter for immunization Need for other specified prophylactic vaccination against single bacterial disease [facility] Diagnosis History of 2019 novel coronavirus disease (COVID-19)- Primary SOB (shortness of breath) Shortness of breath [facility] Diagnosis Chronic low back pain, unspecified back pain laterality, unspecified whether sciatica present- Primary [facility] Diagnosis Screening for ischemic heart disease- Primary History of 2019 novel coronavirus disease (COVID-19) SOB (shortness of breath) Shortness of breath FELIZ (dyspnea on exertion) Other dyspnea and respiratory abnormality Palpitations Lightheadedness Dizziness and giddiness Hypertension, essential Unspecified essential hypertension Mixed hyperlipidemia Obesity (BMI 30-39.9) Obesity, unspecified [facility] Diagnosis Dizziness- Primary Dizziness and giddiness BPPV (benign paroxysmal positional vertigo), unspecified laterality Numbness and tingling Disturbance of skin sensation SOB (shortness of breath) Shortness of breath Hypertension, essential Unspecified essential hypertension Chronic pain of right hip Former smoker Personal history of tobacco use, presenting hazards to health Mixed hyperlipidemia Major depressive disorder with single episode, remission status unspecified Elevated glucose Other abnormal glucose Multiple nevi Benign neoplasm of skin, site unspecified [facility] Diagnosis Screening for ischemic heart disease SOB (shortness of breath) Shortness of breath FELIZ (dyspnea on exertion) Other dyspnea and respiratory abnormality Palpitations Lightheadedness Dizziness and giddiness [facility] Diagnosis Flank pain- Primary Abdominal pain, unspecified site Suprapubic pain Abdominal pain, other specified site [facility] Diagnosis Acute otitis media, right- Primary Unspecified otitis media Rhinosinusitis Unspecified sinusitis (chronic) Acute cough [facility] Diagnosis Encounter for screening mammogram for breast cancer [facility] Diagnosis Bacterial sinusitis- Primary Unspecified sinusitis (chronic) Pharyngitis, unspecified etiology [facility] Diagnosis Smoker Tobacco use disorder SOB (shortness of breath) Shortness of breath documented in this encounter [facility] note* Diagnosis Well adult exam- Primary Routine general medical examination at a health care facility Hypertension, essential Unspecified essential hypertension Mixed hyperlipidemia Migraine with aura and without status migrainosus, not intractable Migraine with aura, without mention of intractable migraine without mention of status migrainosus Gastroesophageal reflux disease, unspecified whether esophagitis present Major depressive disorder with single episode, remission status unspecified Anxiety Anxiety state, unspecified Ex-smoker Personal history of tobacco use, presenting hazards to health Muscle twitching Abnormal involuntary movements Fibromyalgia Mylagia and myositis, unspecified Chronic insomnia Insomnia, unspecified Elevated alkaline phosphatase level Other nonspecific abnormal serum enzyme levels Uncontrolled daytime somnolence Other alteration of consciousness Leukocytosis, unspecified type Lung nodules Other nonspecific abnormal finding of lung field Irritable bowel syndrome, unspecified type Fatty liver Other chronic nonalcoholic liver disease Left wrist pain Pain in joint, forearm SOB (shortness of breath) Shortness of breath Wheezing Obesity, Class I, BMI 30.0-34.9 (see actual BMI) Obesity, unspecified Encounter for gynecological examination documented in this encounter [facility] note* Diagnosis Leukocytosis, unspecified type- Primary documented in this encounter [facility] for referral (narrative)* Diagnostic Procedure Only (Routine) - Pending Review Specialty Diagnoses / Procedures Referred By Alicia brewster Referred To Contact [facility] Diagnoses Encounter for screening mammogram for breast cancer Procedures GANESH SCREENING SCREENING MAMMOGRAPHY BI 2-VIEW BREAST INC CAD Liliana Cobos MD [address] [place] [address] [facility] [address] [place] [phone] Referral ID Status Reason Start Date Expiration Date Visits Requested Visits Authorized [id number] Pending Review Auto-Generat ed Referral 01/29/2022 02/28/2023 1 1 [facility] for referral (narrative)* Outpatient Procedure (Routine) - Open Specialty Diagnoses / Procedures Referred By Alicia brewster Referred [facility] Diagnoses FELIZ (dyspnea on exertion) SOB (shortness of breath) Palpitations Fatigue, unspecified type Post-COVID chronic shortness of breath Procedures ECHO ECHO TTHRC R-T 2D W/WOM-MODE COMPL SPEC&COLR D Liliana Cobos MD [address] [place] [address] [facility] [place] [address] [place] [id number] Referral ID Status Reason Start Date Expiration Date V isits Requested Visits Authorized [id number] Open Auto-Generat ed Referral Clearance Not Met - Admin/Chairm an/Director Advise to Postpone/Res chedule or Not Proceed 02/18/2022 02/18/2023 1 1 [facility] for referral (narrative)* Outpatient Procedure (Routine) - Denied Specialty Diagnoses / Procedures Referred By Contac t Referred To Contact [facility] [place] Diagnoses Screening for ischemic heart disease SOB (shortness of breath) FELIZ (dyspnea on exertion) Palpitations Lightheadedness Procedures ECHO ECHO TTHRC R-T 2D W/WOM-MODE COMPL SPEC&COLR D Rocky Cardoso APRN.REMEDIATION PROJECT ENGINEER [address] [place] [phone] Fax: [facility] [address] [address] Referral ID Status Reason Start Date Expiration Date V isits Requested Visits Authorized [id number] Denied Auto-Generate d Referral 07/14/2022 07/14/2023 1 0 * Outpatient Procedure (Routine) - Closed Specialty Diagnoses / Procedures Referred By Contac t Referred To Contact [facility] [place] Diagnoses Screening for ischemic heart disease Procedures ECG COMPLETE ECG ROUTINE ECG W/LEAST 12 LDS W/I&R Rocky Cardoso APRN.REMEDIATION PROJECT ENGINEER [address] [place] [address] Fax: [facility] [place] [address] [place] [address] Referral ID Status Reason Start Date Expiration Date V isits Requested Visits Authorized [id number] Closed Auto-Generate d Referral 07/08/2022 07/08/2023 1 1 [facility] for referral (narrative)* Diagnostic Procedure Only (Routine) - Closed Specialty Diagnoses / Procedures Referred By Burtac t Referred To Contact [facility] IMAGING Diagnoses Flank pain Suprapubic pain Procedures XR ABDOMEN 1V SUPINE RADIOLOGIC EXAM ABDOMEN 1 VIEW Jeannie Guajardo PA-C [address] [place] [address] Xr Imaging Referral ID Status Reason Start Date Expiration Date V isits Requested Visits Authorized [id number] Closed Auto-Generate d Referral 10/29/2022 11/28/2023 1 1 [facility] for referral (narrative)* Diagnostic Procedure Only (Routine) - Pending Review Specialty Diagnoses / Procedures Referred By Contac t Referred To Contact [facility] Diagnoses Encounter for screening mammogram for breast cancer Procedures GANESH SCREENING SCREENING MAMMOGRAPHY BI 2-VIEW BREAST INC CAD Liliana Cobos MD [address] [place] [address] [facility] [address] [place] [address] Referral ID Status Reason Start Date Expiration Date Visits Requested Visits Authorized [id number] Pending Review Auto-Generat ed Referral 01/30/2024 1 1 [facility] for visit Narrative* Outpatient Procedure (Routine) - Closed Specialty Diagnoses / Procedures Referred By Contac t Referred To [facility] Diagnoses Screening for ischemic heart disease SOB (shortness of breath) FELIZ (dyspnea on exertion) Palpitations Lightheadedness Procedures ECHO ECHO TTHRC R-T 2D W/WOM-MODE COMPL SPEC&COLR D Rocky Cardoso APRN.REMEDIATION PROJECT ENGINEER [address] [place] [address] [facility] [place] [address] [place] [address] Referral ID Status Reason Start Date Expiration Date V isits Requested Visits Authorized [id number] Closed Auto-Generate d Referral 07/24/2022 03/22/2023 1 1 [facility] Advance Directives Documents on File Type Date Recorded Patient Forestry Aide Expl anation Advance Directive(s) 05/10/2019 8:15 AM Advance Directive(s) 11/16/2015 9:23 AM Reason for Referral Specialty Diagnoses / Procedures Referred By Alicia [place] [address] [place] [phone] Referral ID Status Reason Start Date Expiration Date Visits Re quested Visits Authorized [id number] Closed 1 1 Specialty Diagnoses / Procedures Referred By Contac t Referred To Contact [facility] Diagnoses Smoker SOB (shortness of breath) Procedures SPIROMETRY - BASELINE AND POST DILATOR BRNCDILAT RSPSE SPMTRY PRE&[place] [address] [place] [id number] [facility] [place] [address] [place] [address] Referral ID Status Reason Start Date Expiration Date Visits Requested Visits Authorized [id number] Pending Review Auto-Generat ed Referral 2 02/16/2023 1 1 Specialty Diagnoses / Procedures Referred By Contac t Referred To Contact CT IMAGING Diagnoses Smoker SOB (shortness of breath) Procedures CT CHEST WO IVCON DIAGNOSTIC COMPUTED TOMOGRAPHY THORAX W/[place] [address] [place] [address] [id number] [address] [facility] Referral ID Status Reason Start Date Expiration Date Visits Requested Visits Authorized [id number] Pending Review Auto-Generat ed Referral 2 02/16/2023 1 1 Specialty Diagnoses / Procedures Referred By Contac t Referred To Contact [facility] [facility] Diagn[facility] Palpitations SOB (shortness of breath) Procedures ECHO ECHO TTHRC R-T 2D W/WOM-MODE COMPL SPEC&COLR D Liliana Cobos MD [address] [place] [address] [facility] [address] [place] [address] Referral ID Status Reason Start Date Expiration Date Visits Requested Visits Authorized [id number] Pending Review Auto-Generat ed Referral 2 01/17/2023 1 1 Specialty Diagnoses / Procedures Referred By Contac t Referred To Contact CT IMAGING Diagnoses Lung nodules Smoker Procedures CT CHEST WO IVCON DIAGNOSTIC COMPUTED TOMOGRAPHY THORAX W/O CNTRST Liliana Cobos MD [address] [place] [address] Ct Imaging Referral ID Status Reason Start Date Expiration Date Visits Requested Visits Authorized [id number] Pending Review Auto-Generat ed Referral 05/28/2022 03/29/2023 1 1 Specialty Diagnoses / Procedures Referred By Contac t Referred To Contact Orthopedics Diagnoses Chronic pain of right hip Procedures CONSULT TO ORTHOPAEDICS OFFICE/OUTPATIENT [facility] 60-74 MINUTES Jeannie Guajardo PA-C [address] [place] [address] Referral ID Status Reason Start Date Expiration Date Visits Requested Visits Authorized [id number] Authorized PCP Requested Referral 2 03/11/2023 1 1 Specialty Diagnoses / Procedures Referred By Contac t Referred To Contact Podiatry Diagnoses Chronic foot pain, left Procedures CONSULT TO PODIATRY OFFICE/OUTPATIENT [facility] 60-74 MINUTES Jeannie Guajardo PA-C [address] [place] [address] Referral ID Status Reason Start Date Expiration Date Visits Requested Visits Authorized [id number] Authorized PCP Requested Referral 2 03/11/2023 1 1 Specialty Diagnoses / Procedures Referred By Contac t Referred To Contact Cardiology Diagnoses History of 2019 novel coronavirus disease (COVID-19) SOB (shortness of breath) Procedures CONSULT TO CARDIOLOGY OFFICE/OUTPATIENT [facility] MDM 60-74 MINUTES Liliana Cobos MD [address] [place] [address] Referral ID Status Reason Start Date Expiration Date Visits Requested Visits Authorized [id number] Authorized PCP Requested Referral 2 03/11/2023 1 1 Specialty Diagnoses / Procedures Referred By Contac t Referred To Contact Pain Management Diagnoses Chronic low back pain, unspecified back pain laterality, unspecified whether sciatica present Procedures CONSULT TO PAIN MGT OFFICE/OUTPATIENT [facility] 60-74 MINUTES Jeannie Guajardo PA-C [address] [place] [address] Referral ID Status Reason Start Date Expiration Date Visits Requested Visits Authorized [id number] Authorized PCP Requested Referral 04/29/2022 04/29/2023 1 1 Specialty Diagnoses / Procedures Referred By Contac t Referred To Contact Dermatology Diagnoses Multiple nevi Procedures CONSULT TO DERMATOLOGY Jeannie Guajardo PA-C [address] [place] [address] Referral ID Status Reason Start Date Expiration Date Visits Requested Visits Authorized [id number] Ref Not Required PCP Requested Referral 07/28/2022 07/28/2023 1 1 Specialty Diagnoses / Procedures Referred By Contac t Referred To Contact Neurology Diagnoses Dizziness Numbness and tingling Procedures CONSULT TO NEUROLOGY OFFICE/OUTPATIENT [facility] 60-74 MINUTES Jeannie Guajardo PA-C [address] [place] [address] Referral ID Status Reason Start Date Expiration Date Visits Requested Visits Authorized [id number] Authorized PCP Requested Referral 07/28/2022 07/28/2023 1 1 Specialty Diagnoses / Procedures Referred By Contac t Referred To Contact CT IMAGING Diagnoses Smoker SOB (shortness of breath) Procedures CT CHEST WO IVCON DIAGNOSTIC COMPUTED TOMOGRAPHY THORAX W/O CNTRST Liliana Cobos MD [address] [place] [address] [place] [address] Referral ID Status Reason Start Date Expiration Date V isits Requested Visits Authorized [id number] Closed Auto-Generate d Referral 01/17/2022 04/09/2022 1 1 Specialty Diagnoses / Procedures Referred By Contac t Referred To Contact Jeannie Guajardo PA-C [address] [place] [address] Referral ID Status Reason Start Date Expiration Date Visits Re quested Visits Authorized [id number] Closed 1 1 Specialty Diagnoses / Procedures Referred By Contac t Referred To Contact Orthopedics Diagnoses Left wrist pain Procedures CONSULT TO ORTHOPAEDICS OFFICE/OUTPATIENT [facility] 60 MINUTES Liliana Cobos MD [address] [place] [address] Referral ID Status Reason Start Date Expiration Date Visits Requested Visits Authorized [id number] Authorized PCP Requested Referral 05/12/2023 05/11/2024 1 1 Specialty Diagnoses / Procedures Referred By Contac t Referred To Contact Gastroenterology Diagnoses Elevated alkaline phosphatase level Irritable bowel syndrome, unspecified type Fatty liver Procedures CONSULT TO GASTROENTEROLOGY OFFICE/OUTPATIENT [facility] 60 MINUTES Liliana Cobos MD [address] [place] [address] Referral ID Status Reason Start Date Expiration Date Visits Requested Visits Authorized [id number] Authorized PCP Requested Referral 05/12/2023 05/11/2024 1 1 Specialty Diagnoses / Procedures Referred By Contac t Referred To Contact CT IMAGING Diagnoses Lung nodules Procedures CT CHEST WO IVCON DIAGNOSTIC COMPUTED TOMOGRAPHY THORAX W/O CNTRST Liliana Cobos MD [address] [place] [address] [place] [address] Referral ID Status Reason Start Date Expiration Date Visits Requested Visits Authorized [id number] Additional Clinical Info Needed Auto-Generat ed Referral 05/12/2023 06/10/2024 1 1 Summary Purpose Family History No Family History Records FoundNo Family History Records Found Additional Source Comments Source Comments (unrecognize d section and content) In the event this informatio n is protected by the Federal Confidentiality of Alcohol and Drug Abuse Patient Records regulations: The Federal rules restrict any use of the information to criminally investigate or prosecute any alcohol or drug abuse patient.[facility] the event this information is protected by the Federal Confidentiality of Alcohol and Drug Abuse Patient Records regulations: The Federal rules restrict any use of the information to criminally investigate or prosecute any alcohol or drug abuse patient.[facility]In the event this information is protected by the Federal Confidentiality of Alcohol and Drug Abuse Patient Records regulations: The Federal rules restrict any use of the information to criminally investigate or prosecute any alcohol or drug abuse patient.[facility]In the event this information is protected by the Federal Confidentiality of Alcohol and Drug Abuse Patient Records regulations: The Federal rules restrict any use of the information to criminally investigate or prosecute any alcohol or drug abuse patient.[facility]In the event this information is protected by the Federal Confidentiality of Alcohol and Drug Abuse Patient Records regulations: The Federal rules restrict any use of the information to criminally investigate or prosecute any alcohol or drug abuse patient.[facility] the event this information is protected by the Federal Confidentiality of Alcohol and Drug Abuse Patient Records regulations: The Federal rules restrict any use of the information to criminally investigate or prosecute any alcohol or drug abuse patient.[facility]In the event this information is protected by the Federal Confidentiality of Alcohol and Drug Abuse Patient Records regulations: The Federal rules restrict any use of the information to criminally investigate or prosecute any alcohol or drug abuse patient.[facility] the event this information is protected by the Federal Confidentiality of Alcohol and Drug Abuse Patient Records regulations: The Federal rules restrict any use of the information to criminally investigate or prosecute any alcohol or drug abuse patient.[facility]In the event this information is protected by the Federal Confidentiality of Alcohol and Drug Abuse Patient Records regulations: The Federal rules restrict any use of the information to criminally investigate or prosecute any alcohol or drug abuse patient.[facility]In the event this information is protected by the Federal Confidentiality of Alcohol and Drug Abuse Patient Records regulations: The Federal rules restrict any use of the information to criminally investigate or prosecute any alcohol or drug abuse patient.[facility]In the event this information is protected by the Federal Confidentiality of Alcohol and Drug Abuse Patient Records regulations: The Federal rules restrict any use of the information to criminally investigate or prosecute any alcohol or drug abuse patient.[facility]In the event this information is protected by the Federal Confidentiality of Alcohol and Drug Abuse Patient Records regulations: The Federal rules restrict any use of the information to criminally investigate or prosecute any alcohol or drug abuse patient.[facility] the event this information is protected by the Federal Confidentiality of Alcohol and Drug Abuse Patient Records regulations: The Federal rules restrict any use of the information to criminally investigate or prosecute any alcohol or drug abuse patient.[facility]In the event this information is protected by the Federal Confidentiality of Alcohol and Drug Abuse Patient Records regulations: The Federal rules restrict any use of the information to criminally investigate or prosecute any alcohol or drug abuse patient.[facility]In the event this information is protected by the Federal Confidentiality of Alcohol and Drug Abuse Patient Records regulations: The Federal rules restrict any use of the information to criminally investigate or prosecute any alcohol or drug abuse patient.[facility]In the event this information is protected by the Federal Confidentiality of Alcohol and Drug Abuse Patient Records regulations: The Federal rules restrict any use of the information to criminally investigate or prosecute any alcohol or drug abuse patient.[facility]In the event this information is protected by the Federal Confidentiality of Alcohol and Drug Abuse Patient Records regulations: The Federal rules restrict any use of the information to criminally investigate or prosecute any alcohol or drug abuse patient.[facility] HospitalIn the event this information is protected by the Federal Confidentiality of Alcohol and Drug Abuse Patient Records regulations: The Federal rules restrict any use of the information to criminally investigate or prosecute any alcohol or drug abuse patient.[facility]In the event this information is protected by the Federal Confidentiality of Alcohol and Drug Abuse Patient Records regulations: The Federal rules restrict any use of the information to criminally investigate or prosecute any alcohol or drug abuse patient.[facility]In the event this information is protected by the Federal Confidentiality of Alcohol and Drug Abuse Patient Records regulations: The Federal rules restrict any use of the information to criminally investigate or prosecute any alcohol or drug abuse patient.[facility]In the event this information is protected by the Federal Confidentiality of Alcohol and Drug Abuse Patient Records regulations: The Federal rules restrict any use of the information to criminally investigate or prosecute any alcohol or drug abuse patient.[facility]In the event this information is protected by the Federal Confidentiality of Alcohol and Drug Abuse Patient Records regulations: The Federal rules restrict any use of the information to criminally investigate or prosecute any alcohol or drug abuse patient.[facility]In the event this information is protected by the Federal Confidentiality of Alcohol and Drug Abuse Patient Records regulations: The Federal rules restrict any use of the information to criminally investigate or prosecute any alcohol or drug abuse patient.[facility]In the event this information is protected by the Federal Confidentiality of Alcohol and Drug Abuse Patient Records regulations: The Federal rules restrict any use of the information to criminally investigate or prosecute any alcohol or drug abuse patient.[facility]In the event this information is protected by the Federal Confidentiality of Alcohol and Drug Abuse Patient Records regulations: The Federal rules restrict any use of the information to criminally investigate or prosecute any alcohol or drug abuse patient.[facility]In the event this information is protected by the Federal Confidentiality of Alcohol and Drug Abuse Patient Records regulations: The Federal rules restrict any use of the information to criminally investigate or prosecute any alcohol or drug abuse patient.[facility]In the event this information is protected by the Federal Confidentiality of Alcohol and Drug Abuse Patient Records regulations: The Federal rules restrict any use of the information to criminally investigate or prosecute any alcohol or drug abuse patient.[facility]In the event this information is protected by the Federal Confidentiality of Alcohol and Drug Abuse Patient Records regulations: The Federal rules restrict any use of the information to criminally investigate or prosecute any alcohol or drug abuse patient.[facility]In the event this information is protected by the Federal Confidentiality of Alcohol and Drug Abuse Patient Records regulations: The Federal rules restrict any use of the information to criminally investigate or prosecute any alcohol or drug abuse patient.[facility]In the event this information is protected by the Federal Confidentiality of Alcohol and Drug Abuse Patient Records regulations: The Federal rules restrict any use of the information to criminally investigate or prosecute any alcohol or drug abuse patient.[facility]In the event this information is protected by the Federal Confidentiality of Alcohol and Drug Abuse Patient Records regulations: The Federal rules restrict any use of the information to criminally investigate or prosecute any alcohol or drug abuse patient.[facility]In the event this information is protected by the Federal Confidentiality of Alcohol and Drug Abuse Patient Records regulations: The Federal rules restrict any use of the information to criminally investigate or prosecute any alcohol or drug abuse patient.[facility]In the event this information is protected by the Federal Confidentiality of Alcohol and Drug Abuse Patient Records regulations: The Federal rules restrict any use of the information to criminally investigate or prosecute any alcohol or drug abuse patient.[facility]In the event this information is protected by the Federal Confidentiality of Alcohol and Drug Abuse Patient Records regulations: The Federal rules restrict any use of the information to criminally investigate or prosecute any alcohol or drug abuse patient.[facility]In the event this information is protected by the Federal Confidentiality of Alcohol and Drug Abuse Patient Records regulations: The Federal rules restrict any use of the information to criminally investigate or prosecute any alcohol or drug abuse patient.[facility]In the event this information is protected by the Federal Confidentiality of Alcohol and Drug Abuse Patient Records regulations: The Federal rules restrict any use of the information to criminally investigate or prosecute any alcohol or drug abuse patient.[facility]In the event this information is protected by the Federal Confidentiality of Alcohol and Drug Abuse Patient Records regulations: The Federal rules restrict any use of the information to criminally investigate or prosecute any alcohol or drug abuse patient.[facility]In the event this information is protected by the Federal Confidentiality of Alcohol and Drug Abuse Patient Records regulations: The Federal rules restrict any use of the information to criminally investigate or prosecute any alcohol or drug abuse patient.[facility]In the event this information is protected by the Federal Confidentiality of Alcohol and Drug Abuse Patient Records regulations: The Federal rules restrict any use of the information to criminally investigate or prosecute any alcohol or drug abuse patient.[facility]In the event this information is protected by the Federal Confidentiality of Alcohol and Drug Abuse Patient Records regulations: The Federal rules restrict any use of the information to criminally investigate or prosecute any alcohol or drug abuse patient.[facility]In the event this information is protected by the Federal Confidentiality of Alcohol and Drug Abuse Patient Records regulations: The Federal rules restrict any use of the information to criminally investigate or prosecute any alcohol or drug abuse patient.[facility]In the event this information is protected by the Federal Confidentiality of Alcohol and Drug Abuse Patient Records regulations: The Federal rules restrict any use of the information to criminally investigate or prosecute any alcohol or drug abuse patient.[facility] Reason for Visit (unrecogniz ed section and content) Reason Comments chronic sore throat Reason Comments Recheck Reason Comments Results Reason Comments Spirometry Specialty Diagnoses / Procedures Referred By Contac t Referred To Contact [facility] Diagnoses Smoker SOB (shortness of breath) Procedures SPIROMETRY - BASELINE AND POST DILATOR BRNCDILAT RSPSE SPMTRY PRE&POST-BRNCDILAT Liliana Wells MD [address] [place] [address] [facility] [place] [address] [place] [address] Referral ID Status Reason Start Date Expiration Date V isits Requested Visits Authorized [id number] Closed Auto-Generate d Referral 01/17/2022 02/16/2023 1 1 Reason Comments Results Reason Comments Orders Reason Comments Recheck Reason Comments Patient Update Reason Onset Date Comments Refill Request 05/06/2022 Reason Onset Date Comments Refill Request 06/23/2022 Reason Comments patient problem Reason Comments New Patient Specialty Diagnoses / Procedures Referred By Contac t Referred To Contact Cardiology Diagnoses History of 2019 novel coronavirus disease (COVID-19) SOB (shortness of breath) Procedures CONSULT TO CARDIOLOGY OFFICE/OUTPATIENT [facility] MDM 60-74 MINUTES Liliana Cobos MD [address] [place] [address] Referral ID Status Reason Start Date Expiration Date V isits Requested Visits Authorized [id number] Closed PCP Requested Referral 03/11/2022 03/11/2023 1 1 Reason Comments Dizziness Edema Edema bilateral hand s and feet Reason Comments ER Discharge Summary Reason Comments Pain, Back X 3 days Reason Comments Nasal Congestion ear pain, headache, swollen glands, sob x 2 weeks Reason Comments Cough Reason Comments Radiology CT Specialty Diagnoses / Procedures Referred By Contac t Referred To Contact CT IMAGING Diagnoses Smoker SOB (shortness of breath) Procedures CT CHEST WO IVCON DIAGNOSTIC COMPUTED TOMOGRAPHY THORAX W/O CNTRST Liliana Cobos MD [address] [place] [address] [place] [address] Referral ID Status Reason Start Date Expiration Date V isits Requested Visits Authorized [id number] Closed Auto-Generate d Referral 01/17/2022 04/09/2022 1 1 Reason Onset Date Comments Refill Request 05/06/2023 Reason Onset Date Comments Refill Request 05/06/2023 Reason Comments Physical Care Teams (unrecognized sec tion and content) 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 Start Date End Date Liliana Cobos MD [address] [place], [place] [id number] PCP - General Family Practice 12/06/18 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 Start Date End Date Liliana Cobos MD [address] [place] [address] PCP - General Family Medicine 12/06/18 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 Start Date End Date Liliana Cobos MD [address] [facility] [place] [address] PCP - General Family Medicine 12/06/18 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 Start Date End Date Liliana Cobos MD [address] [facility] [place] [address] PCP - General Family Medicine 12/06/18 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 Start Date End Date Liliana Cobos MD [facility] [place] [address] PCP - General Family Medicine 12/06/18 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 Start Date End Date Liliana Cobos MD [address] [place] [address], [place] [address] PCP - General Family Medicine 12/06/18 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 Start Date End Date Liliana Cobos MD [facility] [place] [address] PCP - General Family Medicine 12/06/18 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 Start Date End Date Liliana Cobos MD [facility] [place] [address] PCP - General Family Medicine 12/06/18 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 Start Date End Date Liliana Cobos MD [facility] [place] [address] PCP - General Family Medicine 12/06/18 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 Start Date End Date Liliana Cobos MD [facility] [place] [address] PCP - General Family Medicine 12/06/18 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 Start Date End Date Liliana Cobos MD [facility] [place] [address] PCP - General Family Medicine 12/06/18 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 Start Date End Date Liliana Cobos MD [address] [facility] [place] [address] PCP - General Family Medicine 12/06/18 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 Start Date End Date Liliana Cobos MD [address] [facility] [place] [address] PCP - General Family Medicine 12/06/18 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 Start Date End Date Liliana Cobos MD [address] [facility] [place] [address] PCP - General Family Medicine 12/06/18 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 Start Date End Date Liliana Cobos MD [facility] [place] [address] PCP - General Family Medicine 12/06/18 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 Start Date End Date Liliana Cobos MD [address] [facility] [place] [address] PCP - General Family Medicine 12/06/18 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 Start Date End Date Liliana Cobos MD [address] [facility] [place] [address] PCP - General Family Medicine 12/06/18 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 Start Date End Date Liliana Cobos MD [address] [facility] [place] [address] PCP - General Family Medicine 12/06/18 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 Start Date End Date Liliana Cobos MD [address] [facility] [place] [address] PCP - General Family Medicine 12/06/18 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 Start Date End Date Liliana Cobos MD [facility] [place] [address] PCP - General Family Medicine 12/06/18 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 Start Date End Date Liliana Cobos MD [address] [place] [address] PCP - General Family Medicine 12/06/18 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 Start Date End Date Liliana Cobos MD [address] [place] [address] PCP - General Family Medicine 12/06/18 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 Start Date End Date Liliana Cobos MD [address] [place] [address] PCP - General Family Medicine 12/06/18 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 Start Date End Date Liliana Cobos MD [address] [place] [address] PCP - General Family Medicine 12/06/18 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 Start Date End Date Liliana Cobos MD [address] [place] [address] PCP - General Family Medicine 12/06/18 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 Start Date End Date Liliana Cobos MD [address] [place] [address] PCP - General Family Medicine 12/06/18 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 Start Date End Date Liliana Cobos MD [address] [place] [address] PCP - General Family Medicine 12/06/18 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 Start Date End Date Liliana Cobos MD [address] [place] [address] PCP - General Family Medicine 12/06/18 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 Start Date End Date Liliana Cobos MD [address] [place] [address] PCP - General Family Medicine 12/06/18 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 Start Date End Date Liliana Cobos MD [address] [place] [address] PCP - General Family Medicine 12/06/18 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 Start Date End Date Liliana Cobos MD [address] [place] [address] PCP - General Family Medicine 12/06/18 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 Start Date End Date Liliana Cobos MD [address] [place] [address] PCP - General Family Medicine 12/06/18 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 Start Date End Date Liliana Cobos MD [address] [place] [address] PCP - General Family Medicine 12/06/18 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 This clinical summary was aggregated from multiple sources. Caution should be exercised in using it in the provision of clinical care. This summary normalizes information from multiple sources, and as a consequence, information in this document may materially change the coding, format and clinical context of patient data. In addition, data may be omitted in some cases. CLINICAL DECISIONS SHOULD BE BASED ON THE PRIMARY CLINICAL RECORDS. [facility]. provides no warranty or guarantee of the accuracy or completeness of information in this document.
== END | disposition home or self-care (01) ==
LOC: MRI 10:22
PROVIDERS: PCP Family Medicine; Referring Provider Podiatrist; Visit Provider Podiatrist
DX: M72.2 Plantar fascial fibromatosis (principal)
CPT/HCPCS: 73721

== ENCOUNTER → 2023-08-13 | Outpatient (CLI) | payer MEDICARE, MEDICAID, SELFPAY ==
[2023-08-13 08:40] LABS: Absolute Lymphocyte Count 1.83 X10^3/uL (0.83-4.51); Absolute Neutrophil Count 10.8 X10^3/uL (2.0-7.7); Basophil# 0.05 X10^3/uL; Basophil% 0.4 % (0-1); Eosinophil# 0.01 X10^3/uL; Eosinophils% 0.1 % (0-5); Hematocrit 44.4 % (37-47); Lymphocyte # 1.83 X10^3/ul (0.83-4.51); Lymphocyte % 13.9 % (19-41); Mean Corp Hgb Conc 31.5 g/dL (32-36); Mean Corpuscular Hgb 25.5 pg (27.0-32.0); Mean Platelet Vol. 9.9 fl (6.2-12.0); Monocyte# 0.45 X10^3/uL; Monocyte% 3.4 % (0-10); NRBC Flagged by Analyzer 0 % (0-5); Neutrophil # 10.79 X10^3/uL (2.7-7.7); Neutrophil % 81.7 % (47-70); Platelet Count 272 K/mm3 (150-450); RBC Distribution Width CV 16.1 % (11.6-14.6); RBC Distribution Width SD 47.5 fl (35.1-43.9); Red Blood Count 5.48 M/mm3 (4.2-5.4); White Blood Count 13.2 K/mm3 (4.4-11.0)
[2023-08-13 09:57] LABS: ALB/GLOB Ratio 0.9 RATIO (0.9-2.4); AST(SGOT) 10 U/L (15-37); Alanine Aminotransfer ALT/SGPT 19 U/L (13-56); Albumin, Serum 3.6 g/dL (3.2-5.0); Alkaline Phosphatase 162 U/L (45-117); Anion Gap 6 (5-15); BUN 23 mg/dL (7-18); BUN/Creat Ratio 27.5 RATIO (10-20); Calcium,Total 9.4 mg/dL (8.5-10.1); Chloride 110 mmol/L (98-107); Creatinine, Serum 0.84 mg/dL (0.55-1.02); EST Glomerular Filtration Rate 76 mL/min (>60); Est Glom Filt Rate - Afr Amer 92 mL/min (>60); Globulin 4.2 g/dL (2.2-4.2); Glucose 116 mg/dL (74-106); Potassium 3.6 mmol/L (3.5-5.1); Protein, Total 7.8 g/dL (6.4-8.2); Rheumatoid Factor < 10.0 IU/mL (<15); Sodium Level 138 mmol/L (136-145)
[2023-08-14 13:08] LABS: ANTINUCLEAR ANTIBODIES DIRECT Negative (Negative)
== END | disposition home or self-care (01) ==
LOC: LAB 07:28
PROVIDERS: PCP Family Medicine; Visit Provider Podiatrist
DX: M79.671 Pain in right foot (principal)
CPT/HCPCS: 36415; 80053; 85025; 86038; 86200; 86431

== ENCOUNTER → 2023-08-25 | Outpatient (CLI) | payer MEDICARE, MEDICAID, SELFPAY ==
--- NOTE | 2023-08-25 07:14 | CT_ITS ---
STUDY: CT LEFT FOOT REASON FOR EXAM: Female, 52 years old. Left foot pain. Evaluate for osteoarthrosis. RADIATION DOSAGE (If Supplied By Facility): CTDIvol = ( 15.35 ) mGy, DLP = ( 430.52 ) mGycm TECHNIQUE: Thin section transaxial imaging of the foot was obtained, with sagittal and coronal reconstructed images. Individualized dose optimization techniques were used for this CT. COMPARISON: Left foot x-rays dated July 15, 2012. FINDINGS: Small superior and inferior calcaneal spurs. Normal visualized tibiotalar, subtalar, talonavicular, calcaneocuboid, tarsal and tarsometatarsal articulations. Normal metatarsi. Mild arthrosis of the MTP and IP joints with minimal hammertoe deformities. The soft tissue structures are normal. CT/Extremity Lower without Contra IMPRESSION: Superior and inferior calcaneal spurs. Mild arthrosis of the MTP and IP joints with minimal hammertoe deformities. No other abnormality identified. Electronically Signed: Tay Diaz MD at 10:32 EDT ,
== END | disposition home or self-care (01) ==
LOC: CT 07:13
PROVIDERS: PCP Family Medicine; Referring Provider Podiatrist; Visit Provider Podiatrist
DX: M19.072 Primary osteoarthritis, left ankle and foot (principal)
CPT/HCPCS: 73700

== ENCOUNTER → 2023-09-11 | Outpatient (CLI) | payer MEDICARE, MEDICAID, SELFPAY ==
--- NOTE | 2023-09-11 08:23 | ART_ITS ---
Reason For Study: PVD Procedure A bilateral lower extremity continuous wave Doppler with analog waveform analysis,segmental pressures,and ankle brachial indexes without exercise. Left Segmental Pressures Left brachial= 132mmHg. Left posterior tibial artery = 169mmHg. Left dorsalis pedis artery = 150mmHg. Left digit = 127 mmHg. The left dorsalis pedis waveforms are triphasic. The left posterior tibial artery waveforms are triphasic. Right Segmental Pressures Right brachial= 130mmHg. Right posterior tibial artery = 164mmHg. Right dorsalis pedis artery = 156mmHg. Right digit = 107 mmHg. The right dorsalis pedis waveforms are triphasic. The right posterior tibial artery waveforms are triphasic. Indices The right ankle brachial index by the dorsalis pedis is 1.18. The right ankle brachial index by the posterior tibial artery is 1.24. The right digital-brachial index is 0.81. The left ankle brachial index by the dorsalis pedis is 1.14. The left ankle brachial index by the posterior tibial artery is 1.28. The left digital-brachial index is 0.96. VL/Lower Ext Art Exam w/o Exercis Interpretation Summary Triphasic Doppler waveforms are noted at ankle level bilterally. Pulse-volume r ecordings appear satisfactory at all levels bilaterally. Resting ankle-brachial indices are norm al bilaterally. Digital-brachial indices are normal bilaterally. There is no evidence of significant arterial occlusive disease in the lower ext remities bilaterally. Ordering Physician: Mahendra Chaves Referring Physician: Dane Flores Performed By: Tracie Khan RVT
== END | disposition home or self-care (01) ==
LOC: CVS 08:23
PROVIDERS: PCP Family Medicine; Referring Provider Podiatrist; Visit Provider Podiatrist
DX: I73.89 Other specified peripheral vascular diseases (principal)
CPT/HCPCS: 93923

== ENCOUNTER → 2024-03-01 | Outpatient (CLI) | payer MEDICARE, MEDICAID, SELFPAY ==
[2024-03-02 04:07] LABS: GGTP 20 IU/L (0-60)
== END | disposition home or self-care (01) ==
PROVIDERS: PCP Family Medicine; Referring Provider Nurse Practitioner Acute Care; Visit Provider Nurse Practitioner Acute Care
DX: K76.0 Fatty (change of) liver, not elsewhere classified (principal); R11.0 Nausea; K59.00 Constipation, unspecified; R74.8 Abnormal levels of other serum enzymes
CPT/HCPCS: 36415; 82977

== ENCOUNTER → 2024-04-04 | Outpatient (CLI) | payer MEDICARE, MEDICAID, SELFPAY ==
--- NOTE | 2024-04-04 07:30 | US_ITS ---
STUDY: ABDOMINAL ULTRASOUND - RIGHT UPPER QUADRANT; ELASTOGRAPHY REASON FOR VISIT: Female, 53 years old. NAFLD. TECHNIQUE: Ultrasound evaluation of the right upper quadrant was performed with real-time and static hammer-scale imaging. Point quantification shear wave elastography was performed ([email or web address]). TECHNICAL QUALITY: Adequate. COMPARISON: Comparison is made with prior study dated October 01, 2021. FINDINGS: Liver: The liver measures 17 cm. There is increased echogenicity consistent with fatty infiltration. The bile ducts are within normal limits. There is hepatic color flow. The direction of portal flow is hepatopetal. There is no demonstrated mass lesion. Median liver stiffness measured 6.2 kPa. Gallbladder: Normal distended gallbladder. The gallbladder wall measures 3 mm. There is a negative sonographic De La Vega''s sign. There is no pericholecystic fluid. There are no gallstones. Common Bile Duct (C.B.D.): The common bile duct measures 3 mm. Pancreas: There is normal echogenicity of the visualized pancreas. There is no demonstrated pancreatic mass or cyst. Right Kidney: Normal size of the right kidney. The right kidney measures 11.3 cm x 5.2 cm x 3.5 cm. Normal renal cortex. The right cortex measures 1.4 cm. There is no demonstrated renal mass or cyst. There is no right hydronephrosis. US/Elastography Parenchyma/Organ IMPRESSION: 1. Liver stiffness measures 6.2 kPa compatible with F2-F3 (Mild to moderate liver fibrosis) Metavir score. Electronically Signed: Gómez Vásquez MD at 15:02 EST ,
== END | disposition home or self-care (01) ==
LOC: US 07:30
PROVIDERS: PCP Family Medicine; Referring Provider Nurse Practitioner Acute Care; Visit Provider Nurse Practitioner Acute Care
DX: K76.0 Fatty (change of) liver, not elsewhere classified (principal); R11.0 Nausea; K59.00 Constipation, unspecified
CPT/HCPCS: 76705; 76981

== ENCOUNTER 2024-05-12 06:52 | Day surgery (SDC) | payer MEDICARE, MEDICAID, SELFPAY ==
[2024-05-12] VITALS (8 sets, daily range): BP systolic 108–121; BP diastolic 55–86; PULSE 85–95; RESP 14–16; TEMP 36.3–36.8; O2SAT 95–99; BMI 33.2
--- NOTE | 2024-05-12 07:45 | PCM.PRE.AN2 ---
ASA Classification* ASA Classification ASA Classification: 2 Assessment & Plan Anesthesia* Anesthesia Assessment Anesthesia Assessment: Discussed sedation and/or anesthesia options, risks, benefits, and alternatives with patient/parents/legal guardian/POA. Questions invited. The patient/parents/legal guardian/POA seems to understand and agrees to proceed with anesthesia plan. Reviewed the physical assessment, medical history, allergy history and patient home medications list prior to surgery/procedure/anesthetic and documented any changes. Performed airway and anesthesia risk assessments. Anesthesia Type Anesthesia Type: MAC History Source History Obtained from:: Patient and Chart Anesthesia Focused Assessment* Temperature: 97.3 F Pulse Rate: 95 Blood Pressure: 113/86 Respiratory Rate: 16 Pulse Ox: 99 Oxygen Delivery Method: Room Air Airway Assessment Mouth opens: >3 cm Mallampati Score: II Teeth Condition: Chipped/Broken (poor dentition) Neck Range of motion (ROM): Full ROM Focused Labs Anesthesia Preop lab: CBC WBC 13.2 K/mm3 (4.4-11.0) H 08/13/23 07:42 08/13/23 RBC 5.48 M/mm3 (4.2-5.4) H 08/13/23 07:42 08/13/23 Hgb 14.0 g/dL (12.0-15.0) 08/13/23 07:42 08/13/23 Hct 44.4 % (37-47) 08/13/23 07:42 08/13/23 Plt Count 272 K/mm3 (150-450) 08/13/23 07:42 08/13/23 CHEMISTRY Potassium 3.6 mmol/L (3.5-5.1) 08/13/23 07:42 08/13/23 Sodium 138 mmol/L (136-145) 08/13/23 07:42 08/13/23 BUN 23 mg/dL (7-18) H 08/13/23 07:42 08/13/23 Creatinine 0.84 mg/dL (0.55-1.02) 08/13/23 07:42 08/13/23 Glucose 116 mg/dL (74-106) H 08/13/23 07:42 08/13/23 POC Glucose 105 mg/dL (70-110) 10/11/15 06:30 07/21/16 TSH 1.52 uIU/mL (0.358-3.74) 09/05/21 08:22 09/05/21 COAG PT 12.5 SECONDS (11.7-14.9) 09/05/21 08:22 09/05/21 Urine Test Negative Negative 03/18/17 05:45 03/18/17 Pre-Assessment Diagnosis/Proposed Procedure Planned Operative Procedure(s): EGD/CSCOPE Anesthesia History Anesthesia History - radiologic technologist: Anesthesia History - radiologic technologist Hx Hospitalization No 05/10/24 10:59 Any Problems With Anesthesia No 05/10/24 10:59 Cholinesterase deficiency No 05/10/24 10:59 You/Your Family Experience No 05/10/24 10:59 fever (hyperthermia) with Relationship Recent Exposure to Contagious No 05/12/24 07:17 Disease Does patient have nerve No 05/10/24 10:59 stimulator Patient instructed to have device shut off --Does patient have Pacemaker No 05/12/24 07:17 or ICD? When Was Last Pacemaker Check QUESTION #4 FULL TEXT: You/Your Family Experience fever (hyperthermia) with Anesthesia Last Oral Intake Last Oral intake: Last Oral Intake NPO since 19:00 05/12/24 07:17 Meds taken in AM with sips of No 05/12/24 07:17 water? Meds patient instructed to take am of surgery PONV PONV - radiologic technologist: PONV - radiologic technologist Female Yes 05/10/24 10:59 HX of Motion Sickness No 05/10/24 10:59 HX of N/V After Surgery No 05/10/24 10:59 Non-Smoker Yes 05/10/24 10:59 Duration of Surgery greater No 05/10/24 10:59 than 60 minutes Number of Risk Factors 2 05/10/24 10:59 PONV Score Moderate Risk 05/10/24 10:59 Height & Weight Height & Weight: Anesthesia: Height & Weight Height 5 ft 3 in 05/12/24 07:17 Weight: 85 kg 05/12/24 07:17 Body Mass Index (BMI) 33.2 05/12/24 07:17 Respiratory Assessment Respiratory Assessment - radiologic technologist: Respiratory Tract Infection Hx - radiologic technologist Hx Respiratory Tract Infection No 05/10/24 10:59 STOP Sleep Apnea STOP Sleep Apnea - radiologic technologist: STOP Sleep Apnea - radiologic technologist Hx Hypertension Yes: CONTROLLED WITH MED 05/10/24 10:59 Hx Sleep Apnea No 05/10/24 10:59 CPAP No 05/10/24 10:59 BIPAP No 05/10/24 10:59 Do you snore loudly (louder No 05/10/24 10:59 than talking or can be heard Do you often feel tired/ No 05/10/24 10:59 fatigued/ sleepy during daytime? Has anyone observed you stop No 05/10/24 10:59 breathing during sleep? STOP Results Negative 05/10/24 10:59 QUESTION #5 FULL TEXT : Do you snore loudly (louder than talking or can be heard through closed doors)? 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 Specify any problems Hx of Preganancy in last 3 No 05/10/24 10:59 Months Nurse Filling Out Transfusion DSCHRIBER 05/10/24 10:59 & Questions: Date: 05/10/24 05/10/24 10:59 Time: 11:00 05/10/24 10:59 Patient unable to answer at this time (ie. confused, unrespo /Reproduction History /Reproductive History - radiologic technologist: /Reproductive Hx- radiologic technologist Hx Now Gestational Age (in weeks): EDC: Hx Hx Para Hx Section SAB No 05/10/24 10:59 PFSH Medical History High cholesterol Arthritis Easy bruising Back pain Migraine headache History of IBS Former smoker Fibromyalgia History of stress test NAFLD (nonalcoholic fatty liver disease) Hypertension Fatty liver Hiatal hernia Chronic insomnia Urethral stenosis Benign neoplasm of colon, unspecified GERD (gastroesophageal reflux disease) Home Medications ?Medication ?Instructions ?Recorded ?Last Taken ?Type sumatriptan succinate 25 mg tablet 100 mg PO .X1 PRN PRN Migraine 06/09/15 06/09/15 History (Imitrex) Symptoms Ibuprofen [Motrin] 800 mg PO TID PRN PRN Pain #20 tabs 06/20/15 Unknown Rx tizanidine 4 mg tablet 4 mg PO BID 09/08/16 Unknown History atorvastatin 10 mg tablet 20 mg PO QHS 01/26/19 Unknown History lisinopril 10 mg tablet 10 mg PO DAILY 07/22/21 11/26/21 History gabapentin 300 mg capsule 600 mg PO BID 11/19/21 11/26/21 History ondansetron HCl 4 mg tablet 4 mg PO Q8H PRN nausea and vomiting 02/29/24 Unknown History pantoprazole 20 mg tablet,delayed 20 mg PO BID #180 tabs 02/29/24 Unknown Rx release Allergy/AdvReac Type Severity Reaction Status Date / Time ketorolac (From Toradol) Allergy Mild rash Verified 05/10/24 10:58 adhesive Allergy Rash Verified 05/10/24 10:58 ketorolac tromethamine (From Allergy Rash Verified 05/10/24 10:58 Toradol) tramadol Allergy Unknown Verified 05/10/24 10:58 prednisone AdvReac Other Verified 05/10/24 10:58 sulfamethoxazole (From AdvReac Vomiting Verified 05/10/24 10:58 Bactrim) trimethoprim (From Bactrim) AdvReac Vomiting Verified 05/10/24 10:58 CAPSULES AdvReac Laryngospas Uncoded 02/29/24 13:33 ms Surgical History (Updated 05/10/24 @ 11:03 by Camelia Mcfarland) Hx of colonoscopy History of esophagogastroduodenoscopy (EGD) History of laparoscopic-assisted vaginal hysterectomy Social History Smoking Status: Former smoker Review of Systems (Anesthesia) ROS Narrative System reviewed and no additional complaints, except as documented.
--- NOTE | 2024-05-12 08:00 | COLBX_PTH ---
PATIENT: PEPE BERUMEN LOC: EN U#:[id number] AGE/SX: 53/F ROOM: RE05/12/[address]: Dr. Anthony Medina DO : 1970 BED: DIS: 05/12/2024 SPEC #: [id number] RECD: 05/12/24 11:57 STATUS: DENIA MEDARDO #: [id number] IVY: 05/12/24 08:[address]: Anthony Medina DEPT: SURGICAL PATHOLOGY RECD BY: Yaya Avalos ENTERED: 05/12/24 11:57 SP TYPE: COLON BX OTHR DR: Dr. Dane Flores MD Tissues: A - Duodenum, NOS B - Gastric mucous membrane C - Ascending colon Procedures: Surgery Specimen Level IV HEADER OPERATION: Colonoscopy, EGD with biopsy PRE-OP DIAGNOSIS: Change in bowel habits, constipation, nausea, metabolic dysfunction-associated stererotatic liver disease, elevated alkaline phosphate level TISSUE SUBMITTED: A- Duodenum biopsy, B- Gastric body biopsy, C- Ascending polyp biopsy MICROSCOPIC DIAGNOSIS A. Duodenum, biopsy: Fragments of duodenal mucosa with focal mild villous blunting, gastric metaplasia, chronic inflammation and Scottie's gland hyperplasia. B. Gastric body, biopsy: Mild gastritis. See microscopic description and comment. C. Ascending colon polyp, biopsy: Fragments of tubular adenoma. Butch 05/13/2024 COMMENT B. The results of immunohistochemistry for Helicobacter pylori will be reported separately ([id number]). MICROSCOPIC DESCRIPTION Slides are reviewed. B. The specimen shows fragments of gastric mucosa with chronic inflammatory cell infiltrates in the lamina propria consisting of lymphocytes and plasma cells, consistent with mild chronic gastritis. GROSS DESCRIPTION A. Received in fixative is one container labeled with the patient's name and designated Duodenum biopsy. The specimen consists of multiple irregular fragments of light mendez soft tissue that in aggregate measure 0.9 x 0.7 x 0.1 cm. The specimen is totally submitted in one cassette. B. Received in fixative is one container labeled with the patient's name and designated Gastric body biopsy. The specimen consists of two irregular fragments of light mendez soft tissue that in aggregate measure 0.9 x 0.9 x 0.1 cm. The specimen is totally submitted in one cassette. C. Received in fixative is one container labeled with the patient's name and designated Ascending polyp biopsy. The specimen consists of two irregular fragments of light mendez soft tissue that in aggregate measure 0.7 x 0.4 x 0.1 cm. The specimen is totally submitted in one cassette. 05/12/2024 TC:1 CPT:78085h6
--- NOTE | 2024-05-12 08:00 | IMM_PTH ---
PATIENT: PEPE BERUMEN LOC: EN U#:[id number] AGE/SX: 53/F ROOM: RE05/12/[address]: Dr. Anthony Medina DO : 1970 BED: DIS: 05/12/2024 SPEC #: [id number] RECD: 05/12/24 13:15 STATUS: DENIA REAngela #: [id number] IVY: 05/12/24 08:[address]: Anthony Medina DEPT: IMMUNOHISTOCHEMISTRY RECD BY: Williams Little ENTERED: 05/12/24 13:15 SP TYPE: IMMUNO OTHR DR: Dr. Dane Flores MD Tissues: B - Gastric mucous membrane Procedures: H Pylori (initial) PHYSICIAN & INSTITUTION [place] [id number] SPECIMEN INFORMATION: Tissue Source: B- Gastric body biopsy Clinical Info: Change in bowel habits, constipation, nausea, MASLD, elevated alkaline phosphate level Specimen Number: [id number] CPT code: 84880 METHODOLOGY: Deparaffinized sections of prefer/formalin-fixed tissue or PAP/DQ stained slides are incubated with monoclonal/polyclonal antibodies/oligonucleotide probes. Localization is made via biotin free immunoperoxidase method. Appropriate controls are performed and reacted as expected. Results on target cell population are indicated in the following table: RESULTS: ANTIBODY / CLONE RESULT Block B H Pylori (polyclonal) negative These tests were developed and their performance characteristics determined by [facility]. They may not have been cleared or approved by the U.S. Food and Drug Administration. The FDA has determined that such clearance or approval is not necessary. The above immunohistochemical/dualISH markers are ordered and reviewed by the Pathologist. INTERPRETATION: B. Gastric body, biopsy: Negative for Helicobacter pylori organisms. 05/13/2024
--- NOTE | 2024-05-12 08:20 | HP.PCM_ITS ---
HPI - General General Date of Admission: 05/12/24 Date of Service: 05/12/24 Chief Complaint: abdominal pain and change in bowel habits. HPI Narrative PEPE BERUMEN, is a 53 F who presents for the endoscopic evaluation of abdominal pain and change in bowel habits. Colonoscopy & EGD 11/26/2021 medium HH, gastric ulcers, Grimes's, negative for H. pylori, random biopsies negative for microscopic colitis. 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 Weight: stable per patient PAIN - stabbing left side - abdominal cramping - belching - regurgitation - she has been off protonix for a long time - zofran at least 1x a day - 06/30 pain today CONSTIPATION - pellets or balls - up to 4 days without a BM - hard stools - was previously having diarrhea - has urge to go but cannot eliminate stool - has urge to have a BM but cannot eliminate - h/o hysterectomy in 2016 - denies any dietary or medication changes - reports she drinks more than adequate water daily and consumes plenty of fiber - dicyclomine helps some CT w/o contrast 01/26/2024 negative for acute findings LABS 01/25/2024 ESR 22, ALP 179, CRP 2.8 - she reports seeing rheumatology and w/u negative for RA and lupus [facility] Medical History High cholesterol Arthritis Easy bruising Back pain Migraine headache History of IBS Former smoker Fibromyalgia History of stress test NAFLD (nonalcoholic fatty liver disease) Hypertension Fatty liver Hiatal hernia Chronic insomnia Urethral stenosis Benign neoplasm of colon, unspecified GERD (gastroesophageal reflux disease) Home Medications ?Medication ?Instructions ?Recorded ?Last Taken ?Type sumatriptan succinate 25 mg tablet 100 mg PO .X1 PRN P RN Migraine 06/09/15 06/09/15 History (Imitrex) Symptoms Ibuprofen [Motrin] 800 mg PO TID PRN PRN Pain # 20 tabs 06/20/15 Unknown Rx tizanidine 4 mg tablet 4 mg PO BID 09/08/16 Unknown History atorvastatin 10 mg tablet 20 mg PO QHS 01/26/19 Unknow n History lisinopril 10 mg tablet 10 mg PO DAILY 07/22/21 09/0 09/11 History gabapentin 300 mg capsule 600 mg PO BID 11/19/2111/26 History ondansetron HCl 4 mg tablet 4 mg PO Q8H PRN nausea and vomiting 02/29/24 Unknown History pantoprazole 20 mg tablet,delayed 20 mg PO BID #180 ta bs 02/29/24 Unknown Rx release Allergy/AdvReac Type Severity Reaction Status Date / Time ketorolac (From Toradol) Allergy Mild rash Verified 05/10/24 10:58 adhesive Allergy Rash Verified 05/10/24 10:58 ketorolac tromethamine (From Allergy Rash Verified 05/10/24 10:58 Toradol) tramadol Allergy Unknown Verified 05/10/24 10:58 prednisone AdvReac Other Verified 05/10/24 10:58 sulfamethoxazole (From AdvReac Vomiting Verified 05/10/24 10:58 Bactrim) trimethoprim (From Bactrim) AdvReac Vomiting Verified 05/10/24 10:58 CAPSULES AdvReac Laryngospas Uncoded 02/29/24 13:33 ms Surgical History Hx of colonoscopy History of esophagogastroduodenoscopy (EGD) History of laparoscopic-assisted vaginal hysterectomy Social History Smoking Status: Former smoker ROS Constitutional Constitutional: Denies fatigue, fever(s), poor appetite, weight gain or weight loss Gastrointestinal Gastrointestinal: Denies belching, bloating, change in bowel habits, change in stool character, chewing difficulty, coffee ground emesis, constipation, cramping, diarrhea, dyspepsia, dysphagia, early satiety, excessive flatus, fecal incontinence, heartburn, hematemesis, hematochezia, hemorrhoids, loose stools, melena, nausea, odynophagia, rectal bleeding, tenesmus, vomiting or weight changes Vital Signs Vital Signs Vital Signs: 05/12/24 07:17 05/12/24 07:17 05/12/24 07:58 Temperature 97.3 F L 97.3 F L Temperature Source Temporal Pulse Rate 95 95 Respiratory Rate 16 16 Respiratory Pattern Normal Blood Pressure 113/86 H 113/86 H Blood Pressure Mean 95 Blood Pressure Source Monitor Blood Pressure Position Sitting Blood Pressure Location Left Arm Pulse Ox 99 99 Oxygen Delivery Method Room Air Room Air Weight Weight: 187 lb 6.287 oz Body Mass Index (BMI) 33.2 Physical Exam Const alert, oriented x3, no apparent distress and healthy appearing General Appearance: cooperative GI normal to inspection, nondistended, normoactive bowel sounds, soft to palpation, non-tender and non-distended Percussion: normal to percussion Rectal Exam: deferred Assessment & Plan Assessment/Plan (1) Change in bowel habits: (2) Abdominal pain: (3) Diarrhea: PLAN: Assessment and Plan Assessment and Plan (1) Change in bowel habits: Status: Acute (2) Constipation: Status: Acute Qualifiers: Constipation type: outlet dysfunction constipation Qualified Code(s): K59.02 - Outlet dysfunction constipation (3) Nausea: Status: Acute (4) Metabolic dysfunction-associated steatotic liver disease (MASLD): Status: Acute (5) Elevated alkaline phosphatase level: Status: Acute Orders: Orders Abdomen Limited Today K59.00 - Constipation, unspecified, K76.0 - Fatty (change of) liver, not elsewhere classified, R11.0 - Nausea, R19.4 - Change in bowel habit GGTP Today K59.00 - Constipation, unspecified, K76.0 - Fatty (change of) liver, not elsewhere classified, R11.0 - Nausea, R19.4 - Change in bowel habit, R74.8 - Abnormal levels of other serum enzymes Elastography Parenchyma/Organ Today K59.00 - Constipation, unspecified, K76.0 - Fatty (change of) liver, not elsewhere classified, R11.0 - Nausea, R19.4 - Change in bowel habit Miscellaneous Lab Procedure Today K59.00 - Constipation, unspecified, K76.0 - F atty (change of) liver, not elsewhere classified, R11.0 - Nausea, R19.4 - Change in bowel habit Referrals Gastroenterology K59.00 - Constipation, unspecified, R11.0 - Nausea, R19.4 - Change in bowel habit Medications: New pantoprazole 20 mg PO BID 180 tabs 1RF dicyclomine 10 mg PO TID PRN 90 caps 1RF abdominal pain peg 3350-electrolytes 236-22.74-6.74 -5.86 gram (Golytely) 240 mL orally take as directed for split dose bowel prep; until fecal effluent is clear 4,000 mL 0RF colonoscopy prep Discontinued dicyclomine Discontinued Reason: Pt no longer taking 20 mg PO BID 180 tabs 0RF pantoprazole Discontinued Reason: Pt no longer taking 20 mg PO BID 60 tabs 1RF Plan 53y/o female presents for consultation of intermittent LLQ stabbing abdominal pain, generalized abdominal cramping, nausea and constipation for the past few months. She reports the pain has become more constant in the past few weeks and worsens with PO intake. She denies any weight loss. She reports one episode of emesis. She reports she quit smoking >1 year ago, but is around second hand smoke daily. Denies any EtOH. She is taking IBU 800mg 1-3x a day. She reports bowels have changed from diarrhea to hard stools. She reports she is now going up to 4 days without a BM. Denies any bleeding. PMH of elevated AST and ALP with previous autoimmune and infectious work-up unremarkable. In terms of change in bowel habits with constipation incomplete evacuation with straining she will schedule ARM and colonoscopy (Malloryly prep). In terms of MASLD she will schedule ABD US, Fibroscan and complete labs. In terms of LUQ pain she will limit use of NSAIDS, resume PPI BID and schedule EGD. Patient Instructions: 1. Limit use of Ibuprofen - this is likely contributing to GI symptoms and elevated transaminases 2. Okay to take Tylenol (DO NOT exceed 2grams daily) 3. Schedule Anorectal Manometry with [facility] by calling [phone] 4. Schedule Elastography (Fibroscan) with [employer] by calling [phone] 5. Complete labs at [facility] 6. Resume pantoprazole 20mg twice a day 7. Resume dicyclomine as needed for abdominal pain and cramping 8. Schedule EGD with Dr. Medina here at [facility] 9. Schedule ABD US here at [facility] - central scheduling will contact you to arrange
--- NOTE | 2024-05-12 08:59 | OP.EGD_ITS ---
Patient Name: Camelia Norwood Procedure Date: 05/12/2024 8:26 AM Date of : 1970 Age: 53 Procedure: Upper GI endoscopy Indications: Epigastric abdominal pain Providers: Anthony Medina DO Referring MD: Dane Flores MD Medicines: Monitored Anesthesia Care Patient Profile: This is a 53 year old female. Refer to note in patient chart for documentation of history and physical. Patient has symptoms of chronic abdominal cramping, chronic abdominal distention and acute epigastric abdominal pain. Complications: No immediate complications. Procedure: Pre-Anesthesia Assessment: - Prior to the procedure, a History and Physical was performed, and patient medications and allergies were reviewed. The patient is competent. The risks and benefits of the procedure and the sedation options and risks were discussed with the patient. All questions were answered and informed consent was obtained. Patient identification and proposed procedure were verified by the physician in the pre-procedure area. Mental Status Examination: alert and oriented. Airway Examination: normal oropharyngeal airway and neck mobility. Respiratory Examination: clear to auscultation. CV Examination: normal. Prophylactic Antibiotics: The patient does not require prophylactic antibiotics. Prior Anticoagulants: The patient has taken no anticoagulant or antiplatelet agents except for NSAID medication. ASA Grade Assessment: II - A patient with mild systemic disease. After reviewing the risks and benefits, the patient was deemed in satisfactory condition to undergo the procedure. The anesthesia plan was to use monitored anesthesia care (MAC). Immediately prior to administration of medications, the patient was re-assessed for adequacy to receive sedatives. The heart rate, respiratory rate, oxygen saturations, blood pressure, adequacy of pulmonary ventilation, and response to care were monitored throughout the procedure. The physical status of the patient was re-assessed after the procedure. After obtaining informed consent, the endoscope was passed under direct vision. Throughout the procedure, the patient's blood pressure, pulse, and oxygen saturations were monitored continuously. The Colonoscope was introduced through the mouth, and advanced to the second part of duodenum. The upper GI endoscopy was accomplished without difficulty. The patient tolerated the procedure well. Scope In: 8:35:24 AM Scope Out: 8:38:03 AM Total Procedure Duration Time 0 hours 2 minutes 39 seconds Findings: The examined esophagus was normal. A small hiatal hernia was present. Diffuse mildly erythematous mucosa without bleeding was found in the gastric body. Biopsies were taken with a cold forceps for histology. Verification of patient identification for the specimen was done. Biopsies were taken with a cold forceps for Helicobacter pylori testing. Verification of patient identification for the specimen was done. Estimated blood loss was minimal. Patchy mild inflammation characterized by erythema was found in the duodenal bulb. Biopsies were taken with a cold forceps for histology. Verification of patient identification for the specimen was done. Estimated blood loss was minimal. Impression: - Normal esophagus. - Small hiatal hernia. - Erythematous mucosa in the gastric body. Biopsied. - Chronic duodenitis. Biopsied. Recommendation: - Discharge patient to home. - Resume previous diet. - Continue present medications. - Await pathology results. Procedure Code(s): --- Professional --- 19319, Esophagogastroduodenoscopy, flexible, transoral; with biopsy, single or multiple CPT copyright 2021 [employer]. All rights reserved. The codes documented in this report are preliminary and upon liquor blender review may be revised to meet current compliance requirements. Anthony Medina DO 05/12/2024 8:59:25 AM This report has been signed electronically. Number of Addenda: 0 Note Initiated On: 05/12/2024 8:26 AM
--- NOTE | 2024-05-12 09:00 | OP.CCLET_ITS ---
05/12/2024 Dane Flores MD Re : Upper GI endoscopy procedure for Camelia Norwood Dear Dr. Flores This procedure was performed on April. My impressions and recommendations are as follows: Impressions : - Normal esophagus. - Small hiatal hernia. - Erythematous mucosa in the gastric body. Biopsied. - Chronic duodenitis. Biopsied. Recommendations : - Discharge patient to home. - Resume previous diet. - Continue present medications. - Await pathology results. My findings are described in the full procedure note, which is enclosed. If I can be of further assistance, please feel free to contact me at . Sincerely, Anthony Medina, 05/12/2024 8:59:25 AM This report has been signed electronically.
--- NOTE | 2024-05-12 09:00 | PCM.POST.ANE ---
Anesthesia: Postop Eval I Current Vital Signs Temperature: 98.2 F Pulse Rate: 94 Blood Pressure: 110/55 Respiratory Rate: 16 Pulse Ox: 96 Oxygen Delivery Method: Room Air Assessment Airway patent: Yes Spontaneous unlabored respirations: Yes Mental status: Awake and Calm nausea: No Vomiting: No Anesthesia Complication: No Fluid Hydration Crystalloid volume administer (ml): 60 Total IV fluid infused: 60 Progress Note Anesthesia document: Postop Eval 1 completed: Yes
--- NOTE | 2024-05-12 09:02 | OP.COLON_ITS ---
Patient Name: Camelia Norwood Procedure Date: 05/12/2024 8:38 AM Date of : 1970 Age: 53 Procedure: Colonoscopy Indications: High risk colon cancer surveillance: Personal history of colonic polyps Providers: Anthony Medina DO Referring MD: Dane Flores MD Medicines: Monitored Anesthesia Care Patient Profile: This is a 53 year old female. Refer to note in patient chart for documentation of history and physical. Patient has symptoms of chronic abdominal cramping, chronic abdominal distention and acute epigastric abdominal pain. Last Colonoscopy: several years ago. Complications: No immediate complications. Procedure: Pre-Anesthesia Assessment: - Prior to the procedure, a History and Physical was performed, and patient medications and allergies were reviewed. The patient is competent. The risks and benefits of the procedure and the sedation options and risks were discussed with the patient. All questions were answered and informed consent was obtained. Patient identification and proposed procedure were verified by the physician in the pre-procedure area. Mental Status Examination: alert and oriented. Airway Examination: normal oropharyngeal airway and neck mobility. Respiratory Examination: clear to auscultation. CV Examination: normal. Prophylactic Antibiotics: The patient does not require prophylactic antibiotics. Prior Anticoagulants: The patient has taken no anticoagulant or antiplatelet agents except for NSAID medication. ASA Grade Assessment: II - A patient with mild systemic disease. After reviewing the risks and benefits, the patient was deemed in satisfactory condition to undergo the procedure. The anesthesia plan was to use monitored anesthesia care (MAC). Immediately prior to administration of medications, the patient was re-assessed for adequacy to receive sedatives. The heart rate, respiratory rate, oxygen saturations, blood pressure, adequacy of pulmonary ventilation, and response to care were monitored throughout the procedure. The physical status of the patient was re-assessed after the procedure. After I obtained informed consent, the scope was passed under direct vision. Throughout the procedure, the patient's blood pressure, pulse, and oxygen saturations were monitored continuously. The Colonoscope was introduced through the anus and advanced to the cecum, identified by appendiceal orifice and ileocecal valve. The colonoscopy was performed without difficulty. The patient tolerated the procedure well. The quality of the bowel preparation was fair. The ileocecal valve, appendiceal orifice, and rectum were photographed. Scope In: 8:40:06 AM Scope Withdrawal Time 0 hours 6 minutes 38 seconds Scope Out: 8:49:51 AM Total Procedure Duration Time 0 hours 9 minutes 45 seconds Findings: The perianal and digital rectal examinations were normal. A few small-mouthed diverticula were found in the recto-sigmoid colon and sigmoid colon. A 6 mm polyp was found in the ascending colon. The polyp was sessile. The polyp was removed with a cold biopsy forceps. Resection and retrieval were complete. Verification of patient identification for the specimen was done. Estimated blood loss was minimal. Stool was found in the transverse colon, at the hepatic flexure, in the ascending colon and in the cecum. Impression: - Preparation of the colon was fair. - Diverticulosis in the recto-sigmoid colon and in the sigmoid colon. - One 6 mm polyp in the ascending colon, removed with a cold biopsy forceps. Resected and retrieved. - Stool in the transverse colon, at the hepatic flexure, in the ascending colon and in the cecum. Recommendation: - Discharge patient to home. - Resume previous diet. - Continue present medications. - Await pathology results. - Repeat colonoscopy in 5 years for surveillance. Procedure Code(s): --- Professional --- 95332, Colonoscopy, flexible; with biopsy, single or multiple CPT copyright 2021 [employer]. All rights reserved. The codes documented in this report are preliminary and upon pbx operator review may be revised to meet current compliance requirements. Anthony Medina DO 05/12/2024 9:02:04 AM This report has been signed electronically. Number of Addenda: 0 Note Initiated On: 05/12/2024 8:38 AM
--- NOTE | 2024-05-12 09:02 | OP.CCLET_ITS ---
05/12/2024 Dane Flores MD Re : Colonoscopy procedure for Camelia Norwood Dear Dr. Flores This procedure was performed on April. My impressions and recommendations are as follows: Impressions : - Preparation of the colon was fair. - Diverticulosis in the recto-sigmoid colon and in the sigmoid colon. - One 6 mm polyp in the ascending colon, removed with a cold biopsy forceps. Resected and retrieved. - Stool in the transverse colon, at the hepatic flexure, in the ascending colon and in the cecum. Recommendations : - Discharge patient to home. - Resume previous diet. - Continue present medications. - Await pathology results. - Repeat colonoscopy in 5 years for surveillance. My findings are described in the full procedure note, which is enclosed. If I can be of further assistance, please feel free to contact me at . Sincerely, Anthony Medina, DO 05/12/2024 9:02:04 AM This report has been signed electronically.
--- NOTE | 2024-05-12 12:28 | PCM.POSTANE2 ---
Anesthesia Postop Eval I Sum Postop Eval Completion status Anesthesia document: Postop Eval 1 completed: Yes Anesthesia Postop Eval I Summary Anesthesia Postop Eval I Summary: Anesthesia Postop Eval I: Assessment Summary Airway patent Yes 05/12/24 09:01 [email or web address] Spontaneous unlabored Yes 05/12/24 09:01 [email or web address] respirations Mental status Awake,Calm 05/12/24 09:01 [email or web address] nausea No 05/12/24 09:01 [email or web address] Vomiting No 05/12/24 09:01 [email or web address] Anesthesia Postop Eval I: Fluid Summary Crystalloid volume administer 60 05/12/24 09:01 [email or web address] (ml) Colloids volume administered ( ml) Blood Product volume administered (ml) Total IV fluid infused 60 05/12/24 09:01 [email or web address] Anesthesia Postop Eval I: Summary Notes Anesthesia Complication No 05/12/24 09:01 [email or web address] Anesthesia Complication Comment: Post-operative progress note Anesthesia: Postop Eval II Evaluation Mental status: Awake and Calm Pain Level: 0 nausea: No Vomiting: No Complications Anesthesia Complication: No
== END 2024-05-12 09:26 | disposition home or self-care (01) ==
LOC: EN 06:52 → AC 06:54
PROVIDERS: PCP Family Medicine; Referring Provider Family Medicine; Visit Provider Internal Medicine Gastroenterology
PROC: 0DJD8ZZ Inspection of Lower Intestinal Tract, Via Natural or Artificial Opening Endoscopic (ICD-10-PCS; CPT 45378; principal; 2024-05-12 07:55)
DX: Z12.11 Encounter for screening for malignant neoplasm of colon (principal); K44.9 Diaphragmatic hernia without obstruction or gangrene; R74.8 Abnormal levels of other serum enzymes; K57.30 Diverticulosis of large intestine without perforation or abscess without bleeding; Z86.0100 Personal history of colon polyps, unspecified; K59.02 Outlet dysfunction constipation; Z87.891 Personal history of nicotine dependence; M79.7 Fibromyalgia; E78.00 Pure hypercholesterolemia, unspecified; I10 Essential (primary) hypertension; K29.80 Duodenitis without bleeding; K21.9 Gastro-esophageal reflux disease without esophagitis; K76.0 Fatty (change of) liver, not elsewhere classified; K31.A19 Gastric intestinal metaplasia without dysplasia, unspecified site; D12.2 Benign neoplasm of ascending colon; K29.70 Gastritis, unspecified, without bleeding; Z79.899 Other long term (current) drug therapy
CPT/HCPCS: 45380; 43239; 88305; 88342; A4216; J2405

== ENCOUNTER 2024-11-10 08:14 | Emergency (ER) | payer MEDICARE, MEDICAID, SELFPAY ==
[2024-11-10 08:14] VITALS: BP 161/76; PULSE 71; RESP 14; TEMP 36.6; O2SAT 98; BMI 33.2
--- NOTE | 2024-11-10 08:19 | EX.ED.UPPERE ---
HPI History of Present Illness HPI Narrative: Patient presents with pain to her right forearm that has been getting worse over the past 10 days. Patient states she had a recent heart catheterization at [facility] 10 days ago. Patient states they went through the right radial artery. The patient noted some increasing pain and swelling to her right forearm since the heart cath. Patient admits to some mild shortness of breath. Patient denies any chest pain. Patient admits to some subjective chills. Patient also admits to mild sore throat. Chief Complaint: Upper Extremity Injury Onset/Context/Timing Onset: Days (10) Context: Gradual Onset Timing: Continuous Quality of Pain: Aching Location: Right forearm Worsened by: Flexion of the wrist Relieved by: Nothing Associated Symptoms Associated Symptoms: Positive for Parasthesia (Intermittent tingling into her fingers); Negative for Weakness or Loss of Funtion PFSH PFS Medical History High cholesterol Arthritis Easy bruising Back pain Migraine headache History of IBS Former smoker Fibromyalgia History of stress test NAFLD (nonalcoholic fatty liver disease) Hypertension Fatty liver Hiatal hernia Chronic insomnia Urethral stenosis Benign neoplasm of colon, unspecified GERD (gastroesophageal reflux disease) Home Medications ?Medication ?Instructions ?Recorded ?Last Taken ?Type sumatriptan succinate 25 mg tablet 100 mg PO .X1 PRN PRN Migraine 06/09/15 06/09/15 History (Imitrex) Symptoms Ibuprofen [Motrin] 800 mg PO TID PRN PRN Pain #20 tabs 06/20/15 Unknown Rx tizanidine 4 mg tablet 4 mg PO BID 09/08/16 Unknown History atorvastatin 10 mg tablet 20 mg PO QHS 01/26/19 Unknown History lisinopril 10 mg tablet 10 mg PO DAILY 07/22/21 11/26/21 History gabapentin 300 mg capsule 600 mg PO BID 11/19/21 11/26/21 History ondansetron HCl 4 mg tablet 4 mg PO Q8H PRN nausea and vomiting 02/29/24 Unknown History pantoprazole 20 mg tablet,delayed 20 mg PO BID #180 tabs 02/29/24 Unknown Rx release Allergy/AdvReac Type Severity Reaction Status Date / Time ketorolac (From Toradol) Allergy Mild rash Verified 11/10/24 08:15 adhesive Allergy Rash Verified 11/10/24 08:15 ketorolac tromethamine (From Allergy Rash Verified 11/10/24 08:15 Toradol) tramadol Allergy Unknown Verified 11/10/24 08:15 prednisone AdvReac Other Verified 11/10/24 08:15 sulfamethoxazole (From AdvReac Vomiting Verified 11/10/24 08:15 Bactrim) trimethoprim (From Bactrim) AdvReac Vomiting Verified 11/10/24 08:15 CAPSULES AdvReac Laryngospas Uncoded 02/29/24 13:33 ms Surgical History Hx of colonoscopy History of esophagogastroduodenoscopy (EGD) History of laparoscopic-assisted vaginal hysterectomy Social History Smoking Status: Former smoker ROS ROS ED Constitutional Constitutional ED: Reports chills and subjective; Denies fever(s) Eyes Eyes: Denies blurry vision or change in vision ENT ENT ED: Reports sore throat; Denies rhinorrhea Cardiovascular Cardiovascular: Denies chest pain or palpitations Respiratory/Chest Respiratory/Chest: Reports dyspnea; Denies cough Gastrointestinal Gastrointestinal: Denies nausea or vomiting Genitourinary Genitourinary ED: Denies dysuria or hematuria Musculoskeletal Musculoskeletal: Denies back pain or neck pain Integumentary Reports rash; Denies abscess Neurologic Neurologic: Denies headache(s) or weakness Allergic/Immunologic Allergic/Immunologic ED: Denies mouth swelling or urticaria EXAM Physical Exam Const Vital Signs: 11/10/24 08:14 Temperature 98 F Temperature Source Temporal Pulse Rate 71 Respiratory Rate 14 Blood Pressure 161/76 H Blood Pressure Mean 104 Pulse Ox 98 Oxygen Delivery Method Room Air Positive well nourished and well developed General Appearance ED: well developed and NAD HEENT Reports moist mucous membranes Neck full ROM and supple Resp normal respiratory effort and clear to auscultation bilaterally Cardio regular rate and regular rhythm GI non-tender and non-distended Palpation: soft Extremity Extremity Narrative: There is tenderness over the volar aspect of the right forearm. There is no deformity noted. There is no edema noted. There is no ecchymosis noted. There is good range of motion. Radial pulses are equal bilaterally. Sensation was intact to light touch in the radial, median, and ulnar areas. Strength is 5/5 in the radial, median, and ulnar areas. Neuro oriented x3, CN's II-XII intact bilaterally, moves all extremities, no focal motor deficits and no sensory deficits noted Sensorium / Orientation: alert Motor Exam: strength 5/5 throughout Psych mental status grossly normal MDM MDM MDM Narrative Medical decision making narrative: Differential diagnosis includes DVT, and postoperative pain. Venous duplex of the right upper extremity will be obtained to assess for DVT. History & Record Review Additional record(s) reviewed:: Prior outpatient record, Prior ED visit and Prior labs Radiography Diagnostic Testing: Venous duplex of the right upper extremity was obtained. There is no evidence of DVT. Treatment and Re-Evaluation Narrative: Patient was advised of her findings. Patient was instructed to ice and elevate her right forearm. Patient was instructed to follow-up with her primary care physician in 5 to 7 days. Patient was also instructed to follow-up with her advertising sales consultant as scheduled. Patient understood and was agreeable with the plan. All questions were answered. Discharge Plan Triage Chief Complaint: Upper Extremity Injury ED Provider: Juan Johnson Dx/Rx/DC Orders Clinical Impression: Strain of right forearm Prescriptions: No Action lisinopril 10 mg tablet 10 mg PO DAILY ondansetron HCl 4 mg tablet 4 mg PO Q8H PRN (Reason: nausea and vomiting) pantoprazole 20 mg tablet,delayed release (DR/EC) 20 mg PO BID Qty: 180 1RF sumatriptan succinate [Imitrex] 25 MG tablet 100 mg PO .X1 PRN PRN (Reason: Migraine Symptoms) Patient Comments: LUGO Ibuprofen [Motrin] 800 MG tablet 800 mg PO TID PRN PRN (Reason: Pain) Qty: 20 0RF tizanidine 4 MG tablet 4 mg PO BID atorvastatin 10 MG tablet 20 mg PO QHS gabapentin 300 MG capsule 600 mg PO BID Primary Care Provider: Emmanuelle Guajardo Referrals: Dane Flores MD [Non-Staff] - 5-7 Days Emmanuelle Guajardo PA [Primary Care Provider] - 5-7 Days Print Language: Malian Disposition Disposition: Home, Self Care
--- NOTE | 2024-11-10 08:42 | VDUE_ITS ---
Reason For Study Reason For Study: RUE Pain Right Proximal Right jugular vein is spontaneous, widely patent, phasic, with no intraluminal echogenicity noted. Right subclavian vein is spontaneous, widely patent, phasic, with no intraluminal echogenicity noted. Right Lower Arm Right radial vein is compressible. Right ulnar vein is compressible. Right Arm Right axillary vein is spontaneous, patent, phasic, competent, compressible and demonstrates augmentation. Right brachial vein is compressible. Right cephalic vein is compressible. Right basilic vein is compressible. Patient Safety Preliminary result reported to ED ALIX Gaitan. Procedure This was a unilateral right upper extremity venous doppler examination. VL/Venous Duplex US, Unilateral Interpretation Summary Deep veins of the right upper extremity are patent and compressible segmentally . There is no evidence of deep vein thrombosis. The superficial veins of the right upper extremity, the basilic and cephalic veins, are patent and compressible. There is no evidence of right upper extremity superficial thrombo phlebitis involving the veins imaged. Ordering Physician: Juan Johnson Referring Physician: Dane Flores Performed By: Evaristo Almendarez RVT ???
[2024-11-10 09:36] VITALS: BP 134/61; PULSE 66; RESP 18; TEMP 36.6; O2SAT 99
== END 2024-11-10 09:37 | disposition home or self-care (01) ==
PROVIDERS: Emergency Provider Emergency Medicine; PCP Physician Assistant; Visit Provider Emergency Medicine
DX: S56.911A Strain of unspecified muscles, fascia and tendons at forearm level, right arm, initial encounter (principal); J02.9 Acute pharyngitis, unspecified; I10 Essential (primary) hypertension; Z87.891 Personal history of nicotine dependence; R06.02 Shortness of breath; E78.00 Pure hypercholesterolemia, unspecified; M79.631 Pain in right forearm; K21.9 Gastro-esophageal reflux disease without esophagitis; R20.2 Paresthesia of skin; X58.XXXA Exposure to other specified factors, initial encounter
CPT/HCPCS: 93971; 99282